=== PATIENT | female | born 1935 | race Hispanic/Latino ===

== ENCOUNTER 2018-06-09 18:59 | Observation (INO) | payer MEDICARE, MEDICAID ==
[2018-06-09 19:29] LABS: #Basophils 0.1 thou/uL (0.0-0.2); #Eosinphils 0.3 thou/uL (0.0-0.7); #Lymphocytes 2.5 thou/uL (1.20-3.40); #Monocytes 0.8 thou/uL (0.11-0.59); #Neutrophils 10.2 thou/uL (1.40-6.50); %Basophils 0.4 % (0.0-1.0); %Eosinophils 2.1 % (0.0-10.0); %Monocytes 5.5 % (0.0-10.0); Mean Corpuscular HGB CONC 33.7 g/dL (32.0-36.0); Mean Corpuscular Hemoglobin 30.1 pg (27.0-31.0); Mean Corpuscular Volume 89.4 fL (78.0-98.0); Mean Platelet Volume 9.6 fL (7.4-10.4); Platelet Count 245 thou/uL (130-400); RBC Distribution Width 12.9 % (11.5-14.5); Red Blood Cell (RBC) Count 3.99 mill/uL (4.20-5.40); White Blood Cell (WBC) Count 13.8 thou/uL (4.8-10.8)
--- NOTE | 2018-06-09 19:39 | RAD ---
FPortable chest: HISTORY: Chest pain COMPARISON: none FINDINGS: Lung martinez are clear. Heart and mediastinum appear unremarkable. Vascularity is normal. Visualized osseous structures unremarkable. IMPRESSION: No acute finding
[2018-06-09 19:50] LABS: ALT (SGPT) 10 U/L (8-55); AST (SGOT) 19 U/L (5-34); Albumin 3.8 g/dL (3.4-4.8); Alkaline Phosphatase 186 U/L (40-150); Anion Gap 14 mmol/L (10-20); BUN (Urea Nitrogen) 37 mg/dL (9.8-20.1); Bilirubin, Total 0.3 mg/dL (0.2-1.2); Calc. Creatinine Clearance 0 mL/min (70-130); Calcium 9.2 mg/dL (7.8-10.44); Carbon Dioxide 24 mmol/L (23-31); Chloride 105 mmol/L (98-107); Estimated GFR-MDRD 36; Globulin 3.6 g/dL (2.4-3.5); Glucose 443 mg/dL (83-110); Lipase 33 U/L (8-78); Magnesium 1.9 mg/dL (1.6-2.6); Potassium 4.3 mmol/L (3.5-5.1); Protein, Total 7.4 g/dL (6.0-8.3); Sodium 139 mmol/L (136-145)
[2018-06-09 20:13] LABS: Bilirubin Negative (Negative); Blood, Urine Trace (Negative); Clarity CLEAR (Clear); Glucose, Urine (Dipstick) >=1000 mg/dL (Negative); Leukocyte Trace (Negative); Nitrite Negative (Negative); Protein, Urine (Dipstick) 100 mg/dL (Neg-Trace); Specific Gravity, Urine 1.016 (1.002-1.036); Urobilinogen 0.2 mg/dL (0.2-1.0); pH, Urine 6.5 (5.0-9.0)
[2018-06-09 20:16] LABS: Bacteria/HPF None Seen HPF (None Seen); Hyaline Casts/LPF 4-6 HYALINE CAST LPF (0-3 Hyaline); Pathc Cast-AUWi Flag 1.63 (0-2.49); Squamous Epithelial 0-3 HPF (0-3)
[2018-06-09] MEDS ORDERED: Aspirin Chewable 81 MG TAB ONE (20:35)
[2018-06-09] MEDS ORDERED: Morphine 4 MG/ML VIAL ONE (20:37)
--- NOTE | 2018-06-09 21:31 | ULT ---
GALLBLADDER ULTRASOUND: 06/09/18 HISTORY: Right upper quadrant pain. Images of the gallbladder reveal numerous echogenic gallstones. Gallbladder wall is mildly thickened and there is mild pericholecystic edema. Negative Sutton's sign is described. The visualized pancreas is unremarkable. Common bile duct within normal range measured at 5 mm. The right kidney is unremarkable. IMPRESSION: Cholelithiasis is noted. Gallbladder wall is mildly thickened with pericholecystic edema noted. POS: DANIEL
[2018-06-09] MEDS ORDERED: Sodium Chloride 0.9% 100 ML ONE (22:04)
[2018-06-09] MEDS ORDERED: Piperacillin/Tazobactam 3.375 GM VIAL ONE (22:04)
[2018-06-09] MEDS ORDERED: Labetalol HCl 100 MG/20 ML VIAL SLOW IVP SCH (22:15)
[2018-06-09 23:03] LABS: Troponin I Less than 0.010 ng/mL (< 0.028)
[2018-06-10] MEDS ORDERED: Ondansetron PF 4 MG/2 ML Vial IVP PRN (00:17)
[2018-06-10] MEDS ORDERED: Ondansetron ODT 4 MG TAB SL PRN (00:17)
[2018-06-10] MEDS ORDERED: Morphine 4 MG/ML VIAL SLOW IVP PRN (00:18)
[2018-06-10] MEDS: Dextrose 5 %-0.45 % NaCl 1,000 ML IV SCH ×2 (00:29→08:32)
[2018-06-10 01:31] VITALS: BMI 25.4
[2018-06-10 01:33] LABS: Troponin I Less than 0.010 ng/mL (< 0.028)
[2018-06-10] MEDS ORDERED: ePHEDrine 50 MG/ML VIAL ONE (09:06)
[2018-06-10] MEDS ORDERED: PROPOFOL 200 MG/20 ML VIAL ONE (09:06)
[2018-06-10] MEDS ORDERED: Rocuronium Bromide 10 MG/ML (10ML VIAL) ONE (09:06)
[2018-06-10] MEDS ORDERED: Glycopyrrolate 0.2 MG/ML 5 ML SYRINGE ONE (09:06)
[2018-06-10] MEDS ORDERED: Lidocaine 1% PF 5 ML VIAL ONE (09:06)
[2018-06-10] MEDS ORDERED: Dextrose 5% in Water 1,000 ML IV PRN (11:28)
[2018-06-10] MEDS ORDERED: Insulin Regular 300 UNITS/3 ML VIAL SC PRN (11:28)
[2018-06-10] MEDS ORDERED: Dextrose 50% Abboject 50 ML SYRINGE SLOW IVP PRN (11:28)
[2018-06-10] MEDS ORDERED: Acetaminophen 1,000 MG in Premix Bag 1 BAG IVPB SCH (12:15)
[2018-06-10] MEDS ORDERED: Scopolamine 1.5 mg/72 hour Patch TD SCH (12:15)
[2018-06-10] MEDS ORDERED: Ketorolac Tromethamine 30 MG/ML VIAL IVP SCH (12:15)
--- NOTE | 2018-06-10 12:25 | HP ---
HISTORY OF PRESENT ILLNESS: Lorelei Fox is an 82-year-old female, presents with right upper quadrant pain and epigastric pain. Ultrasound revealed gallstones in the emergency room. Bile duct caliber is normal. Her liver function tests were normal. BUN 37 and creatinine 1.41. Her liver function tests were normal. The patient is scheduled for laparoscopic video cholecystectomy. Risks of infection, bleeding, visceral and biliary injury were discussed. She consents. ALLERGIES: NONE. SOCIAL HISTORY: Tobacco, none. Alcohol, none. MEDICATIONS: Trazodone at bedtime, tramadol p.r.n. for pain, omeprazole daily, lisinopril/hydrochlorothiazide 10/12.5 daily, insulin, atorvastatin, amlodipine, and alprazolam. PAST SURGICAL HISTORY: Appendectomy, hysterectomy, and . PAST MEDICAL HISTORY: Diabetes mellitus and hypertension. REVIEW OF SYSTEMS: Ten-point noncontributory. PHYSICAL EXAMINATION: VITAL SIGNS: Height 5 feet tall, 130 pounds, 25 BMI. Temperature 98.2, heart rate 72, and blood pressure 155/72. HEAD, EARS, EYES, NOSE AND THROAT: Unremarkable. LUNGS: Clear to auscultation. CARDIAC: Regular rate and rhythm without murmur or gallop. ABDOMEN: Soft. Tenderness in the right upper quadrant with guarding and rebound. Positive Sutton's. EXTREMITIES: Unremarkable. No ankle edema. NEUROLOGIC: Intact. LYMPHATIC: No lymphadenopathy at neck, groins, or axillae. ASSESSMENT/PLAN: 1. Cholecystitis. Recommend laparoscopic video cholecystectomy. Risks and benefits explained, she consents. 2. Hypertension. 3. Insulin-dependent diabetes mellitus. 4. Chronic kidney disease versus acute kidney injury. Continue hydration. Job ID: [id number]
[2018-06-10] MEDS ORDERED: Fentanyl 100 MCG/2 ML VIAL ONE (12:27)
[2018-06-10] MEDS ORDERED: Bupivacaine HCl 0.5%/Epinephrine 1:200,000/PF 30 ml Vial ONE (12:27)
[2018-06-10] MEDS ORDERED: Lisinopril 10 MG TAB PO SCH (12:45)
[2018-06-10] MEDS ORDERED: Levofloxacin 500 mg/D5W 100 ml Premix Bag ONE (12:56)
[2018-06-10] MEDS ORDERED: traMADol HCl 50 MG TAB PO PRN (13:04)
[2018-06-10] MEDS ORDERED: Acetaminophen 500 MG TAB PO PRN (13:04)
[2018-06-10] MEDS ORDERED: Ibuprofen 600 MG TAB PO PRN (13:04)
[2018-06-10] MEDS ORDERED: ALPRAZolam 0.25 MG TAB PO SCH (13:15)
[2018-06-10] MEDS ORDERED: SUGAMMADEX SODIUM 200 MG/2 ML VIAL ONE (14:11)
[2018-06-10] MEDS ORDERED: Labetalol HCl 100 MG/20 ML VIAL ONE (14:26)
[2018-06-10] MEDS ORDERED: Ondansetron PF 4 MG/2 ML Vial SLOW IVP PRN (15:32)
--- NOTE | 2018-06-10 18:23 | OP ---
DATE OF PROCEDURE: 06/10/2018 PREOPERATIVE DIAGNOSES: 1. Acute cholecystitis. 2. Cholelithiasis. POSTOPERATIVE DIAGNOSES: 1. Acute cholecystitis. 2. Cholelithiasis. PROCEDURE PERFORMED: Laparoscopic video cholecystectomy. ANESTHESIA: General, local 0.5% Marcaine with epinephrine, 30 mL total volume used. DESCRIPTION OF PROCEDURE: The patient was taken to the operating room, where under general anesthesia, abdomen was clipped of hair, prepared with ChloraPrep, and draped in routine fashion local anesthetic was infiltrated in the skin and subcutaneous tissue at each port site. Periumbilical incision made. Pneumoperitoneum to 15 mmHg obtained with the Veress needle, replaced with a 5 port. Laparoscope was inserted. Right subxiphoid incision was made and 11 port placed, right subcostal incision was made in the midclavicular entrance line and 5 port was placed. Gallbladder was acutely inflamed, thickened wall. Fundus was grasped at the cephalad. Liver appeared to be normal. Infundibulum was grasped and retracted laterally. The inflammatory process dissected free, identifying cystic artery, double clipping the cystic artery, dividing it, dissecting the cystic duct, dividing it with clip and two endo-loops applied. Gallbladder dissected free from liver bed, obtaining good hemostasis prior to division of the final peritoneal attachments. Gallbladder and contents removed, submitted to Pathology. Good hemostasis ensured with the cautery. Irrigant and pneumoperitoneum evacuated. All instruments were removed. All skin incisions were approximated with interrupted subdermal 4-0 Monocryl and dermal glue applied. Job ID: [id number]
[2018-06-10 18:52] VITALS: BP 160/67; TEMP 97.6
--- NOTE | 2018-06-11 08:14 | DIS ---
DATE OF ADMISSION: 06/09/2018 DATE OF DISCHARGE: 06/10/2018 HISTORY: An 82-year-old female presenting with epigastric right upper quadrant pain, seen in the emergency room, evaluated and liver function tests normal. Ultrasound; gallstones, normal bile duct caliber. Hospitalized overnight, on antibiotics. Taken to the operating room for laparoscopic video cholecystectomy. Discharged home. Postoperatively, tolerating liquids, advancing diet as tolerated to diabetic diet. DISCHARGE MEDICATIONS: Tylenol as needed for pain, Motrin [id number] as needed for pain, Ultram #20 50 mg p.o. q.i.d. p.r.n. pain. The patient to resume her home medications, including trazodone, insulin, atorvastatin, lisinopril, and metformin. Job ID: [id number]
[2018-06-11] MEDS ORDERED: Lisinopril 10 MG TAB PO SCH (09:00)
[2018-06-11] MEDS ORDERED: Lisinopril/Hydrochlorothiazide 10 mg/12.5 mg Tablet PO SCH (09:00)
[2018-06-11] MEDS ORDERED: Amlodipine 10 MG TAB PO SCH (09:00)
== END 2018-06-10 19:00 | disposition home or self-care (01) ==
LOC: ERS 18:59 → SURG A 21:36
PROVIDERS: ADMIT Specialist; ATTEND Specialist
PROC: 0FT44ZZ Resection of Gallbladder, Percutaneous Endoscopic Approach (ICD-10-PCS; principal; 2018-06-10)
DX: K80.12 Calculus of gallbladder with acute and chronic cholecystitis without obstruction (principal); I10 Essential (primary) hypertension; E11.9 Type 2 diabetes mellitus without complications; Z79.4 Long term (current) use of insulin; Z79.899 Other long term (current) drug therapy
CPT/HCPCS: 47562; 71045; 76705; 80053; 82962; 83690; 83735; 84484 ×3; 85025; 85379; 88304; 93005; 96361 ×2; 96365; 96375 ×2; 99285; G0378 ×2; 36415; 36416; 81003; 81015; J0670; J1815; J1885; J1956; J2001; J2270; J2543; J2704; J3010; J3490; J7050

== ENCOUNTER 2018-09-11 23:32 | Inpatient (IN) | payer MEDICARE, MEDICAID ==
--- NOTE | 2018-09-11 23:58 | RAD ---
EXAM: Single view of the chest HISTORY: Chest pain and shortness of breath COMPARISON: 06/09/2018 FINDINGS: Single view of the chest shows a normal sized cardiomediastinal silhouette. There is no lexie dence of consolidation, mass, or pleural effusion. Degenerative changes are seen in the spine. IMPRESSION: No evidence of acute cardiopulmonary disease
[2018-09-12] MEDS ORDERED: Acetaminophen 650 MG Suppository ONE (00:04)
[2018-09-12] MEDS ORDERED: Piperacillin/Tazobactam 4.5 GM VIAL ONE ×2 (00:04→10:51)
[2018-09-12 00:23] LABS: #Lymphocytes 1.1 thou/uL (1.20-3.40); #Monocytes 0.1 thou/uL (0.11-0.59); #Neutrophils 12.2 thou/uL (1.40-6.50); %Basophils 0.2 % (0.0-1.0); %Eosinophils 0.3 % (0.0-10.0); %Lymphocytes 8.4 % (21.0-51.0); %Monocytes 0.7 % (0.0-10.0); %Neutrophils 90.5 % (42.0-75.0); Hemoglobin 11.1 g/dL (12.0-16.0); Mean Corpuscular HGB CONC 32.6 g/dL (32.0-36.0); Mean Corpuscular Hemoglobin 28.5 pg (27.0-31.0); Mean Corpuscular Volume 87.4 fL (78.0-98.0); Mean Platelet Volume 8.3 fL (7.4-10.4); Platelet Count 338 thou/uL (130-400); RBC Distribution Width 12.5 % (11.5-14.5); Red Blood Cell (RBC) Count 3.89 mill/uL (4.20-5.40); White Blood Cell (WBC) Count 13.5 thou/uL (4.8-10.8)
[2018-09-12 00:47] LABS: ALT (SGPT) 8 U/L (8-55); AST (SGOT) 24 U/L (5-34); Albumin 3.4 g/dL (3.4-4.8); Alkaline Phosphatase 181 U/L (40-150); Anion Gap 16 mmol/L (10-20); BUN (Urea Nitrogen) 32 mg/dL (9.8-20.1); Bilirubin, Total 0.7 mg/dL (0.2-1.2); Calc. Creatinine Clearance 0 mL/min (70-130); Calcium 8.8 mg/dL (7.8-10.44); Carbon Dioxide 23 mmol/L (23-31); Chloride 100 mmol/L (98-107); Estimated GFR-MDRD 27; Globulin 4.5 g/dL (2.4-3.5); Glucose 272 mg/dL (83-110); Lipase 19 U/L (8-78); Protein, Total 7.9 g/dL (6.0-8.3); Sodium 135 mmol/L (136-145)
[2018-09-12 03:23] LABS: Bacteria/HPF 3+ HPF (None Seen); Bilirubin Negative (Negative); Blood, Urine 2+ (Negative); Clarity Turbid (Clear); Glucose, Urine (Dipstick) Greater than 1000 mg/dL (Negative); Leukocyte 500 Leu/uL (Negative); Nitrite Negative (Negative); Protein, Urine (Dipstick) 300 mg/dL (Neg-Trace); Urobilinogen Normal mg/dL (Less than 2); WBC/HPF Greater than 50 HPF (0-3)
[2018-09-12 04:16] LABS: Lactic Acid 3.6 mmol/L (0.5-2.2)
[2018-09-12] MEDS ORDERED: Loratadine 10 MG TAB PO PRN (07:57)
[2018-09-12] MEDS ORDERED: HYDROcodone/Acetaminophen 5/325 mg Tablet PO PRN (07:57)
[2018-09-12] MEDS ORDERED: hydrALAZINE 20 MG/ML VIAL SLOW IVP PRN (07:57)
[2018-09-12] MEDS ORDERED: Zolpidem Tartrate 5 MG TAB PO PRN (07:57)
[2018-09-12] MEDS ORDERED: Senokot S 8.6-50 MG TAB PO PRN (07:57)
[2018-09-12] MEDS ORDERED: Ondansetron PF 4 MG/2 ML Vial IVP PRN (07:57)
[2018-09-12] MEDS ORDERED: Artificial Tears 18 DROP/0.9 ML EA EYE PRN (07:57)
[2018-09-12] MEDS ORDERED: Calcium Carbonate 500 MG ChewTAB PO PRN (07:57)
[2018-09-12] MEDS ORDERED: Dextrose 50% Abboject 50 ML SYRINGE SLOW IVP PRN (07:57)
[2018-09-12] MEDS ORDERED: HumaLOG 300 UNITS/3 ML VIAL SC PRN (07:57)
[2018-09-12] MEDS ORDERED: Sodium Chloride 0.65% Nasal 44 ML BOT EA NARE PRN (07:57)
[2018-09-12] MEDS ORDERED: Ondansetron ODT 4 MG TAB PO PRN (07:57)
[2018-09-12] MEDS ORDERED: Dextrose 5% in Water 1,000 ML IV PRN (07:57)
[2018-09-12] MEDS ORDERED: Diabetic Tussin 200 MG/10 ML UDCUP PO PRN (07:57)
[2018-09-12] MEDS ORDERED: Cepastat Lozenges 1 LOZ PO PRN (07:57)
--- NOTE | 2018-09-12 08:11 | CT ---
PRELIMINARY REPORT/[facility]/EMERGENCY AFTER HOURS PROCEDURE: EXAM: CT Abdomen and Pelvis Without Contrast EXAM DATE/TIME: 09/12/2018 12:58 AM CLINICAL HISTORY: 82 years old, female; Abdominal pain; Generalized; Prior surgery; Patient HX: Er7; No previous on pac s; F82 presents to ED C/O chest pain, nausea, vomiting, and fever. 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 PT report s mild abd pain. Surgical history of hysterectomy TECHNIQUE: Imaging protocol: Axial computed tomography images of the abdomen and pelvis without contrast. COMPARISON: No relevant prior studies available. FINDINGS: Liver: Right hepatic lobe cluster of relatively low attenuation focal lesions/multilocular mass measu ring an area about up to 7.5 cm. Few small air pockets within an inferior lesion. Mild perihepatic lo culated fluid in this region containing tiny air pockets as well. Small nodule inferior to the liver (axial image 41). Gallbladder and bile ducts: Prior cholecystectomy. Mildly dilated common bile duct with a focal hyper density/sludge ball in the distal aspect of the CBD. No intrahepatic biliary dilation. Pancreas: Atrophic fatty pancreas. No ductal dilation. Spleen: No acute findings. No splenomegaly. Adrenals: No acute findings. No mass. Kidneys and ureters: No obstructing stone. No hydronephrosis. Stomach and bowel: Colonic wall thickening/colitis. Rectal fecal impaction. No evidence of bowel obst ruction. Diverticulosis. Appendix: No evidence of appendicitis. Intraperitoneal space: See above. Vasculature: Atherosclerotic calcifications. No aortic aneurysm. Lymph nodes: No significant adenopathy. Bladder: No stones. Reproductive: No acute findings. Bones/joints: No acute fracture. Soft tissues: Scattered mild anterior abdominal subcutaneous densities. IMPRESSION: Right hepatic focal lesions/multilocular mass described above could relate to abscess; malignancy/met astatic disease not excluded. Mild perihepatic loculated fluid containing tiny air pockets. Colitis. Other findings above. THIS REPORT CONTAINS FINDINGS THAT MAY BE CRITICAL TO PATIENT CARE. The findings were verbally commun icated via telephone conference with MELIZA CASTILLO at 2:23 AM CDT on 09/12/2018. The findings were a cknowledged and understood. Thank you for allowing us to participate in the care of your patient. Dictated and Authenticated by: Carlos Aguilar MD 09/12/2018 2:42 AM Central Time ([place] & [place]) FINAL REPORT ABDOMEN CT WITHOUT CONTRAST PELVIC CT WITHOUT CONTRAST: HISTORY: Abdominal pain. Nausea. Vomiting. COMPARISON: None. FINDINGS: ABDOMEN CT: Hypoattenuation with small pockets of fluid and air are noted in the right hepatic lobe as well as in the adjacent perihepatic space. Spleen, pancreas, and adrenal glands are grossly unremarkable. Gal lbladder is surgically absent. Bilaterally, no obstructive uropathy. No evidence of bowel obstructi on. Normal-caliber appendix. There is mucosal thickening involving the right hemicolon, sigmoid col on. Fecal impaction in the rectum. CT PELVIS: No acute abnormality. IMPRESSION: 1. Right hepatic lobe mass with air attenuation, worrisome for abscess until proven otherwise. [place] stases/malignancy cannot be excluded. There is a small perihepatic loculated fluid collection with t iny pockets of air also noted. 2. Bowel wall thickening involving the right hemicolon, worrisome for colitis. Additional bowel wal l thickening may involve the sigmoid colon. A small amount of fecal impaction in the rectum. I agree with the preliminary report given by Susana. POS: CLARA
[2018-09-12] MEDS ORDERED: Famotidine 20 MG TAB ONE (08:40)
[2018-09-12] MEDS ORDERED: Enoxaparin Sodium 40 MG/0.4 ML SYRINGE ONE (08:40)
[2018-09-12] MEDS: Sodium Chloride 0.9% 1,000 ML IV SCH ×2 (08:59→17:22)
[2018-09-12] MEDS: Famotidine 20 MG TAB PO SCH (09:00)
[2018-09-12] MEDS ORDERED: Enoxaparin Sodium 40 MG/0.4 ML SYRINGE SC SCH (09:00)
[2018-09-12] MEDS: Saccharomyces boulardii 250 MG CAP PO SCH (09:30)
[2018-09-12 09:57] LABS: Troponin I 0.028 ng/mL (< 0.028)
[2018-09-12] MEDS ORDERED: HumaLOG 300 UNITS/3 ML VIAL ONE (10:44)
[2018-09-12] MEDS: HumaLOG 300 UNITS/3 ML VIAL SC PRN (10:49)
[2018-09-12] MEDS ORDERED: Sodium Chloride 0.9% 100 ML ONE (11:02)
[2018-09-12] MEDS ORDERED: Piperacillin/Tazobactam 4.5 GM in Sodium Chloride 0.9% 100 ML IVPB SCH (12:00)
--- NOTE | 2018-09-12 13:07 | HP ---
PRIMARY CARE PHYSICIAN: Candy Hernandez. REASON FOR ADMISSION: Sepsis, UTI, colitis, liver mass versus abscess. HISTORY OF PRESENT ILLNESS: An 82-year-old female, who was brought to emergency room for chest pain. The patient complained left-sided chest pain which was intermittent without any relation of food, respiration, or activity. She had two episodes of vomiting at home which was containing food particle without any biliary vomiting or blood. She was having nausea and she had very poor appetite for last 2 days. She is not sure about losing weight. She does not have any diarrhea or constipation or abdominal pain. She was having fever with chills at home. She also has increased frequency of urination. She denies any hematuria. She denies any headache, sore throat, cough productive of sputum, upper or lower respiratory symptoms. This patient is a little bit poor historian, but her granddaughter is present who provided some history. Her is also present at bedside. REVIEW OF SYSTEMS: CONSTITUTIONAL: Negative for weight loss or gain, ability to conduct usual activities. SKIN: Negative for rash, itching. EYES: Negative for double vision, pain. ENT/MOUTH: Negative for nose bleeding, neck stiffness, pain, tenderness. CARDIOVASCULAR: Negative for palpitations, dyspnea on exertion, orthopnea. RESPIRATORY: Negative for shortness of breath, wheezing, cough, hemoptysis, fever or night sweats. GASTROINTESTINAL: Negative for poor appetite, abdominal pain, heartburn, nausea, vomiting, constipation, or diarrhea. GENITOURINARY: Negative for urgency, frequency, dysuria, nocturia. MUSCULOSKELETAL: Negative for pain, swelling. NEUROLOGIC/PSYCHIATRIC: Negative for anxiety, depression. ALLERGY/IMMUNOLOGIC: Negative for skin rash, bleeding tendency. Please see my HPI for pertinent positives and negatives. All other review of systems reviewed and negative except as mentioned in HPI. PAST MEDICAL HISTORY: Diabetes type 2, on insulin; hypertension; and dyslipidemia. PAST SURGICAL HISTORY: Hysterectomy. PAST PSYCHIATRIC HISTORY: Reviewed and negative. SOCIAL HISTORY: The patient is , lives at home with family. No history of tobacco, alcohol, or illicit drug abuse. FAMILY HISTORY: No family history of coronary artery disease, stroke, or cancer. ALLERGIES: NO KNOWN DRUG ALLERGIES. CURRENT HOME MEDICATIONS: The patient's family member did not bring any medication in the emergency room, so unable to review at this point and they do not know the name of medication. We will review later when they bring the medication from home. EMERGENCY ROOM COURSE: The patient has received Tylenol and Zosyn. Additional information in the emergency room, the patient had routine blood test, which showed leukocytosis with left shift. She also had lactic acidosis and chronic kidney disease. Her urinalysis was also suggestive of UTI. CT abdomen and pelvis showed right hepatic focal lesion, multilocular mass versus abscess and finding suggestive of colitis. PHYSICAL EXAMINATION: VITAL SIGNS: In the emergency room on admission, temperature maximum 102, pulse 113, respiratory rate 28, blood pressure 123/51. Weight 64 kg. GENERAL: The patient is currently alert, awake, febrile, tachycardic, chronically ill, no obvious acute distress. HEENT: Head; normocephalic, atraumatic. Eyes; pupils round, reactive to light. Extraocular muscle intact. ENT; oropharynx within normal limits. Moist mucous membranes. No oral lesion. No pharyngeal erythema. No exudate. NECK: Supple. No JVD. No thyromegaly. No carotid bruit. No jugular venous distention. LUNGS: Clear to auscultation without any rhonchi or rales. CARDIAC: S1, S2 regular. Tachycardia. No murmur. No gallop. No rub. ABDOMEN: Soft. Bowel sounds present. Nontender. Nondistended. No organomegaly. No mass. I could not elicit any tenderness on deep palpation including right upper quadrant and no peritoneal sign. No suprapubic discomfort. BACK: No CVA tenderness. EXTREMITIES: Upper extremities, passive movement of all joints are normal. Lower extremities, no edema. Good distal pulsation. SKIN: No skin rash. HEMATOLOGIC: No lymphadenopathy. PSYCHIATRIC: Normal affect. SIGNIFICANT LABORATORY DATA: EKG showing sinus tachycardia, incomplete right bundle-branch block pattern, nonspecific ST-T changes. CT abdomen and pelvis showing right hepatic lobe cluster of relatively low attenuation, focal lesion, multilocular mass measuring about 7.5 cm, few small air pocket within the inferior lesion. The patient has previous cholecystectomy which patient did not provide in history. She also has a colonic wall thickening and consistent with colitis and rectal fecal impaction. Chest x-ray based on my review, no acute cardiopulmonary process. CBC; WBC 13.5, hemoglobin 11.1, platelet 338 with left shift. BMP; sodium 135, potassium 4.0, chloride 100, carbon dioxide 23, BUN 33, creatinine 1.82, glucose 272, calcium 8.8, lactic acid 2.3. LFT; AST 24, ALT 8, alkaline phosphatase 181, albumin 3.4, lipase 19. BNP 141. Troponin negative x2. Urinalysis consistent with glucosuria, proteinuria, and bacteriuria. ASSESSMENT AND PLAN: 1. Acute colitis, presumed infectious. This patient has colitis with liver abscess. Anaerobic infection is likely. We will also check stool for common infectious etiology including Clostridium difficile, ova, parasite, and Campylobacter antigen. We will consult [employer] for further assistance with management. The patient is currently kept on Zosyn and Flagyl. We will continue with IV fluid and we will continue with clear liquid diet. She never had colonoscopy in the past, so she may need colonoscopic evaluation to rule out underlying malignancy. 2. Urinary tract infection. The patient kept on Zosyn. We will follow up on urine culture results. This patient does not have any urinary tract infection symptoms, but her urinalysis is consistent with abnormal urinalysis and we will follow up on culture result and treat accordingly. 3. Sepsis. The patient meets sepsis criteria with lactic acidosis, tachycardia, high-grade fever, leukocytosis. Source of infection is colitis as well as urinary tract infection and liver abscess. The patient kept on Zosyn and Flagyl IV fluid and we will follow up on culture result and change antibiotic therapy accordingly. 4. Lactic acidosis due to sepsis. We will repeat lactic acid level tomorrow. 5. Liver abscess/mass. I am suspecting that the patient may have pyogenic liver abscess. At this point, [employer] aircraft was consulted. This patient may need liver lesion aspiration through radiological guidance. We will defer that decision to Gastroenterology at this point. 6. Diabetes type 2. We will continue with insulin as per sliding scale protocol. Diabetic diet will be given. 7. Acute/chronic kidney disease. This patient has creatinine baseline in 1.4 range. We will continue with IV fluid because of sepsis and will repeat BMP tomorrow. 8. Hypertension, but currently low blood pressure and that is why we will hold on antihypertensive medication. 9. Gastroesophageal reflux disease. We will continue with Pepcid 20 mg p.o. daily. 10. Dyslipidemia. We will continue the patient's home statin therapy after verification. 11. Code status. Discussed with the patient and the patient's and the patient wants to be a DNR. 12. Chest pain. The patient does not have any new EKG changes. We will continue with monitoring on telemetry floor and do serial cardiac enzymes and monitor today on telemetry floor. DISPOSITION PLAN: Based on clinical course. Plan of care discussed with the patient and family member. We are expecting the patient's stay in hospital more than 2 midnights. Job ID: [id number]
[2018-09-12 13:16] LABS: Troponin I 0.039 ng/mL (< 0.028)
[2018-09-12] MEDS ORDERED: Acetaminophen 325 MG TAB ONE (14:04)
[2018-09-12 15:12] LABS: Troponin I 0.022 ng/mL (< 0.028)
[2018-09-12 15:19] VITALS: BMI 21.7
[2018-09-12] MEDS: metroNIDAZOLE 500 MG in Premix Bag 1 BAG IVPB SCH ×2 (16:07→21:26)
[2018-09-12] MEDS: Piperacillin/Tazobactam 2.25 GM in Sodium Chloride 0.9% 100 ML IVPB SCH (17:22)
[2018-09-12] MEDS: Acetaminophen 325 MG TAB PO PRN (21:27)
[2018-09-13] MEDS ORDERED: Acetaminophen 650 MG in Premix Bag 1 BAG IVPB SCH (00:15)
[2018-09-13] MEDS: Piperacillin/Tazobactam 2.25 GM in Sodium Chloride 0.9% 100 ML IVPB SCH ×4 (00:34→17:57)
[2018-09-13] MEDS: Sodium Chloride 0.9% 1,000 ML IV SCH ×3 (02:24→17:31)
--- NOTE | 2018-09-13 03:41 | CON ---
DATE OF CONSULTATION: 09/12/2018 REASON FOR CONSULTATION: Abnormal GI imaging, colitis. CONSULTING PROVIDER: Juan Jose Fleming MD HISTORY OF PRESENT ILLNESS: The patient is an 82-year-old female with past medical history of diabetes, hypertension, hyperlipidemia, presenting with complaints of chest pain. She states that she was in her usual state of health until approximately 3 weeks ago when she began to experience increased right-sided chest pain. This chest pain characterizes more of a burning-type sensation that would also extend into the substernal chest region as well. With the onset of this chest pain, it did also have associated nausea and vomiting with nonbloody emesis, having approximately one episode of emesis every 1 to 2 days in addition to subjective fevers and chills, although the patient cannot recall having taken her temperature at home. However, over the last 48 hours prior to admission, she had worsening of her nausea and vomiting as well as her chest pain, which prompted her to seek healthcare assistance in the [place] [facility]. While in the ER, she had a CT scan performed of the abdomen and pelvis, which showed significant abnormalities including colitis of the possible sigmoid and right-sided colon as well as a large multiloculated mass/lesion within the liver concerning for abscess formation versus malignancy. She was subsequently admitted to the hospital for further evaluation. Upon further questioning, the patient has never had a colonoscopy before and also denies a family history of colorectal cancer. She has approximately one semi-solid bowel movement every 1-2 days, but does have to resort to increased straining in order to facilitate passage of the stool in addition to increased abdominal pressure. She states that she has a chronic history of constipation relating to this particular bowel habit/pattern. Otherwise, she denies any hematemesis, melena, hematochezia or diarrhea, although she does endorse again increased fevers and chills while being here in the hospital. REVIEW OF SYSTEMS: A 10-category review of systems was obtained with all responses negative except for the pertinent positives as listed in HPI, albeit there was a little bit of a language barrier, so some questions were unclear. PAST MEDICAL HISTORY: As per HPI. PAST SURGICAL HISTORY: Hysterectomy. FAMILY HISTORY: Denies any GI malignancies. SOCIAL HISTORY: Denies any tobacco, alcohol, or illicit drug use. OUTPATIENT MEDICATIONS: Unknown. ALLERGIES: NO KNOWN DRUG ALLERGIES. PHYSICAL EXAMINATION: VITAL SIGNS: Temperature 103.2, pulse 104, blood pressure 141/65, respiratory rate 20, saturating 93% on room air. GENERAL: The patient was lying in bed, in no acute distress. Alert and oriented x4. HEENT: Normocephalic, atraumatic. No scleral icterus or JVD noted. CARDIOVASCULAR: Tachycardic rate but regular rhythm with no discernible murmurs, gallops, or rubs. RESPIRATORY: Clear to auscultation bilaterally with no discernible wheezes or rales. ABDOMEN: Hypoactive bowel sounds. Soft, nondistended, mild tenderness to palpation in the right upper quadrant, but otherwise normal. EXTREMITIES: No cyanosis, clubbing, or edema. LABORATORY DATA: CBC with a white blood cell count of 13.5, hemoglobin 11.1, hematocrit 34, platelets 338. Chemistry with a sodium of 135, potassium 4.0, chloride 100, CO2 of 23, BUN 32, creatinine 1.82, AST 24, ALT 8, alkaline phosphatase 181, total bilirubin 0.7. IMAGING DATA: CT of the abdomen and pelvis was obtained on September 11, 2018, which showed a right hepatic lobe cluster of relatively low-attenuation focal lesions/multilocular mass measuring up to 7.5 cm. There were few small air pockets within the inferior lesion, as well as mild perihepatic loculated fluid in the region also containing tiny air pockets as well concerning for the presence of abscess formation. They did comment on mild dilation of the common bile duct with focal hyperdensity/sludge ball of the distal aspect of the CBD, although no intrahepatic dilatation was noted. Lastly, there was some colonic wall thickening/colitis noted within the right colon as well as possibly within the sigmoid colon, but no evidence of bowel obstruction. ASSESSMENT AND PLAN: The patient is an 82-year-old female with past medical history of diabetes, hypertension, hyperlipidemia, presenting with abnormal imaging with liver finding concerning for abscess/metastatic disease and colon findings concerning for either inflammation versus malignancy. Abnormal GI imaging. The patient is presenting with a 3-week history of general malaise, nausea, vomiting, fevers and chills in addition to right-sided chest pain that ultimately brought her to seek healthcare assistance at [facility] [place]. On admission, she was noted to have a CT scan which showed multiple pathologic findings including a multiloculated mass within the liver as well as mucosal thickening of the right hemicolon and sigmoid colon, both concerning for inflammation/infectious type process and/or possible malignancy. Given the air levels within the pockets within the liver, multiloculated mass is highly concerning for the presence of abscess formation, although it could be necrotic metastatic disease as well (less likely). Further evaluation of this liver lesion is warranted to include either an MRI and/or IR guided fine-needle aspiration of this fluid further guide therapy and antibiotic administration. She does also have the concurrent thickening of right colon and sigmoid colon, which is concerning for possible infectious process, although the patient is exhibiting constipation coming into the hospital, having approximately one bowel movement every 1 to 2 days requiring increased straining in order to facilitate defecation, making an infectious process less likely. More likely could potentially be stercoral colitis associated with increased constipation and fecal impaction in the past, which then may cause significant inflammation and a point of entry for bacteria to hematogenously spread to the liver, creating multifocal abscess there as well. RECOMMENDATIONS: 1. Would obtain a multiphasic MRI for further evaluation of the liver lesion to rule out possible malignancy that could generate the CT findings given that HCC can produce fever. It cannot be excluded at this time. 2. Agree with placing the patient on broad spectrum antibiotic therapy for covering of a possible liver abscess. 3. Would consult Interventional Radiology for possible fine-needle aspiration of the liver lesion based on the MRI findings. 4. Given the elevated fever and possible liver abscess which could result in sepsis, we will hold off on any endoscopy intervention at this time, but would consider in the near future for further evaluation of possible metastatic process. 5. Would start the patient on MiraLAX 17 g daily to assist with constipation during this admission. With the appearance of a possible liver abscess, this patient's clinical status is tenuous and I would have a low threshold to transfer her to the unit if she is having a worsening clinical status. We will continue to follow. Please call with any questions. Job ID: [id number]
[2018-09-13] MEDS: metroNIDAZOLE 500 MG in Premix Bag 1 BAG IVPB SCH ×3 (06:13→22:03)
[2018-09-13 06:24] LABS: Lactic Acid 1.4 mmol/L (0.5-2.2)
[2018-09-13 06:32] LABS: Band 30 % (5-11); Hemoglobin 9.3 g/dL (12.0-16.0); Lymphocytes 6 % (21-51); MDiff Complete? YES; Mean Corpuscular HGB CONC 32.7 g/dL (32.0-36.0); Mean Corpuscular Hemoglobin 28.9 pg (27.0-31.0); Mean Corpuscular Volume 88.2 fL (78.0-98.0); Mean Platelet Volume 8.7 fL (7.4-10.4); Monocytes 6 % (0-10); Neutrophil 58 % (42-75); Platelet Count 236 thou/uL (130-400); Platelet Morphology Comment Appears Adequate; RBC Distribution Width 12.4 % (11.5-14.5); Red Blood Cell (RBC) Count 3.21 mill/uL (4.20-5.40); White Blood Cell (WBC) Count 19.5 thou/uL (4.8-10.8)
[2018-09-13 06:38] LABS: ALT (SGPT) 15 U/L (8-55); AST (SGOT) 48 U/L (5-34); Albumin 2.3 g/dL (3.4-4.8); Alkaline Phosphatase 125 U/L (40-150); Anion Gap 15 mmol/L (10-20); BUN (Urea Nitrogen) 35 mg/dL (9.8-20.1); Bilirubin, Total 0.7 mg/dL (0.2-1.2); Calc. Creatinine Clearance 16 mL/min (70-130); Carbon Dioxide 18 mmol/L (23-31); Chloride 108 mmol/L (98-107); Estimated GFR-MDRD 19; Globulin 3.5 g/dL (2.4-3.5); Glucose 287 mg/dL (83-110); Potassium 3.7 mmol/L (3.5-5.1); Protein, Total 5.8 g/dL (6.0-8.3); Sodium 137 mmol/L (136-145)
[2018-09-13] MEDS: Famotidine 20 MG TAB PO SCH (09:55)
[2018-09-13] MEDS: Polyethylene Glycol 3350 17 GM Packet PO SCH (09:55)
[2018-09-13] MEDS: Saccharomyces boulardii 250 MG CAP PO SCH (09:55)
[2018-09-13] MEDS: Enoxaparin Sodium 30 MG/0.3 ML SYRINGE SC SCH (09:55)
--- NOTE | 2018-09-13 10:46 | PDOC.PN ---
- Subjective Encounter Start Date: 09/13/18 Encounter Start Time: 07:40 -: old records requested/rev pt had fever last night, she has LLQ mild tenderness, no diarrhoea, - Objective Resuscitation Status - Order Detail: 09/12/18 10:37 Resuscitation Status Routine Resuscitation Status: DNAR: NO Resuscitation Discussed with: discussed with pt and MAR Reviewed: Yes Vital Signs & Weight: Vital Signs (12 hours) Temp Pulse Resp BP Pulse Ox 09/13/18 07:40 97.4 F L 85 18 107/57 L 99 09/13/18 04:00 98.1 F 75 18 103/53 L 96 09/13/18 00:00 103.2 F H 104 H 20 141/65 H 93 L Weight Weight 122 lb 12.8 oz I&O: 09/12/18 09/13/18 09/14/18 06:59 06:59 06:59 Intake Total 2665 Balance 2665 Result Diagrams: 09/13/18 05:54 09/13/18 05:54 Additional Labs: Accuchecks 09/13/18 09/12/18 09/12/18 05:31 20:43 17:00 POC Glucose 300 H 237 H 173 H 09/12/18 10:41 POC Glucose 211 H EKG Reviewed by me: Yes Phys Exam - Physical Examination Constitutional: NAD HEENT: PERRLA, moist MMs, sclera anicteric Neck: no JVD, supple Respiratory: no wheezing, no rales, no rhonchi Cardiovascular: RRR, no significant murmur, no rub Gastrointestinal: soft, no distention, positive bowel sounds LLQ mild discomfort Musculoskeletal: no edema, pulses present Neurological: non-focal, normal sensation, moves all 4 limbs Lymphatic: no nodes Psychiatric: normal affect, A&O x 3 Skin: no rash, normal turgor Dx/Plan (1) Acute colitis Code(s): K52.9 - NONINFECTIVE GASTROENTERITIS AND COLITIS, UNSPECIFIED Status : Acute (2) Acute worsening of stage 3 chronic kidney disease Code(s): N18.3 - CHRONIC KIDNEY DISEASE, STAGE 3 (MODERATE) Status: Acute (3) Lactic acidosis Code(s): E87.2 - ACIDOSIS Status: Acute (4) Liver abscess Code(s): K75.0 - ABSCESS OF LIVER Status: Acute (5) Sepsis with acute organ dysfunction Code(s): A41.9 - SEPSIS, UNSPECIFIED ORGANISM; R65.20 - SEVERE SEPSIS WITHOUT SEPTIC SHOCK Status: Acute (6) UTI (urinary tract infection) Status: Acute (7) Anemia, normocytic normochromic Code(s): D64.9 - ANEMIA, UNSPECIFIED Status: Chronic (8) Diabetes type 2, controlled Code(s): E11.9 - TYPE 2 DIABETES MELLITUS WITHOUT COMPLICATIONS Status: Chronic (9) Dyslipidemia Code(s): E78.5 - HYPERLIPIDEMIA, UNSPECIFIED Status: Chronic (10) GERD (gastroesophageal reflux disease) Code(s): K21.9 - GASTRO-ESOPHAGEAL REFLUX DISEASE WITHOUT ESOPHAGITIS Status: Chronic (11) Hypertension Code(s): I10 - ESSENTIAL (PRIMARY) HYPERTENSION Status: Chronic - Plan cont current plan of care, plan discussed w/ family, continue antibiotics * continue zosyn and flagyl * add vancomycin * follow culture result * GI recommendation noted * continue IVF * medication reviewed as below * symptomatic treatment * discussed with family. * today MRI abdomen and based on that result will decide about aspiration Review of Systems - Review of Systems Constitutional: fever, weakness, malaise. negative: chills, sweats, other ENT: negative: Ear Pain, Ear Discharge, Nose Pain, Nose Discharge, Nose Congestion, Mouth Pain, Mouth Swelling, Throat Pain, Throat Swelling, Other Respiratory: negative: Cough, Dry, Shortness of Breath, Hemoptysis, SOB with Excertion, Pleuritic Pain, Sputum, Wheezing Cardiovascular: negative: chest pain, palpitations, orthopnea, paroxysmal nocturnal dyspnea, edema, light headedness, other Gastrointestinal: Abdominal Pain. negative: Nausea, Vomiting, Diarrhea, Constipation, Melena, Hematochezia, Other Genitourinary: negative: Dysuria, Frequency, Incontinence, Hematuria, Retention , Other Musculoskeletal: negative: Neck Pain, Shoulder Pain, Arm Pain, Back Pain, Hand Pain, Leg Pain, Foot Pain, Other Skin: negative: Rash, Lesions, Deric, Bruising, Other - Medications/Allergies Allergies/Adverse Reactions: Allergies Allergy/AdvReac Type Severity Reaction Status Date / Time No Known Drug Allergies Allergy Verified 09/12/18 15:29 Medications: Current Medications Acetaminophen (Tylenol) 650 mg PO Q4H PRN PRN Reason: Headache/Fever/Mild Pain (1-3) Last Admin: 09/12/18 21:27 Dose: 650 mg Hydrocodone Bitart/Acetaminophen ([place] 5/325) 1 tab PO Q4H PRN PRN Reason: Moderate Pain (4-6) Artificial Tears (Tears Naturale) 2 drop EA EYE PRN PRN PRN Reason: Dry Eyes Calcium Carbonate (Tums) 1,000 mg PO Q4H PRN PRN Reason: Heartburn or Indigestion Dextrose/Water (Dextrose 50%) 25 gm SLOW IVP PRN PRN PRN Reason: Hypoglycemia Enoxaparin Sodium (Lovenox) 30 mg SC 0900 [facility] Last Admin: 09/13/18 09:55 Dose: 30 mg Famotidine (Pepcid) 20 mg PO DAILY [facility] Last Admin: 09/13/18 09:55 Dose: 20 mg Glucagon (Glucagon) 1 mg IM PRN PRN PRN Reason: Hypoglycemia Guaifenesin (Robitussin Sf) 200 mg PO Q4H PRN PRN Reason: Cough Hydralazine HCl (Apresoline) 10 mg SLOW IVP Q4H PRN PRN Reason: SBP > 180 and HR < 70 Sodium Chloride (Normal Saline 0.9%) 1,000 mls @ 125 mls/hr IV .Q8H [facility] Last Admin: 09/13/18 06:14 Dose: 1,000 mls Dextrose/Water (D5w) 1,000 mls @ 0 mls/hr IV .Q0M PRN PRN Reason: Hypoglycemia Metronidazole 500 mg/ Device 100 mls @ 100 mls/hr IVPB Q8HR [facility] Last Admin: 09/13/18 06:13 Dose: 100 mls Piperacillin Sod/Tazobactam (Sod 2.25 gm/ Sodium Chloride) 100 mls @ 200 mls/ hr IVPB Q6HR [facility] Last Admin: 09/13/18 06:14 Dose: 100 mls Insulin Human Lispro (Humalog) 0 units SC .MODERATE SLIDING SC PRN PRN Reason: Moderate Correctional Scale Last Admin: 09/12/18 10:49 Dose: 4 unit Insulin Human Lispro (Humalog) 0 units SC .BEDTIME SLIDING SC PRN PRN Reason: Bedtime Correctional Scale Loratadine (Claritin) 10 mg PO DAILYPRN PRN PRN Reason: Sinus Symptoms Ondansetron HCl (Zofran Odt) 4 mg PO Q6H PRN PRN Reason: Nausea/Vomiting Ondansetron HCl (Zofran) 4 mg IVP Q6H PRN PRN Reason: Nausea/Vomiting Pneumococcal 13-Valent Conj Vacc (Prevnar) 0.5 ml IM .ONCE ONE Stop: 09/13/18 16:01 Polyethylene Glycol (Miralax) 17 gm PO DAILY [facility] Last Admin: 09/13/18 09:55 Dose: Not Given Saccharomyces Boulardii (Florastor) 250 mg PO DAILY [facility] Last Admin: 09/13/18 09:55 Dose: 250 mg Senna/Docusate Sodium (Senokot S) 2 tab PO BID PRN PRN Reason: Constipation Sodium Chloride ([place] Nasal [place] 0.65%) 0 ml EA NARE QIDPRN PRN PRN Reason: Nasal Congestion Throat Lozenges (Cepastat Lozenges) 1 hafsa PO Q2H PRN PRN Reason: Sore Throat Zolpidem Tartrate (Ambien) 5 mg PO HSPRN PRN PRN Reason: Insomnia
[2018-09-13] MEDS: Vancomycin HCl 500 MG in Sodium Chloride 0.9% 100 ML IVPB SCH (12:00)
[2018-09-13] MEDS ORDERED: Prevnar 13-Val Conj/PF 0.5 ML SYRINGE IM ONE (16:00)
--- NOTE | 2018-09-13 22:29 | PRG ---
DATE OF SERVICE: 09/13/2018 SUBJECTIVE: Ms. Moseley is a pleasant 82-year-old female. She is here with her . She states she feels a little bit better today, but she is hungry and thirsty. She is not able to eat, waiting for an MRI. OBJECTIVE: VITAL SIGNS: Temperature is 97.4, T-max was 103 last night at midnight, pulse 106, blood pressure 120/58. GENERAL: She is nonicteric. LUNGS: Clear. HEART: Regular rate and rhythm without clicks or murmurs. ABDOMEN: Soft. I do not palpate an enlarged liver. LYMPH NODES: There is no evidence of inguinal or umbilical nodes. There is no evidence of supraclavicular adenopathy. LABORATORY DATA: White count was 13 yesterday, 19.5 today, hemoglobin is 9.3, she had 30% bands. 32. Sodium 137, potassium 3.7, BUN and creatinine 35 and 2.46, up from 32 and 1.82 yesterday. Sugars 267. Lactic acid 1.4. AST 48, ALT 15. Lipase was 19 on admission. Blood cultures were drawn. Evidently, there is nothing pending in microbiology. Imaging with noncontrast had shown possible mass versus abscess in her liver. ASSESSMENT: 1. Fever to 103 on admission with chills, sick for about 48 to 72 hours before admission, leukocytosis. She had imaging showing possible cancer versus abscess in the liver. MRI is ordered for today, but her creatinine is too high for an MRI. I have reviewed the films with Radiology. We are going to get an ultrasound-guided biopsy versus aspiration tomorrow. 2. She is being treated empirically with antibiotics. Unfortunately, she has had no cultures drawn on admission despite having fever and chills and leukocytosis on presentation, and a diagnosis of sepsis, it may be that the cultures have been ordered and are still pending, we will await. 3. Concerning that her creatinine has gone up, she is receiving IV fluids. She has defervesced. Hopefully we will see some improvement in renal function next day or two. Her antibiotics to be dosed for renal dysfunction. 4. Abnormal liver mass versus infection. We will order CEA and alpha-fetoprotein, liver biopsies/aspirations have been ordered for tomorrow. 5. With regard to infectious disease question, we will defer to Internal Medicine for treatment. If there are no cultures, it is going be difficult to know or treating. Job ID: [id number]
[2018-09-14] MEDS: Sodium Chloride 0.9% 1,000 ML IV SCH ×3 (00:53→21:27)
[2018-09-14] MEDS: Piperacillin/Tazobactam 2.25 GM in Sodium Chloride 0.9% 100 ML IVPB SCH ×5 (00:54→23:41)
[2018-09-14 05:28] LABS: INR-International Normal Ratio 1.4; Prothrombin Time 17.3 SEC (12.0-14.7)
[2018-09-14 05:47] LABS: ALT (SGPT) 15 U/L (8-55); AST (SGOT) 29 U/L (5-34); Albumin 2.4 g/dL (3.4-4.8); Alkaline Phosphatase 114 U/L (40-150); Anion Gap 16 mmol/L (10-20); BUN (Urea Nitrogen) 43 mg/dL (9.8-20.1); Bilirubin, Total 0.4 mg/dL (0.2-1.2); Calc. Creatinine Clearance 15 mL/min (70-130); Calcium 7.5 mg/dL (7.8-10.44); Carbon Dioxide 18 mmol/L (23-31); Chloride 110 mmol/L (98-107); Estimated GFR-MDRD 18; Globulin 3.4 g/dL (2.4-3.5); Glucose 365 mg/dL (83-110); Potassium 4.3 mmol/L (3.5-5.1); Protein, Total 5.8 g/dL (6.0-8.3); Sodium 140 mmol/L (136-145)
[2018-09-14] MEDS: metroNIDAZOLE 500 MG in Premix Bag 1 BAG IVPB SCH ×3 (05:49→21:19)
[2018-09-14 05:59] LABS: Band 22 % (5-11); Hemoglobin 9.4 g/dL (12.0-16.0); Lymphocytes 8 % (21-51); MDiff Complete? YES; Mean Corpuscular HGB CONC 32.4 g/dL (32.0-36.0); Mean Corpuscular Hemoglobin 28.8 pg (27.0-31.0); Mean Corpuscular Volume 88.9 fL (78.0-98.0); Mean Platelet Volume 9.2 fL (7.4-10.4); Monocytes 3 % (0-10); Neutrophil 67 % (42-75); Platelet Count 240 thou/uL (130-400); RBC Distribution Width 12.7 % (11.5-14.5); Red Blood Cell (RBC) Count 3.25 mill/uL (4.20-5.40); White Blood Cell (WBC) Count 20.2 thou/uL (4.8-10.8)
[2018-09-14] MEDS: Insulin Glargine 20 UNITS in Pre-Filled Syringe 1 EACH SC SCH ×2 (08:15→21:34)
[2018-09-14] MEDS: Famotidine 20 MG TAB PO SCH (08:16)
[2018-09-14] MEDS: Saccharomyces boulardii 250 MG CAP PO SCH (08:16)
[2018-09-14] MEDS: Polyethylene Glycol 3350 17 GM Packet PO SCH (08:16)
[2018-09-14] MEDS: HumaLOG 300 UNITS/3 ML VIAL SC PRN ×3 (08:17→17:58)
[2018-09-14] MEDS ORDERED: Non-Formulary Item 1 EACH (Insulin Detemir [Levemir Flextouch] 20 UNITS) SQ SCH (09:00)
[2018-09-14] MEDS ORDERED: ATORVASTATIN CALCIUM PO SCH (09:00)
[2018-09-14] MEDS ORDERED: Sodium Bicarbonate 2.5 MEQ/5 ML VIAL ONE (09:46)
[2018-09-14] MEDS ORDERED: Fentanyl 100 MCG/2 ML VIAL ONE (09:46)
[2018-09-14] MEDS ORDERED: Lidocaine 1% PF 5 ML VIAL ONE (09:46)
[2018-09-14] MEDS ORDERED: Midazolam HCl 2 mg/2 ml Vial ONE (09:46)
[2018-09-14] MEDS: Pharmacy to Dose 1 EACH VANCOMYCIN IVPB SCH (11:07)
--- NOTE | 2018-09-14 11:12 | PQF ---
RHIANNA MALLOY SALIM NOORJIBHAI MD [id number] [facility]297 [id number] CLINICAL DOCUMENTATION IMPROVEMENT CLARIFICATION FORM: ICD-10 Updated PLEASE DO AN ADDENDUM TO THE PROGRESS NOTE WITH ANY DOCUMENTATION UPDATES OR ADDITIONS AND CARRY THROUGH TO DC SUMMARY. THANK YOU. DATE: 09/14 ATTN: DR. IRENE NAVARRO Please exercise your independent, professional judgment in responding to the clarification form. Clinical indicators are provided on the bottom of this form for your review. Please check appropriate box(s): [ ] Acute Renal Failure (ARF) / Acute Kidney Injury (HILDA) [ ] Acute Tubular Necrosis (ATN) [ x ] Acute on Chronic Renal Failure w/CKD Stage 3 [ ] CKD Stage 3 without ARF/HILDA [ ] Other diagnosis [ ] Unable to determine In addition, please specify: Present on Admission (POA): [ x ] Yes [ ] No [ ] Unable to determine National Kidney Foundation Guidelines for CKD Staging Stage I Kidney damage with normal or increased GFR GFR > 90 Stage II Kidney damage with mildly decreased GFR GFR 60-89 Stage III Kidney damage with moderately decreased GFR GFR 30-59 Stage IV Kidney damage with severely decreased GFR GFR 16-29 Stage V Kidney failure GFR<15 ESRD End Stage Renal Disease On dialysis Acute Renal Failure/Acute Kidney Failure defined as: Increases in SCr by (>) 0.3 mg/dl within 48 hours OR- Increases in SCr by (>) 1.5 times baseline, known or presumed to have occurred within the prior 7 days OR- Urine volume < 0.5 ml/kg/hour for 6 hours (KDIGO supplement 2012 for RIFLE/PEG criteria) For continuity of documentation, please document condition throughout progress notes and discharge summary. Thank You. CLINICAL INDICATORS - SIGNS / SYMPTOMS / LABS BUN: 32 - 43 CR: 1.82 - 2.59 GFR: 27-18 (/, 4, 5) H&P: ASSESSMENT: 7) ACUTE / CHRONIC KIDNEY DISEASE. THIS PT HAS CREATININE BASELINE IN 1.4 RANGE. WE WILL CONTINUE W/ IVF BECAUSE OF SEPSIS PN 7/ (RAMON): DX/PLAN: 2) ACUTE WORSENING OF STAGE 3 CKD RISKS: SEPSIS (H&P) ACUTE COLITIS (H&P) UTI (H&P) TREATMENT: IV ANTIBIOTICS (ZOSYN, VANCOMYCIN & FLAGYL 09/12-PRESENT) IVF (NS 09/12-PRESENT) THANK YOU! Natty (This form is maintained as a part of the permanent medical record) 2014 [employer], [employer]. All Rights Reserved Natty Mackey RN, BSN [email or web address] Office: [phone] [facility]
--- NOTE | 2018-09-14 11:23 | PDOC.PN ---
- Subjective Encounter Start Date: 09/14/18 Encounter Start Time: 08:00 Patient seen and examined.. No overnight events pt has generalised body pain, no fever, has diarrhoea - Objective Resuscitation Status - Order Detail: 09/12/18 10:37 Resuscitation Status Routine Resuscitation Status: DNAR: NO Resuscitation Discussed with: discussed with pt and MAR Reviewed: Yes Vital Signs & Weight: Vital Signs (12 hours) Temp Pulse Pulse Pulse Resp BP BP 09/14/18 08:57 53 L 115 H 128/63 122/87 09/14/18 08:14 99.6 F 93 19 09/14/18 04:00 98.3 F 94 20 BP Pulse Ox 09/14/18 08:57 09/14/18 08:14 126/60 98 09/14/18 04:00 125/59 L 95 Weight Weight 122 lb 12.8 oz I&O: 09/13/18 09/14/18 09/15/18 06:59 06:59 06:59 Intake Total 2665 1650 Output Total 400 Balance 2665 1250 Result Diagrams: 09/14/18 05:11 09/14/18 05:11 Additional Labs: Accuchecks 09/14/18 09/13/18 09/13/18 05:34 20:45 17:06 POC Glucose 332 H 312 H 318 H EKG Reviewed by me: Yes Phys Exam - Physical Examination Constitutional: NAD HEENT: PERRLA, moist MMs, sclera anicteric Neck: no JVD, supple Respiratory: no wheezing, no rales, no rhonchi Cardiovascular: RRR, no significant murmur, no rub Gastrointestinal: soft, no distention, positive bowel sounds Musculoskeletal: no edema, pulses present Neurological: non-focal, normal sensation Psychiatric: normal affect, A&O x 3 Skin: no rash, normal turgor Dx/Plan (1) Acute colitis Code(s): K52.9 - NONINFECTIVE GASTROENTERITIS AND COLITIS, UNSPECIFIED Status : Acute (2) Acute worsening of stage 3 chronic kidney disease Code(s): N18.3 - CHRONIC KIDNEY DISEASE, STAGE 3 (MODERATE) Status: Acute (3) Lactic acidosis Code(s): E87.2 - ACIDOSIS Status: Acute (4) Liver abscess Code(s): K75.0 - ABSCESS OF LIVER Status: Acute (5) Sepsis with acute organ dysfunction Code(s): A41.9 - SEPSIS, UNSPECIFIED ORGANISM; R65.20 - SEVERE SEPSIS WITHOUT SEPTIC SHOCK Status: Acute (6) UTI (urinary tract infection) Status: Acute (7) Anemia, normocytic normochromic Code(s): D64.9 - ANEMIA, UNSPECIFIED Status: Chronic (8) Diabetes type 2, controlled Code(s): E11.9 - TYPE 2 DIABETES MELLITUS WITHOUT COMPLICATIONS Status: Chronic (9) Dyslipidemia Code(s): E78.5 - HYPERLIPIDEMIA, UNSPECIFIED Status: Chronic (10) GERD (gastroesophageal reflux disease) Code(s): K21.9 - GASTRO-ESOPHAGEAL REFLUX DISEASE WITHOUT ESOPHAGITIS Status: Chronic (11) Hypertension Code(s): I10 - ESSENTIAL (PRIMARY) HYPERTENSION Status: Chronic - Plan cont current plan of care, plan discussed w/ family, continue antibiotics * MRI was not possible due to renal failure * today US guidance aspiration * send blood and urine culture, not sent from ER * medication reviewed as below * symptomatic treatment * discussed with family * transfer to medical. * reduce IVF * start her home insulin Review of Systems - Review of Systems ENT: negative: Ear Pain, Ear Discharge, Nose Pain, Nose Discharge, Nose Congestion, Mouth Pain, Mouth Swelling, Throat Pain, Throat Swelling, Other Respiratory: negative: Cough, Dry, Shortness of Breath, Hemoptysis, SOB with Excertion, Pleuritic Pain, Sputum, Wheezing Cardiovascular: negative: chest pain, palpitations, orthopnea, paroxysmal nocturnal dyspnea, edema, light headedness, other Gastrointestinal: Diarrhea. negative: Nausea, Vomiting, Abdominal Pain, Constipation, Melena, Hematochezia, Other Genitourinary: negative: Dysuria, Frequency, Incontinence, Hematuria, Retention , Other Skin: negative: Rash, Lesions, Deric, Bruising, Other - Medications/Allergies Allergies/Adverse Reactions: Allergies Allergy/AdvReac Type Severity Reaction Status Date / Time No Known Drug Allergies Allergy Verified 09/12/18 15:29 Medications: Current Medications Acetaminophen (Tylenol) 650 mg PO Q4H PRN PRN Reason: Headache/Fever/Mild Pain (1-3) Last Admin: 09/12/18 21:27 Dose: 650 mg Hydrocodone Bitart/Acetaminophen ([place] 5/325) 1 tab PO Q4H PRN PRN Reason: Moderate Pain (4-6) Artificial Tears (Tears Naturale) 2 drop EA EYE PRN PRN PRN Reason: Dry Eyes Atorvastatin Calcium (Lipitor) 20 mg PO HS [facility] Calcium Carbonate (Tums) 1,000 mg PO Q4H PRN PRN Reason: Heartburn or Indigestion Dextrose/Water (Dextrose 50%) 25 gm SLOW IVP PRN PRN PRN Reason: Hypoglycemia Enoxaparin Sodium (Lovenox) 30 mg SC 0900 [facility] Last Admin: 09/13/18 09:55 Dose: 30 mg Famotidine (Pepcid) 20 mg PO DAILY [facility] Last Admin: 09/14/18 08:16 Dose: 20 mg Glucagon (Glucagon) 1 mg IM PRN PRN PRN Reason: Hypoglycemia Guaifenesin (Robitussin Sf) 200 mg PO Q4H PRN PRN Reason: Cough Hydralazine HCl (Apresoline) 10 mg SLOW IVP Q4H PRN PRN Reason: SBP > 180 and HR < 70 Dextrose/Water (D5w) 1,000 mls @ 0 mls/hr IV .Q0M PRN PRN Reason: Hypoglycemia Metronidazole 500 mg/ Device 100 mls @ 100 mls/hr IVPB Q8HR [facility] Last Admin: 09/14/18 05:49 Dose: 100 mls Piperacillin Sod/Tazobactam (Sod 2.25 gm/ Sodium Chloride) 100 mls @ 200 mls/ hr IVPB Q6HR [facility] Last Admin: 09/14/18 05:49 Dose: 100 mls Vancomycin HCl 500 mg/ Sodium (Chloride) 100 mls @ 100 mls/hr IVPB 1200 [facility] Last Admin: 09/13/18 12:00 Dose: 100 mls Sodium Chloride (Normal Saline 0.9%) 1,000 mls @ 75 mls/hr IV .[id number] [facility] Last Admin: 09/14/18 08:17 Dose: 1,000 mls Insulin Glargine 20 units/ (Miscellaneous Medication) 0.2 mls @ 0 mls/hr SC BID [facility] Last Admin: 09/14/18 08:15 Dose: 0.2 mls Insulin Human Lispro (Humalog) 0 units SC .MODERATE SLIDING SC PRN PRN Reason: Moderate Correctional Scale Last Admin: 09/14/18 08:17 Dose: 8 unit Insulin Human Lispro (Humalog) 0 units SC .BEDTIME SLIDING SC PRN PRN Reason: Bedtime Correctional Scale Last Admin: 09/13/18 22:14 Dose: 4 unit Loratadine (Claritin) 10 mg PO DAILYPRN PRN PRN Reason: Sinus Symptoms Miscellaneous Medication (Pharmacy To Dose) 1 each IVPB DAILY [facility] Last Admin: 09/14/18 11:07 Dose: Not Given Ondansetron HCl (Zofran Odt) 4 mg PO Q6H PRN PRN Reason: Nausea/Vomiting Ondansetron HCl (Zofran) 4 mg IVP Q6H PRN PRN Reason: Nausea/Vomiting Polyethylene Glycol (Miralax) 17 gm PO DAILY [facility] Last Admin: 09/14/18 08:16 Dose: 17 gm Saccharomyces Boulardii (Florastor) 250 mg PO DAILY [facility] Last Admin: 09/14/18 08:16 Dose: 250 mg Senna/Docusate Sodium (Senokot S) 2 tab PO BID PRN PRN Reason: Constipation Sodium Chloride ([place] Nasal [place] 0.65%) 0 ml EA NARE QIDPRN PRN PRN Reason: Nasal Congestion Throat Lozenges (Cepastat Lozenges) 1 hafsa PO Q2H PRN PRN Reason: Sore Throat Trazodone HCl (Desyrel) 50 mg PO [facility] Zolpidem Tartrate (Ambien) 5 mg PO HSPRN PRN PRN Reason: Insomnia
[2018-09-14] MEDS: Vancomycin HCl 500 MG in Sodium Chloride 0.9% 100 ML IVPB SCH (11:47)
--- NOTE | 2018-09-14 11:57 | ULT ---
EXAM: US Cyst Aspiration PROVIDED CLINICAL HISTORY: Area of diminished attenuation and gas within the right hepatic lobe similar finding just inferior to the right hepatic lobe. Right hepatic lobe biopsy/aspiration was requested. COMPARISON: CT abdomen on 09/12/2018 TECHNIQUE: The procedure including the risks and complications were explained to the patient, and informed conse nt was obtained. Patient was placed on the sonography table in the supine position. The abnormality seen in the right hepatic lobe was localized with ultrasound guidance which demonstrated multiple ech ogenic foci with shadowing suggestive of gas densities with small hypoechoic area in this region as well. Similar finding was seen just inferior to the right hepatic lobe. An area was marked and then meticulously prepped and draped in usual sterile fashion. The skin and medraon bcutaneous tissues were infiltrated with buffered 1% lidocaine for local anesthesia. A small skin incision was made. A 17-gauge needle was advanced into the collection in the right hepatic lobe utili zing concurrent real time ultrasound guidance. A total of 5 mL of purulent fluid was aspirated. The needle was removed, and hemostasis was achieved with direct pressure for approximately 10 minutes. Postaspiration ultrasound images demonstrate a decrease in the echogenic foci in the right hepatic lo be with an area of ill-defined heterogeneity persisting. No new perihepatic fluid or findings to suggest perihepatic hematoma are visualized. The patient's bilateral signs remained stable during the procedure as well as postprocedure. Patient was placed in right lateral decubitus position and transported to her hospital room in stable condition. IMPRESSION: 1. Ill-defined heterogeneous and primarily hypoechoic area with multiple echogenic foci seen within t he posterior segment right hepatic lobe with shadowing from the areas of increased echogenicity suggesting gas which was also seen on the recent CT scan exam. Similar finding is seen just inferior to the right hepatic lobe. 2. Technically successful ultrasound-guided aspiration of the collection in the right hepatic lobe. A pproximately 5 mL of purulent fluid was collected. Specimen was sent for labs.
--- NOTE | 2018-09-14 17:18 | PRG ---
DATE OF SERVICE: 09/14/2018 REASON FOR CONSULTATION: Abnormal GI imaging, colitis. SUBJECTIVE: The patient states that she is doing better today with less fever and less abdominal pain, although she did undergo ultrasound-guided biopsy/FNA of the multiloculated mass within the liver and is having some pain associated with the needle puncture site. Otherwise, she states that she is doing well with no nausea, vomiting, fevers, chills, hematemesis, melena, or hematochezia. She also states that since initiation of MiraLAX therapy, she has been having approximately 1 to 2 semi-solid bowel movements per day with no difficulty with defecation or blood with defecation. OBJECTIVE: VITAL SIGNS: Temperature 98.9, pulse 107, blood pressure 115/71, respiratory rate 18, saturating 97% on room air. GENERAL: The patient is lying in bed, in no acute distress. Alert and oriented x4. CARDIOVASCULAR: Tachycardic rate, but regular rhythm. RESPIRATORY: Clear to auscultation bilaterally. ABDOMEN: Normoactive bowel sounds. Soft and nondistended. Mild tenderness to palpation in the right upper quadrant centered around the puncture site. EXTREMITIES: No cyanosis, clubbing, or edema. LABORATORY DATA: CBC with a white blood cell count of 20.2, hemoglobin 9.4, hematocrit 28.9, platelets 240. Chemistry with a sodium of 140, potassium 4.3, chloride 110, CO2 of 18, BUN 43, creatinine 2.59, glucose 365, AST 29, ALT 15, alkaline phosphatase 114, total bilirubin 0.4. INR 1.4. CEA 11.4. IMAGING DATA: No current GI imaging is available for review. ASSESSMENT AND PLAN: The patient is an 82-year-old female with past medical history of diabetes, hypertension, and hyperlipidemia, presenting with multiloculated collection within the liver with air concerning for abscess formation versus metastatic disease along with inflammation of the colon concerning for colitis. Abnormal gastrointestinal imaging: The patient has initially presented with nausea, vomiting, fevers, chills, and atypical right-sided chest pain, where on admission, she had a CT scan which showed multiple findings including a multiloculated mass within the liver as well as mucosal thickening of the right hemicolon and sigmoid colon, both concerning for an inflammatory versus infectious-type process. With the significant fevers documented during this admission, an infectious etiology has been deemed more likely, and she ultimately underwent fine-needle aspiration of the multiloculated collection within the liver today with 5 mL of purulent fluid retrieved and sent for analysis. Otherwise, she has been responding well to broad-spectrum antibiotic therapy. In addition, she has been placed on MiraLAX as part of her bowel regimen and has been having approximately 1 to 2 semi-solid bowel movements per day since being placed on it with no evidence of hematochezia. At this time, she is presenting with what appears to be an abscess formation within the hepatic system, but it is unclear as whether or not this is a de judy etiology or this is a spread hematologically from someplace other in the body including the colon itself. Malignancy has not been necessarily ruled out at this time, albeit it is less likely. A multiphasic exam was considered on this patient, but could not be performed due to her worsening renal function, that might further characterize the lesions in her liver as malignant versus infectious. RECOMMENDATIONS: 1. We would follow up on the fluid obtained during FNA today for better diagnosis and to help further guide antibiotic therapy. 2. We would continue with broad-spectrum antibiotic therapy given the high possibility of liver abscess. 3. We would hold on any endoscopic intervention at this time given the higher likelihood of an infectious etiology with possible sepsis/bacteremia contributing. 4. We would continue MiraLAX as part of her bowel regimen to assist with probable stercoral colitis. We will continue to follow. Please call with any questions. Job ID: [id number]
[2018-09-14] MEDS ORDERED: traZODone HCl 50 MG TAB PO SCH (21:00)
[2018-09-14] MEDS: Atorvastatin Calcium 20 MG TAB PO SCH (21:19)
[2018-09-14] MEDS: traZODone HCl 50 MG TAB PO SCH (21:19)
[2018-09-14] MEDS: Acetaminophen 325 MG TAB PO PRN (21:19)
[2018-09-15] MEDS: metroNIDAZOLE 500 MG in Premix Bag 1 BAG IVPB SCH ×3 (05:04→21:37)
[2018-09-15] MEDS: Piperacillin/Tazobactam 2.25 GM in Sodium Chloride 0.9% 100 ML IVPB SCH ×4 (05:06→23:22)
[2018-09-15] MEDS: Saccharomyces boulardii 250 MG CAP PO SCH (09:08)
[2018-09-15] MEDS: Polyethylene Glycol 3350 17 GM Packet PO SCH (09:09)
[2018-09-15] MEDS: Famotidine 20 MG TAB PO SCH (09:09)
[2018-09-15] MEDS: Insulin Glargine 20 UNITS in Pre-Filled Syringe 1 EACH SC SCH ×2 (09:19→20:09)
[2018-09-15] MEDS: Pharmacy to Dose 1 EACH VANCOMYCIN IVPB SCH (09:25)
[2018-09-15] MEDS: Sodium Chloride 0.9% 1,000 ML IV SCH ×2 (09:27→20:09)
--- NOTE | 2018-09-15 10:38 | PDOC.PN ---
- Subjective Encounter Start Date: 09/15/18 Encounter Start Time: 09:20 Patient seen and examined. No new complaints. No overnight events - Objective Resuscitation Status - Order Detail: 09/12/18 10:37 Resuscitation Status Routine Resuscitation Status: DNAR: NO Resuscitation Discussed with: discussed with pt and DENAE Reviewed: Yes Vital Signs & Weight: Vital Signs (12 hours) Temp Pulse Resp BP Pulse Ox 09/15/18 06:59 97.5 F L 84 16 111/60 96 09/15/18 04:40 103/61 09/15/18 00:00 97.9 F 92 18 94/52 L 93 L Weight Admit Weight 122 lb 12.8 oz Weight 122 lb 12.8 oz I&O: 09/14/18 09/15/18 09/16/18 06:59 06:59 06:59 Intake Total 1650 1500 Output Total 400 Balance 1250 1500 Result Diagrams: 09/14/18 05:11 09/14/18 05:11 Additional Labs: Accuchecks 09/15/18 09/14/18 09/14/18 03:59 21:19 16:34 POC Glucose 103 126 H 271 H 09/14/18 11:44 POC Glucose 239 H Phys Exam - Physical Examination Constitutional: NAD HEENT: PERRLA, moist MMs, sclera anicteric Neck: no JVD, supple Respiratory: no wheezing, no rales, no rhonchi Cardiovascular: RRR, no significant murmur, no rub Gastrointestinal: soft, non-tender, no distention, positive bowel sounds Musculoskeletal: no edema, pulses present Neurological: non-focal, normal sensation, moves all 4 limbs Lymphatic: no nodes Psychiatric: normal affect, A&O x 3 Skin: no rash, normal turgor Dx/Plan (1) Acute colitis Code(s): K52.9 - NONINFECTIVE GASTROENTERITIS AND COLITIS, UNSPECIFIED Status : Acute (2) Acute worsening of stage 3 chronic kidney disease Code(s): N18.3 - CHRONIC KIDNEY DISEASE, STAGE 3 (MODERATE) Status: Acute (3) Lactic acidosis Code(s): E87.2 - ACIDOSIS Status: Acute (4) Liver abscess Code(s): K75.0 - ABSCESS OF LIVER Status: Acute (5) Sepsis with acute organ dysfunction Code(s): A41.9 - SEPSIS, UNSPECIFIED ORGANISM; R65.20 - SEVERE SEPSIS WITHOUT SEPTIC SHOCK Status: Acute (6) UTI (urinary tract infection) Status: Acute (7) Anemia, normocytic normochromic Code(s): D64.9 - ANEMIA, UNSPECIFIED Status: Chronic (8) Diabetes type 2, controlled Code(s): E11.9 - TYPE 2 DIABETES MELLITUS WITHOUT COMPLICATIONS Status: Chronic (9) Dyslipidemia Code(s): E78.5 - HYPERLIPIDEMIA, UNSPECIFIED Status: Chronic (10) GERD (gastroesophageal reflux disease) Code(s): K21.9 - GASTRO-ESOPHAGEAL REFLUX DISEASE WITHOUT ESOPHAGITIS Status: Chronic (11) Hypertension Code(s): I10 - ESSENTIAL (PRIMARY) HYPERTENSION Status: Chronic - Plan cont current plan of care, plan discussed w/ family, continue antibiotics * follow on culture result * continue current treatment plan * continue empiric antibiotics * discussed with daughter * consult ID * medication reviewed as below * symptomatic treatment. * repeat labs tomorrow Review of Systems - Review of Systems ENT: negative: Ear Pain, Ear Discharge, Nose Pain, Nose Discharge, Nose Congestion, Mouth Pain, Mouth Swelling, Throat Pain, Throat Swelling, Other Respiratory: negative: Cough, Dry, Shortness of Breath, Hemoptysis, SOB with Excertion, Pleuritic Pain, Sputum, Wheezing Cardiovascular: negative: chest pain, palpitations, orthopnea, paroxysmal nocturnal dyspnea, edema, light headedness, other Gastrointestinal: negative: Nausea, Vomiting, Abdominal Pain, Diarrhea, Constipation, Melena, Hematochezia, Other Genitourinary: negative: Dysuria, Frequency, Incontinence, Hematuria, Retention , Other Musculoskeletal: negative: Neck Pain, Shoulder Pain, Arm Pain, Back Pain, Hand Pain, Leg Pain, Foot Pain, Other - Medications/Allergies Allergies/Adverse Reactions: Allergies Allergy/AdvReac Type Severity Reaction Status Date / Time No Known Drug Allergies Allergy Verified 09/12/18 15:29 Medications: Current Medications Acetaminophen (Tylenol) 650 mg PO Q4H PRN PRN Reason: Headache/Fever/Mild Pain (1-3) Last Admin: 09/14/18 21:19 Dose: 650 mg Hydrocodone Bitart/Acetaminophen (Rebecca 5/325) 1 tab PO Q4H PRN PRN Reason: Moderate Pain (4-6) Artificial Tears (Tears Naturale) 2 drop EA EYE PRN PRN PRN Reason: Dry Eyes Atorvastatin Calcium (Lipitor) 20 mg PO HS [facility] [place] Last Admin: 09/14/18 21:19 Dose: 20 mg Calcium Carbonate (Tums) 1,000 mg PO Q4H PRN PRN Reason: Heartburn or Indigestion Dextrose/Water (Dextrose 50%) 25 gm SLOW IVP PRN PRN PRN Reason: Hypoglycemia Enoxaparin Sodium (Lovenox) 30 mg SC 0900 [facility] [place] Last Admin: 09/13/18 09:55 Dose: 30 mg Famotidine (Pepcid) 20 mg PO DAILY [facility] Last Admin: 09/15/18 09:09 Dose: 20 mg Glucagon (Glucagon) 1 mg IM PRN PRN PRN Reason: Hypoglycemia Guaifenesin (Robitussin Sf) 200 mg PO Q4H PRN PRN Reason: Cough Hydralazine HCl (Apresoline) 10 mg SLOW IVP Q4H PRN PRN Reason: SBP > 180 and HR < 70 Dextrose/Water (D5w) 1,000 mls @ 0 mls/hr IV .Q0M PRN PRN Reason: Hypoglycemia Metronidazole 500 mg/ Device 100 mls @ 100 mls/hr IVPB Q8HR [facility] Last Admin: 09/15/18 05:04 Dose: 100 mls Piperacillin Sod/Tazobactam (Sod 2.25 gm/ Sodium Chloride) 100 mls @ 200 mls/ hr IVPB Q6HR [facility] [place] Last Admin: 09/15/18 05:06 Dose: 100 mls Vancomycin HCl 500 mg/ Sodium (Chloride) 100 mls @ 100 mls/hr IVPB 1200 [facility] Last Admin: 09/14/18 11:47 Dose: 100 mls Sodium Chloride (Normal Saline 0.9%) 1,000 mls @ 75 mls/hr IV .[id number] [facility] Last Admin: 09/15/18 09:27 Dose: 1,000 mls Insulin Glargine 20 units/ (Miscellaneous Medication) 0.2 mls @ 0 mls/hr SC BID [facility] [place] Last Admin: 09/15/18 09:19 Dose: 0.2 mls Insulin Human Lispro (Humalog) 0 units SC .MODERATE SLIDING SC PRN PRN Reason: Moderate Correctional Scale Last Admin: 09/14/18 17:58 Dose: 6 unit Insulin Human Lispro (Humalog) 0 units SC .BEDTIME SLIDING SC PRN PRN Reason: Bedtime Correctional Scale Last Admin: 09/13/18 22:14 Dose: 4 unit Loratadine (Claritin) 10 mg PO DAILYPRN PRN PRN Reason: Sinus Symptoms Miscellaneous Medication (Pharmacy To Dose) 1 each IVPB DAILY [facility] [place] Last Admin: 09/15/18 09:25 Dose: Not Given Ondansetron HCl (Zofran Odt) 4 mg PO Q6H PRN PRN Reason: Nausea/Vomiting Ondansetron HCl (Zofran) 4 mg IVP Q6H PRN PRN Reason: Nausea/Vomiting Polyethylene Glycol (Miralax) 17 gm PO DAILY [facility] [place] Last Admin: 09/15/18 09:09 Dose: 17 gm Saccharomyces Boulardii (Florastor) 250 mg PO DAILY [facility] [place] Last Admin: 09/15/18 09:08 Dose: 250 mg Senna/Docusate Sodium (Senokot S) 2 tab PO BID PRN PRN Reason: Constipation Sodium Chloride ([place]ryan Nasal [place] 0.65%) 0 ml EA NARE QIDPRN PRN PRN Reason: Nasal Congestion Throat Lozenges (Cepastat Lozenges) 1 hafsa PO Q2H PRN PRN Reason: Sore Throat Trazodone HCl (Desyrel) 50 mg PO [facility] Last Admin: 09/14/18 21:19 Dose: 50 mg Zolpidem Tartrate (Ambien) 5 mg PO HSPRN PRN PRN Reason: Insomnia
[2018-09-15 11:32] LABS: Vancomycin, Trough 8.2 ug/mL
[2018-09-15] MEDS ORDERED: Vancomycin HCl 750 MG in Sodium Chloride 0.9% 250 ML 250 ML IVPB SCH (12:00)
[2018-09-15] MEDS: traZODone HCl 50 MG TAB PO SCH (20:08)
[2018-09-15] MEDS: Atorvastatin Calcium 20 MG TAB PO SCH (20:08)
--- NOTE | 2018-09-15 20:23 | PRG ---
DATE OF SERVICE: 09/15/2018 This is a cross coverage for Dr. Rajendra Brown. SUBJECTIVE: This is an 82-year-old female hospitalized with fever, chills, and abdominal pain. She was found to have evidence of liver abscess and she had ultrasound-guided drainage of these abscess cavities is draining 5 mL of pus. She had IV antibiotics. She is actually doing much better. She has good appetite. No nausea or vomiting. No abdominal pain. She remains afebrile. She offers no complaints. PHYSICAL EXAMINATION: GENERAL: Appears very comfortable, in no acute distress, afebrile. VITAL SIGNS: Temperature 97.8 degrees Fahrenheit, pulse is 93, blood pressure 116/64. CARDIOVASCULAR: First and second heart sounds heard. LUNGS: Clear to auscultation. ABDOMEN: Soft to palpate. Abdomen is nontender. No organomegaly or masses. The liver aspirate shows gram-negative elisha. No final report available. LABORATORY DATA: total white cell count 20,200, hemoglobin 9.4, hematocrit 28.9. She has 22% bandemia. Blood sugar is 135 today. RECOMMENDATIONS: 1. Continue antibiotics. 2. Symptomatic treatment. Job ID: [id number]
[2018-09-16 04:50] LABS: #Eosinphils 0.6 thou/uL (0.0-0.7); #Lymphocytes 1.9 thou/uL (1.20-3.40); #Monocytes 1.3 thou/uL (0.11-0.59); #Neutrophils 9.3 thou/uL (1.40-6.50); %Basophils 0.1 % (0.0-1.0); %Eosinophils 4.7 % (0.0-10.0); %Lymphocytes 14.1 % (21.0-51.0); %Monocytes 10.2 % (0.0-10.0); %Neutrophils 70.9 % (42.0-75.0); Mean Corpuscular HGB CONC 32.8 g/dL (32.0-36.0); Mean Corpuscular Volume 88.6 fL (78.0-98.0); Mean Platelet Volume 9.1 fL (7.4-10.4); Platelet Count 204 thou/uL (130-400); RBC Distribution Width 12.8 % (11.5-14.5); White Blood Cell (WBC) Count 13.1 thou/uL (4.8-10.8)
[2018-09-16 05:00] LABS: ALT (SGPT) 10 U/L (8-55); AST (SGOT) 20 U/L (5-34); Alkaline Phosphatase 110 U/L (40-150); Anion Gap 10 mmol/L (10-20); BUN (Urea Nitrogen) 26 mg/dL (9.8-20.1); Bilirubin, Total 0.3 mg/dL (0.2-1.2); Calc. Creatinine Clearance 24 mL/min (70-130); Calcium 7.5 mg/dL (7.8-10.44); Carbon Dioxide 18 mmol/L (23-31); Chloride 117 mmol/L (98-107); Estimated GFR-MDRD 30; Sodium 143 mmol/L (136-145)
[2018-09-16 05:09] LABS: Glucose 51 mg/dL (83-110); Potassium 2.4 mmol/L (3.5-5.1)
[2018-09-16] MEDS: metroNIDAZOLE 500 MG in Premix Bag 1 BAG IVPB SCH (05:30)
[2018-09-16] MEDS: Piperacillin/Tazobactam 2.25 GM in Sodium Chloride 0.9% 100 ML IVPB SCH ×3 (05:32→17:23)
[2018-09-16] MEDS ORDERED: Potassium Chloride 40 MEQ in Sodium Chloride 0.9% 250 ML 250 ML IVPB SCH (06:15)
[2018-09-16] MEDS ORDERED: Clopidogrel Bisulfate 75 MG TAB ONE (07:17)
--- NOTE | 2018-09-16 09:20 | PDOC.PN ---
- Subjective Encounter Start Date: 09/16/18 Encounter Start Time: 07:50 Patient seen and examined. No new complaints. No overnight events last night her blood sugar was low, no fever, doing well, she did not eat well as she did not like hospital food - Objective Resuscitation Status - Order Detail: 09/12/18 10:37 Resuscitation Status Routine Resuscitation Status: DNAR: NO Resuscitation Discussed with: discussed with pt and MAR Reviewed: Yes Vital Signs & Weight: Vital Signs (12 hours) Temp Pulse Resp BP Pulse Ox 09/16/18 07:27 97.6 F 96 18 109/64 98 Weight Admit Weight 122 lb 12.8 oz Weight 122 lb 12.8 oz I&O: 09/15/18 09/16/18 09/17/18 06:59 06:59 06:59 Intake Total 1500 Balance 1500 Result Diagrams: 09/16/18 04:35 09/16/18 04:35 Additional Labs: Accuchecks 09/16/18 09/16/18 09/15/18 05:38 04:26 20:09 POC Glucose 93 51 L* 205 H 09/15/18 09/15/18 09/15/18 19:17 15:55 12:27 POC Glucose 69 L 135 H 104 Phys Exam - Physical Examination Constitutional: NAD HEENT: PERRLA, moist MMs, sclera anicteric Neck: no JVD, supple Respiratory: no wheezing, no rales, no rhonchi Cardiovascular: RRR, no significant murmur, no rub Gastrointestinal: soft, non-tender, no distention, positive bowel sounds Musculoskeletal: no edema, pulses present Neurological: non-focal, normal sensation, moves all 4 limbs Lymphatic: no nodes Psychiatric: normal affect, A&O x 3 Skin: no rash, normal turgor Dx/Plan (1) Acute colitis Code(s): K52.9 - NONINFECTIVE GASTROENTERITIS AND COLITIS, UNSPECIFIED Status : Acute (2) Acute worsening of stage 3 chronic kidney disease Code(s): N18.3 - CHRONIC KIDNEY DISEASE, STAGE 3 (MODERATE) Status: Acute (3) Lactic acidosis Code(s): E87.2 - ACIDOSIS Status: Acute (4) Liver abscess Code(s): K75.0 - ABSCESS OF LIVER Status: Acute (5) Sepsis with acute organ dysfunction Code(s): A41.9 - SEPSIS, UNSPECIFIED ORGANISM; R65.20 - SEVERE SEPSIS WITHOUT SEPTIC SHOCK Status: Acute (6) UTI (urinary tract infection) Status: Acute (7) Anemia, normocytic normochromic Code(s): D64.9 - ANEMIA, UNSPECIFIED Status: Chronic (8) Diabetes type 2, controlled Code(s): E11.9 - TYPE 2 DIABETES MELLITUS WITHOUT COMPLICATIONS Status: Chronic (9) Dyslipidemia Code(s): E78.5 - HYPERLIPIDEMIA, UNSPECIFIED Status: Chronic (10) GERD (gastroesophageal reflux disease) Code(s): K21.9 - GASTRO-ESOPHAGEAL REFLUX DISEASE WITHOUT ESOPHAGITIS Status: Chronic (11) Hypertension Code(s): I10 - ESSENTIAL (PRIMARY) HYPERTENSION Status: Chronic - Plan cont current plan of care, plan discussed w/ family, continue antibiotics * DC vancomycin and flagyl * continue zosyn * ID to decide duration, IV/oral, selection of antibiotics on discharge * medication reviewed as below * symptomatic treatment. * hold insulin today * change IV 1/2 NS with KCL at 75 ml per hour Review of Systems - Review of Systems ENT: negative: Ear Pain, Ear Discharge, Nose Pain, Nose Discharge, Nose Congestion, Mouth Pain, Mouth Swelling, Throat Pain, Throat Swelling, Other Respiratory: negative: Cough, Dry, Shortness of Breath, Hemoptysis, SOB with Excertion, Pleuritic Pain, Sputum, Wheezing Cardiovascular: negative: chest pain, palpitations, orthopnea, paroxysmal nocturnal dyspnea, edema, light headedness, other Gastrointestinal: negative: Nausea, Vomiting, Abdominal Pain, Diarrhea, Constipation, Melena, Hematochezia, Other Genitourinary: negative: Dysuria, Frequency, Incontinence, Hematuria, Retention , Other Musculoskeletal: negative: Neck Pain, Shoulder Pain, Arm Pain, Back Pain, Hand Pain, Leg Pain, Foot Pain, Other Skin: negative: Rash, Lesions, Deric, Bruising, Other - Medications/Allergies Allergies/Adverse Reactions: Allergies Allergy/AdvReac Type Severity Reaction Status Date / Time No Known Drug Allergies Allergy Verified 09/12/18 15:29 Medications: Current Medications Acetaminophen (Tylenol) 650 mg PO Q4H PRN PRN Reason: Headache/Fever/Mild Pain (1-3) Last Admin: 09/14/18 21:19 Dose: 650 mg Hydrocodone Bitart/Acetaminophen (Stuart 5/325) 1 tab PO Q4H PRN PRN Reason: Moderate Pain (4-6) Artificial Tears (Tears Naturale) 2 drop EA EYE PRN PRN PRN Reason: Dry Eyes Atorvastatin Calcium (Lipitor) 20 mg PO HS [facility] Last Admin: 09/15/18 20:08 Dose: 20 mg Calcium Carbonate (Tums) 1,000 mg PO Q4H PRN PRN Reason: Heartburn or Indigestion Dextrose/Water (Dextrose 50%) 25 gm SLOW IVP PRN PRN PRN Reason: Hypoglycemia Enoxaparin Sodium (Lovenox) 30 mg SC 0900 [facility] Last Admin: 09/13/18 09:55 Dose: 30 mg Famotidine (Pepcid) 20 mg PO DAILY [facility] Last Admin: 09/15/18 09:09 Dose: 20 mg Glucagon (Glucagon) 1 mg IM PRN PRN PRN Reason: Hypoglycemia Guaifenesin (Robitussin Sf) 200 mg PO Q4H PRN PRN Reason: Cough Hydralazine HCl (Apresoline) 10 mg SLOW IVP Q4H PRN PRN Reason: SBP > 180 and HR < 70 Dextrose/Water (D5w) 1,000 mls @ 0 mls/hr IV .Q0M PRN PRN Reason: Hypoglycemia Piperacillin Sod/Tazobactam (Sod 2.25 gm/ Sodium Chloride) 100 mls @ 200 mls/ hr IVPB Q6HR [facility] Last Admin: 09/16/18 05:32 Dose: 100 mls Insulin Glargine 20 units/ (Miscellaneous Medication) 0.2 mls @ 0 mls/hr SC BID [facility] Last Admin: 09/15/18 20:09 Dose: 0.2 mls Potassium Chloride/Sodium Chloride (1/2 Ns W/Kcl 20 Meq) 1,000 mls @ 75 mls/hr IV .[id number] [facility] Insulin Human Lispro (Humalog) 0 units SC .MODERATE SLIDING SC PRN PRN Reason: Moderate Correctional Scale Last Admin: 09/14/18 17:58 Dose: 6 unit Insulin Human Lispro (Humalog) 0 units SC .BEDTIME SLIDING SC PRN PRN Reason: Bedtime Correctional Scale Last Admin: 09/13/18 22:14 Dose: 4 unit Loratadine (Claritin) 10 mg PO DAILYPRN PRN PRN Reason: Sinus Symptoms Ondansetron HCl (Zofran Odt) 4 mg PO Q6H PRN PRN Reason: Nausea/Vomiting Ondansetron HCl (Zofran) 4 mg IVP Q6H PRN PRN Reason: Nausea/Vomiting Polyethylene Glycol (Miralax) 17 gm PO DAILY [facility] Last Admin: 09/15/18 09:09 Dose: 17 gm Saccharomyces Boulardii (Florastor) 250 mg PO DAILY [facility] Last Admin: 09/15/18 09:08 Dose: 250 mg Senna/Docusate Sodium (Senokot S) 2 tab PO BID PRN PRN Reason: Constipation Sodium Chloride (Gillespie Nasal [place] 0.65%) 0 ml EA NARE QIDPRN PRN PRN Reason: Nasal Congestion Throat Lozenges (Cepastat Lozenges) 1 hafsa PO Q2H PRN PRN Reason: Sore Throat Trazodone HCl (Desyrel) 50 mg PO [facility] Last Admin: 09/15/18 20:08 Dose: 50 mg Zolpidem Tartrate (Ambien) 5 mg PO HSPRN PRN PRN Reason: Insomnia
[2018-09-16 09:37] LABS: Magnesium 1.1 mg/dL (1.6-2.6); Phosphorus 2.2 mg/dL (2.3-4.7)
[2018-09-16] MEDS ORDERED: Magnesium Sulfate 4 GM in Sodium Chloride 0.9% 250 ML 250 ML IVPB SCH (10:00)
[2018-09-16] MEDS ORDERED: Potassium Phosphate 30 MMOL in Sodium Chloride 0.9% 500 ML IVPB SCH (10:00)
[2018-09-16] MEDS: Polyethylene Glycol 3350 17 GM Packet PO SCH (11:41)
[2018-09-16] MEDS: Famotidine 20 MG TAB PO SCH (11:41)
[2018-09-16] MEDS: Saccharomyces boulardii 250 MG CAP PO SCH (11:41)
[2018-09-16] MEDS: Enoxaparin Sodium 30 MG/0.3 ML SYRINGE SC SCH (11:41)
[2018-09-16 14:53] LABS: Potassium 3.7 mmol/L (3.5-5.1)
[2018-09-16] MEDS: HumaLOG 300 UNITS/3 ML VIAL SC PRN (17:35)
[2018-09-16] MEDS: 1/2 NS w/KCL 20 mEq 1,000 ML IV SCH ×3 (17:47→21:15)
[2018-09-16] MEDS: Atorvastatin Calcium 20 MG TAB PO SCH (21:16)
[2018-09-16] MEDS: traZODone HCl 50 MG TAB PO SCH (21:16)
--- NOTE | 2018-09-17 00:06 | CON ---
DATE OF CONSULTATION: REASON FOR CONSULTATION: Liver abscess. HISTORY OF PRESENT ILLNESS: An 82-year-old patient, who was admitted on September 12 after having had a cholecystectomy in June of this year when she presented with abdominal pain. At that time, she had a gallbladder ultrasound, but did not have a full hepatic ultrasound. The gallbladder pathology showed only chronic cholecystitis, but not acute cholecystitis. She persisted with the same type of pain intermittently and was eventually admitted. She had some episodes of vomiting and had some fever as well consistently. No respiratory symptoms. No diarrhea. No genitourinary symptoms. No change in her chronic joint symptoms. No neurological symptoms. PAST MEDICAL HISTORY: Type 2 diabetes, hypertension, dyslipidemia, previous hysterectomy and recent cholecystectomy when she presented with the same type of pain that led to her admission now. SOCIAL HISTORY: , lives in the area with . Never smoker. No alcoholic beverage use. FAMILY HISTORY: Noncontributory. ALLERGIES: NONE. CURRENT MEDICATIONS: 1. Lamoni. 2. Lipitor. 3. Tums. 4. Lovenox. 5. Robitussin. 6. Zosyn. PHYSICAL EXAMINATION: VITAL SIGNS: T-max 103 on arrival, she has defervesced since other vital signs normal except for slight tachycardia. SKIN: Shows normal findings. She has a peripheral IV access and is voiding in the toilet. No lymphadenopathy. HEENT: Ocular movement is conjugate. Sclerae white. Pupils are equal. Nasal passages patent. Oral cavity normal. Still quite a few teeth in place with gum disease, periodontitis. NECK: Supple, no jugular vein distention or carotid bruits. LUNGS: Clear to auscultation and percussion. S1, S2 regular rate. ABDOMEN: Soft with [id number] tenderness right upper quadrant. No bladder distention. No ascites. 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 Pulses 1+ in dorsalis pedis. NEUROLOGIC: Examination nonfocal including cognitive function. LABORATORY DATA: White cell count was 13.5, went up to 20, now is 13, hemoglobin 9, platelets 204, neutrophil percentage 90, now 70 and INR 1.4. Sodium 143, creatinine 1.63, which is fairly stable from previous. Liver profile showed normal bilirubin, transaminase was 48 on arrival. The alkaline phosphatase was 181 and has normalized. Albumin was 2.0. Urinalysis with greater than 50 wbc's. Blood cultures no growth. C diff negative, liver aspirate with Klebsiella pneumoniae and gram-negative elisha. The Klebsiella is lim susceptible to all different agents. IMAGING STUDIES: Include abdomen and pelvis CT, which demonstrated a right hepatic multilocular mass. This was aspirated and this was done under ultrasound guidance. A 5 mL of purulent fluid was aspirated. Needle was removed. ASSESSMENT: 1. Type 2 diabetes. 2. Recent cholecystectomy following development of pain, which was similar in characteristics as the one which led to her current admission. 3. Right hepatic lobe loculated mass, which appears to be an abscess caused by Klebsiella species. There is a second gram-negative elisha yet to be fully identified, susceptibility tested. DISCUSSION: It is likely that in June, patient already had this lesion, it was just not identified then. The origin of this process is more likely to be from the area of colonic thickening, which represents colitis as noted by the CT scan of the abdomen. This could be either ischemic colitis or other form of inflammatory bowel disease. Eventually, she will probably need a colonoscopy for diagnosis. The area of the lesion is multiloculated and the drainage has been incomplete, so I would recommend protracted antimicrobial therapy with oral quinolone, probably ciprofloxacin which is more affordable and I would treat for protracted period of time. [place] duration of therapy has been recommended in situations where source control is optimal, which is not the case here. She might have a mucoid type of Klebsiella, which is inclined to cause liver and other organs abscesses. The 2nd gram-negative elisha needs to be identified still before we make a final recommendation as to the regimen to be administered in the outpatient setting. Followup imaging studies will be needed to gauge the end point of treatment. Other sites of involvement other than the colon are not apparent at this time. Job ID: [id number] [facility]
[2018-09-17] MEDS: Piperacillin/Tazobactam 2.25 GM in Sodium Chloride 0.9% 100 ML IVPB SCH ×5 (05:25→23:52)
[2018-09-17] MEDS: 1/2 NS w/KCL 20 mEq 1,000 ML IV SCH ×2 (05:26→23:53)
[2018-09-17 06:47] LABS: #Eosinphils 0.8 thou/uL (0.0-0.7); #Lymphocytes 2.2 thou/uL (1.20-3.40); #Monocytes 1.3 thou/uL (0.11-0.59); #Neutrophils 9.9 thou/uL (1.40-6.50); %Eosinophils 5.4 % (0.0-10.0); %Lymphocytes 15.3 % (21.0-51.0); %Neutrophils 70.3 % (42.0-75.0); Hemoglobin 8.2 g/dL (12.0-16.0); Mean Corpuscular HGB CONC 32.6 g/dL (32.0-36.0); Mean Corpuscular Hemoglobin 28.6 pg (27.0-31.0); Mean Corpuscular Volume 87.9 fL (78.0-98.0); Mean Platelet Volume 9.2 fL (7.4-10.4); Platelet Count 220 thou/uL (130-400); RBC Distribution Width 13.1 % (11.5-14.5); Red Blood Cell (RBC) Count 2.85 mill/uL (4.20-5.40); White Blood Cell (WBC) Count 14.1 thou/uL (4.8-10.8)
[2018-09-17 07:18] LABS: Anion Gap 10 mmol/L (10-20); BUN (Urea Nitrogen) 21 mg/dL (9.8-20.1); Calc. Creatinine Clearance 26 mL/min (70-130); Calcium 7.2 mg/dL (7.8-10.44); Carbon Dioxide 18 mmol/L (23-31); Chloride 118 mmol/L (98-107); Estimated GFR-MDRD 33; Glucose 64 mg/dL (83-110); Potassium 3.8 mmol/L (3.5-5.1); Sodium 142 mmol/L (136-145)
[2018-09-17] MEDS: Saccharomyces boulardii 250 MG CAP PO SCH (08:43)
[2018-09-17] MEDS: Enoxaparin Sodium 30 MG/0.3 ML SYRINGE SC SCH (08:44)
[2018-09-17] MEDS: Famotidine 20 MG TAB PO SCH (08:44)
[2018-09-17] MEDS: Polyethylene Glycol 3350 17 GM Packet PO SCH (08:46)
--- NOTE | 2018-09-17 11:28 | PDOC.PN ---
- Subjective Encounter Start Date: 09/17/18 Encounter Start Time: 09:20 Patient seen and examined. No new complaints. No overnight events - Objective Resuscitation Status - Order Detail: 09/12/18 10:37 Resuscitation Status Routine Resuscitation Status: DNAR: NO Resuscitation Discussed with: discussed with pt and DENAE Reviewed: Yes Vital Signs & Weight: Vital Signs (12 hours) Temp Pulse Resp BP Pulse Ox 09/17/18 08:00 97.5 F L 106 H 16 122/68 96 Weight Admit Weight 122 lb 12.8 oz Weight 122 lb 12.8 oz I&O: 09/16/18 09/17/18 09/18/18 06:59 06:59 06:59 Intake Total 875 Balance 875 Result Diagrams: 09/17/18 06:13 09/17/18 06:13 Additional Labs: Accuchecks 09/17/18 09/16/18 09/16/18 04:29 19:23 16:56 POC Glucose 78 174 H 256 H 09/16/18 11:16 POC Glucose 175 H Phys Exam - Physical Examination Constitutional: NAD HEENT: PERRLA, moist MMs, sclera anicteric Neck: no JVD, supple Respiratory: no wheezing, no rales, no rhonchi Cardiovascular: RRR, no significant murmur, no rub Gastrointestinal: soft, non-tender, no distention, positive bowel sounds Musculoskeletal: no edema, pulses present Neurological: non-focal, normal sensation Lymphatic: no nodes Psychiatric: normal affect Skin: no rash, normal turgor Dx/Plan (1) Acute colitis Code(s): K52.9 - NONINFECTIVE GASTROENTERITIS AND COLITIS, UNSPECIFIED Status : Acute (2) Acute worsening of stage 3 chronic kidney disease Code(s): N18.3 - CHRONIC KIDNEY DISEASE, STAGE 3 (MODERATE) Status: Acute (3) Lactic acidosis Code(s): E87.2 - ACIDOSIS Status: Acute (4) Liver abscess Code(s): K75.0 - ABSCESS OF LIVER Status: Acute (5) Sepsis with acute organ dysfunction Code(s): A41.9 - SEPSIS, UNSPECIFIED ORGANISM; R65.20 - SEVERE SEPSIS WITHOUT SEPTIC SHOCK Status: Acute (6) UTI (urinary tract infection) Status: Acute (7) Anemia, normocytic normochromic Code(s): D64.9 - ANEMIA, UNSPECIFIED Status: Chronic (8) Diabetes type 2, controlled Code(s): E11.9 - TYPE 2 DIABETES MELLITUS WITHOUT COMPLICATIONS Status: Chronic (9) Dyslipidemia Code(s): E78.5 - HYPERLIPIDEMIA, UNSPECIFIED Status: Chronic (10) GERD (gastroesophageal reflux disease) Code(s): K21.9 - GASTRO-ESOPHAGEAL REFLUX DISEASE WITHOUT ESOPHAGITIS Status: Chronic (11) Hypertension Code(s): I10 - ESSENTIAL (PRIMARY) HYPERTENSION Status: Chronic - Plan cont current plan of care, continue antibiotics * ID recommendation noted * medication reviewed as below * symptomatic treatment. Review of Systems - Review of Systems ENT: negative: Ear Pain, Ear Discharge, Nose Pain, Nose Discharge, Nose Congestion, Mouth Pain, Mouth Swelling, Throat Pain, Throat Swelling, Other Respiratory: negative: Cough, Dry, Shortness of Breath, Hemoptysis, SOB with Excertion, Pleuritic Pain, Sputum, Wheezing Cardiovascular: negative: chest pain, palpitations, orthopnea, paroxysmal nocturnal dyspnea, edema, light headedness, other Gastrointestinal: negative: Nausea, Vomiting, Abdominal Pain, Diarrhea, Constipation, Melena, Hematochezia, Other Genitourinary: negative: Dysuria, Frequency, Incontinence, Hematuria, Retention , Other Musculoskeletal: negative: Neck Pain, Shoulder Pain, Arm Pain, Back Pain, Hand Pain, Leg Pain, Foot Pain, Other - Medications/Allergies Allergies/Adverse Reactions: Allergies Allergy/AdvReac Type Severity Reaction Status Date / Time No Known Drug Allergies Allergy Verified 09/12/18 15:29 Medications: Current Medications Acetaminophen (Tylenol) 650 mg PO Q4H PRN PRN Reason: Headache/Fever/Mild Pain (1-3) Last Admin: 09/14/18 21:19 Dose: 650 mg Hydrocodone Bitart/Acetaminophen ([place] 5/325) 1 tab PO Q4H PRN PRN Reason: Moderate Pain (4-6) Artificial Tears (Tears Naturale) 2 drop EA EYE PRN PRN PRN Reason: Dry Eyes Atorvastatin Calcium (Lipitor) 20 mg PO HS DEMARCUS Last Admin: 09/16/18 21:16 Dose: 20 mg Calcium Carbonate (Tums) 1,000 mg PO Q4H PRN PRN Reason: Heartburn or Indigestion Dextrose/Water (Dextrose 50%) 25 gm SLOW IVP PRN PRN PRN Reason: Hypoglycemia Enoxaparin Sodium (Lovenox) 30 mg SC 0900 [facility] Last Admin: 09/17/18 08:44 Dose: 30 mg Famotidine (Pepcid) 20 mg PO DAILY [facility] Last Admin: 09/17/18 08:44 Dose: 20 mg Glucagon (Glucagon) 1 mg IM PRN PRN PRN Reason: Hypoglycemia Guaifenesin (Robitussin Sf) 200 mg PO Q4H PRN PRN Reason: Cough Hydralazine HCl (Apresoline) 10 mg SLOW IVP Q4H PRN PRN Reason: SBP > 180 and HR < 70 Dextrose/Water (D5w) 1,000 mls @ 0 mls/hr IV .Q0M PRN PRN Reason: Hypoglycemia Piperacillin Sod/Tazobactam (Sod 2.25 gm/ Sodium Chloride) 100 mls @ 200 mls/ hr IVPB Q6HR [facility] Last Admin: 09/17/18 05:25 Dose: 100 mls Insulin Glargine 20 units/ (Miscellaneous Medication) 0.2 mls @ 0 mls/hr SC BID [facility] Last Admin: 09/15/18 20:09 Dose: 0.2 mls Potassium Chloride/Sodium Chloride (1/2 Ns W/Kcl 20 Meq) 1,000 mls @ 75 mls/hr IV .[id number] [facility] Last Admin: 09/17/18 05:26 Dose: 1,000 mls Insulin Human Lispro (Humalog) 0 units SC .MODERATE SLIDING SC PRN PRN Reason: Moderate Correctional Scale Last Admin: 09/16/18 17:35 Dose: 6 unit Insulin Human Lispro (Humalog) 0 units SC .BEDTIME SLIDING SC PRN PRN Reason: Bedtime Correctional Scale Last Admin: 09/13/18 22:14 Dose: 4 unit Loratadine (Claritin) 10 mg PO DAILYPRN PRN PRN Reason: Sinus Symptoms Ondansetron HCl (Zofran Odt) 4 mg PO Q6H PRN PRN Reason: Nausea/Vomiting Ondansetron HCl (Zofran) 4 mg IVP Q6H PRN PRN Reason: Nausea/Vomiting Polyethylene Glycol (Miralax) 17 gm PO DAILY [facility] Last Admin: 09/17/18 08:46 Dose: Not Given Saccharomyces Boulardii (Florastor) 250 mg PO DAILY [facility] Last Admin: 09/17/18 08:43 Dose: 250 mg Senna/Docusate Sodium (Senokot S) 2 tab PO BID PRN PRN Reason: Constipation Sodium Chloride ([place] Nasal [place] 0.65%) 0 ml EA NARE QIDPRN PRN PRN Reason: Nasal Congestion Throat Lozenges (Cepastat Lozenges) 1 hafsa PO Q2H PRN PRN Reason: Sore Throat Trazodone HCl (Desyrel) 50 mg PO [facility] Last Admin: 09/16/18 21:16 Dose: 50 mg Zolpidem Tartrate (Ambien) 5 mg PO HSPRN PRN PRN Reason: Insomnia
--- NOTE | 2018-09-17 11:30 | PRG ---
DATE OF SERVICE: 09/16/2018 This is a cross coverage for Dr. Rajendra Brown. SUBJECTIVE: Ms. Lorelei Fox is a very pleasant 82-year-old female admitted with fever, chills, sepsis, and CAT scan showing a liver lesion with air-fluid level. She underwent cavity and drained some pus. She is on broad-spectrum antibiotic therapy. She is doing actually better. She has no abdominal pain. She has no nausea, vomiting. She is eating better. She offers no complaints. OBJECTIVE: GENERAL: Appears comfortable. VITAL SIGNS: Afebrile, pulse is 90, blood pressure 164/96. HEENT: Conjunctivae clear. CARDIOVASCULAR: First and second heart sounds heard. LUNGS: Clear to auscultation. ABDOMEN: Soft and nontender. Abdomen exam was really benign. LABORATORY DATA: Blood culture is growing coagulase-negative no growth. Liver abscess drainage showing Klebsiella pneumoniae. Hemoglobin 9, hematocrit 27.4, WBC coming down 13,100. Chem-7: potassium is low at 2.4, sodium 143, chloride is 117, BUN is 26, creatinine is 1.63, and albumin 2. IMPRESSION: 1. Liver abscess, status post drainage, on broad-spectrum antibiotics. The cultures grew Klebsiella. She is on broad-spectrum antibiotic therapy. 2. Hypokalemia, needs replacement. 3. Chronic kidney disease. Job ID: [id number]
[2018-09-17] MEDS: HumaLOG 300 UNITS/3 ML VIAL SC PRN ×2 (12:34→17:58)
--- NOTE | 2018-09-17 17:43 | PRG ---
DATE OF SERVICE: SUBJECTIVE: Ms. Fox is feeling better with no pain, no respiratory symptoms , no diarrhea. OBJECTIVE: VITAL SIGNS: Vital signs are normal. Slight tachycardia. GENERAL: Awake, alert, oriented. LUNGS: Clear. HEART: S1 and S2, regular rate. ABDOMEN: Soft, not distended or tender. Hepatomegaly noted on the physical exam. LABORATORY DATA: White cell count 14,000, hemoglobin 8.2, platelets 220. Creatinine 1.52. Microbiology with Citrobacter and Klebsiella, both are susceptible to quinolones. ASSESSMENT AND DISCUSSION: Type 2 diabetes, cholecystectomy, and right hepatic lobe abscess secondary to Citrobacter and Klebsiella, probably originated from the colitis through the portal vein. The patient to continue on Cipro for a protracted period of time, it is a multiloculated area and I do not think it would be amenable to percutaneous drainage, although she will need follow up imaging studies as one of the endpoints for the antimicrobial therapy duration. She will eventually need an endoscopy to evaluate the area of colitis. Job ID: [id number] MTDD
--- NOTE | 2018-09-17 19:31 | PRG ---
DATE OF SERVICE: 09/17/2018 REASON FOR CONSULTATION: Liver abscess, colitis. SUBJECTIVE: Today, the patient states that she is doing very well with no acute events or problems overnight. Currently, she denies any nausea, vomiting, fevers, chills, abdominal pain, dysphagia, odynophagia, melena, hematochezia, or hematemesis. She has been having approximately 1 to 2 semi-solid bowel movements per day with no difficulty with defecation. OBJECTIVE: VITAL SIGNS: Temperature 97.5, pulse 106, blood pressure 122/68, respiratory rate 16, and saturating 96% on room air. GENERAL: The patient is lying in bed, in no acute distress, alert and oriented x4. CARDIOVASCULAR: Regular rate and rhythm. RESPIRATORY: Clear to auscultation bilaterally. ABDOMEN: Normoactive bowel sounds. Soft, nondistended. Mild tenderness to palpation in the right upper quadrant. EXTREMITIES: No cyanosis, clubbing, or edema. LABORATORY DATA: CBC with a white blood cell count of 14.1, hemoglobin 8.2, hematocrit 25, platelets 220. Chemistry with a sodium of 142, potassium 3.8, chloride 118, CO2 of 18, BUN 21, creatinine 1.52, glucose 64. IMAGING DATA: No current GI imaging is available for review. ASSESSMENT AND PLAN: The patient is an 82-year-old female with past medical history of diabetes, hypertension, hyperlipidemia, presenting with multiloculated fluid collection within the liver consistent with abscess formation and abnormal GI imaging concerning for colitis. Abnormal GI imaging. 1. The patient is presenting with a CT scan on admission showing a multiloculated mass within the liver as well as mucosal thickening of the right hemicolon and sigmoid colon concerning for inflammatory versus infectious type process. She ultimately underwent a fine-needle aspiration of the multiloculated fluid collection on September 14, 2018, with 5 mL of purulent fluid retrieved with microbiology showing the presence of Klebsiella and Citrobacter both susceptible to ciprofloxacin. Since being placed on broad-spectrum antibiotic therapy, she has had a significant improvement in her clinical status, and at the current point in time, is relatively asymptomatic. At this time with the abscess formation within the hepatic system and with conferring with infectious disease specialist, this seems to have been present prior to a cholecystectomy in June 2018 and may very well be indicative of hematogenous spread from the colonic origin. Given the higher likelihood of colonic spread, she will ultimately need a colonoscopy here in the near future, but I would like for her to be on antibiotic therapy and stabilization of the findings in her liver prior to initiating colonoscopy due to increased risk of complication. I discussed this with the patient, and at this time, she is amenable to holding off on colonoscopy as well. RECOMMENDATIONS: 1. Would tailor antibiotic therapy, now the susceptibilities are known from a polymicrobial infection with Infectious Disease Service recommendations for ciprofloxacin. 2. Would continue to hold on endoscopic intervention at this time given the higher likelihood of complications associated with sedation for this procedure. 3. We will consider continuation of MiraLAX as part of her bowel regimen to assist with probable stercoral colitis on admission. 4. We will follow her peripherally for now. Please call with any questions. Job ID: [id number]
[2018-09-17] MEDS: traZODone HCl 50 MG TAB PO SCH (20:31)
[2018-09-17] MEDS: Atorvastatin Calcium 20 MG TAB PO SCH (20:32)
[2018-09-18] MEDS: Piperacillin/Tazobactam 2.25 GM in Sodium Chloride 0.9% 100 ML IVPB SCH (06:03)
[2018-09-18] MEDS: Enoxaparin Sodium 30 MG/0.3 ML SYRINGE SC SCH (08:51)
[2018-09-18] MEDS: Saccharomyces boulardii 250 MG CAP PO SCH (08:51)
[2018-09-18] MEDS: Famotidine 20 MG TAB PO SCH (08:51)
[2018-09-18] MEDS: Polyethylene Glycol 3350 17 GM Packet PO SCH (08:52)
[2018-09-18 08:54] LABS: Mean Corpuscular HGB CONC 31.8 g/dL (32.0-36.0); Mean Corpuscular Hemoglobin 27.9 pg (27.0-31.0); Mean Corpuscular Volume 87.7 fL (78.0-98.0); Platelet Count 284 thou/uL (130-400); RBC Distribution Width 13.3 % (11.5-14.5); White Blood Cell (WBC) Count 14.6 thou/uL (4.8-10.8)
[2018-09-18 08:57] LABS: Anion Gap 12 mmol/L (10-20); BUN (Urea Nitrogen) 15 mg/dL (9.8-20.1); Calc. Creatinine Clearance 27 mL/min (70-130); Calcium 7.2 mg/dL (7.8-10.44); Carbon Dioxide 17 mmol/L (23-31); Chloride 115 mmol/L (98-107); Estimated GFR-MDRD 34; Glucose 114 mg/dL (83-110); Potassium 4.1 mmol/L (3.5-5.1); Sodium 140 mmol/L (136-145)
[2018-09-18 09:31] LABS: Band 6 % (5-11); Eosinophils 7 % (0-10); Hypochromia SLIGHT = 6-15 cells (100X) (0-5/hpf); Lymphocytes 11 % (21-51); MDiff Complete? YES; Metamyelocyte 2 % (0-0); Monocytes 4 % (0-10); Neutrophil 68 % (42-75); Platelet Morphology Comment Appears Adequate; Polychromasia SLIGHT = 2-3 cells (100X) (0-2/hpf); Reactive Lymphocytes 1 % (0-10)
--- NOTE | 2018-09-18 10:56 | DIS ---
DATE OF ADMISSION: 09/12/2018 DATE OF DISCHARGE: 09/18/2018 PRIMARY CARE PHYSICIAN: Candy Hernandez. DISCHARGE DISPOSITION: Home. PRIMARY DISCHARGE DIAGNOSES: Acute on chronic kidney failure, baseline chronic kidney disease stage 3, acute colitis, hypomagnesemia, hypophosphatemia, lactic acidosis, liver abscess, sepsis with acute organ dysfunction, urinary tract infection. SECONDARY DISCHARGE DIAGNOSES: Hypertension, gastroesophageal reflux disease, dyslipidemia, diabetes type 2, normocytic normochromic anemia, chronic kidney disease stage 3. PRIMARY PROCEDURE/OPERATION: Cyst aspiration for ultrasound. RADIOLOGIST INVESTIGATION: Abdomen and pelvis CT scan, chest x-ray. SIGNIFICANT LABORATORY DATA: Hemoglobin 9.0. INR 1.4. Creatinine 1.46. Urinalysis suggestive of UTI. Blood culture negative. Stool for infection workup negative. Urine culture negative. Liver aspiration positive for Klebsiella, Citrobacter. DISCHARGE MEDICATIONS: 1. Amlodipine 5 mg p.o. daily. 2. Lipitor 20 mg p.o. daily. 3. Levemir insulin 20 units subcu b.i.d. 4. Prinzide 12/22.5 one tablet p.o. daily. 5. Metformin 1000 mg b.i.d. 6. Omeprazole 20 mg daily. 7. Trazodone 50 mg p.o. at bedtime. 8. Ciprofloxacin 500 mg p.o. b.i.d. 9. Florastor 250 mg p.o. daily. CONTRAINDICATION: None. CODE STATUS: DNR. INPATIENT MACHINE CLOTHING REPLACER: Dr. Langley, Dr. Brown, Dr. Kaye, Dr. Kat. TEST RESULTS PENDING ON DISCHARGE: None. ALLERGIES: NO KNOWN DRUG ALLERGIES. DISCHARGE PLAN: Post hospital, the patient will follow up with primary care physician, Dr. Kaye and Dr. Brown. HOSPITAL COURSE: An 82-year-old female who was admitted by me. Please see my HPI for further details. The patient was admitted with sepsis with acute organ dysfunction. She was having acute colitis. She also had some abnormality on CT abdomen and pelvis that was suspected for liver abscess. We did liver aspiration and we found that the patient has Klebsiella and Citrobacter in liver. This patient has underlying colitis and she will need outpatient colonoscopy. She will need prolonged oral ciprofloxacin based on culture and sensitivity result. While in hospital, we gave her vancomycin and Zosyn and then we changed to only Zosyn while in the hospital and subsequently we changed to p.o. Cipro. I have seen and examined the patient bedside today. She is completely stable for discharge. Her vitals are stable. Her examination is normal. She is tolerating p.o. well, ambulatory and afebrile and hemodynamically stable. Plan of care discussed with the family member as well. Job ID: [id number]
[2018-09-18 11:32] VITALS: BP 133/68; TEMP 97.8
[2018-09-18] MEDS: HumaLOG 300 UNITS/3 ML VIAL SC PRN (11:43)
[2018-09-18] MEDS ORDERED: Cipro 250 MG TAB PO SCH (20:00)
[2018-09-18] MEDS ORDERED: Ciprofloxacin 500 MG TAB PO SCH (20:00)
== END 2018-09-18 11:56 | disposition home or self-care (01) | DRG 871 ==
LOC: ERS 23:32 → ERHOLD 09-12 04:06 → 2NO 09-12 15:17 → T4-B 09-14 20:52
PROVIDERS: ADMIT Internal Medicine; ATTEND Internal Medicine
PROC: 0F913ZZ Drainage of Right Lobe Liver, Percutaneous Approach (ICD-10-PCS; principal; 2018-09-14)
DX: A41.9 Sepsis, unspecified organism (principal); K75.0 Abscess of liver; A09 Infectious gastroenteritis and colitis, unspecified; N39.0 Urinary tract infection, site not specified; E87.2 Acidosis; N17.9 Acute kidney failure, unspecified; Z66 Do not resuscitate; E11.9 Type 2 diabetes mellitus without complications; E78.5 Hyperlipidemia, unspecified; K59.00 Constipation, unspecified; K21.9 Gastro-esophageal reflux disease without esophagitis; N18.3 Chronic kidney disease, stage 3 (moderate); I12.9 Hypertensive chronic kidney disease with stage 1 through stage 4 chronic kidney disease, or unspecified chronic kidney disease; R65.20 Severe sepsis without septic shock; E83.42 Hypomagnesemia; E83.39 Other disorders of phosphorus metabolism; B96.1 Klebsiella pneumoniae [K. pneumoniae] as the cause of diseases classified elsewhere; B96.89 Other specified bacterial agents as the cause of diseases classified elsewhere; D63.1 Anemia in chronic kidney disease; Z79.4 Long term (current) use of insulin; Z90.710 Acquired absence of both cervix and uterus
CPT/HCPCS: 36415; 36416; 51701; 71045; 74176; 76942; 80048; 80053; 80202; 81003; 81015; 82105; 82378; 83605; 83690; 83735; 83880; 84100; 84484; 85025; 85610; 87040; 87045; 87046; 87070; 87077; 87081; 87186; 87205; 87324; 87449; 87899; 93005; 96365; A4353; J0131; J1650; J1815; J2001; J2250; J2543; J3010; J3370; J3475; J3480; J3490; J7050

== ENCOUNTER 2018-09-20 16:52 | Inpatient (IN) | payer MEDICARE, MEDICAID ==
[2018-09-20 17:40] LABS: #Eosinphils 0.6 thou/uL (0.0-0.7); #Lymphocytes 2.2 thou/uL (1.20-3.40); #Neutrophils 9.8 thou/uL (1.40-6.50); %Eosinophils 4.3 % (0.0-10.0); %Lymphocytes 16.3 % (21.0-51.0); %Monocytes 7.6 % (0.0-10.0); %Neutrophils 71.8 % (42.0-75.0); Hemoglobin 8.9 g/dL (12.0-16.0); Mean Corpuscular HGB CONC 31.6 g/dL (32.0-36.0); Mean Corpuscular Hemoglobin 27.8 pg (27.0-31.0); Mean Corpuscular Volume 88.1 fL (78.0-98.0); Platelet Count 430 thou/uL (130-400); RBC Distribution Width 13.9 % (11.5-14.5); White Blood Cell (WBC) Count 13.7 thou/uL (4.8-10.8)
[2018-09-20 18:00] LABS: ALT (SGPT) 7 U/L (8-55); AST (SGOT) 17 U/L (5-34); Albumin 2.6 g/dL (3.4-4.8); Alkaline Phosphatase 139 U/L (40-150); Anion Gap 11 mmol/L (10-20); BUN (Urea Nitrogen) 11 mg/dL (9.8-20.1); Bilirubin, Total 0.3 mg/dL (0.2-1.2); Calc. Creatinine Clearance 0 mL/min (70-130); Calcium 8.1 mg/dL (7.8-10.44); Carbon Dioxide 19 mmol/L (23-31); Chloride 113 mmol/L (98-107); Estimated GFR-MDRD 38; Globulin 3.7 g/dL (2.4-3.5); Glucose 81 mg/dL (83-110); Potassium 3.4 mmol/L (3.5-5.1); Protein, Total 6.3 g/dL (6.0-8.3); Sodium 140 mmol/L (136-145)
--- NOTE | 2018-09-20 21:13 | RAD ---
PORTABLE CHEST ONE VIEW: 09/20/18 at 8:31 p.m. HISTORY: Bilateral lower extremity swelling. FINDINGS/IMPRESSION: Comparison made with exam of 09/11/18. The heart size is borderline. There is small bilateral pleural effusions. The aorta is tortuous. No l obar consolidation or pneumothoraces are seen. There is mild prominence in the pulmonary vascularity. POS: [facility]
[2018-09-20] MEDS ORDERED: Potassium Chloride 20 MEQ TAB ONE (21:15)
[2018-09-20] MEDS ORDERED: Furosemide 40 MG/4 ML VIAL ONE (21:15)
[2018-09-20 22:13] LABS: Troponin I Less than 0.010 ng/mL (< 0.028)
[2018-09-20] MEDS ORDERED: Enoxaparin Sodium 60 MG/0.6 ML SYRINGE ONE (22:20)
[2018-09-20 22:43] LABS: INR-International Normal Ratio 1.1; Prothrombin Time 14.6 SEC (12.0-14.7)
[2018-09-21 00:58] LABS: Troponin I 0.024 ng/mL (< 0.028)
[2018-09-21] MEDS ORDERED: Acetaminophen 325 MG TAB PO PRN (01:42)
[2018-09-21] MEDS ORDERED: traMADol HCl 50 MG TAB PO PRN (01:55)
[2018-09-21] MEDS ORDERED: Dextrose 50% Abboject 50 ML SYRINGE SLOW IVP PRN (01:56)
[2018-09-21] MEDS ORDERED: Dextrose 5% in Water 1,000 ML IV PRN (01:56)
[2018-09-21] MEDS ORDERED: Enoxaparin Sodium 40 MG/0.4 ML SYRINGE SC SCH (02:00)
[2018-09-21] MEDS ORDERED: traMADol HCl 50 MG TAB ONE (03:26)
[2018-09-21 03:38] LABS: #Eosinphils 0.4 thou/uL (0.0-0.7); #Lymphocytes 2.3 thou/uL (1.20-3.40); #Monocytes 0.8 thou/uL (0.11-0.59); #Neutrophils 9.8 thou/uL (1.40-6.50); %Basophils 0.2 % (0.0-1.0); %Eosinophils 2.7 % (0.0-10.0); %Lymphocytes 17.3 % (21.0-51.0); %Monocytes 6.3 % (0.0-10.0); %Neutrophils 73.6 % (42.0-75.0); Hemoglobin 8.3 g/dL (12.0-16.0); Mean Corpuscular HGB CONC 31.2 g/dL (32.0-36.0); Mean Corpuscular Hemoglobin 27.9 pg (27.0-31.0); Mean Corpuscular Volume 89.3 fL (78.0-98.0); Mean Platelet Volume 7.8 fL (7.4-10.4); Platelet Count 404 thou/uL (130-400); RBC Distribution Width 14.2 % (11.5-14.5); Red Blood Cell (RBC) Count 2.97 mill/uL (4.20-5.40); White Blood Cell (WBC) Count 13.4 thou/uL (4.8-10.8)
[2018-09-21 04:00] LABS: ALT (SGPT) Less than 7 U/L (8-55); AST (SGOT) 18 U/L (5-34); Albumin 2.3 g/dL (3.4-4.8); Alkaline Phosphatase 115 U/L (40-150); Anion Gap 12 mmol/L (10-20); BUN (Urea Nitrogen) 10 mg/dL (9.8-20.1); Bilirubin, Total 0.3 mg/dL (0.2-1.2); Calc. Creatinine Clearance 0 mL/min (70-130); Calcium 7.7 mg/dL (7.8-10.44); Carbon Dioxide 19 mmol/L (23-31); Chloride 115 mmol/L (98-107); Estimated GFR-MDRD 39; Potassium 4.1 mmol/L (3.5-5.1); Protein, Total 5.3 g/dL (6.0-8.3); Sodium 142 mmol/L (136-145)
[2018-09-21 04:02] LABS: Glucose 47 mg/dL (83-110)
[2018-09-21 04:04] LABS: Troponin I Less than 0.010 ng/mL (< 0.028)
[2018-09-21] MEDS ORDERED: Furosemide 40 MG/4 ML VIAL ONE (05:38)
[2018-09-21] MEDS: Furosemide 40 MG/4 ML VIAL SLOW IVP SCH ×2 (05:58→14:47)
[2018-09-21 06:50] VITALS: BMI 24.7
[2018-09-21] MEDS ORDERED: Prevnar 13-Val Conj/PF 0.5 ML SYRINGE IM ONE ×2 (08:00→09:00)
[2018-09-21] MEDS ORDERED: metFORMIN 500 MG TAB PO SCH (08:00)
[2018-09-21 08:53] LABS: Magnesium 1.2 mg/dL (1.6-2.6); Phosphorus 3.2 mg/dL (2.3-4.7)
[2018-09-21] MEDS ORDERED: Enoxaparin Sodium 60 MG/0.6 ML SYRINGE SC SCH (09:00)
[2018-09-21] MEDS ORDERED: Magnesium Sulfate 4 GM in Sodium Chloride 0.9% 250 ML 250 ML IVPB SCH (09:15)
[2018-09-21] MEDS: Metoprolol Tartrate 25 MG TAB PO SCH ×2 (09:29→20:48)
[2018-09-21] MEDS: Lisinopril 10 MG TAB PO SCH (09:29)
[2018-09-21] MEDS: HumaLOG 300 UNITS/3 ML VIAL SC PRN (17:42)
[2018-09-22 06:03] LABS: #Eosinphils 0.4 thou/uL (0.0-0.7); #Lymphocytes 2.2 thou/uL (1.20-3.40); #Monocytes 0.9 thou/uL (0.11-0.59); %Basophils 0.1 % (0.0-1.0); %Eosinophils 3.8 % (0.0-10.0); %Lymphocytes 19.2 % (21.0-51.0); %Neutrophils 68.9 % (42.0-75.0); Hemoglobin 8.1 g/dL (12.0-16.0); Mean Corpuscular HGB CONC 32.1 g/dL (32.0-36.0); Mean Corpuscular Hemoglobin 28.4 pg (27.0-31.0); Mean Corpuscular Volume 88.6 fL (78.0-98.0); Mean Platelet Volume 7.7 fL (7.4-10.4); Platelet Count 438 thou/uL (130-400); RBC Distribution Width 14.4 % (11.5-14.5); Red Blood Cell (RBC) Count 2.87 mill/uL (4.20-5.40); White Blood Cell (WBC) Count 11.6 thou/uL (4.8-10.8)
[2018-09-22] MEDS: Furosemide 40 MG/4 ML VIAL SLOW IVP SCH (06:08)
[2018-09-22] MEDS: HumaLOG 300 UNITS/3 ML VIAL SC PRN ×3 (06:09→18:17)
[2018-09-22 06:28] LABS: Albumin 2.3 g/dL (3.4-4.8); Anion Gap 11 mmol/L (10-20); BUN (Urea Nitrogen) 13 mg/dL (9.8-20.1); BUN/Creatinine Ratio 9.63; Calc. Creatinine Clearance 31 mL/min (70-130); Carbon Dioxide 24 mmol/L (23-31); Chloride 109 mmol/L (98-107); Estimated GFR-MDRD 38; Glucose 193 mg/dL (83-110); Magnesium 1.8 mg/dL (1.6-2.6); Phosphorus 3.5 mg/dL (2.3-4.7); Potassium 4.1 mmol/L (3.5-5.1); Sodium 140 mmol/L (136-145)
[2018-09-22] MEDS ORDERED: Enoxaparin Sodium 60 MG/0.6 ML SYRINGE SC SCH (09:00)
[2018-09-22] MEDS: Lisinopril 10 MG TAB PO SCH (10:06)
[2018-09-22] MEDS: Saccharomyces boulardii 250 MG CAP PO SCH (10:07)
[2018-09-22] MEDS: Metoprolol Tartrate 25 MG TAB PO SCH ×2 (10:07→21:17)
--- NOTE | 2018-09-22 11:16 | PDOC.PN ---
- Subjective Encounter Start Date: 09/22/18 (f/u volume overload) Encounter Start Time: 11:14 Subjective: Pt without complaints today, notes that the leg swelling -: has improved. Denies any n/v - Objective Resuscitation Status - Order Detail: 09/21/18 01:42 Resuscitation Status Routine Resuscitation Status: FULL: Full Resuscitation Vital Signs & Weight: Vital Signs (12 hours) Temp Pulse Resp BP BP Pulse Ox 09/22/18 10:06 121/71 09/22/18 07:32 97.8 F 87 16 121/71 98 09/22/18 04:07 98.1 F 87 15 141/79 H 97 09/21/18 23:38 98.4 F 75 16 141/60 H 96 Weight Weight 130 lb 3.2 oz I&O: 09/21/18 09/22/18 09/23/18 06:59 06:59 06:59 Intake Total 1100 Output Total 1700 Balance -600 Result Diagrams: 09/22/18 05:46 09/22/18 05:46 Additional Labs: Accuchecks 09/22/18 09/21/18 09/21/18 06:06 20:57 16:40 POC Glucose 182 H 192 H 172 H EKG Reviewed by me: Yes (tele - sinus 70's) Phys Exam - Physical Examination Constitutional: NAD Respiratory: no wheezing, no rales, no rhonchi, clear to auscultation bilateral Cardiovascular: no significant murmur, irregular Gastrointestinal: soft, non-tender, no distention, positive bowel sounds 1+ pitting edema bilateral Neurological: non-focal, moves all 4 limbs Psychiatric: normal affect Skin: no rash Dx/Plan (1) Heart failure Code(s): I50.9 - HEART FAILURE, UNSPECIFIED Status: Acute Qualifiers: Heart failure type: systolic Heart failure chronicity: acute Qualified Code(s): I50.21 - Acute systolic (congestive) heart failure (2) Anemia Code(s): D64.9 - ANEMIA, UNSPECIFIED Status: Acute Qualifiers: Anemia type: unspecified type Qualified Code(s): D64.9 - Anemia, unspecified (3) CKD (chronic kidney disease) stage 3, GFR 30-59 ml/min Code(s): N18.3 - CHRONIC KIDNEY DISEASE, STAGE 3 (MODERATE) Status: Chronic (4) Diabetes mellitus Code(s): E11.9 - TYPE 2 DIABETES MELLITUS WITHOUT COMPLICATIONS Status: Chronic Qualifiers: Diabetes mellitus type: type 2 Diabetes mellitus senior living insulin use: with terminal press operator use Diabetes mellitus complication status: with kidney complications Diabetes mellitus complication detail: with chronic kidney disease Chronic kidney disease stage: stage 3 (moderate) Qualified Code(s): E11.22 - Type 2 diabetes mellitus with diabetic chronic kidney disease; N18.3 - Chronic kidney disease, stage 3 (moderate); Z79.4 - termite control service representative (current) use of insulin (5) Prolonged QT interval Code(s): R94.31 - ABNORMAL ELECTROCARDIOGRAM [ECG] [EKG] Status: Acute (6) Atrial fibrillation Code(s): I48.91 - UNSPECIFIED ATRIAL FIBRILLATION Status: Acute (7) Acute colitis Code(s): K52.9 - NONINFECTIVE GASTROENTERITIS AND COLITIS, UNSPECIFIED Status : Acute (8) Liver abscess Code(s): K75.0 - ABSCESS OF LIVER Status: Acute (9) Dyslipidemia Code(s): E78.5 - HYPERLIPIDEMIA, UNSPECIFIED Status: Chronic (10) GERD (gastroesophageal reflux disease) Code(s): K21.9 - GASTRO-ESOPHAGEAL REFLUX DISEASE WITHOUT ESOPHAGITIS Status: Chronic Qualifiers: Esophagitis presence: esophagitis presence not specified Qualified Code(s) : K21.9 - Gastro-esophageal reflux disease without esophagitis (11) Hypertension Code(s): I10 - ESSENTIAL (PRIMARY) HYPERTENSION Status: Chronic Qualifiers: Hypertension type: essential hypertension Qualified Code(s): I10 - Essential (primary) hypertension - Plan * heart failure vs volume overload * await echo * consult Cardiology * change to PO furosemide * continue beta-hi, [place]-I and statin * a fib - rate controlled * hold lovenox for now due to worsening anemia * worsening anemia - * fecal occult * gi eval * vitamin/iron studies and type and screen * Colitis with recent discharge and liver abscess - has not been on abx here and has a prolonged QT interval * re-consult ID * start Rocephin * was d/c on cipro - avoid due to prolonged qt interval * DM - uncontrolled - add 20 units long-acting insulin tonight (on 20 units BID at home- and reassess in AM) Pt to be on a clear liquid diet in AM. * pt/ot consult * change to inpatient status. * * dvt prophy - ambulatory and scd's * gi prophy - on ppi at home continue discussed plan through hospital interpretor system pt at high risk in current condition - not safe for discharge to home and more thorough evaluation and treatment needed here for signficant medical conditions
[2018-09-22] MEDS: cefTRIAXone\\ROCEPHIN 2 GM in Sodium Chloride 0.9% 100 ML IVPB SCH (12:40)
[2018-09-22 13:33] LABS: Iron 32 ug/dL (50-170); Iron Binding Capacity, Total 160 mcg/dL (265-497)
[2018-09-22 14:14] LABS: Folate (Folic Acid) 9.8 ng/mL (7.0-31.4)
[2018-09-22] MEDS ORDERED: Heparin 1,000 UNITS/ML VIAL ONE (15:00)
--- NOTE | 2018-09-22 16:13 | CON ---
DATE OF CONSULTATION: 09/22/2018 REASON FOR CONSULTATION: Lower extremity edema and cardiomyopathy. PRIMARY SPARE PARTS CLERK: None. HISTORY OF PRESENT ILLNESS: Ms. Fox is a very pleasant 82-year-old [place]er-speaking only woman. She recently was seen and evaluated in the hospital for liver abscess. This was confirmed on biopsy. She was placed on antibiotic therapy. She recently presented to the emergency room with lower extremity edema. The ER note states she had chest pain. After multiple questioning with the patient and , she denies chest pain, pressure, or shortness of breath. Her main concern on returning to the emergency room was lower extremity edema. She has no previous history of cardiomyopathy. She has no previous history of CAD or previous NV. PAST MEDICAL HISTORY: 1. Liver abscess, on antibiotic therapy. 2. Diabetes mellitus. 3. Hypertension. 4. Hyperlipidemia. 5. Hysterectomy. FAMILY HISTORY: Negative. ALLERGIES: NONE. SOCIAL HISTORY: No current tobacco or alcohol use. Her is present during the interview. HOME MEDICATIONS: 1. Metformin. 2. Florastor. 3. Omeprazole. 4. Lisinopril/hydrochlorothiazide. 5. Insulin. 6. Cipro. 7. Atorvastatin. 8. Amlodipine. REVIEW OF SYSTEMS: A 10-point review of systems is reviewed as above, otherwise negative. PHYSICAL EXAMINATION: VITAL SIGNS: Blood pressure 124/58, pulse 80, temperature 97.9. GENERAL: Patient is a pleasant female, who is in no acute distress. The patient appears their stated age. NEUROLOGIC: The patient is alert and oriented x3 with no focal neurologic deficits. HEENT: Sclerae without icterus. Mouth has moist mucous membranes with normal pallor. NECK: No JVD. Carotid upstroke brisk. No bruits bilaterally. LUNGS: Clear to auscultation with unlabored respirations. BACK: No scoliosis or kyphosis. CARDIAC: Regular rate and rhythm with normal S1 and S2. No S3 or S4 noted. No significant rubs, murmurs, thrills, or gallops noted throughout the precordium. PMI is not displaced. There is no parasternal heave. ABDOMEN: Soft, nontender, nondistended. No peritoneal signs present. No hepatosplenomegaly. No abnormal striae. EXTREMITIES: 1+ pitting edema. SKIN: No gross abnormalities. PERTINENT LABORATORY DATA: Hemoglobin 8.1. Creatinine 1.35. Albumin 2.3. Echo Doppler shows LVEF 40% to 45%, although very difficult study. Inferior wall appears hypokinetic. IMPRESSION: 1. Cardiomyopathy of unknown etiology. 2. Lower extremity edema. 3. Recent liver abscess. 4. Anemia. 5. Malnutrition. RECOMMENDATIONS: At this point, I would recommend aggressive medical therapy. I dis not feel comfortable proceeding with a coronary angiography, given her creatinine and anemia. I would also not feel comfortable proceeding with a noninvasive stress study due to her anemia. I would continue with Lasix therapy as prescribed. Her symptoms have significantly improved. We will continue with antibiotic therapy as prescribed. We will continue Lopressor. Avoid JENNIFER inhibitor therapy and ARB due to chronic kidney disease. Job ID: [id number]
--- NOTE | 2018-09-22 16:56 | EKG ---
Test Reason : Blood Pressure : / mmHG Vent. Rate : 101 BPM Atrial Rate : 107 BPM P-R Int : 000 ms QRS Dur : 128 ms QT Int : 396 ms P-R-T Axes : 000 -13 012 degrees QTc Int : 513 ms Atrial fibrillation with rapid ventricular response Right bundle branch block Abnormal ECG Confirmed by SELENA HUMPHREYS DO ([id number]), communications editor TANNER BETANCOURT ([id number]) on 09/22/2018 4:56:18 PM Referred By: Confirmed By:SELENA HUMPHREYS DO
[2018-09-22] MEDS ORDERED: Clopidogrel Bisulfate 75 MG TAB ONE (18:20)
[2018-09-22] MEDS ORDERED: Insulin Glargine 20 UNITS in Pre-Filled Syringe 1 EACH SC SCH (21:00)
--- NOTE | 2018-09-22 23:45 | CON ---
DATE OF CONSULTATION: 09/22/2018 REASON FOR CONSULTATION: CHF and previous liver abscess with QT prolongation. HISTORY OF PRESENT ILLNESS: Ms. Fox is known to us from recent admission just a few days ago when she presented with a history of cholecystectomy earlier this year when she presented with abdominal pain, but I believe that she had a liver abscess that was not identified. Eventually, she was readmitted this time. Imaging study showed a multiloculated liver abscess, right lobe not amenable to percutaneous drainage. She had a diagnostic aspirate and 2 different gram-negative rods identified with fairly broad susceptibility profile. It was decided to give her quinolone, but now she presents with bilateral lower extremity swelling, dyspnea associated with pain in the legs. No fever chills. The abdominal pain that she had experienced and chest pain has resolved. No headaches. Moderate dyspnea. No back pain, no genitourinary symptoms. No joint symptoms. PAST MEDICAL HISTORY: Type 2 diabetes, hypertension, dyslipidemia, hysterectomy , cholecystectomy, liver abscess due gram-negative rods. SOCIAL HISTORY: . Lives in [place]. Never smoker. No alcoholic beverage use. FAMILY HISTORY: Noncontributory. ALLERGIES: NONE. CURRENT MEDICATIONS: Include: 1. Ceftriaxone p.r.n. medication. 2. Glucagon. 3. Insulin. 4. Zestril. 5. Florastor. 6. Metoprolol. 7. Ultram. PHYSICAL EXAMINATION: VITAL SIGNS: Temperature has been normal. Other vital signs BP 140/64, pulse 80, respirations 18. No distress, pleasant. NECK: No lymphadenopathy. Neck is supple. HEENT: Ocular movements conjugate. Oral cavity with numerous missing teeth. LUNGS: Symmetric, clear breath sounds. CARDIAC: S1-S2, regular rate. ABDOMEN: Soft, not distended. EXTREMITIES: The patient has a peripheral IV access. The edema in lower extremities has decreased quite a bit. The previously noted tenderness in the right upper quadrant has not diminished or disappeared. Pulses 1+ in dorsalis pedis. NEUROLOGIC: Nonfocal. LABORATORY DATA: White cell count was 13.7, down to 11.6, hemoglobin 8.1, platelets 438. INR 1.1, creatinine 1.35, which is improved from the previous visit and the AST of 17, ALT 7, alkaline phosphatase 139. Microbiology with negative C difficile toxin test. IMAGING: The patient had an echocardiogram with EF of 45%, diastolic dysfunction and moderate mitral regurg, mild tricuspid regurg. Chest x-ray on admission with borderline heart size. Bilateral small pleural effusions. No infiltrates. cardiomyopathy ASSESSMENT: 1. Type 2 diabetes. 2. Right hepatic lobe abscess due to Citrobacter and Klebsiella. 3. QT prolongation. 4. The patient will be continued on Rocephin for the duration of therapy probably around 6 weeks. 5. PICC line placement just to avoid the complications associated with QT prolongation, which can be exacerbated by quinolones. 6. 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 Job ID: [id number] MTDD
--- NOTE | 2018-09-22 23:53 | CON ---
DATE OF CONSULTATION: 09/22/2018 REQUESTING PHYSICIAN: Dr. Eva Gordillo. REASON FOR CONSULTATION: Colitis and anemia. HISTORY OF PRESENT ILLNESS: Lorelei Fox is an 82-year-old woman, recently readmitted to the hospital. She was here from 09/11/2018 to 09/18/2018, after having presented with some shortness of breath and fever. She was found on CT imaging to have a 7.5 cm liver abscess. She underwent aspiration of this lesion on 09/14/2018 and the culture came back growing Citrobacter and Klebsiella. Other CT finding at that time demonstrated thickening of the right colon and sigmoid. This is despite really no chronic gastrointestinal symptoms, a bit of a tendency toward constipation, but well controlled on MiraLAX. She was seen by my GI colleague, Dr. Brown on that admission. She was also seen by Infectious Disease. Dr. Kaye had recommended a protracted course of ciprofloxacin. Colonoscopy was also recommended as an eventual measure, and the plan was to do this on an outpatient basis following further resolution of the infectious process. The patient was discharged on ciprofloxacin on 09/18/2018. The patient was re-admitted to the hospital the other day with new onset bilateral lower extremity edema. She says this is all completely new following hospital discharge. She was started on Lasix and Rocephin on readmission. She has been seen by Dr. Montano of Cardiology and had an echocardiogram. Ejection fraction is 40% to 45%, and there is some akinesis of the inferior wall. Dr. Montano has recommended medical therapy and no catheterization or stress testing for now, given her anemia. Her hemoglobin was basically in the 9.0 to 9.5 range during her recent admission. Today, it is 8.1. There has been no evidence of any overt bleeding. Iron studies are mixed, more consistent with chronic disease, and B12 and folic acid are normal. The patient has never had a prior colonoscopy. There is no family history of colon cancer. She is not really having any abdominal pain or significant diarrhea. REVIEW OF SYSTEMS: Full review of systems including constitutional, head, eyes, ears, nose, throat, GI, , cardiovascular, respiratory, musculoskeletal, and neurologic systems is negative except as noted in the HPI. PAST MEDICAL HISTORY: Hypertension; hyperlipidemia; diabetes, type 2; hysterectomy; cholecystectomy; and right hepatic lobe abscess with Klebsiella and Citrobacter, diagnosed on aspiration on 09/14/2018. ALLERGIES: TRAZODONE. OUTPATIENT MEDICATIONS: 1. Ciprofloxacin. 2. Metformin. 3. Florastor. 4. Omeprazole. 5. Lisinopril/hydrochlorothiazide. 6. Insulin. 7. Atorvastatin. 8. Amlodipine. FAMILY HISTORY: Negative for colon cancer. SOCIAL HISTORY: No smoking, alcohol, or drug use. PHYSICAL EXAMINATION: VITAL SIGNS: Temperature 98.0, pulse 80, blood pressure 141/64, and 95% oxygen saturation on room air. GENERAL: An 82-year-old woman, sitting up in bed comfortably, in no distress. SKIN: No jaundice and no rashes were palpable. EYES: No scleral icterus. Extraocular movements are intact. ENT: Mucous membranes moist. No oral lesions. LYMPH: No submandibular or supraclavicular lymphadenopathy. THYROID: Nontender to palpation. HEART: Regular rate and rhythm. LUNGS: Clear to auscultation bilaterally. ABDOMEN: Bowel sounds present. Soft, nontender to palpation throughout. EXTREMITIES: Trace bilateral pretibial edema. The patient says this is markedly improved even since readmission yesterday. MENTAL: The patient is alert and oriented. She is able to converse with me in Latvian. NEURO: Cranial nerves 2 through 12 intact bilaterally. No focal deficits. LABORATORY STUDIES: WBC is elevated to 11.6, hemoglobin 8.1, MCV 88, and platelets 438. Ferritin 191, TIBC 160, iron 32, overall iron studies are mixed. Vitamin B12 is 661, folic acid 9.8. INR 1.1. Sodium 140, potassium 4.1, BUN 13, creatinine 1.35, and glucose 351. Labs from yesterday showed normal LFTs with total bilirubin 0.3, alkaline phosphatase 115, AST 18, ALT less than 7, and albumin 2.3. BNP was 1159. Troponin negative. IMAGING STUDIES: 09/20/2018, chest x-ray showed borderline cardiomegaly. 09/22/2018, echocardiogram showed ejection fraction of 40% to 45% and akinetic inferior wall. 09/11/2018, CT of the abdomen and pelvis is detailed in the HPI. ASSESSMENT AND PLAN: 1. Colitis, based on CT findings from 09/11/2018. 2. Liver abscess, with cultures growing out Citrobacter and Klebsiella, currently on plan for protracted outpatient therapy with oral ciprofloxacin. The impression is that the liver abscess was probably hematogenous spread from the portal vein due to a gastroenteric process. Given the findings of thickening in the colon on her initial CT scan, colitis is leading the differential as to an entry point for the bacteria. Notably, the patient really does not have much in the way of colitic symptoms. I agree that colonoscopy is certainly warranted for further investigation. I think it would be reasonable to perform colonoscopy this admission once cardiac status is optimized. 3. Anemia, normocytic. This is somewhat chronic, though hemoglobin declined to 8.1 over the past few days. Note that, iron studies are mixed, and B12 and folic acid are normal. There has been no overt bleeding. Colonoscopy is certainly otherwise warranted, and we will plan for this later this admission. 4. Cardiomyopathy, unknown etiology. The patient has ejection fraction of 40% to 45% and akinesis of the inferior wall. I spoke with Dr. Montano, who saw the patient earlier today. For now, he is recommending medical optimization with diuretics. The patient may be optimized for further investigations including colonoscopy as early as Monday. I will have the patient on a clear liquid diet tomorrow, in anticipation of probable bowel preparation tomorrow evening and colonoscopy the following day (Monday). I discussed this in detail with the patient and her , who desired to proceed. I understand Infectious Disease has also been reconsulted. Thank you for the consultation. Please call anytime with questions or concerns. Job ID: [id number]
[2018-09-23 06:39] LABS: #Eosinphils 0.5 thou/uL (0.0-0.7); #Lymphocytes 2.4 thou/uL (1.20-3.40); #Monocytes 0.8 thou/uL (0.11-0.59); #Neutrophils 7.4 thou/uL (1.40-6.50); %Basophils 0.3 % (0.0-1.0); %Eosinophils 4.5 % (0.0-10.0); %Lymphocytes 21.6 % (21.0-51.0); %Monocytes 7.2 % (0.0-10.0); %Neutrophils 66.5 % (42.0-75.0); Hemoglobin 8.6 g/dL (12.0-16.0); Mean Corpuscular HGB CONC 31.7 g/dL (32.0-36.0); Mean Corpuscular Hemoglobin 28.3 pg (27.0-31.0); Mean Corpuscular Volume 89.5 fL (78.0-98.0); Mean Platelet Volume 7.8 fL (7.4-10.4); Platelet Count 434 thou/uL (130-400); RBC Distribution Width 14.6 % (11.5-14.5); Red Blood Cell (RBC) Count 3.03 mill/uL (4.20-5.40); White Blood Cell (WBC) Count 11.2 thou/uL (4.8-10.8)
[2018-09-23 07:03] LABS: Anion Gap 13 mmol/L (10-20); BUN (Urea Nitrogen) 13 mg/dL (9.8-20.1); Calc. Creatinine Clearance 33 mL/min (70-130); Calcium 7.8 mg/dL (7.8-10.44); Carbon Dioxide 24 mmol/L (23-31); Chloride 108 mmol/L (98-107); Estimated GFR-MDRD 40; Glucose 80 mg/dL (83-110); Potassium 3.6 mmol/L (3.5-5.1); Sodium 141 mmol/L (136-145)
[2018-09-23] MEDS: Atorvastatin Calcium 20 MG TAB PO SCH ×2 (07:28→20:37)
[2018-09-23] MEDS: Lisinopril 10 MG TAB PO SCH (08:28)
[2018-09-23] MEDS: Furosemide 40 MG TAB PO SCH (08:28)
[2018-09-23] MEDS: Metoprolol Tartrate 25 MG TAB PO SCH ×2 (08:28→20:37)
[2018-09-23] MEDS: Saccharomyces boulardii 250 MG CAP PO SCH (08:28)
[2018-09-23] MEDS ORDERED: GoLYTELY 4,000 ml Bottle PO SCH (10:00)
--- NOTE | 2018-09-23 10:09 | PDOC.PN ---
- Subjective Encounter Start Date: 09/23/18 (f/u heart failure) Encounter Start Time: 10:04 Subjective: Pt denies any pain or problems today. Reports her legs are improved. -: denies any n/v/cp/sob - Objective Resuscitation Status - Order Detail: 09/21/18 01:42 Resuscitation Status Routine Resuscitation Status: FULL: Full Resuscitation Vital Signs & Weight: Vital Signs (12 hours) Temp Pulse Resp BP BP Pulse Ox 09/23/18 08:28 121/71 09/23/18 07:35 98 F 83 20 137/62 94 L 09/23/18 04:00 98.1 F 88 20 136/60 93 L 09/23/18 00:00 98.4 F 79 18 140/63 97 Weight Weight 132 lb 12.8 oz I&O: 09/22/18 09/23/18 09/24/18 06:59 06:59 06:59 Intake Total 1100 540 Output Total 1700 800 Balance -600 -260 Result Diagrams: 09/23/18 06:18 09/23/18 06:18 Additional Labs: Accuchecks 09/23/18 09/22/18 09/22/18 05:38 20:37 16:56 POC Glucose 90 255 H 323 H 09/22/18 11:46 POC Glucose 351 H EKG Reviewed by me: Yes (tele - sinus 80's and parox a fib) Phys Exam - Physical Examination Constitutional: NAD Respiratory: no wheezing, no rales, no rhonchi, clear to auscultation bilateral Cardiovascular: RRR, no significant murmur Gastrointestinal: soft, non-tender, positive bowel sounds Musculoskeletal: no edema, pulses present Neurological: non-focal Psychiatric: A&O x 3 Dx/Plan (1) Heart failure Code(s): I50.9 - HEART FAILURE, UNSPECIFIED Status: Acute Qualifiers: Heart failure type: systolic Heart failure chronicity: acute Qualified Code(s): I50.21 - Acute systolic (congestive) heart failure (2) Anemia Code(s): D64.9 - ANEMIA, UNSPECIFIED Status: Acute Qualifiers: Anemia type: unspecified type Qualified Code(s): D64.9 - Anemia, unspecified (3) CKD (chronic kidney disease) stage 3, GFR 30-59 ml/min Code(s): N18.3 - CHRONIC KIDNEY DISEASE, STAGE 3 (MODERATE) Status: Chronic (4) Diabetes mellitus Code(s): E11.9 - TYPE 2 DIABETES MELLITUS WITHOUT COMPLICATIONS Status: Chronic Qualifiers: Diabetes mellitus type: type 2 Diabetes mellitus senior living insulin use: with senior living use Diabetes mellitus complication status: with kidney complications Diabetes mellitus complication detail: with chronic kidney disease Chronic kidney disease stage: stage 3 (moderate) Qualified Code(s): E11.22 - Type 2 diabetes mellitus with diabetic chronic kidney disease; N18.3 - Chronic kidney disease, stage 3 (moderate); Z79.4 - MCC (current) use of insulin (5) Prolonged QT interval Code(s): R94.31 - ABNORMAL ELECTROCARDIOGRAM [ECG] [EKG] Status: Acute (6) Atrial fibrillation Code(s): I48.91 - UNSPECIFIED ATRIAL FIBRILLATION Status: Acute (7) Acute colitis Code(s): K52.9 - NONINFECTIVE GASTROENTERITIS AND COLITIS, UNSPECIFIED Status : Acute (8) Liver abscess Code(s): K75.0 - ABSCESS OF LIVER Status: Acute (9) Dyslipidemia Code(s): E78.5 - HYPERLIPIDEMIA, UNSPECIFIED Status: Chronic (10) GERD (gastroesophageal reflux disease) Code(s): K21.9 - GASTRO-ESOPHAGEAL REFLUX DISEASE WITHOUT ESOPHAGITIS Status: Chronic Qualifiers: Esophagitis presence: esophagitis presence not specified Qualified Code(s) : K21.9 - Gastro-esophageal reflux disease without esophagitis (11) Hypertension Code(s): I10 - ESSENTIAL (PRIMARY) HYPERTENSION Status: Chronic Qualifiers: Hypertension type: essential hypertension Qualified Code(s): I10 - Essential (primary) hypertension - Plan * * heart failure with reduced EF by echo (40-45%) * appreciate Cardiology consult * continue beta-hi, b[place]-I and statin, continue oral furosemide dose * a fib - rate controlled * hold lovenox for anemia * renal function stable * anemia - stable, but worse since admission * gi eval - with plan for colonoscopy and egd tomorrow * Colitis with recent discharge and liver abscess - plan for 6 weeks of Rocephin - appreciate ID consult * will need PICC line and abx arranged prior to discharge * DM - uncontrolled yesterday with long-acting insulin started last night - on clear liquid diet now. Will d/c long acting tonight in prep for colonoscopy tomorrow and add back as diet is resumed. * pt/ot consult * * dvt prophy - ambulatory and scd's * gi prophy - on ppi at home continue discussed complicated overall health and the individual plan for each health issue through hospital interpretor system pt at high risk in current condition - not safe for discharge to home and more thorough evaluation and treatment needed here for significant medical conditions.
--- NOTE | 2018-09-23 10:21 | PRG ---
DATE OF SERVICE: 09/23/2018 SUBJECTIVE: Ms. Fox is feeling okay. No abdominal pain. No diarrhea or blood in the stool. Dr. Kaye evaluated her and the antibiotic plan is now going to be IV Rocephin for about 8 weeks, as she did have some QT prolongation, so quinolone therapy needs to be changed. No chest pain or shortness of breath. No fevers. OBJECTIVE: VITAL SIGNS: Temperature 98.0, pulse 83, blood pressure 121/71, and 94% oxygen saturation on room air. GENERAL: No acute distress. HEART: Regular rate and rhythm. LUNGS: Clear to auscultation bilaterally. ABDOMEN: Soft and nontender to palpation. EXTREMITIES: No peripheral edema. LABORATORY STUDIES: WBC 11.2; hemoglobin 8.6, which is stable; platelets 434. INR 1.1. Sodium 141, potassium 3.6, BUN 13, and creatinine 1.29. ASSESSMENT/PLAN: 1. Colitis, based on CT findings from 09/11/2018 showing possible thickening in the right colon and in the sigmoid colon. 2. Liver abscess, with cultures growing out Citrobacter and Klebsiella, with 6 weeks IV Rocephin planned. 3. Anemia, normocytic, stable. 4. Cardiomyopathy, unknown etiology. We will proceed with the plan for colonoscopy tomorrow. Will perform EGD as well, given the anemia. We will administer bowel preparation this evening. I discussed this in detail with the patient and she desires to proceed. Purposes to investigate CT finding showing possible colitis from a couple of weeks ago, particularly as this may have been a source for her liver abscess. Job ID: [id number] MTDD
[2018-09-23] MEDS: cefTRIAXone\\ROCEPHIN 2 GM in Sodium Chloride 0.9% 100 ML IVPB SCH (11:02)
--- NOTE | 2018-09-23 14:22 | PDOC.CTH ---
Cardiology Progress Note - Subjective No new complaints. Patient denies CP, SOB. Converted to NSR in last 24 hours. Frequent PACs. - Objective Vital Signs Temp Pulse Pulse Pulse Resp BP BP 09/23/18 12:00 98.2 F 85 18 09/23/18 11:12 92 99 128/64 09/23/18 08:28 121/71 09/23/18 07:35 98 F 83 20 09/23/18 04:00 98.1 F 88 20 BP BP Pulse Ox Pulse Ox Pulse Ox 09/23/18 12:00 153/72 H 94 L 09/23/18 11:12 134/62 95 96 09/23/18 08:28 09/23/18 07:35 137/62 94 L 09/23/18 04:00 136/60 93 L Weight 132 lb 12.8 oz 09/22/18 09/23/18 09/24/18 06:59 06:59 06:59 Intake Total 1100 540 Output Total 1700 800 Balance -600 -260 - Physical Examination General/Neuro: alert & oriented x3 Neck: no JVD present Lungs: CTA Heart: RRR Abdomen: NT/ND - Telemetry Telemetry Rhythm: SR with PACs - Labs Result Diagrams: 09/23/18 06:18 09/23/18 06:18 Troponin/CKMB Troponin I Less than 0.010 ng/mL (< 0.028) 09/21/18 03:25 - Assessment/Plan 1. Acute on chronic systolic CHF (EF 45%) 2. Anemia 4. Colitis and recent liver abscess on antibiotics Stable. Continue bblockers, statin, lisinopril. No ASA with anemia. Note, initial EKG on admission read AF. I don't see any discernable AF on tele. She has frequent ectopic PACs. Will continue to monitor for arrhythmias.
[2018-09-24 05:42] LABS: Anion Gap 14 mmol/L (10-20); BUN (Urea Nitrogen) 10 mg/dL (9.8-20.1); Calc. Creatinine Clearance 33 mL/min (70-130); Carbon Dioxide 26 mmol/L (23-31); Chloride 107 mmol/L (98-107); Estimated GFR-MDRD 42; Glucose 124 mg/dL (83-110); Potassium 3.5 mmol/L (3.5-5.1); Sodium 143 mmol/L (136-145)
[2018-09-24 05:44] LABS: #Basophils 0.1 thou/uL (0.0-0.2); #Eosinphils 0.4 thou/uL (0.0-0.7); #Lymphocytes 2.1 thou/uL (1.20-3.40); #Monocytes 0.9 thou/uL (0.11-0.59); #Neutrophils 6.1 thou/uL (1.40-6.50); %Basophils 0.6 % (0.0-1.0); %Eosinophils 3.7 % (0.0-10.0); %Lymphocytes 22.1 % (21.0-51.0); %Monocytes 9.5 % (0.0-10.0); %Neutrophils 64.2 % (42.0-75.0); Hemoglobin 8.6 g/dL (12.0-16.0); Mean Corpuscular HGB CONC 32.2 g/dL (32.0-36.0); Mean Corpuscular Hemoglobin 28.9 pg (27.0-31.0); Mean Platelet Volume 7.7 fL (7.4-10.4); Platelet Count 369 thou/uL (130-400); RBC Distribution Width 14.7 % (11.5-14.5); Red Blood Cell (RBC) Count 2.98 mill/uL (4.20-5.40); White Blood Cell (WBC) Count 9.4 thou/uL (4.8-10.8)
[2018-09-24] MEDS: Metoprolol Tartrate 25 MG TAB PO SCH ×2 (06:27→21:01)
[2018-09-24] MEDS ORDERED: Ondansetron HCl/PF 4 MG/2 ML Vial IVP PRN (08:37)
--- NOTE | 2018-09-24 11:24 | OP ---
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 PROCEDURES PERFORMED: 1. Esophagogastroduodenoscopy, diagnostic. 2. Colonoscopy, diagnostic. INDICATIONS: 1. Recent abnormal CT scan, suggesting colitis in the right colon and sigmoid colon, possible source for recent liver abscess. 2. Chronic anemia. MEDICATIONS: See Anesthesia record. FINDINGS: After discussion of the risks, benefits, and alternatives of the procedure, informed consent was obtained and witnessed. Pre-endoscopic cardiopulmonary examination was satisfactory. Time-out was performed before sedation was achieved. Sedation was achieved with Anesthesia assistance in the endoscopy unit. A Pentax adult upper endoscope was placed into the oropharynx and passed through the cricopharyngeus under direct visualization. The esophageal mucosa appeared normal throughout. There was no evidence of any esophageal varices. The GE junction was at 35 cm from the incisors. The endoscope was advanced into the stomach. Forward and retroflexed views of the entire gastric mucosa were obtained. The gastric mucosa appeared normal throughout. There was no evidence of any erosions or ulcerations. In the proximal gastric body at 40 cm from the incisors, there was a 3 to 4 cm submucosal prominence. The overlying mucosa was completely normal. This area may represent a submucosal mass or possibly an isolated gastric varix. I did not attempt to take any biopsies of the area. There was no evidence of any bleeding from this area. The endoscope was passed through the pylorus and into the first and second portions of the duodenum, which appeared unremarkable. The upper endoscope was completely withdrawn and the patient was repositioned. Digital rectal exam was performed, which was unremarkable. A Pentax adult colonoscope was inserted into the anus and passed forward to the cecum in the usual fashion. The cecal base was identified by the appendiceal orifice as well as the ileocecal valve. The terminal ileum was intubated and the ileal mucosa appeared normal. The colonoscope was then slowly withdrawn in a gradual and circumferential manner with careful examination of the entire colonic mucosa. The quality of the prep was good. The colonic mucosa appeared normal throughout. There was no evidence of any erosions or ulcerations or friability. No polyps or mass lesions were visualized. Retroflexion in the rectum was normal. No findings to correspond to the CT findings from 09/11/2018. The colonoscope was completely withdrawn and the patient allowed to recover. The patient tolerated the procedure well. There were no immediate postprocedure complications. IMPRESSION: 1. A 3 to 4 mm submucosal prominence in the proximal gastric body, possibly representing submucosal mass versus isolated gastric varix. 2. Otherwise normal esophagogastroduodenoscopy. 3. Normal colonoscopy to the terminal ileum. RECOMMENDATIONS: 1. Advance diet. 2. Follow up in the GI outpatient clinic with Dr. Brown. He may consider referral for endoscopic ultrasound as an outpatient, for further evaluation of this submucosal prominence in the proximal gastric body. GI will sign off. Please call back if needed. Job ID: [id number]
--- NOTE | 2018-09-24 11:54 | SPC ---
Sonographic guided left upper extremity PICC placement HISTORY: Liver abscess. FINDINGS: After explaining the procedure and answering all questions, the left upper extremity was pr epped and draped in usual sterile fashion. Sterile technique, buffered local anesthesia, sonographic guidance, and a 22-gauge needle were used to carefully access the left brachial vein. Sta ndard technique was used to place the tip of a 5 Maori single lumen PICC so that the tip lies at the level of the superior vena cava. The catheter was flushed and secured externally. Patient tolerat ed the procedure well and was returned in unchanged condition. Fluoroscopy time 1.9 minutes. Impression: Left upper extremity PICC is ready for use.
[2018-09-24] MEDS: Saccharomyces boulardii 250 MG CAP PO SCH (11:59)
[2018-09-24] MEDS: Furosemide 40 MG TAB PO SCH (11:59)
[2018-09-24] MEDS: Lisinopril 10 MG TAB PO SCH (12:00)
[2018-09-24] MEDS: cefTRIAXone\\ROCEPHIN 2 GM in Sodium Chloride 0.9% 100 ML IVPB SCH (12:05)
[2018-09-24] MEDS ORDERED: PROPOFOL 200 MG/20 ML VIAL ONE (16:18)
[2018-09-24] MEDS: HumaLOG 300 UNITS/3 ML VIAL SC PRN (17:27)
--- NOTE | 2018-09-24 17:27 | PDOC.PN ---
- Subjective Encounter Start Date: 09/24/18 (f/u anemia) Encounter Start Time: 17:22 Subjective: Pt without complaints, denies any n/v/abd pain/cp/sob - Objective Resuscitation Status - Order Detail: 09/21/18 01:42 Resuscitation Status Routine Resuscitation Status: FULL: Full Resuscitation Vital Signs & Weight: Vital Signs (12 hours) Temp Pulse Resp BP BP Pulse Ox 09/24/18 12:01 97.6 F 77 16 177/70 H 95 09/24/18 12:00 177/70 H 09/24/18 09:13 95 Weight Weight 125 lb 3.561 oz I&O: 09/23/18 09/24/18 09/25/18 06:59 06:59 06:59 Intake Total 540 1500 Output Total 800 100 Balance -260 1400 Result Diagrams: 09/24/18 04:44 09/24/18 04:44 Additional Labs: Accuchecks 09/24/18 09/23/18 05:21 19:56 POC Glucose 132 H 253 H EKG Reviewed by me: Yes (sinus 50-60's with pac's) Phys Exam - Physical Examination Constitutional: NAD Respiratory: no wheezing, no rales, no rhonchi, clear to auscultation bilateral Cardiovascular: RRR, no significant murmur Gastrointestinal: soft, non-tender, no distention, positive bowel sounds Musculoskeletal: no edema, pulses present Neurological: non-focal, moves all 4 limbs Psychiatric: normal affect Skin: no rash Dx/Plan (1) Heart failure Code(s): I50.9 - HEART FAILURE, UNSPECIFIED Status: Acute Qualifiers: Heart failure type: systolic Heart failure chronicity: acute Qualified Code(s): I50.21 - Acute systolic (congestive) heart failure (2) Anemia Code(s): D64.9 - ANEMIA, UNSPECIFIED Status: Acute Qualifiers: Anemia type: unspecified type Qualified Code(s): D64.9 - Anemia, unspecified (3) CKD (chronic kidney disease) stage 3, GFR 30-59 ml/min Code(s): N18.3 - CHRONIC KIDNEY DISEASE, STAGE 3 (MODERATE) Status: Chronic (4) Diabetes mellitus Code(s): E11.9 - TYPE 2 DIABETES MELLITUS WITHOUT COMPLICATIONS Status: Chronic Qualifiers: Diabetes mellitus type: type 2 Diabetes mellitus medical terminologist insulin use: with penitentiary use Diabetes mellitus complication status: with kidney complications Diabetes mellitus complication detail: with chronic kidney disease Chronic kidney disease stage: stage 3 (moderate) Qualified Code(s): E11.22 - Type 2 diabetes mellitus with diabetic chronic kidney disease; N18.3 - Chronic kidney disease, stage 3 (moderate); Z79.4 - retirement (current) use of insulin (5) Prolonged QT interval Code(s): R94.31 - ABNORMAL ELECTROCARDIOGRAM [ECG] [EKG] Status: Acute (6) Atrial fibrillation Code(s): I48.91 - UNSPECIFIED ATRIAL FIBRILLATION Status: Acute (7) Acute colitis Code(s): K52.9 - NONINFECTIVE GASTROENTERITIS AND COLITIS, UNSPECIFIED Status : Acute (8) Liver abscess Code(s): K75.0 - ABSCESS OF LIVER Status: Acute (9) Dyslipidemia Code(s): E78.5 - HYPERLIPIDEMIA, UNSPECIFIED Status: Chronic (10) GERD (gastroesophageal reflux disease) Code(s): K21.9 - GASTRO-ESOPHAGEAL REFLUX DISEASE WITHOUT ESOPHAGITIS Status: Chronic Qualifiers: Esophagitis presence: esophagitis presence not specified Qualified Code(s) : K21.9 - Gastro-esophageal reflux disease without esophagitis (11) Hypertension Code(s): I10 - ESSENTIAL (PRIMARY) HYPERTENSION Status: Chronic Qualifiers: Hypertension type: essential hypertension Qualified Code(s): I10 - Essential (primary) hypertension - Plan * heart failure with reduced EF by echo (40-45%) * appreciate Cardiology consult * continue beta-hi, boston-I and statin, continue oral furosemide dose * a fib - on admission - await further recommendations on anticoagulation from Cardiology * renal function stable - tolerating above interventions * anemia - stable with negative endoscopy today - GI signed off * Colitis with recent discharge and liver abscess - plan for 6 weeks of Rocephin - appreciate ID consult * PICC line placed today, needs plan for IV Rocephin * DM - good control - hold on initiation of long-acting insulin for now * pt/ot consult * * dvt prophy - ambulatory and scd's * gi prophy - on ppi at home continue discussed complicated overall health and the individual plan for each health issue through hospital interpretor system with patient/
--- NOTE | 2018-09-24 17:42 | PRG ---
DATE OF SERVICE: 09/24/2018 SUBJECTIVE: Ms. Fox is feeling well. Actually, she is feeling better. No more diarrhea. No vomiting. No respiratory symptoms. OBJECTIVE: VITAL SIGNS: T-max is 99, BP 170/70, pulse 77, respirations 16, and O2 saturation 95. GENERAL: She is awake, alert, oriented, in no distress. LUNGS: Clear. HEART: S1 and S2, regular rate. ABDOMEN: Soft, not distended or tender. LABORATORY DATA: White cell count down to 9.4, hemoglobin 8.6, and platelets 369, which has improved. Creatinine 1.23. C difficile was negative. ASSESSMENT AND DISCUSSION: Type 2 diabetes, right hepatic lobe abscess due to Citrobacter and Klebsiella, QT prolongation. The patient to continue on Rocephin now. The end date of therapy will be on November 01. After that, transition to Augmentin to continue for few more weeks. Follow up imaging studies as an endpoint. Job ID: [id number]
[2018-09-24] MEDS: Atorvastatin Calcium 20 MG TAB PO SCH (21:01)
[2018-09-25 05:57] LABS: Anion Gap 10 mmol/L (10-20); BUN (Urea Nitrogen) 12 mg/dL (9.8-20.1); Calc. Creatinine Clearance 28 mL/min (70-130); Calcium 7.8 mg/dL (7.8-10.44); Carbon Dioxide 29 mmol/L (23-31); Chloride 107 mmol/L (98-107); Estimated GFR-MDRD 35; Glucose 208 mg/dL (83-110); Potassium 3.7 mmol/L (3.5-5.1); Sodium 142 mmol/L (136-145)
[2018-09-25] MEDS: Saccharomyces boulardii 250 MG CAP PO SCH (08:55)
[2018-09-25] MEDS: Lisinopril 10 MG TAB PO SCH (08:55)
[2018-09-25] MEDS: Furosemide 40 MG TAB PO SCH (08:55)
[2018-09-25] MEDS: Metoprolol Tartrate 25 MG TAB PO SCH (08:56)
[2018-09-25] MEDS: cefTRIAXone\\ROCEPHIN 2 GM in Sodium Chloride 0.9% 100 ML IVPB SCH (12:19)
[2018-09-25] MEDS: HumaLOG 300 UNITS/3 ML VIAL SC PRN ×2 (12:25→17:39)
--- NOTE | 2018-09-25 13:03 | PDOC.PN ---
- Subjective Encounter Start Date: 09/25/18 (f/u anemia) Encounter Start Time: 13:01 Subjective: Pt without complaints, denies any cp/sob/n/v/abd pain or swelling Mrs. Fox is a patient initially admitted for lower extremity swelling and concern of heart failure after a recent admission for colitis and liver abscesses. During this hospitalization, the following has been addressed: 1. Acute heart failure with reduced ejection - eval by Cardiology and on a beta -hi, boston-i, diuretic initially IV and changed to oral. 2. CKD 3 - renal function has been stable 3. Prolonged QT interval which changed the plan for antibiotics from her last hospitalization. The cipro has been d/c, she was re-evaluated by ID and Rocephin started with plan for 6 weeks of IV antibiotics. The patient has a PICC line and is awaiting arrangement of antibiotics and home health for discharge. 4. Atrial fibrillation at admission. She has been in sinus rhythm - in discussion with Dr Montano, he will arrange an outpatient monitor to determine any further needs such as anti-coagulation, hold on full anti- coagulation for now. Can start low dose aspirin. 5. Anemia - mixed iron studies and normal b12/folate. The patient had an egd - notable for possible submucosal mass that needs follow up in the outpatient setting, and a normal colonoscopy. - Objective Resuscitation Status - Order Detail: 09/21/18 01:42 Resuscitation Status Routine Resuscitation Status: FULL: Full Resuscitation Vital Signs & Weight: Vital Signs (12 hours) Temp Pulse Resp BP BP BP Pulse Ox 09/25/18 08:55 177/70 H 09/25/18 07:49 98.3 F 86 18 144/65 H 94 L 09/25/18 04:00 99.3 F 78 16 136/62 95 Weight Weight 123 lb 12.8 oz I&O: 09/24/18 09/25/18 09/26/18 06:59 06:59 06:59 Intake Total 1500 375 Output Total 100 Balance 1400 375 Result Diagrams: 09/24/18 04:44 09/25/18 04:59 Additional Labs: Accuchecks 09/25/18 09/25/18 09/24/18 10:42 05:43 20:41 POC Glucose 368 H 204 H 298 H 09/24/18 17:12 POC Glucose 366 H EKG Reviewed by me: Yes (sinus 70-80's) Phys Exam - Physical Examination Constitutional: NAD Respiratory: no wheezing, no rales, no rhonchi, clear to auscultation bilateral Cardiovascular: RRR, no significant murmur Gastrointestinal: soft, non-tender, no distention, positive bowel sounds Musculoskeletal: no edema Neurological: non-focal, moves all 4 limbs Psychiatric: normal affect, A&O x 3 Skin: no rash Dx/Plan (1) Heart failure Code(s): I50.9 - HEART FAILURE, UNSPECIFIED Status: Resolved Qualifiers: Heart failure type: combined systolic and diastolic Heart failure chronicity: acute Qualified Code(s): I50.41 - Acute combined systolic ( congestive) and diastolic (congestive) heart failure (2) Anemia Code(s): D64.9 - ANEMIA, UNSPECIFIED Status: Acute Qualifiers: Anemia type: unspecified type Qualified Code(s): D64.9 - Anemia, unspecified (3) CKD (chronic kidney disease) stage 3, GFR 30-59 ml/min Code(s): N18.3 - CHRONIC KIDNEY DISEASE, STAGE 3 (MODERATE) Status: Chronic (4) Diabetes mellitus Code(s): E11.9 - TYPE 2 DIABETES MELLITUS WITHOUT COMPLICATIONS Status: Chronic Qualifiers: Diabetes mellitus type: type 2 Diabetes mellitus longterm insulin use: with intermediate designer use Diabetes mellitus complication status: with kidney complications Diabetes mellitus complication detail: with chronic kidney disease Chronic kidney disease stage: stage 3 (moderate) Qualified Code(s): E11.22 - Type 2 diabetes mellitus with diabetic chronic kidney disease; N18.3 - Chronic kidney disease, stage 3 (moderate); Z79.4 - intermediate (current) use of insulin (5) Prolonged QT interval Code(s): R94.31 - ABNORMAL ELECTROCARDIOGRAM [ECG] [EKG] Status: Acute (6) Atrial fibrillation Code(s): I48.91 - UNSPECIFIED ATRIAL FIBRILLATION Status: Acute (7) Acute colitis Code(s): K52.9 - NONINFECTIVE GASTROENTERITIS AND COLITIS, UNSPECIFIED Status : Acute (8) Liver abscess Code(s): K75.0 - ABSCESS OF LIVER Status: Acute (9) Dyslipidemia Code(s): E78.5 - HYPERLIPIDEMIA, UNSPECIFIED Status: Chronic (10) GERD (gastroesophageal reflux disease) Code(s): K21.9 - GASTRO-ESOPHAGEAL REFLUX DISEASE WITHOUT ESOPHAGITIS Status: Chronic Qualifiers: Esophagitis presence: esophagitis presence not specified Qualified Code(s) : K21.9 - Gastro-esophageal reflux disease without esophagitis (11) Hypertension Code(s): I10 - ESSENTIAL (PRIMARY) HYPERTENSION Status: Chronic Qualifiers: Hypertension type: essential hypertension Qualified Code(s): I10 - Essential (primary) hypertension - Plan * * heart failure with reduced EF by echo (40-45%) * appreciate Cardiology consult * continue beta-ih, boston-I and statin, continue oral furosemide dose * pt appears adequately diuresed - will decrease to 20 mg lasix daily * start low dose aspirin. * Dr Montano will arrange for an outpatient monitor to assess for atrial fibrillation which was present on admission in conjunction with heart failure. Hold on full anticoagulation at this time. * renal function stable - tolerating above interventions * anemia - stable with negative endoscopy - GI signed off * Colitis with recent discharge and liver abscess - plan for 6 weeks of Rocephin - appreciate ID consult * PICC line placed today, Rocephin IV x 6 weeks with end date in Dr. Kaye note * * DM - continue current insulin * pt/ot consult * * dvt prophy - ambulatory and scd's * gi prophy - on ppi at home continue discussed complicated overall health and the individual plan for each health issue through hospital interpretor system with patient/. anticipate d/c to home arrangement of IV rocephin at home.
--- NOTE | 2018-09-25 19:46 | PRG ---
DATE OF SERVICE: SUBJECTIVE: Ms. Fox is doing well. She is euvolemic. No current complaints. OBJECTIVE: VITAL SIGNS: Blood pressure 119/57, pulse 82, temperature 97.8. LUNGS: Clear to auscultation. HEART: Regular rate and rhythm. ABDOMEN: Soft, nontender, nondistended. EXTREMITIES: No edema. PERTINENT LABORATORY DATA: Hemoglobin 8.6. Creatinine 1.74 with a GFR of 35. IMPRESSION: 1. New onset congestive heart failure with LVEF of 40% to 45%. 2. Paroxysmal atrial fibrillation. 3. Liver abscess. RECOMMENDATIONS: From a heart failure standpoint, Ms. Fox appears to be on appropriate medical therapy. She is currently on atorvastatin in addition to Lasix, lisinopril, and metoprolol. May benefit further from Coreg versus Lopressor. We will switch metoprolol to Coreg 6.25 b.i.d. Creatinine has been stable despite a decrease in GFR. We will continue to monitor closely as an outpatient. She did have an episode of paroxysmal atrial fibrillation upon admission. She has been in sinus rhythm. It is certainly difficult to proceed with anticoagulation therapy given one episode. She does have anemia in addition to renal insufficiency. I would therefore recommend a 3-week event recorder as an outpatient to assess for any further dysrhythmias. Given the above, may also consider an implantable loop recorder. Job ID: [id number]
[2018-09-25] MEDS: Atorvastatin Calcium 20 MG TAB PO SCH (20:43)
[2018-09-26 05:15] LABS: #Basophils 0.1 thou/uL (0.0-0.2); #Eosinphils 0.3 thou/uL (0.0-0.7); #Lymphocytes 2.4 thou/uL (1.20-3.40); #Monocytes 0.8 thou/uL (0.11-0.59); #Neutrophils 5.8 thou/uL (1.40-6.50); %Basophils 0.6 % (0.0-1.0); %Eosinophils 3.1 % (0.0-10.0); %Lymphocytes 25.8 % (21.0-51.0); %Monocytes 8.6 % (0.0-10.0); %Neutrophils 61.9 % (42.0-75.0); Hemoglobin 8.4 g/dL (12.0-16.0); Mean Corpuscular Volume 90.3 fL (78.0-98.0); Mean Platelet Volume 7.5 fL (7.4-10.4); Platelet Count 346 thou/uL (130-400); RBC Distribution Width 14.5 % (11.5-14.5); Red Blood Cell (RBC) Count 3.01 mill/uL (4.20-5.40); White Blood Cell (WBC) Count 9.4 thou/uL (4.8-10.8)
[2018-09-26 05:21] LABS: Anion Gap 12 mmol/L (10-20); BUN (Urea Nitrogen) 12 mg/dL (9.8-20.1); Calc. Creatinine Clearance 27 mL/min (70-130); Carbon Dioxide 29 mmol/L (23-31); Chloride 105 mmol/L (98-107); Estimated GFR-MDRD 35; Glucose 130 mg/dL (83-110); Potassium 3.5 mmol/L (3.5-5.1); Sodium 142 mmol/L (136-145)
[2018-09-26] MEDS ORDERED: Furosemide 20 MG TAB PO SCH (07:30)
[2018-09-26] MEDS ORDERED: Carvedilol 6.25 MG TAB PO SCH (08:00)
[2018-09-26] MEDS ORDERED: Aspirin 81 mg Enteric Coated Tablet PO SCH (09:00)
[2018-09-26] MEDS: Saccharomyces boulardii 250 MG CAP PO SCH (09:20)
[2018-09-26] MEDS: Lisinopril 10 MG TAB PO SCH (09:21)
[2018-09-26] MEDS: cefTRIAXone\\ROCEPHIN 2 GM in Sodium Chloride 0.9% 100 ML IVPB SCH (11:50)
[2018-09-26 11:57] VITALS: BP 109/56; TEMP 97.7
--- NOTE | 2018-09-26 14:49 | DIS ---
DATE OF ADMISSION: 09/22/2018 DATE OF DISCHARGE: 09/26/2018 DISCHARGE DISPOSITION: Home. FOLLOWUP: 1. Follow up with primary care physician, Candy Hernandez in 1 week. 2. Follow up with Dr. Montano on October, at 2:00 p.m. 3. [facility] has been arranged. [facility] will be managing the home antibiotics. 4. Basic metabolic profile after 1 week is recommended. 5. Primary care physician, advised to arrange and follow. DISCHARGE MEDICATIONS: 1. Ceftriaxone [address] Kaye. 2. Carvedilol 6.25 mg b.i.d. 3. Lasix 20 mg daily. 4. Lisinopril 10 mg daily. 5. Florastor 250 mg daily. 6. Aspirin 81 mg daily. 7. Omeprazole 20 mg daily. 8. Metformin 1000 mg b.i.d. 9. Levemir 20 units b.i.d. 10. Lipitor 20 mg daily. INPATIENT [employer] SUPPORT PLANNER: 1. Infectious Disease, Dr. Kaye. 2. Cardiology, Dr. Montano. BRIEF HOSPITAL COURSE: The patient is an 82-year-old female, who was discharged from this facility last week with a diagnosis of liver abscess, on oral ciprofloxacin. She presented to the emergency room four days ago with bilateral leg swelling. EKG showed atrial fibrillation with rapid ventricular response. She was monitored on telemetry unit. The patient was seen by multiple consultants including Cardiology, Gastroenterology, as well as Infectious Disease. An EGD and colonoscopy were performed. EGD showed a 3 to 4 mm submucosal prominence in the proximal gastric body. Colonoscopy was normal. She was advised to follow up with [facility] as outpatient. The patient was evaluated by Cardiology for lower extremity edema and cardiomyopathy. An echocardiogram was done that showed ejection fraction of 40% to 45% with diastolic dysfunction, mild to moderate tricuspid regurgitation, and moderate mitral regurgitation. She showed good improvement with diuretics. Her weight on admission was 135 pounds and at discharge is 122 pounds. Please note, the patient was found to have prolonged QT interval. For this reason, ciprofloxacin has been changed to IV ceftriaxone. A PICC line has been placed. The patient will follow up with Infectious Disease as outpatient. FINAL DIAGNOSES: 1. Aycmk-ey-eiznamz systolic/diastolic heart failure exacerbation. Ejection fraction 40% to 45%. 2. New onset atrial fibrillation with rapid ventricular response. The patient does not need anticoagulation per Cardiology. 3. Hypertension. 4. Hyperlipidemia. 5. Diabetes mellitus type 2. 6. Recent diagnosis of liver abscess. Cultures growing Citrobacter and Klebsiella. The patient will complete IV ceftriaxone for six weeks per Infectious Disease. 7. Chronic anemia. 8. Chronic kidney disease stage 3. 9. Hypomagnesemia. Magnesium was 1.2, replaced. 10. Moderate protein-calorie malnutrition. 11. Hypokalemia, replaced. 12. Hypoglycemia, resolved. 13. Prolonged QT interval. For this reason, ciprofloxacin was changed to ceftriaxone. 14. Gastroesophageal reflux disease. PLAN: Plan was discussed with the patient in detail. She stated understanding. Total time coordinating the discharge of this patient was 36 minutes. Job ID: [id number]
== END 2018-09-26 14:38 | disposition home health service (06) | DRG 291 ==
LOC: ERS 16:52 → ERHOLD 21:56 → 2SW 09-21 06:31 → OBSVTOIN 09-22 11:16 → 2NO 09-22 13:08
PROVIDERS: ADMIT Internal Medicine; ATTEND Internal Medicine
PROC: 02HV33Z Insertion of Infusion Device into Superior Vena Cava, Percutaneous Approach (ICD-10-PCS; principal; 2018-09-24)
PROC: B548ZZA Ultrasonography of Superior Vena Cava, Guidance (ICD-10-PCS; 2018-09-24)
PROC: 0DJ08ZZ Inspection of Upper Intestinal Tract, Via Natural or Artificial Opening Endoscopic (ICD-10-PCS; 2018-09-24)
PROC: 0DJD8ZZ Inspection of Lower Intestinal Tract, Via Natural or Artificial Opening Endoscopic (ICD-10-PCS; 2018-09-24)
DX: I13.0 Hypertensive heart and chronic kidney disease with heart failure and stage 1 through stage 4 chronic kidney disease, or unspecified chronic kidney disease (principal); I50.43 Acute on chronic combined systolic (congestive) and diastolic (congestive) heart failure; K75.0 Abscess of liver; E44.0 Moderate protein-calorie malnutrition; N18.3 Chronic kidney disease, stage 3 (moderate); D63.1 Anemia in chronic kidney disease; E11.22 Type 2 diabetes mellitus with diabetic chronic kidney disease; I45.81 Long QT syndrome; K52.9 Noninfective gastroenteritis and colitis, unspecified; E78.5 Hyperlipidemia, unspecified; K21.9 Gastro-esophageal reflux disease without esophagitis; B96.1 Klebsiella pneumoniae [K. pneumoniae] as the cause of diseases classified elsewhere; I25.5 Ischemic cardiomyopathy; E83.42 Hypomagnesemia; E11.649 Type 2 diabetes mellitus with hypoglycemia without coma; I48.0 Paroxysmal atrial fibrillation; Z79.4 Long term (current) use of insulin; Z90.710 Acquired absence of both cervix and uterus; Z79.899 Other long term (current) drug therapy; Z68.22 Body mass index [BMI] 22.0-22.9, adult; Z90.49 Acquired absence of other specified parts of digestive tract
CPT/HCPCS: 36415; 36416; 36569; 71045; 80048; 80053; 80069; 82607; 82728; 82746; 83540; 83550; 83735; 83880; 84100; 84484; 85025; 85610; 85730; 86850; 86900; 86901; 87324; 87449; 90471; 90670; 93005; 93306; 93798; 96372; 96374; C1751; G0009; J0696; J1644; J1650; J1815; J1940; J2704; J3475; J3490; J7050

== ENCOUNTER 2018-12-11 07:45 | Inpatient (IN) | payer MEDICARE, MEDICAID ==
[2018-12-11 08:02] LABS: #Basophils 0.1 thou/uL (0.0-0.2); #Eosinphils 0.3 thou/uL (0.0-0.7); #Lymphocytes 2.4 thou/uL (1.20-3.40); #Monocytes 0.8 thou/uL (0.11-0.59); #Neutrophils 7.5 thou/uL (1.40-6.50); %Basophils 0.6 % (0.0-1.0); %Eosinophils 2.8 % (0.0-10.0); %Lymphocytes 21.8 % (21.0-51.0); %Monocytes 7.1 % (0.0-10.0); %Neutrophils 67.7 % (42.0-75.0); Hemoglobin 11.1 g/dL (12.0-16.0); Mean Corpuscular Hemoglobin 29.6 pg (27.0-31.0); Mean Corpuscular Volume 87.1 fL (78.0-98.0); Mean Platelet Volume 8.6 fL (7.4-10.4); Platelet Count 306 thou/uL (130-400); RBC Distribution Width 13.6 % (11.5-14.5); Red Blood Cell (RBC) Count 3.76 mill/uL (4.20-5.40)
[2018-12-11 08:23] LABS: ALT (SGPT) 10 U/L (8-55); AST (SGOT) 24 U/L (5-34); Albumin 3.3 g/dL (3.4-4.8); Alkaline Phosphatase 189 U/L (40-110); Anion Gap 14 mmol/L (10-20); BUN (Urea Nitrogen) 25 mg/dL (9.8-20.1); Bilirubin, Total 0.3 mg/dL (0.2-1.2); Calc. Creatinine Clearance 0 mL/min (70-130); Carbon Dioxide 18 mmol/L (23-31); Chloride 108 mmol/L (98-107); Estimated GFR-MDRD 38; Glucose 191 mg/dL (83-110); Potassium 4.1 mmol/L (3.5-5.1); Protein, Total 7.3 g/dL (6.0-8.3); Sodium 136 mmol/L (136-145)
--- NOTE | 2018-12-11 08:26 | CT ---
CT OF THE BRAIN WITHOUT CONTRAST: Date: 12/11/18 COMPARISON: None. HISTORY: Fall with headache. TECHNIQUE: Multiple contiguous axial images were obtained in a CT of the brain without contrast. FINDINGS: There are calcifications in the basal ganglia. No large confluent infarction is seen. There is no lexie dence of hydrocephalus, intracranial hemorrhage, or extra-axial fluid collection. There is soft tissue swelling in the right frontal scalp. The underlying calvarium is unremarkable. T he paranasal sinuses and mastoid air cells are well aerated. IMPRESSION: No evidence of acute intracranial abnormality. POS: CET
--- NOTE | 2018-12-11 09:12 | CT ---
CT facial bones: Multiple axial tones obtained through facial bones without contrast. Multiplanar reconstruction. INDICATIONS:Syncope with fall and injury to face COMPARISON:None FINDINGS: Nasal bone fractures identified. There is overlying soft tissue swelling. Flattening the nasal ridge and slight comminution of the right nasal bones noted. Septal deviation to the left without definite septal fracture. Orbits appear intact. zygoma appear intact. Paranasal sinuses are well aerated. Maxilla appears intact. Mandible appears intact. Small scalp hematoma over the right frontal bone. IMPRESSION: 1. Nasal bone fractures and overlying soft tissue swelling 2. Small scalp hematoma over the right frontal bone
[2018-12-11 10:27] LABS: Bacteria/HPF None Seen HPF (None Seen); Bilirubin Negative (Negative); Blood, Urine Negative (Negative); Clarity Clear (Clear); Glucose, Urine (Dipstick) 150 mg/dL (Negative); Leukocyte Negative Leu/uL (Negative); Nitrite Negative (Negative); Protein, Urine (Dipstick) 100 mg/dL (Neg-Trace); RBC/HPF 0-3 HPF (0-3); Squamous Epithelial 0-3 HPF (0-3); Urobilinogen Normal mg/dL (Less than 2); WBC/HPF 0-3 HPF (0-3)
[2018-12-11 11:23] LABS: Troponin I Less than 0.010 ng/mL (< 0.028)
[2018-12-11] MEDS ORDERED: Ondansetron PF 4 MG/2 ML Vial IVP PRN (14:13)
[2018-12-11] MEDS ORDERED: Ondansetron ODT 4 MG TAB SL PRN (14:13)
[2018-12-11] MEDS ORDERED: Acetaminophen 325 MG TAB PO PRN (14:13)
[2018-12-11 14:28] VITALS: BMI 23.1
[2018-12-11 15:05] LABS: Troponin I 0.016 ng/mL (< 0.028)
[2018-12-11] MEDS ORDERED: HumaLOG 300 UNITS/3 ML VIAL SC PRN (16:24)
[2018-12-11] MEDS ORDERED: Dextrose 50% Abboject 50 ML SYRINGE SLOW IVP PRN (16:24)
[2018-12-11] MEDS ORDERED: Dextrose 5% in Water 1,000 ML IV PRN (16:24)
--- NOTE | 2018-12-11 16:58 | ULT ---
EXAM: Carotid Doppler PROVIDED CLINICAL HISTORY: Syncope COMPARISON: None FINDINGS: Grayscale and color Doppler sonography with spectral analysis was performed of the extracranial carot id system bilaterally. Atherosclerotic plaque is seen involving both proximal internal carotid arteries, right greater than left. There is elevation of peak systolic velocity within the right mid and distal internal carotid artery to 157 cm/s with a corresponding ICA to CCA ratio of 2.3. No evidence for a hemodynamically significant stenosis involving the left internal carotid artery. Anteg rade flow is seen in the vertebral arteries. A complex 3.1 cm right thyroid lobe nodule is noted. IMPRESSION: 1. 50-69% stenosis involving the right internal carotid artery. 2. Right thyroid lobe nodule for which dedicated thyroid sonography is recommended.
--- NOTE | 2018-12-11 17:25 | MRI ---
MRI BRAIN NONCONTRAST: DATE: 12/11/2018 HISTORY: 83-year-old female status post syncope resulting in fall. FINDINGS: Many of the images are degraded by patient motion. There is no obstructive hydrocephalus. There is no midline shift or any other evidence of mass effect. There is no extra-axial fluid collection. There are mild chronic ischemic white matter changes due to microvascular atherosclerosis. There is o therwise no major intra-axial signal abnormality, recent hemorrhage, or restricted diffusion. IMPRESSION: 1) mild chronic ischemic white matter changes. 2) otherwise negative
[2018-12-11] MEDS: HumaLOG 300 UNITS/3 ML VIAL SC PRN (18:04)
[2018-12-11] MEDS: Carvedilol 6.25 MG TAB PO SCH (18:04)
[2018-12-11] MEDS: Sodium Chloride 0.9% 1,000 ML IV SCH (18:04)
[2018-12-11] MEDS: Famotidine 20 MG TAB PO SCH (20:42)
[2018-12-11] MEDS: Insulin Glargine 20 UNITS in Pre-Filled Syringe 1 EACH SC SCH (20:42)
[2018-12-11] MEDS ORDERED: Non-Formulary Item 1 EACH (Insulin Detemir [Levemir Flextouch] 20 UNITS) SQ SCH (21:00)
--- NOTE | 2018-12-12 00:29 | HP ---
PRIMARY CARE PHYSICIAN: Dr. Candy Hernandez. CHIEF COMPLAINT: Syncope. HISTORY OF PRESENT ILLNESS: Ms. Fox is an 83-year-old female with past medical history of hypertension, hyperlipidemia, and diabetes mellitus type 2, who had presented to the ED earlier today after she experienced syncope and fall at home earlier this morning. She states in the last week, she has fallen about 5 times due to this. She states that when she stands up from a chair, she had started to feel dizzy and the next thing, she knew she was waking up on the floor. She states that as she fell earlier today, she had hit her face on the floor and had sustained a scalp hematoma along with blunt trauma to her nose. During her workup in the ED, her CT of brain was found to be normal. However, CT of her facial bone did show nasal bone fractures and overlying soft tissue swelling with small scalp hematoma over the right frontal bone. Her serial troponins were found to be negative x3 and her urine was found to be unremarkable. She had denied any fever, chills, any headache, blurred vision, any chest pain, palpitation, shortness of breath, abdominal pain, nausea, or vomiting. Her orthostatic vital signs were found to be positive and she had denied any history of cardiac issues or stroke. REVIEW OF SYSTEMS: All other systems reviewed and found to be negative unless mentioned in HPI. PAST MEDICAL HISTORY: Hypertension, hyperlipidemia, and diabetes mellitus type 2. PAST SURGICAL HISTORY: Hysterectomy and cholecystectomy. PAST PSYCHIATRIC HISTORY: None. SOCIAL HISTORY: The patient lives at home with her family. She had denied any alcohol, tobacco, or illicit drug use. KNOWN ALLERGIES: Trazodone. CURRENT HOME MEDICATIONS: 1. Metformin 1000 mg p.o. b.i.d. 2. Omeprazole 20 mg oral daily. 3. Amlodipine 5 mg oral daily. 4. Aspirin 81 mg daily. 5. Atorvastatin 20 mg oral daily. 6. Carvedilol 6.25 mg oral b.i.d. 7. Furosemide 20 mg oral daily. 8. Hydrochlorothiazide 12.5 mg oral daily. 9. Levemir 20 units subcu b.i.d. 10. Lisinopril 10 mg oral daily. 11. Florastor 250 mg p.o. daily. PHYSICAL EXAMINATION: VITAL SIGNS: BP 150/84, pulse 86, respirations 19, temperature 97.9, and O2 saturations 99% on room air. GENERAL: The patient is awake, alert, and oriented x3. She is currently lying comfortably in bed and in no acute distress. HEENT: Soft tissue swelling and bruising around her frontal scalp along the bridge of her nose with some mild tenderness to palpation. Moist mucous membranes noted. CARDIOVASCULAR: Positive S1 and S2. Regular rate and rhythm. No murmur auscultated. RESPIRATORY: Clear to auscultation bilaterally. No wheezes, rales, or rhonchi. ABDOMEN: Soft, nontender. Bowel sounds present. EXTREMITIES: Moves all extremities equal. Pedal and radial pulses 2+ bilaterally. No edema noted. NEUROLOGIC: Cranial nerves 2 through 12 grossly intact. No focal deficits noted. Speech intact and normal. Gait not assessed. SKIN: Warm, dry and intact. Some skin changes noted above to her face and scalp and there is however a 0.5 cm linear laceration above her right eye with no active bleeding. PSYCHIATRIC: Good mood and affect. LABORATORY DATA: WBC 11.0, RBC 3.76, hemoglobin 11.1, hematocrit 32.8, platelet 306. Sodium 136, potassium 4.1, anion gap 14, BUN 25, creatinine 1.34, estimated GFR 38, glucose 191. Troponin negative x3. Urinalysis was unremarkable. DIAGNOSTIC IMAGING: CT brain without contrast showed no evidence of acute intracranial abnormality. CT facial bone showed nasal bone fractures and overlying soft tissue swelling with small scalp hematoma over the right frontal bone. ASSESSMENT/PLAN: 1. Syncope and fall. The patient's CT of the head was normal; however, she will undergo further workup including MRI of brain, carotid Doppler, and echocardiogram. The patient's orthostatic vital signs were actually positive. Therefore, she will be started on some gentle hydration and blood pressure and other vital signs will be monitored closely. PT and OT will also be ordered. 2. Orthostatic hypotension as above. 3. History of hypertension. 4. History of hyperlipidemia. 5. History of diabetes mellitus type 2. Continue home regimen with frequent Accu-Cheks and start on insulin sliding scale. 6. Deep venous thrombosis and gastrointestinal prophylaxis. 7. Code status, full code. 8. Surrogate decision maker is her , Miguelito. DISPOSITION: Pending further workup and clinical findings. Job ID: [id number]
[2018-12-12] MEDS: Sodium Chloride 0.9% 1,000 ML IV SCH ×2 (04:12→14:38)
[2018-12-12 07:07] LABS: #Basophils 0.1 thou/uL (0.0-0.2); #Eosinphils 0.3 thou/uL (0.0-0.7); #Lymphocytes 2.1 thou/uL (1.20-3.40); #Monocytes 0.7 thou/uL (0.11-0.59); #Neutrophils 4.7 thou/uL (1.40-6.50); %Basophils 0.7 % (0.0-1.0); %Eosinophils 3.7 % (0.0-10.0); %Lymphocytes 26.4 % (21.0-51.0); %Monocytes 9.4 % (0.0-10.0); %Neutrophils 59.8 % (42.0-75.0); Hemoglobin 9.8 g/dL (12.0-16.0); Mean Corpuscular HGB CONC 33.9 g/dL (32.0-36.0); Mean Corpuscular Hemoglobin 29.3 pg (27.0-31.0); Mean Corpuscular Volume 86.3 fL (78.0-98.0); Mean Platelet Volume 9.1 fL (7.4-10.4); Platelet Count 283 thou/uL (130-400); RBC Distribution Width 13.6 % (11.5-14.5); Red Blood Cell (RBC) Count 3.33 mill/uL (4.20-5.40); White Blood Cell (WBC) Count 7.9 thou/uL (4.8-10.8)
[2018-12-12 07:22] LABS: Anion Gap 9 mmol/L (10-20); BUN (Urea Nitrogen) 22 mg/dL (9.8-20.1); Calc. Creatinine Clearance 31 mL/min (70-130); Calcium 8.3 mg/dL (7.8-10.44); Carbon Dioxide 26 mmol/L (23-31); Chloride 111 mmol/L (98-107); Estimated GFR-MDRD 42; Glucose 233 mg/dL (83-110); Potassium 4.2 mmol/L (3.5-5.1); Sodium 142 mmol/L (136-145)
[2018-12-12] MEDS: HumaLOG 300 UNITS/3 ML VIAL SC PRN ×2 (08:04→18:01)
[2018-12-12] MEDS: Amlodipine 5 MG TAB PO SCH (09:36)
[2018-12-12] MEDS: Famotidine 20 MG TAB PO SCH ×2 (09:36→20:30)
[2018-12-12] MEDS: Aspirin 81 mg Enteric Coated Tablet PO SCH (09:36)
[2018-12-12] MEDS: Saccharomyces boulardii 250 MG CAP PO SCH (09:36)
[2018-12-12] MEDS: Hydrochlorothiazide 25 MG TAB PO SCH (09:36)
[2018-12-12] MEDS: Carvedilol 6.25 MG TAB PO SCH ×2 (09:37→17:32)
[2018-12-12] MEDS: Furosemide 20 MG TAB PO SCH (09:37)
[2018-12-12] MEDS: Enoxaparin Sodium 40 MG/0.4 ML SYRINGE SC SCH (09:37)
[2018-12-12] MEDS: Lisinopril 10 MG TAB PO SCH (09:37)
[2018-12-12] MEDS: Insulin Glargine 20 UNITS in Pre-Filled Syringe 1 EACH SC SCH ×2 (09:38→20:30)
--- NOTE | 2018-12-12 13:58 | PDOC.HOSPP ---
- Subjective Encounter Date: 12/12/18 Encounter Time: 13:56 Subjective: No new complaints - Objective Vital Signs & Weight: Vital Signs (12 hours) Temp Pulse Resp BP BP BP BP 12/12/18 11:59 97.7 F 94 16 128/60 137/64 155/70 H 12/12/18 09:37 170/70 H 12/12/18 09:36 80 170/70 H 12/12/18 08:00 98.5 F 80 16 170/70 H 12/12/18 03:52 83 18 163/77 H Pulse Ox 12/12/18 11:59 95 12/12/18 09:37 12/12/18 09:36 12/12/18 08:00 98 12/12/18 03:52 98 Weight Weight 120 lb I&O: 12/11/18 12/12/18 12/13/18 06:59 06:59 06:59 Intake Total 2052 240 Output Total 1600 Balance 452 240 Result Diagrams: 12/12/18 06:04 12/12/18 06:04 Additional Labs: Accuchecks 12/12/18 12/11/18 12/11/18 10:39 20:56 17:21 POC Glucose 126 H 412 H 380 H 12/11/18 14:27 POC Glucose 257 H Hospitalist ROS - Medication Medications: Active Medications Generic Name Dose Route Start Last Admin Trade Name Freq PRN Reason Stop Dose Admin Amlodipine Besylate 5 mg 12/12/18 09:00 12/12/18 09:36 Norvasc PO 5 mg DAILY DEMARCUS Administration Aspirin 81 mg 12/12/18 09:00 12/12/18 09:36 Ecotrin PO 81 mg DAILY DEMARCUS Administration Carvedilol 6.25 mg 12/11/18 17:00 12/12/18 09:37 Coreg PO 6.25 mg BID-WM DEMARCUS Administration Enoxaparin Sodium 40 mg 12/12/18 09:00 12/12/18 09:37 Lovenox SC 40 mg 09 [facility]ARCUS Administration Famotidine 20 mg 12/11/18 21:00 12/12/18 09:36 Pepcid PO 20 mg BID DEMARCUS Administration Furosemide 20 mg 12/12/18 07:30 12/12/18 09:37 Lasix PO 20 mg DAILY-AC DEMARCUS Administration Hydrochlorothiazide 12.5 mg 12/12/18 09:00 12/12/18 09:36 Hydrochlorothiazide PO 12.5 mg DAILY [facility] Administration Insulin Glargine 20 units/ 0.2 mls @ 0 mls/hr 12/11/18 21:00 12/11/18 20:42 Miscellaneous Medication SC 0.2 mls HS [facility]US Administration Insulin Glargine 20 units/ 0.2 mls @ 0 mls/hr 12/12/18 09:00 12/12/18 09:38 Miscellaneous Medication SC 0.2 mls QAM [facility]US Administration Sodium Chloride 1,000 mls @ 100 mls/hr 12/11/18 18:00 12/12/18 04:12 Normal Saline 0.9% IV 1,000 mls .Q10H [facility]US Administration Insulin Human Lispro 0 units 12/11/18 16:24 12/12/18 08:04 Humalog SC 3 unit .MILD SLIDING SCALE PRN Administration Mild Correctional Scale Lisinopril 10 mg 12/12/18 09:00 12/12/18 09:37 Zestril PO 10 mg DAILY [facility] Administration Saccharomyces Boulardii 250 mg 12/12/18 09:00 12/12/18 09:36 Florastor PO 250 mg DAILY [facility]ARC[facility] Administration - Exam General Appearance: NAD, awake alert, ill appearing Eye: PERRL, anicteric sclera, scleral icterus ENT: normocephalic atraumatic, no oropharyngeal lesions, moist mucosa, dry oral mucosa Heart: RRR, no murmur, no gallops, no rubs, normal peripheral pulses, irregular , diminshed peripheral pulses, murmur present, II/IV, III/IV Respiratory: CTAB, no wheezes, no rales, no ronchi, normal chest expansion, no tachypnea, normal percussion, rales, rhonchi, tachypneic, wheezes Gastrointestinal: soft, non-tender, non-distended, normal bowel sounds, no palpable masses, no hepatomegaly, no splenomegaly, no bruit, no guarding, no rigidity, tender to palpation, distended, diminished bowl sounds, voluntary guarding Hosp A/P (1) Syncope Code(s): R55 - SYNCOPE AND COLLAPSE Status: Acute (2) Hypertension Code(s): I10 - ESSENTIAL (PRIMARY) HYPERTENSION Status: Chronic Qualifiers: Plan: Await cardiology inpur, check carotid doppler.
--- NOTE | 2018-12-12 20:06 | PRG ---
DATE OF SERVICE: 12/12/2018 [employer]IMARY [employer]ED [employer]S CONSULTANT: Irving Montano MD SUBJECTIVE: Ms. Fox is a pleasant 83-year-old woman with mildly depressed left ventricular function, who had a syncopal episode. She states the fall occurred here in the hospital. She said it occurred without much warning. She did hit her head and she had a CT of her facial bone, which showed nasal bone fractures and soft tissue swelling. The patient does have a recent history of hospitalization here. Please see the notes for the full details. The patient is feeling well now. OBJECTIVE: VITAL SIGNS: Blood pressure is 150 systolic in a supine position. The nurse said it drop down to mid 120s sitting and then did not drop further with standing. LUNGS: Clear. CARDIAC: Normal S1 and normal S2. ABDOMEN: Soft and nontender. EXTREMITIES: There is no edema. IMAGING STUDIES: Echocardiogram, ejection fraction approximately 40% to 45%, inferior hypokinesis, akinesis. EKG does reveal a bifascicular block. ASSESSMENT: Syncopal episode. Orthostatic hypotension is certainly a consideration, but she also has a bifascicular block. PLAN: 1. Continue to monitor. 2. Dr. Montano to see tomorrow. The patient may need electrophysiologic evaluation in view of the bifascicular block. Job ID: [id number]
[2018-12-12] MEDS: Atorvastatin Calcium 20 MG TAB PO SCH (20:30)
[2018-12-13] MEDS: Sodium Chloride 0.9% 1,000 ML IV SCH ×3 (00:56→19:44)
--- NOTE | 2018-12-13 07:56 | PDOC.CPN ---
- Subjective Date: 12/13/18 Time: 07:54 - Objective Allergies/Adverse Reactions: Allergies Allergy/AdvReac Type Severity Reaction Status Date / Time trazodone AdvReac Verified 09/21/18 19:57 Visit Medications: Current Medications Amlodipine Besylate (Norvasc) 5 mg PO DAILY [facility] Last Admin: 12/12/18 09:36 Dose: 5 mg Aspirin (Ecotrin) 81 mg PO DAILY [facility] Last Admin: 12/12/18 09:36 Dose: 81 mg Atorvastatin Calcium (Lipitor) 20 mg PO HS [facility] Last Admin: 12/12/18 20:30 Dose: 20 mg Carvedilol (Coreg) 6.25 mg PO BID-WM [facility] Last Admin: 12/12/18 17:32 Dose: 6.25 mg Dextrose/Water (Dextrose 50%) 25 gm SLOW IVP PRN PRN PRN Reason: Hypoglycemia Enoxaparin Sodium (Lovenox) 40 mg SC 0900 [facility] Last Admin: 12/12/18 09:37 Dose: 40 mg Famotidine (Pepcid) 20 mg PO BID [facility] Last Admin: 12/12/18 20:30 Dose: 20 mg Furosemide (Lasix) 20 mg PO DAILY-AC [facility] Last Admin: 12/12/18 09:37 Dose: 20 mg Glucagon (Glucagon) 1 mg IM PRN PRN PRN Reason: Hypoglycemia Hydrochlorothiazide (Hydrochlorothiazide) 12.5 mg PO DAILY [facility] Last Admin: 12/12/18 09:36 Dose: 12.5 mg Dextrose/Water (D5w) 1,000 mls @ 0 mls/hr IV .Q0M PRN PRN Reason: Hypoglycemia Insulin Glargine 20 units/ (Miscellaneous Medication) 0.2 mls @ 0 mls/hr SC HS [facility] Last Admin: 12/12/18 20:30 Dose: 0.2 mls Insulin Glargine 20 units/ (Miscellaneous Medication) 0.2 mls @ 0 mls/hr SC QAM [facility] Last Admin: 12/12/18 09:38 Dose: 0.2 mls Sodium Chloride (Normal Saline 0.9%) 1,000 mls @ 100 mls/hr IV .Q10H [facility] Last Admin: 12/13/18 00:56 Dose: 1,000 mls Insulin Human Lispro (Humalog) 0 units SC .MILD SLIDING SCALE PRN PRN Reason: Mild Correctional Scale Last Admin: 12/12/18 18:01 Dose: 4 unit Insulin Human Lispro (Humalog) 0 units SC .BEDTIME SLIDING SC PRN PRN Reason: Bedtime Correctional Scale Lisinopril (Zestril) 10 mg PO DAILY [facility] Last Admin: 12/12/18 09:37 Dose: 10 mg Saccharomyces Boulardii (Florastor) 250 mg PO DAILY [facility] Last Admin: 12/12/18 09:36 Dose: 250 mg Vital Signs & Weight: Vital Signs Temp Pulse Resp BP Pulse Ox 12/13/18 03:24 98 F 69 19 139/63 98 Weight 120 lb - Physical Exam General: alert & oriented x3 HEENT: normocephaly Neck: no masses, no bruit Cardiac: regular rate Lungs: normal exam, no wheezes Neuro: grossly intact Abdomen: soft Musculoskeletal: no pain - Labs Result Diagrams: 12/12/18 06:04 12/12/18 06:04 Troponin/CKMB Troponin I 0.016 ng/mL (< 0.028) 12/11/18 14:24 - Assessment/Plan Assessment/Plan: Syncope Bifasicular block MIld CM PAF Recommend EP consult stress test to re-assess EF and for ischemia anemia marginal No reurrent AFib noted. PAF to SR conversion possibility for syncope with underlying RBBB with LAD?
--- NOTE | 2018-12-13 10:47 | CON ---
DATE OF CONSULTATION: 12/13/2018 I am seeing Ms. Fox at our [facility] Telemetry Floor as an Electrophysiology independent beauty consultant for the following problems; 1. Unexplained syncope. 2. Reduced LVEF at 40% to 45%, persisting from September 2018 echo to the current echo in 12/2018. 3. Bifascicular block on EKG. 4. Hypertension and type 2 diabetes. ALLERGIES: TRAZODONE. MEDICATIONS AT HOME: Include; 1. Metformin. 2. Omeprazole. 3. Amlodipine. 4. Aspirin. 5. Lipitor. 6. Carvedilol. 7. Furosemide. 8. Hydrochlorothiazide. 9. Levemir. 10. Lisinopril. 11. Florastor. SUBJECTIVE: Ms. Fox came to the hospital after a syncopal spell. This happened while she was walking without a prodrome, she was talking to her family, she was noted that she fell down and bruised herself very badly. She has a scalp hematoma and had a blunt trauma to the nose as well with periocular hematoma also showing. CT of brain was normal though, nasal bone fracture was diagnosed. Her cardiac enzymes so far negative. Echo again shows moderately reduced LVEF, unchanged from the prior echo in September. I was consulted for further EP considerations. Currently, she denies PND, orthopnea, lower extremity edema, fever, chills, or cough. No angina or CHF like symptoms. REVIEW OF SYSTEMS: The rest of 12-point review of systems otherwise unremarkable. PAST MEDICAL HISTORY: As above. SOCIAL HISTORY: The patient denies smoking, EtOH, or drug abuse. FAMILY HISTORY: Noncontributory. PHYSICAL EXAMINATION: VITAL SIGNS: Blood pressure 160/70 sitting, standing 132/70, supine 173/79. Heart rate 71, respirations 20, temperature 97.3 degrees Fahrenheit. Prior orthostatics also show still normotension on standing at 137/64, but some drop from baseline of 155/70 is seen. GENERAL: Alert and oriented woman, in no apparent distress. NECK: Supple. Jugular veins not distended. CHEST: Coarse without crackles. HEART: Sounds are regular to rate and rhythm. No murmur or gallop. ABDOMEN: Benign. Bowel sounds positive. EXTREMITIES: Lower extremities without edema, clubbing, or cyanosis. Pulses are adequate. NEUROLOGIC: The patient is nonfocal. MUSCULOSKELETAL: No joint swelling or deformities. SKIN: Without rash. Periorbital hematoma is seen with additional facial bruising. DATABASE: EKG is reviewed, revealing sinus rhythm with bifascicular block, occasional PACs. Telemetry strip so far revealed rare PVCs and PACs. No sustained tachy or bradyarrhythmias. LABORATORY DATA: White cell count 7.9, hemoglobin 9.8, platelet count is 283. Sodium 142, potassium 4.2, BUN is 23, creatinine 1.23, glucose level 233. Brain MRI from admission reveals mild chronic ischemic white matter changes, otherwise negative. Carotid Doppler study showed 50% to 69% stenosis involving the right internal carotid artery, and right thyroid lobe nodule is seen. ASSESSMENT AND PLAN: 1. Ms. Fox is a very pleasant 83-year-old woman with a history of hypertension, diabetes, reduced LVEF from prior echocardiogram in September, who presented with recurrent syncopal spells, most recent one resulting in significant facial trauma. She has an abnormal LV systolic function and bifascicular block. Most of these can predispose her to arrhythmias, esthela and tachyarrhythmias are all possible to contribute. She has drastic syncopal spells, arrhythmic etiology is very likely. Alternatively, orthostatic etiology alos possible, but so far not be able to demonstrate significant lowering of the standing blood pressure, although there is a drop between supine to standing numbers, but standing number is still in normal range. 2. Vasovagal etiology also less likely with lack of prodrome, although it happened while she was walking and talking. My plan will be: 1. I think it is reasonable to consider an EP study to evaluate her conduction systems plus inducible arrhythmias. Should that be negative for arrhythmias, then a loop recorder could be implanted for further monitoring. Alternatively, if ventricular tachyarrhythmia is seen or infrahisian conduction disease noted, then possibly an ICD or pacemaker can be indicated. 2. I discussed these plans with her, in detail, also the risk of of infection , bleeding, tamponade, pneumothorax, lead dislodgement, and device malfunctions as well. For now she is not decided - She will discuss with the family. She understands and will make final decision after discussion with the family. In the meantime, she will undergo a stress test as per Dr. Montano. Job ID: [id number] [facility]
--- NOTE | 2018-12-13 11:58 | PDOC.HOSPP ---
- Subjective Encounter Date: 12/13/18 Encounter Time: 11:57 Subjective: feels better - Objective Vital Signs & Weight: Vital Signs (12 hours) Temp Pulse Resp BP BP BP BP 12/13/18 07:44 97.3 F L 71 20 163/70 H 132/60 173/79 H 12/13/18 03:24 98 F 69 19 139/63 Pulse Ox 12/13/18 07:44 98 12/13/18 03:24 98 Weight Weight 120 lb I&O: 12/12/18 12/13/18 12/14/18 06:59 06:59 06:59 Intake Total 2 3940 Output Total 1600 1000 Balance 452 2940 Result Diagrams: 12/12/18 06:04 12/12/18 06:04 Additional Labs: Accuchecks 12/13/18 12/13/18 12/12/18 06:41 06:07 20:32 POC Glucose 103 51 L* 176 H 12/12/18 17:10 POC Glucose 251 H Hospitalist ROS - Medication Medications: Active Medications Generic Name Dose Route Start Last Admin Trade Name Freq PRN Reason Stop Dose Admin Amlodipine Besylate 5 mg 12/12/18 09:00 12/12/18 09:36 Norvasc PO 5 mg DAILY [facility] Administration Aspirin 81 mg 12/12/18 09:00 12/12/18 09:36 Ecotrin PO 81 mg DAILY [facility] Administration Atorvastatin Calcium 20 mg 12/12/18 21:00 12/12/18 20:30 Lipitor PO 20 mg HS [facility] Administration Carvedilol 6.25 mg 12/11/18 17:00 12/12/18 17:32 Coreg PO 6.25 mg BID-WM [facility] Administration Enoxaparin Sodium 40 mg 12/12/18 09:00 12/12/18 09:37 Lovenox SC 40 mg 0900 [facility] Administration Famotidine 20 mg 12/11/18 21:00 12/12/18 20:30 Pepcid PO 20 mg BID [facility] Administration Furosemide 20 mg 12/12/18 07:30 12/12/18 09:37 Lasix PO 20 mg DAILY-AC [facility]US Administration Hydrochlorothiazide 12.5 mg 12/12/18 09:00 12/12/18 09:36 Hydrochlorothiazide PO 12.5 mg DAILY [facility] Administration Insulin Glargine 20 units/ 0.2 mls @ 0 mls/hr 12/11/18 21:00 12/12/18 20:30 Miscellaneous Medication SC 0.2 mls HS [facility]US Administration Insulin Glargine 20 units/ 0.2 mls @ 0 mls/hr 12/12/18 09:00 12/12/18 09:38 Miscellaneous Medication SC 0.2 mls QAM [facility]US Administration Sodium Chloride 1,000 mls @ 100 mls/hr 12/11/18 18:00 12/13/18 00:56 Normal Saline 0.9% IV 1,000 mls .Q10H [facility]US Administration Insulin Human Lispro 0 units 12/11/18 16:24 12/12/18 18:01 Humalog SC 4 unit .MILD SLIDING SCALE PRN Administration Mild Correctional Scale Lisinopril 10 mg 12/12/18 09:00 12/12/18 09:37 Zestril PO 10 mg DAILY [facility] Administration Saccharomyces Boulardii 250 mg 12/12/18 09:00 12/12/18 09:36 Florastor PO 250 mg DAILY [facility]ARC[facility] Administration - Exam General Appearance: NAD, awake alert, ill appearing Eye: PERRL, anicteric sclera, scleral icterus ENT: normocephalic atraumatic, no oropharyngeal lesions, moist mucosa, dry oral mucosa Neck: supple, symmetric, no JVD, no thyromegaly, no lymphadenopathy, no carotid bruit, JVD Heart: RRR, no murmur, no gallops, no rubs, normal peripheral pulses, irregular , diminshed peripheral pulses, murmur present, II/IV, III/IV Respiratory: CTAB, no wheezes, no rales, no ronchi, normal chest expansion, no tachypnea, normal percussion, rales, rhonchi, tachypneic, wheezes Gastrointestinal: soft, non-tender, non-distended, normal bowel sounds, no palpable masses, no hepatomegaly, no splenomegaly, no bruit, no guarding, no rigidity, tender to palpation, distended, diminished bowl sounds, voluntary guarding Extremities: no cyanosis, no clubbing, no edema, 1+ LE edema, 2+ LE edema, clubbing Hosp A/P (1) Syncope Code(s): R55 - SYNCOPE AND COLLAPSE Status: Acute (2) Hypertension Code(s): I10 - ESSENTIAL (PRIMARY) HYPERTENSION Status: Chronic Qualifiers: - Plan scheduled for EPS. Apreciate cardiology input. continue current care
[2018-12-13] MEDS: Furosemide 20 MG TAB PO SCH (12:19)
[2018-12-13] MEDS: Carvedilol 6.25 MG TAB PO SCH ×2 (12:19→16:38)
[2018-12-13] MEDS: Aspirin 81 mg Enteric Coated Tablet PO SCH (12:19)
[2018-12-13] MEDS: Amlodipine 5 MG TAB PO SCH (12:19)
[2018-12-13] MEDS: Hydrochlorothiazide 25 MG TAB PO SCH (12:20)
[2018-12-13] MEDS: Famotidine 20 MG TAB PO SCH ×2 (12:20→19:45)
[2018-12-13] MEDS: Saccharomyces boulardii 250 MG CAP PO SCH (12:20)
[2018-12-13] MEDS: Insulin Glargine 20 UNITS in Pre-Filled Syringe 1 EACH SC SCH ×2 (12:28→21:06)
[2018-12-13] MEDS: Lisinopril 10 MG TAB PO SCH (12:33)
--- NOTE | 2018-12-13 13:10 | NM ---
EXAM: Nuclear medicine cardiac perfusion examination with ejection fraction HISTORY: Syncope; diabetes and hypertension TECHNIQUE: Rest images: 9.0 mCi technetium 99m sestamibi Stress images: 32.7 mCi of technetium 9M sestamibi; Adenosine COMPARISON: None FINDINGS: Tomographic images: No fixed or reversible perfusion defects. Gated images: Global hypokinesis and ejection fraction of 44%. EDV: 87 mL LHR: 0.3 TID: 1.1 IMPRESSION: 1. No evidence of ischemia 2. Global hypokinesis and decreased ejection fraction
[2018-12-13] MEDS: Enoxaparin Sodium 40 MG/0.4 ML SYRINGE SC SCH (14:26)
[2018-12-13] MEDS: HumaLOG 300 UNITS/3 ML VIAL SC PRN (17:32)
[2018-12-13] MEDS: Atorvastatin Calcium 20 MG TAB PO SCH (19:45)
[2018-12-13] MEDS ORDERED: ADENOSINE 60 MG/20 ML VIAL ONE (20:16)
[2018-12-14] MEDS: Sodium Chloride 0.9% 1,000 ML IV SCH ×3 (02:12→17:29)
[2018-12-14] MEDS: Carvedilol 6.25 MG TAB PO SCH ×2 (05:31→17:35)
[2018-12-14] MEDS: Aspirin 81 mg Enteric Coated Tablet PO SCH (05:31)
[2018-12-14] MEDS: Amlodipine 5 MG TAB PO SCH (05:31)
[2018-12-14] MEDS: Lisinopril 10 MG TAB PO SCH (05:31)
[2018-12-14] MEDS: Famotidine 20 MG TAB PO SCH (05:31)
[2018-12-14] MEDS: Saccharomyces boulardii 250 MG CAP PO SCH (05:32)
[2018-12-14] MEDS: Insulin Glargine 20 UNITS in Pre-Filled Syringe 1 EACH SC SCH ×2 (09:12→22:52)
[2018-12-14] MEDS: Enoxaparin Sodium 40 MG/0.4 ML SYRINGE SC SCH (09:12)
[2018-12-14] MEDS: Furosemide 20 MG TAB PO SCH (10:13)
[2018-12-14] MEDS: Hydrochlorothiazide 25 MG TAB PO SCH (10:22)
[2018-12-14] MEDS ORDERED: PROPOFOL 200 MG/20 ML VIAL ONE (11:39)
[2018-12-14] MEDS ORDERED: Lidocaine 1% PF 5 ML VIAL ONE (11:39)
[2018-12-14] MEDS ORDERED: ePHEDrine 50 MG/ML VIAL ONE (11:39)
--- NOTE | 2018-12-14 14:26 | PRG ---
DATE OF SERVICE: 12/14/2018 SUBJECTIVE: The patient is seen and examined at the bedside. She is getting ready for her electrophysiology studies. She does not have much complaints to offer. OBJECTIVE: VITAL SIGNS: Blood pressure is 146/68, temperature is 98, pulse is 67, respirations 18, and O2 saturation is 99% on room air. HEENT: She has few areas, which have skin injury from the fall on her face. Her pupils are responding to light properly. Sclerae are nonicteric. Oral mucosa is moist. NECK: Supple. LUNGS: Clear. HEART: S1 and S2. There is a systolic murmur 2/6 at the left sternal border. ABDOMEN: Soft and nontender. EXTREMITIES: No clubbing, cyanosis, or edema. NEUROLOGIC: She follows my commands. She moves her all 4 extremities. LABORATORY DATA: Glycemia is ranging from 90 to 303. IMPRESSION: 1. Syncope and collapse, acute. The patient is going to have electrophysiology evaluation. 2. Orthostatic hypotension. 3. Hypertension. 4. Hyperlipidemia. 5. Carotid artery disease. 6. Diabetes mellitus, type 2. 7. Cardiomyopathy with LVEF estimated at 40% to 45%. with inferior akinesis, moderate tricuspid regurgitation. PLAN: To continue her current regimen with aspirin, amlodipine, carvedilol, famotidine, furosemide, hydrochlorothiazide, 20 units of glargine q.a.m. and 20 units of glargine at bedtime, lisinopril 10 mg daily, and Florastor 250 mg daily. We are waiting for the EP studies. Job ID: [id number]
[2018-12-14 14:44] LABS: #Eosinphils 0.3 thou/uL (0.0-0.7); #Lymphocytes 2.6 thou/uL (1.20-3.40); #Monocytes 0.6 thou/uL (0.11-0.59); #Neutrophils 6.7 thou/uL (1.40-6.50); %Basophils 0.1 % (0.0-1.0); %Eosinophils 2.8 % (0.0-10.0); %Lymphocytes 25.7 % (21.0-51.0); %Monocytes 5.9 % (0.0-10.0); %Neutrophils 65.5 % (42.0-75.0); Hemoglobin 10.3 g/dL (12.0-16.0); Mean Corpuscular HGB CONC 33.3 g/dL (32.0-36.0); Mean Corpuscular Hemoglobin 29.4 pg (27.0-31.0); Mean Corpuscular Volume 88.2 fL (78.0-98.0); Mean Platelet Volume 8.5 fL (7.4-10.4); Platelet Count 300 thou/uL (130-400); RBC Distribution Width 13.7 % (11.5-14.5); Red Blood Cell (RBC) Count 3.51 mill/uL (4.20-5.40); White Blood Cell (WBC) Count 10.2 thou/uL (4.8-10.8)
[2018-12-14 15:04] LABS: Anion Gap 10 mmol/L (10-20); BUN (Urea Nitrogen) 17 mg/dL (9.8-20.1); Calc. Creatinine Clearance 39 mL/min (70-130); Calcium 8.1 mg/dL (7.8-10.44); Carbon Dioxide 24 mmol/L (23-31); Chloride 114 mmol/L (98-107); Estimated GFR-MDRD 51; Potassium 3.5 mmol/L (3.5-5.1); Sodium 144 mmol/L (136-145)
[2018-12-14 15:08] LABS: Glucose 54 mg/dL (83-110)
[2018-12-14] MEDS ORDERED: Fentanyl 100 MCG/2 ML VIAL ONE (15:36)
[2018-12-14] MEDS ORDERED: Midazolam HCl 2 mg/2 ml Vial ONE (15:36)
[2018-12-14] MEDS ORDERED: Dextrose 50% Abboject 50 ML SYRINGE SLOW IVP SCH (15:45)
[2018-12-14] MEDS ORDERED: Lidocaine 1% (PF) 30 ML VIAL ONE (17:39)
[2018-12-14] MEDS ORDERED: Propofol 500 MG/50 ML VIAL ONE (18:08)
[2018-12-14] MEDS ORDERED: Lidocaine 1% w/Epinephrine 1:100K 20 ML VIAL ONE (18:17)
--- NOTE | 2018-12-14 19:03 | OP ---
DATE OF PROCEDURE: 12/14/2018 PROCEDURE PERFORMED: LINQ recorder implantation. REASON FOR PROCEDURE: Ms. Fox is an 83-year-old lady with history of mild reduced LVEF, bifascicular block. She had a syncopal spell. She is here for LINQ recorder implantation. DESCRIPTION OF PROCEDURE: The fourth intercostal space was prepped, draped, and anesthetized using subcutaneous lidocaine and with a [employer] tool kit, standard LINQ recorder insertion was performed. CONCLUSION: Successful LINQ recorder implant. PLAN: Routine monitoring. Job ID: [id number]
[2018-12-14] MEDS: Atorvastatin Calcium 20 MG TAB PO SCH (22:52)
[2018-12-15] MEDS: Sodium Chloride 0.9% 1,000 ML IV SCH ×2 (05:48→11:38)
[2018-12-15] MEDS: Carvedilol 6.25 MG TAB PO SCH (07:48)
[2018-12-15] MEDS: Furosemide 20 MG TAB PO SCH (07:48)
[2018-12-15] MEDS ORDERED: Famotidine 20 MG TAB PO SCH (09:00)
[2018-12-15] MEDS: Aspirin 81 mg Enteric Coated Tablet PO SCH (09:24)
[2018-12-15] MEDS: Hydrochlorothiazide 25 MG TAB PO SCH (09:24)
[2018-12-15] MEDS: Amlodipine 5 MG TAB PO SCH (09:24)
[2018-12-15] MEDS: Insulin Glargine 20 UNITS in Pre-Filled Syringe 1 EACH SC SCH (09:25)
[2018-12-15] MEDS: Saccharomyces boulardii 250 MG CAP PO SCH (09:25)
[2018-12-15] MEDS: Lisinopril 10 MG TAB PO SCH (09:25)
[2018-12-15] MEDS: Enoxaparin Sodium 40 MG/0.4 ML SYRINGE SC SCH (09:25)
[2018-12-15] MEDS: HumaLOG 300 UNITS/3 ML VIAL SC PRN (11:38)
[2018-12-15 11:48] VITALS: BP 127/60; TEMP 98
--- NOTE | 2018-12-15 12:23 | PDOC.CPN ---
- Subjective Date: 12/15/18 Time: 12:21 - Review of Systems General: denies: fever/chills, weight/appetite/sleep changes, night sweats, fatigue Respiratory: denies: cough, congestion, shortness of breath, exercise intolerance Cardiovascular: denies: chest pain, palpitation, edema, paroxysmal nocturnal dyspnea, orthopnea Gastrointestinal: denies: nausea, vomiting, diarrhea, constipation, abd pain, GI bleeding Musculoskeletal: denies: pain, tenderness, stiffness, swelling, arthritis/ arthralgias Neurological: denies: numbness, syncope, seizure, weakness - Objective Allergies/Adverse Reactions: Allergies Allergy/AdvReac Type Severity Reaction Status Date / Time trazodone AdvReac Verified 09/21/18 19:57 Visit Medications: Current Medications Amlodipine Besylate (Norvasc) 5 mg PO DAILY [facility] Last Admin: 12/15/18 09:24 Dose: 5 mg Aspirin (Ecotrin) 81 mg PO DAILY [facility] Last Admin: 12/15/18 09:24 Dose: 81 mg Atorvastatin Calcium (Lipitor) 20 mg PO [facility] Last Admin: 12/14/18 22:52 Dose: 20 mg Carvedilol (Coreg) 6.25 mg PO BID-[facility] Last Admin: 12/15/18 07:48 Dose: 6.25 mg Dextrose/Water (Dextrose 50%) 25 gm SLOW IVP PRN PRN PRN Reason: Hypoglycemia Enoxaparin Sodium (Lovenox) 40 mg SC 0900 [facility] Last Admin: 12/15/18 09:25 Dose: 40 mg Famotidine (Pepcid) 20 mg PO QAM [facility] Last Admin: 12/15/18 09:24 Dose: 20 mg Furosemide (Lasix) 20 mg PO DAILY-AC [facility] Last Admin: 12/15/18 07:48 Dose: 20 mg Glucagon (Glucagon) 1 mg IM PRN PRN PRN Reason: Hypoglycemia Hydrochlorothiazide (Hydrochlorothiazide) 12.5 mg PO DAILY [facility] Last Admin: 12/15/18 09:24 Dose: 12.5 mg Dextrose/Water (D5w) 1,000 mls @ 0 mls/hr IV .Q0M PRN PRN Reason: Hypoglycemia Insulin Glargine 20 units/ (Miscellaneous Medication) 0.2 mls @ 0 mls/hr SC [facility] Last Admin: 12/14/18 22:52 Dose: Not Given Insulin Glargine 20 units/ (Miscellaneous Medication) 0.2 mls @ 0 mls/hr SC QAM [facility] Last Admin: 12/15/18 09:25 Dose: 0.2 mls Sodium Chloride (Normal Saline 0.9%) 1,000 mls @ 100 mls/hr IV .Q10H [facility] Last Admin: 12/15/18 11:38 Dose: 1,000 mls Insulin Human Lispro (Humalog) 0 units SC .MILD SLIDING SCALE PRN PRN Reason: Mild Correctional Scale Last Admin: 12/15/18 11:38 Dose: 2 unit Insulin Human Lispro (Humalog) 0 units SC .BEDTIME SLIDING SC PRN PRN Reason: Bedtime Correctional Scale Last Admin: 12/13/18 21:06 Dose: 4 unit Lisinopril (Zestril) 10 mg PO DAILY [facility] Last Admin: 12/15/18 09:25 Dose: 10 mg Saccharomyces Boulardii (Florastor) 250 mg PO DAILY [facility] Last Admin: 12/15/18 09:25 Dose: 250 mg Sodium Chloride (Flush - Normal Saline) 10 ml IVF PRN PRN PRN Reason: Saline Flush Vital Signs & Weight: Vital Signs Temp Pulse Resp BP BP Pulse Ox 12/15/18 11:39 98.0 F 82 18 127/60 98 12/15/18 09:25 121/80 12/15/18 09:24 88 12/15/18 07:51 98.4 F 88 18 121/82 96 12/15/18 07:48 121/80 12/15/18 03:56 97.8 F 75 16 128/61 95 Weight 127 lb 6.4 oz - Physical Exam General: alert & oriented x3, appears well HEENT: mucus membranes moist Neck: supple neck Cardiac: regular rate and rhythm Lungs: clear to auscultation Neuro: grossly intact Abdomen: soft, non-tender Musculoskeletal: normal range of motion - Labs Result Diagrams: 12/14/18 14:35 12/14/18 14:35 Troponin/CKMB Troponin I 0.016 ng/mL (< 0.028) 12/11/18 14:24 - Telemetry Sinus rhythms and dysrhythmias: sinus rhythm Supraventricular conduction: atrial premature complexes - Assessment/Plan Assessment/Plan: 1. Syncope 2. Bifasicular block 3. 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 PAF s/p LINQ. Stable tele. Unable to do EPS due to bump from AMI. Plan for outpatient EPS. Clear for discharge.
--- NOTE | 2018-12-17 12:43 | DIS ---
DATE OF ADMISSION: 12/13/2018 DATE OF DISCHARGE: 12/15/2018 CONSULTANTS: 1. Dr. Verito Orozco, Cardiology Service. 2. Dr. Irving Montano, Cardiology Service. 3. Dr. Orlando Metzger, Electrophysiology Service. HOSPITAL COURSE: The patient was an 83-year-old female with past medical history of hypertension, hyperlipidemia, diabetes mellitus type 2, who had presented to the emergency room earlier on the day of admission after she experienced syncope and fall at home. Apparently, she fell about 5 times prior to this episode. She stated that she felt dizzy when she was getting up from sitting position to standing. She was brought to the emergency room and she had CT done of the brain, which was found to be normal, although there was some nasal bone fractures and overlying soft tissue swelling with small scalp hematoma over the right frontal bone. Her troponins were negative. Her urine was unremarkable. She denied any fever, chills, any headache, blurred vision, chest pain, palpitation, shortness of breath, abdominal pain, nausea, or vomiting. Her orthostatic vital signs were found to be positive and she had denied any history of cardiac issues or stroke. At the time of emergency room evaluation, her white count was 11.0, hemoglobin 11.1, hematocrit 32.8, platelet count 306. Sodium 136, potassium 4.1, BUN 25, creatinine 1.34, estimated GFR was 38, glucose 191. Urinalysis was unremarkable. So, the patient got admitted to the hospital and she was given IV fluids, and PT and OT consultations were placed. The patient was seen by Dr. Orozco for Cardiology evaluation. In the meantime, the patient's echo was read as LVEF estimated at 40% to 45% with some inferior akinesis and moderate tricuspid regurgitation. Her left ventricular size was mildly increased. Dr. Orozco recommended Electrophysiology evaluation in view of bifascicular block on her electrocardiogram. The patient underwent nuclear medicine stress test, which showed no evidence of ischemia, just global hypokinesis and decreased ejection fraction at 44%. Subsequently, sulphate tester was consulted and the patient was seen by Dr. Metzger, who recommended EP study to evaluate her conduction systems plus inducible arrhythmias. This was done and the study was negative, so loop recorder was implanted for further evaluation of her condition. Today, she is doing well. She does not have much complaints to offer. Her blood glucose was somewhat on the lower side this morning. She is able to get up and walk. Her orthostatic hypotension is corrected and her blood pressure is 127/60, pulse is 82, respiratory rate is 18, O2 saturation is 98% on room air. DIET: She is going to stay on diabetic diet. ACTIVITIES: As tolerated. FOLLOWUP: She is going to follow up with her primary care physician in 1 week and with seo manager in 2 weeks, and also she will be given phone number to call sulphate tester's office and set up followup appointment if necessary by seo manager's recommendation . The patient is doing well. She is discharged in good condition. DISPOSITION: Home. Time spent on this discharge is less than 30 minutes. Job ID: [id number]
== END 2018-12-15 16:05 | disposition home or self-care (01) | DRG 261 ==
LOC: ERS 07:45 → ERHOLD 09:22 → 2SW 14:15 → OBSVTOIN 12-13 10:49 → 2NO 12-13 19:22
PROVIDERS: ADMIT Internal Medicine; ATTEND Internal Medicine
PROC: 0JH632Z Insertion of Monitoring Device into Chest Subcutaneous Tissue and Fascia, Percutaneous Approach (ICD-10-PCS; principal; 2018-12-14)
DX: I95.1 Orthostatic hypotension (principal); I42.9 Cardiomyopathy, unspecified; I45.2 Bifascicular block; I10 Essential (primary) hypertension; E78.5 Hyperlipidemia, unspecified; E11.9 Type 2 diabetes mellitus without complications; S02.2XXA Fracture of nasal bones, initial encounter for closed fracture; W18.30XA Fall on same level, unspecified, initial encounter; S00.03XA Contusion of scalp, initial encounter; I07.1 Rheumatic tricuspid insufficiency; I48.0 Paroxysmal atrial fibrillation; Z88.8 Allergy status to other drugs, medicaments and biological substances; Z79.899 Other long term (current) drug therapy; Z90.710 Acquired absence of both cervix and uterus; Z90.49 Acquired absence of other specified parts of digestive tract
CPT/HCPCS: 12011; 33285; 36415; 36416; 70450; 70486; 70551; 78452; 80048; 80053; 81003; 81015; 84484; 85025; 93005; 93017; 93306; 93880; 94760; A9500; C1764; J0153; J1644; J1650; J1815; J2001; J2250; J2704; J3010; J3490

== ENCOUNTER 2019-02-04 07:59 | Day surgery (SDC) | payer MEDICARE, MEDICAID ==
[2019-02-01 08:53] VITALS: BMI 24.4
[2019-02-04 08:33] LABS: #Eosinphils 0.3 thou/uL (0.0-0.7); #Lymphocytes 2.9 thou/uL (1.20-3.40); #Monocytes 0.8 thou/uL (0.11-0.59); #Neutrophils 5.8 thou/uL (1.40-6.50); %Basophils 0.2 % (0.0-1.0); %Eosinophils 3.4 % (0.0-10.0); %Lymphocytes 29.8 % (21.0-51.0); %Monocytes 7.8 % (0.0-10.0); %Neutrophils 58.9 % (42.0-75.0); Hemoglobin 11.3 g/dL (12.0-16.0); Mean Corpuscular Hemoglobin 28.9 pg (27.0-31.0); Mean Corpuscular Volume 87.6 fL (78.0-98.0); Mean Platelet Volume 8.6 fL (7.4-10.4); Platelet Count 313 thou/uL (130-400); White Blood Cell (WBC) Count 9.8 thou/uL (4.8-10.8)
[2019-02-04 08:40] LABS: PTT 27.4 SEC (22.9-36.1); Prothrombin Time 13.2 SEC (12.0-14.7)
[2019-02-04 08:54] LABS: Anion Gap 11 mmol/L (10-20); BUN (Urea Nitrogen) 34 mg/dL (9.8-20.1); Calc. Creatinine Clearance 28 mL/min (70-130); Calcium 9.2 mg/dL (7.8-10.44); Carbon Dioxide 25 mmol/L (23-31); Chloride 108 mmol/L (98-107); Estimated GFR-MDRD 37; Glucose 161 mg/dL (83-110); Potassium 3.9 mmol/L (3.5-5.1); Sodium 140 mmol/L (136-145)
[2019-02-04] MEDS ORDERED: Isoproterenol 0.2 MG/1 ML AMP ONE (10:10)
[2019-02-04] MEDS ORDERED: PROPOFOL 200 MG/20 ML VIAL ONE (10:15)
--- NOTE | 2019-02-04 11:12 | OP ---
DATE OF PROCEDURE: 02/04/2019 PROCEDURE PERFORMED: Electrophysiology study. REASON FOR PROCEDURE: Ms. Fox is an 83-year-old woman with history of syncopal spell, bifascicular block, reduced LVEF at 40%. She is undergoing EP study to evaluate inducible arrhythmia and His conduction system. DESCRIPTION OF PROCEDURE: The patient received deep sedation by Anesthesia specialist. The right femoral venous area was prepped, draped, and anesthetized with subcutaneous lidocaine and under ultrasound guidance, the right femoral vein was cannulated x1 where a 6-[place] short sheath was introduced through which a octapolar catheter was advanced to the right atrium, right ventricle, His bundle, and CS position. Pacing, mapping, and recording were performed in each location including pacing left atrium from the CS. The results; baseline rhythm was sinus rhythm with cycle length 663 milliseconds, TX 142 milliseconds, QRS 45, QT 395, AH 95, HV 54 milliseconds noted. Sinus node recovery time after 500 milliseconds. Overdrive pacing of the right atrium is 1571. The corrected sinus node recovery time was 610. AV Wenckebach cycle length noted at 380 milliseconds. VA ERP was 600/330 milliseconds. The ventricular extrastimuli testing was performed with multiple ventricular locations on and off Isuprel with 600 and [address] trains with up to 3 ventricular extrastimuli, which were recommended to the refractory period. The ventricular ERP initially was 600/280 milliseconds. With 4 extrastimuli, the ERP was at 600, 280, 200, and 180. No ventricular arrhythmias induced with this method. The patient remained in sinus rhythm on and off Isuprel as well. At the end of the case, the cardiac silhouette did not change significantly. The patient tolerated the procedure well. No complications noted. CONCLUSION: 1. Abnormal sinus node recovery time. 2. No inducible atrial arrhythmias with burst atrial overdrive pacing. 3. No ventricular arrhythmias with up to 4 ventricular access to my on and off Isuprel. 4. No evidence of accessory pathway and no evidence of dual AV lotus physiology. PLAN: 1. Continue monitoring with loop recorder, which were implanted. 2. If bradyarrhythmic symptoms occur, pacing may be indicated. Job ID: [id number]
--- NOTE | 2019-02-05 14:08 | EKG ---
Test Reason : PREOP Blood Pressure : / mmHG Vent. Rate : 080 BPM Atrial Rate : 080 BPM P-R Int : 152 ms QRS Dur : 118 ms QT Int : 398 ms P-R-T Axes : 025 -10 031 degrees QTc Int : 459 ms Normal sinus rhythm with sinus arrhythmia Right bundle branch block Abnormal ECG When compared with ECG of 11-DEC-2018 08:11, Premature atrial complexes are no longer Present Non-specific change in ST segment in Anterior leads Nonspecific T wave abnormality no longer evident in Anterior leads Confirmed by MARIKA SHEEHAN, . SBronson ([id number]) on 02/05/2019 2:08:04 PM Referred By: KRISTEN Confirmed By:DR. Josue HAIRSTON MD
== END 2019-02-04 14:45 | disposition home or self-care (01) ==
LOC: CCL 07:59
PROVIDERS: ATTEND Internal Medicine Cardiovascular Disease
PROC: 4A023FZ Measurement of Cardiac Rhythm, Percutaneous Approach (ICD-10-PCS; principal; 2019-02-04)
PROC: 4A0234Z Measurement of Cardiac Electrical Activity, Percutaneous Approach (ICD-10-PCS; 2019-02-04)
PROC: 02583ZZ Destruction of Conduction Mechanism, Percutaneous Approach (ICD-10-PCS; 2019-02-04)
DX: I49.9 Cardiac arrhythmia, unspecified (principal); I45.2 Bifascicular block; R55 Syncope and collapse; I10 Essential (primary) hypertension; E11.9 Type 2 diabetes mellitus without complications; Z79.4 Long term (current) use of insulin; Z79.82 Long term (current) use of aspirin; Z79.899 Other long term (current) drug therapy; Z88.8 Allergy status to other drugs, medicaments and biological substances
CPT/HCPCS: 36415; 76942; 80048; 85025; 85610; 85730; 93005; 93010; 93621; 93623; C1730; C1769; J2704

== ENCOUNTER 2019-04-04 07:46 | Day surgery (SDC) | payer MEDICARE, MEDICAID ==
[2019-04-03 12:23] VITALS: BMI 23.6
[~2019-04-04 07:46] MED LIST: EPINEPHrine 0.3 MG in Ophthalmic Irrigation Solution 500 ML IVP SCH
[2019-04-04] MEDS ORDERED: Cyclopentolate 1% Opth Drop 2 ML BOT ONE (08:36)
[2019-04-04] MEDS ORDERED: Phenylephrine 2.5% Ophth Soln 5 ML BOT ONE (08:36)
[2019-04-04] MEDS ORDERED: Midazolam HCl 2 mg/2 ml Vial ONE (10:11)
[2019-04-04] MEDS ORDERED: Fentanyl 100 MCG/2 ML VIAL ONE (10:11)
[2019-04-04] MEDS ORDERED: Lidocaine 4% PF 5 ML AMP ONE (10:34)
[2019-04-04] MEDS ORDERED: PROPOFOL 200 MG/20 ML VIAL ONE (10:34)
[2019-04-04] MEDS ORDERED: CEFAZOLIN 1 GM VIAL ONE (10:34)
[2019-04-04] MEDS ORDERED: Triamcinolone 40 MG/ML VIAL ONE (10:34)
[2019-04-04] MEDS ORDERED: Bupivacaine PF 0.75% SDV 10 ML ONE (10:34)
[2019-04-04] MEDS ORDERED: Maxitrol 0.1% Opth Oint 3.5 GM TUBE ONE (10:34)
[2019-04-04] MEDS ORDERED: Lidocaine 1% PF 5 ML VIAL ONE (10:34)
--- NOTE | 2019-04-05 11:08 | OP ---
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 PROCEDURES PERFORMED: Pars plana vitrectomy, scleral buckle with tube shunt removal, and replacement of tube shunt extraocular reservoir. ANESTHESIA: Local with monitored anesthesia care. DESCRIPTION OF PROCEDURE: The patient was identified in the preoperative holding area. Appropriate Informed consent for the planned surgical procedure on the left eye had been obtained. The patient was transported to the operative suite. Appropriate cardiopulmonary monitoring was established. Local anesthesia was obtained using retrobulbar modified [place] Lint lid block. The patient was prepped and draped in usual sterile manner for ophthalmic surgery in the left eye. A lid speculum was placed in the left eye. Attention was turned to the superotemporal exposed tube shunt. The shunt was grasped and carefully dissected away from the adherent tissues until the shunt could be removed from the eye. A dense capsule was noted around the shunt, which was dissected away revealing endothelial in both the anterior and posterior edges. The epithelial edges were reapproximated using 7-0 plain gut suture. Attention was turned to superonasally, where conjunctival peritomy was created by sharp dissection with Qing scissors. FP7 tube shunt was fixated to the globe 14 mm posterior to the limbus. Trocars were placed supratemporally, inferotemporally, and supranasally. Light pipe vitreous cutter was inserted into the eye. Residual vitreous from behind the sclerotomy site was removed via scleral depression. Supranasal trocar was removed and the tube was introduced into the pre-existing sclerotomy. Tutoplast graft was fixated over the tube entry site using 7-0 Vicryl. Conjunctiva was closed with 6-0 plain gut suture. Retrobulbar Kenalog and subconjunctival Ancef were placed. Antibiotic ointment placed. The eye was patched and shield. The patient was taken to the postoperative recovery unit in good condition, having suffered no immediate perioperative complications. The patient was instructed to keep patch and shield on, avoid lifting or bending, followup appointment with Dr. Anthony. Job ID: [id number]
== END 2019-04-04 13:10 | disposition home or self-care (01) ==
LOC: SDC 07:46
PROVIDERS: ATTEND Ophthalmology Retina Specialist
PROC: 08T53ZZ Resection of Left Vitreous, Percutaneous Approach (ICD-10-PCS; principal; 2019-04-04)
PROC: 08P Eye, Removal (ICD-10-PCS; 2019-04-04)
PROC: 08133J4 Bypass Left Anterior Chamber to Sclera with Synthetic Substitute, Percutaneous Approach (ICD-10-PCS; 2019-04-04)
DX: T85.398A Other mechanical complication of other ocular prosthetic devices, implants and grafts, initial encounter (principal); H40.2220 Chronic angle-closure glaucoma, left eye, stage unspecified; I10 Essential (primary) hypertension; E11.9 Type 2 diabetes mellitus without complications; K21.9 Gastro-esophageal reflux disease without esophagitis; M19.90 Unspecified osteoarthritis, unspecified site; Z79.4 Long term (current) use of insulin; Z79.82 Long term (current) use of aspirin; Z79.899 Other long term (current) drug therapy; Z88.8 Allergy status to other drugs, medicaments and biological substances
CPT/HCPCS: 66180; 67036; L8612; 36416; J0171; J0690; J2001; J2250; J2704; J3010; J3301; J3490

== ENCOUNTER 2021-12-21 23:04 | Inpatient (IN) | payer MEDICARE, MEDICAID ==
[2021-12-22 00:06] LABS: #Eosinphils 0.1 thou/uL (0.0-0.7); #Lymphocytes 1.3 thou/uL (1.20-3.40); #Monocytes 0.6 thou/uL (0.11-0.59); #Neutrophils 8.9 thou/uL (1.40-6.50); %Basophils 0.2 % (0.0-1.0); %Eosinophils 0.6 % (0.0-10.0); %Lymphocytes 12.2 % (21.0-51.0); %Monocytes 5.6 % (0.0-10.0); %Neutrophils 81.6 % (42.0-75.0); Hemoglobin 9.9 g/dL (12.0-16.0); Mean Corpuscular HGB CONC 32.9 g/dL (32.0-36.0); Mean Corpuscular Hemoglobin 29.7 pg (27.0-31.0); Mean Corpuscular Volume 90.2 fL (78.0-98.0); Platelet Count 260 thou/uL (130-400); RBC Distribution Width 13.5 % (11.5-14.5); Red Blood Cell (RBC) Count 3.32 mill/uL (4.20-5.40); White Blood Cell (WBC) Count 10.9 thou/uL (4.8-10.8)
[2021-12-22 00:33] LABS: ALT (SGPT) 19 U/L (8-55); AST (SGOT) 38 U/L (5-34); Albumin 3.3 g/dL (3.4-4.8); Alkaline Phosphatase 417 U/L (40-110); BUN (Urea Nitrogen) 70 mg/dL (9.8-20.1); Bilirubin, Total 0.6 mg/dL (0.2-1.2); CK (CPK) 240 U/L (29-168); Calc. Creatinine Clearance 0 mL/min (70-130); Calcium 7.3 mg/dL (7.8-10.44); Carbon Dioxide 15 mmol/L (23-31); Chloride 108 mmol/L (98-107); Estimated GFR 10; Globulin 3.6 g/dL (2.4-3.5); Glucose 83 mg/dL (83-110); Lipase 21 U/L (8-78); Potassium 3.8 mmol/L (3.5-5.1); Protein, Total 6.9 g/dL (5.8-8.1); Sodium 139 mmol/L (136-145)
[2021-12-22 01:18] LABS: CKMB 2.9 ng/mL (0-6.6)
[2021-12-22 01:27] LABS: Anion Gap 20 mmol/L (10-20)
[2021-12-22 02:30] LABS: SARS-CoV-2 NAA Rapid Test Not Detected (NotDetected)
[2021-12-22 03:13] LABS: Bacteria/HPF 4+ HPF (None Seen); Bilirubin Negative (Negative); Blood, Urine 1+ (Negative); Clarity Turbid (Clear); Glucose, Urine (Dipstick) Normal (Negative); Ketone, Urine Negative (Negative); Leukocyte 500 Leu/uL (Negative); Nitrite Negative (Negative); Protein, Urine (Dipstick) 100 mg/dL (Neg-Trace); RBC/HPF 0-3 HPF (0-3); Specific Gravity, Urine 1.009 (1.002-1.036); Squamous Epithelial 0-3 HPF (0-3); Urobilinogen Normal mg/dL (Less than 2); WBC/HPF Greater than 50 HPF (0-3)
[2021-12-22] MEDS ORDERED: Aspirin Chewable 81 MG TAB ONE (04:29)
[2021-12-22] MEDS ORDERED: Oseltamivir 6 MG/ML ORAL SUSP PO SCH (04:30)
[2021-12-22 04:44] LABS: Actual Bicarbonate (HCO3v) 19 mEq/L (22-28); Base Excess -6.6 mEq/L (-2.0 to +3.0); Calcium, Ionized (venous) 0.91 mmol/L (1.16-1.32); Chloride (VBG) 111 mmol/L (98-106); Hemoglobin (Hb) 9.4 g/dL (11.7-16.1); Potassium (VBG) 3.72 mmol/L (3.70-5.30); Sodium 141.2 mmol/L (133-146)
[2021-12-22] MEDS ORDERED: Cefepime 2 GM VIAL ONE (05:07)
[2021-12-22 05:15] LABS: Troponin I 0.028 ng/mL (< 0.028)
[2021-12-22] MEDS ORDERED: Vancomycin 1 GM/200 ML BAG ONE (06:40)
[2021-12-22] MEDS ORDERED: Acetaminophen 500 MG TAB ONE (06:56)
[2021-12-22 07:52] LABS: Troponin I 0.017 ng/mL (< 0.028)
[2021-12-22] MEDS ORDERED: hydrALAZINE 20 MG/ML VIAL SLOW IVP PRN (11:21)
[2021-12-22] MEDS ORDERED: Dextrose 50% Abboject 50 ML SYRINGE SLOW IVP PRN (11:24)
[2021-12-22] MEDS ORDERED: Dextrose 5% in Water 1,000 ML IV PRN (11:24)
[2021-12-22] MEDS ORDERED: Dextrose 5 %-0.45 % NaCl 1,000 ML IV SCH (11:30)
[2021-12-22] MEDS ORDERED: Acetaminophen 325 MG TAB PO PRN (11:32)
[2021-12-22 12:00] LABS: Magnesium 1.8 mg/dL (1.6-2.6)
[2021-12-22 14:48] LABS: Anion Gap 14 mmol/L (10-20); BUN (Urea Nitrogen) 58 mg/dL (9.8-20.1); Calc. Creatinine Clearance 0 mL/min (70-130); Calcium 6.9 mg/dL (7.8-10.44); Carbon Dioxide 18 mmol/L (23-31); Chloride 112 mmol/L (98-107); Estimated GFR 12; Glucose 172 mg/dL (83-110); Potassium 3.6 mmol/L (3.5-5.1); Sodium 140 mmol/L (136-145)
[2021-12-22] MEDS ORDERED: Lactated Ringer's 1,000 ML IV SCH (15:45)
[2021-12-22] MEDS ORDERED: Vancomycin 1 GM in Premix Bag 1 BAG IVPB SCH (18:00)
[2021-12-22 19:29] VITALS: BMI 20.4
[2021-12-22] MEDS ORDERED: Vancomycin Dose by Levels Sliding Scale (Wt <71) FS SCH (20:00)
[2021-12-22] MEDS: Cefepime 1 GM in Sodium Chloride 0.9% 100 ML IVPB SCH (21:25)
[2021-12-23 04:38] LABS: #Eosinphils 0.3 thou/uL (0.0-0.7); #Lymphocytes 2.2 thou/uL (1.20-3.40); #Monocytes 0.6 thou/uL (0.11-0.59); #Neutrophils 9.6 thou/uL (1.40-6.50); %Eosinophils 2.6 % (0.0-10.0); %Lymphocytes 17.4 % (21.0-51.0); %Monocytes 4.7 % (0.0-10.0); %Neutrophils 75.2 % (42.0-75.0); Hemoglobin 8.3 g/dL (12.0-16.0); Mean Corpuscular HGB CONC 31.9 g/dL (32.0-36.0); Mean Corpuscular Hemoglobin 29.1 pg (27.0-31.0); Mean Corpuscular Volume 91.1 fL (78.0-98.0); Platelet Count 298 thou/uL (130-400); RBC Distribution Width 13.6 % (11.5-14.5); Red Blood Cell (RBC) Count 2.86 mill/uL (4.20-5.40); White Blood Cell (WBC) Count 12.8 thou/uL (4.8-10.8)
[2021-12-23 05:05] LABS: Anion Gap 13 mmol/L (10-20); BUN (Urea Nitrogen) 55 mg/dL (9.8-20.1); Calc. Creatinine Clearance 11 mL/min (70-130); Calcium 7.2 mg/dL (7.8-10.44); Carbon Dioxide 18 mmol/L (23-31); Chloride 116 mmol/L (98-107); Estimated GFR 14; Glucose 166 mg/dL (83-110); Potassium 3.6 mmol/L (3.5-5.1); Sodium 143 mmol/L (136-145)
[2021-12-23 05:23] LABS: Vancomycin, Random 11.5 ug/mL (See Comment)
[2021-12-23] MEDS ORDERED: Vancomycin HCl 500 MG in Sodium Chloride 0.9% 100 ML IVPB SCH (06:00)
[2021-12-23] MEDS ORDERED: Non-Formulary Item 1 EACH (Omeprazole [Omeprazole] 20 MG Capsule.Dr) PO SCH (09:00)
[2021-12-23] MEDS ORDERED: Atorvastatin Calcium 20 MG TAB PO SCH (09:00)
[2021-12-23] MEDS ORDERED: Sodium Chloride 0.9% 1,000 ML IV SCH (09:15)
[2021-12-23] MEDS: Cefepime 1 GM in Sodium Chloride 0.9% 100 ML IVPB SCH ×2 (10:33→20:43)
[2021-12-23] MEDS: Atorvastatin Calcium 20 MG TAB PO SCH (10:33)
[2021-12-23] MEDS: Aspirin 81 mg Enteric Coated Tablet PO SCH (10:33)
[2021-12-23] MEDS: Carvedilol 6.25 MG TAB PO SCH (17:21)
[2021-12-23] MEDS: guaiFENesin ER 600 MG TAB PO SCH (20:44)
[2021-12-23] MEDS: HumaLOG 300 UNITS/3 ML VIAL SC PRN (21:39)
[2021-12-24 06:09] LABS: #Eosinphils 0.6 thou/uL (0.0-0.7); #Monocytes 0.7 thou/uL (0.11-0.59); #Neutrophils 7.2 thou/uL (1.40-6.50); %Basophils 0.2 % (0.0-1.0); %Eosinophils 5.5 % (0.0-10.0); %Lymphocytes 19.1 % (21.0-51.0); %Monocytes 6.9 % (0.0-10.0); %Neutrophils 68.4 % (42.0-75.0); Hemoglobin 7.6 g/dL (12.0-16.0); Mean Corpuscular HGB CONC 32.1 g/dL (32.0-36.0); Mean Corpuscular Hemoglobin 28.9 pg (27.0-31.0); Mean Corpuscular Volume 89.9 fL (78.0-98.0); Mean Platelet Volume 8.4 fL (7.4-10.4); Platelet Count 314 thou/uL (130-400); RBC Distribution Width 13.4 % (11.5-14.5); Red Blood Cell (RBC) Count 2.65 mill/uL (4.20-5.40); White Blood Cell (WBC) Count 10.5 thou/uL (4.8-10.8)
[2021-12-24 06:24] LABS: Anion Gap 15 mmol/L (10-20); BUN (Urea Nitrogen) 47 mg/dL (9.8-20.1); Calc. Creatinine Clearance 13 mL/min (70-130); Calcium 7.3 mg/dL (7.8-10.44); Carbon Dioxide 16 mmol/L (23-31); Chloride 117 mmol/L (98-107); Estimated GFR 15; Glucose 118 mg/dL (83-110); Potassium 3.6 mmol/L (3.5-5.1); Sodium 144 mmol/L (136-145)
[2021-12-24] MEDS: Cefepime 1 GM in Sodium Chloride 0.9% 100 ML IVPB SCH ×2 (08:41→20:56)
[2021-12-24] MEDS ORDERED: Oseltamivir 6 MG/ML ORAL SUSP PO SCH (09:00)
[2021-12-24] MEDS: guaiFENesin ER 600 MG TAB PO SCH ×2 (09:02→20:56)
[2021-12-24] MEDS: Aspirin 81 mg Enteric Coated Tablet PO SCH (09:02)
[2021-12-24] MEDS: Apixaban 2.5 MG TAB PO SCH (09:02)
[2021-12-24] MEDS: Carvedilol 6.25 MG TAB PO SCH ×2 (09:03→17:15)
[2021-12-24] MEDS: Atorvastatin Calcium 20 MG TAB PO SCH (09:04)
[2021-12-24 16:39] LABS: Iron 31 ug/dL (50-170); Iron Binding Capacity, Total 184 mcg/dL (265-497)
[2021-12-24] MEDS: HumaLOG 300 UNITS/3 ML VIAL SC PRN (17:15)
[2021-12-25] MEDS: Cefepime 1 GM in Sodium Chloride 0.9% 100 ML IVPB SCH (08:08)
[2021-12-25] MEDS: Aspirin 81 mg Enteric Coated Tablet PO SCH (08:13)
[2021-12-25] MEDS: Carvedilol 6.25 MG TAB PO SCH (08:14)
[2021-12-25] MEDS: guaiFENesin ER 600 MG TAB PO SCH (08:14)
[2021-12-25] MEDS: Atorvastatin Calcium 20 MG TAB PO SCH (08:16)
[2021-12-25] MEDS: Apixaban 2.5 MG TAB PO SCH (08:16)
[2021-12-25 08:59] VITALS: BP 150/61; TEMP 98.2
[2021-12-25] MEDS ORDERED: FLU VACC QS2022-23(65YR UP)/PF 240 MCG/0.7 ML SYRINGE IM ONE (09:00)
== END 2021-12-25 12:56 | disposition home or self-care (01) | DRG 637 ==
LOC: ERS 23:04 → ERHOLD 12-22 04:21 → 2NO 12-22 19:09 → T4-B 12-23 22:46
PROVIDERS: ADMIT Internal Medicine; ATTEND Internal Medicine
DX: E11.649 Type 2 diabetes mellitus with hypoglycemia without coma (principal); G93.41 Metabolic encephalopathy; I13.2 Hypertensive heart and chronic kidney disease with heart failure and with stage 5 chronic kidney disease, or end stage renal disease; N39.0 Urinary tract infection, site not specified; J10.1 Influenza due to other identified influenza virus with other respiratory manifestations; N18.5 Chronic kidney disease, stage 5; N17.9 Acute kidney failure, unspecified; Z20.822 Contact with and (suspected) exposure to COVID-19; E88.09 Other disorders of plasma-protein metabolism, not elsewhere classified; E78.5 Hyperlipidemia, unspecified; R77.8 Other specified abnormalities of plasma proteins; I50.9 Heart failure, unspecified; D63.1 Anemia in chronic kidney disease; N18.30 Chronic kidney disease, stage 3 unspecified; I48.91 Unspecified atrial fibrillation; E11.22 Type 2 diabetes mellitus with diabetic chronic kidney disease; E61.1 Iron deficiency; B96.20 Unspecified Escherichia coli [E. coli] as the cause of diseases classified elsewhere; Z28.21 Immunization not carried out because of patient refusal; Z88.8 Allergy status to other drugs, medicaments and biological substances; Z79.899 Other long term (current) drug therapy; Z79.01 Long term (current) use of anticoagulants; Z90.710 Acquired absence of both cervix and uterus; Z90.49 Acquired absence of other specified parts of digestive tract
CPT/HCPCS: 36415; 36416; 70450; 71045; 80048; 80053; 80202; 81003; 81015; 82010; 82140; 82550; 82553; 82728; 82805; 83540; 83550; 83605; 83690; 83735; 83880; 84443; 84484; 85025; 85379; 87040; 87077; 87086; 87186; 93005; 96361; 96374; 96375; J0360; J0692; J1815; J3370; J3490; J7042; J7050; J7120

== ENCOUNTER 2022-04-29 17:07 | Inpatient (IN) | payer MEDICARE, MEDICAID ==
[2022-04-29 18:12] LABS: #Eosinphils 0.1 thou/uL (0.0-0.7); #Monocytes 0.4 thou/uL (0.11-0.59); #Neutrophils 7.8 thou/uL (1.40-6.50); %Basophils 0.3 % (0.0-1.0); %Lymphocytes 10.6 % (21.0-51.0); %Monocytes 4.5 % (0.0-10.0); %Neutrophils 83.6 % (42.0-75.0); Hemoglobin 8.7 g/dL (12.0-16.0); Mean Corpuscular HGB CONC 32.4 g/dL (32.0-36.0); Mean Corpuscular Hemoglobin 28.8 pg (27.0-31.0); Mean Platelet Volume 8.6 fL (7.4-10.4); Platelet Count 288 10x3/uL (130-400); RBC Distribution Width 14.6 % (11.5-14.5); Red Blood Cell (RBC) Count 3.01 mill/uL (4.20-5.40); White Blood Cell (WBC) Count 9.3 10x3/uL (4.8-10.8)
[2022-04-29] MEDS ORDERED: Cefepime 1 GM VIAL ONE (18:27)
[2022-04-29 18:29] LABS: INR-International Normal Ratio 1.2; Prothrombin Time 15.4 sec (12.0-14.7)
[2022-04-29 18:31] LABS: Actual Bicarbonate (HCO3v) 17 mEq/L (22-28); Analyzer IN Cardio ER; Base Excess -8.8 mEq/L (-2.0 to +3.0); Calcium, Ionized (venous) 0.91 mmol/L (1.16-1.32); Chloride (VBG) 112 mmol/L (98-106); Hemoglobin (Hb) 9.3 g/dL (11.7-16.1); Potassium (VBG) 4.25 mmol/L (3.70-5.30); Sodium 138.9 mmol/L (133-146); pH (venous) 7.28 (7.32-7.43)
[2022-04-29 18:32] LABS: ALT (SGPT) 13 U/L (8-55); AST (SGOT) 26 U/L (5-34); Albumin 2.8 g/dL (3.4-4.8); Alkaline Phosphatase 171 U/L (40-110); Anion Gap 14 mmol/L (10-20); BUN (Urea Nitrogen) 57 mg/dL (9.8-20.1); Bilirubin, Total 0.4 mg/dL (0.2-1.2); Calc. Creatinine Clearance 0 mL/min (70-130); Carbon Dioxide 18 mmol/L (23-31); Chloride 113 mmol/L (98-107); Estimated GFR 13; Globulin 3.5 g/dL (2.4-3.5); Glucose 124 mg/dL (83-110); Potassium 4.3 mmol/L (3.5-5.1); Protein, Total 6.3 g/dL (5.8-8.1); Sodium 141 mmol/L (136-145)
[2022-04-29 18:45] LABS: Bacteria/HPF 1+ HPF (None Seen); Bilirubin Negative (Negative); Blood, Urine Negative (Negative); Clarity Clear (Clear); Glucose, Urine (Dipstick) 200 mg/dL (Negative); Ketone, Urine Negative (Negative); Leukocyte Negative Leu/uL (Negative); Nitrite Negative (Negative); Protein, Urine (Dipstick) 300 mg/dL (Neg-Trace); RBC/HPF 0-3 HPF (0-3); Renal Epithelial 0-3 HPF (None Seen); Specific Gravity, Urine 1.015 (1.002-1.036); Squamous Epithelial 0-3 HPF (0-3); Transitional Epithelial 0-3 HPF (None Seen); Urobilinogen Normal mg/dL (Less than 2); pH, Urine 7.5 (5.0-9.0)
[2022-04-29 18:58] LABS: Thyroid Stimulating Hormone 4.5508 uIU/mL (0.35-4.94)
[2022-04-29] MEDS ORDERED: Acetaminophen 325 MG TAB PO PRN (20:46)
[2022-04-29] MEDS ORDERED: Dextrose 5% in Water 1,000 ML IV PRN (20:46)
[2022-04-29] MEDS ORDERED: Dextrose 50% Abboject 50 ML SYRINGE SLOW IVP PRN (20:46)
[2022-04-29] MEDS ORDERED: HYDROcodone/Acetaminophen 5/325 mg Tablet PO PRN (20:46)
[2022-04-29 20:56] LABS: Free T4 (Free Thyroxine) 1.17 ng/dL (0.70-1.48)
[2022-04-29] MEDS ORDERED: Sodium Bicarb 50 MEQ/50 ML VIAL IVP SCH (23:00)
[2022-04-29] MEDS ORDERED: Sodium Chloride 0.9% 1,000 ML IV SCH (23:00)
[2022-04-29] MEDS ORDERED: Furosemide 40 MG/4 ML VIAL SLOW IVP SCH (23:59)
[2022-04-30 04:28] LABS: #Eosinphils 0.2 thou/uL (0.0-0.7); #Lymphocytes 1.5 thou/uL (1.20-3.40); #Monocytes 0.6 thou/uL (0.11-0.59); #Neutrophils 4.5 thou/uL (1.40-6.50); %Basophils 0.3 % (0.0-1.0); %Eosinophils 3.4 % (0.0-10.0); %Lymphocytes 22.2 % (21.0-51.0); %Monocytes 8.4 % (0.0-10.0); %Neutrophils 65.8 % (42.0-75.0); Hemoglobin 8.1 g/dL (12.0-16.0); Mean Corpuscular HGB CONC 32.5 g/dL (32.0-36.0); Mean Corpuscular Hemoglobin 28.7 pg (27.0-31.0); Mean Corpuscular Volume 88.4 fl (78.0-98.0); Mean Platelet Volume 8.6 fL (7.4-10.4); Platelet Count 266 10x3/uL (130-400); RBC Distribution Width 14.5 % (11.5-14.5); Red Blood Cell (RBC) Count 2.83 mill/uL (4.20-5.40); White Blood Cell (WBC) Count 6.9 10x3/uL (4.8-10.8)
[2022-04-30 04:48] LABS: Anion Gap 12 mmol/L (10-20); BUN (Urea Nitrogen) 56 mg/dL (9.8-20.1); Calc. Creatinine Clearance 13 mL/min (70-130); Carbon Dioxide 20 mmol/L (23-31); Chloride 115 mmol/L (98-107); Estimated GFR 14; Potassium 4.2 mmol/L (3.5-5.1); Sodium 143 mmol/L (136-145)
[2022-04-30 04:53] LABS: Calcium 6.6 mg/dL (7.8-10.44); Glucose 54 mg/dL (83-110)
[2022-04-30] MEDS ORDERED: Dextrose 10% in Water 1,000 ML IV SCH (05:30)
[2022-04-30] MEDS: Furosemide 40 MG/4 ML VIAL SLOW IVP SCH ×2 (05:53→14:21)
[2022-04-30] MEDS ORDERED: Apixaban 2.5 MG TAB PO SCH (09:00)
[2022-04-30] MEDS ORDERED: Cefepime 1 GM in Sodium Chloride 0.9% 100 ML IVPB SCH (09:00)
[2022-04-30] MEDS: Apixaban 2.5 MG TAB PO SCH ×2 (10:36→21:36)
[2022-04-30] MEDS: Cefepime 0.5 GM, Admixture Fee 1 EACH in Sodium Chloride 0.9% 100 ML IVPB SCH (18:16)
[2022-04-30 18:29] LABS: Anion Gap 16 mmol/L (10-20); BUN (Urea Nitrogen) 53 mg/dL (9.8-20.1); Calc. Creatinine Clearance 12 mL/min (70-130); Carbon Dioxide 19 mmol/L (23-31); Chloride 109 mmol/L (98-107); Estimated GFR 13; Glucose 310 mg/dL (83-110); Potassium 4.4 mmol/L (3.5-5.1); Sodium 140 mmol/L (136-145)
[2022-04-30 18:32] LABS: Calcium 6.9 mg/dL (7.8-10.44)
[2022-04-30] MEDS: Sodium Bicarbonate Tab 325 MG TAB PO SCH (21:35)
[2022-04-30] MEDS: Insulin Glargine 30 UNITS/0.3 ML VIAL SC SCH (21:36)
[2022-04-30] MEDS ORDERED: cloNIDine 0.1 MG TAB PO SCH (22:00)
[2022-04-30 22:35] LABS: Hemoglobin A1c 9.6 % (4.0-6.0)
[2022-05-01] MEDS: HumaLOG 300 UNITS/3 ML VIAL SC PRN ×3 (00:34→21:09)
[2022-05-01 05:22] LABS: #Eosinphils 0.4 thou/uL (0.0-0.7); #Lymphocytes 1.5 thou/uL (1.20-3.40); #Monocytes 0.6 thou/uL (0.11-0.59); #Neutrophils 3.7 thou/uL (1.40-6.50); %Basophils 0.6 % (0.0-1.0); %Eosinophils 6.7 % (0.0-10.0); %Lymphocytes 23.7 % (21.0-51.0); %Monocytes 9.8 % (0.0-10.0); %Neutrophils 59.2 % (42.0-75.0); Hemoglobin 7.6 g/dL (12.0-16.0); Mean Corpuscular HGB CONC 32.4 g/dL (32.0-36.0); Mean Corpuscular Hemoglobin 28.7 pg (27.0-31.0); Mean Corpuscular Volume 88.5 fl (78.0-98.0); Mean Platelet Volume 8.7 fL (7.4-10.4); Platelet Count 262 10x3/uL (130-400); RBC Distribution Width 14.6 % (11.5-14.5); Red Blood Cell (RBC) Count 2.66 mill/uL (4.20-5.40); White Blood Cell (WBC) Count 6.3 10x3/uL (4.8-10.8)
[2022-05-01 05:25] LABS: Albumin 2.3 g/dL (3.4-4.8); Anion Gap 13 mmol/L (10-20); BUN (Urea Nitrogen) 57 mg/dL (9.8-20.1); Calc. Creatinine Clearance 12 mL/min (70-130); Carbon Dioxide 22 mmol/L (23-31); Chloride 113 mmol/L (98-107); Estimated GFR 12; Glucose 128 mg/dL (83-110); Phosphorus 5.5 mg/dL (2.3-4.7); Potassium 4.3 mmol/L (3.5-5.1); Sodium 144 mmol/L (136-145)
[2022-05-01 05:27] LABS: Iron 27 ug/dL (50-170); Iron Binding Capacity, Total 251 mcg/dL (265-497)
[2022-05-01 05:30] LABS: Calcium 6.6 mg/dL (7.8-10.44)
[2022-05-01 05:51] LABS: Ferritin 18.61 ng/mL (10-291)
[2022-05-01 06:01] LABS: Vitamin D, 25 Hydroxy 6.9 ng/ml (> 30.0)
[2022-05-01] MEDS: Furosemide 40 MG/4 ML VIAL SLOW IVP SCH ×2 (06:28→15:00)
[2022-05-01] MEDS: Albumin 25% 25 GM/100 ML BOT IVPB SCH ×3 (07:55→18:24)
[2022-05-01] MEDS ORDERED: Ergocalciferol 1.25 MG(50,000 UNITS) CAP PO SCH (09:00)
[2022-05-01] MEDS ORDERED: EPOETIN ALFA-EPBX (ESRD) 10,000 UNIT/ML VIAL SC SCH (09:00)
[2022-05-01] MEDS: Calcium Gluconate 9.2 MEQ in Sodium Chloride 0.9% 250 ML 200 ML IVPB SCH ×4 (09:30→11:27)
[2022-05-01] MEDS: Empagliflozin 10 MG TAB PO SCH (10:07)
[2022-05-01] MEDS: Carvedilol 6.25 MG TAB PO SCH ×2 (10:07→18:06)
[2022-05-01] MEDS: Sodium Bicarbonate Tab 325 MG TAB PO SCH ×2 (10:07→21:05)
[2022-05-01] MEDS: Apixaban 2.5 MG TAB PO SCH ×2 (11:26→21:05)
[2022-05-01] MEDS: Iron, Sodium Ferric Gluconate 250 MG in Sodium Chloride 0.9% 250 ML 250 ML IVPB SCH (13:40)
[2022-05-01] MEDS ORDERED: Iron Sucrose Complex 200 MG in Sodium Chloride 0.9% 100 ML IVPB SCH (17:45)
[2022-05-01] MEDS ORDERED: Albumin 25% 25 GM/100 ML BOT IVPB SCH (18:00)
[2022-05-01] MEDS: Cefepime 0.5 GM, Admixture Fee 1 EACH in Sodium Chloride 0.9% 100 ML IVPB SCH (18:19)
[2022-05-02 04:56] LABS: #Eosinphils 0.3 thou/uL (0.0-0.7); #Lymphocytes 1.1 thou/uL (1.20-3.40); #Monocytes 0.5 thou/uL (0.11-0.59); %Basophils 0.5 % (0.0-1.0); %Eosinophils 5.4 % (0.0-10.0); %Lymphocytes 18.8 % (21.0-51.0); %Monocytes 8.6 % (0.0-10.0); %Neutrophils 66.8 % (42.0-75.0); Hemoglobin 7.7 g/dL (12.0-16.0); Mean Corpuscular HGB CONC 31.8 g/dL (32.0-36.0); Mean Corpuscular Hemoglobin 28.5 pg (27.0-31.0); Mean Corpuscular Volume 89.6 fl (78.0-98.0); Mean Platelet Volume 9.1 fL (7.4-10.4); Platelet Count 220 10x3/uL (130-400); RBC Distribution Width 14.4 % (11.5-14.5); Red Blood Cell (RBC) Count 2.68 mill/uL (4.20-5.40)
[2022-05-02 05:11] LABS: Anion Gap 17 mmol/L (10-20); BUN (Urea Nitrogen) 56 mg/dL (9.8-20.1); Calc. Creatinine Clearance 12 mL/min (70-130); Carbon Dioxide 21 mmol/L (23-31); Chloride 110 mmol/L (98-107); Estimated GFR 12; Glucose 78 mg/dL (83-110); Potassium 4.7 mmol/L (3.5-5.1); Sodium 143 mmol/L (136-145)
[2022-05-02 05:16] LABS: Calcium 6.9 mg/dL (7.8-10.44)
[2022-05-02] MEDS: Furosemide 40 MG/4 ML VIAL SLOW IVP SCH ×2 (06:42→16:36)
[2022-05-02] MEDS ORDERED: Metolazone 5 MG TAB PO SCH (11:00)
[2022-05-02] MEDS: Calcium Carbonate 500 MG ChewTAB PO SCH ×2 (12:28→22:31)
[2022-05-02] MEDS: Empagliflozin 10 MG TAB PO SCH (12:29)
[2022-05-02] MEDS: Apixaban 2.5 MG TAB PO SCH ×2 (12:32→22:20)
[2022-05-02] MEDS: Ferrous Sulfate 325 MG TAB PO SCH (12:32)
[2022-05-02] MEDS: Carvedilol 6.25 MG TAB PO SCH ×2 (12:33→16:50)
[2022-05-02] MEDS: Sodium Bicarbonate Tab 325 MG TAB PO SCH ×2 (12:33→22:31)
[2022-05-02] MEDS: Iron, Sodium Ferric Gluconate 250 MG in Sodium Chloride 0.9% 250 ML 250 ML IVPB SCH (12:36)
[2022-05-02] MEDS: HumaLOG 300 UNITS/3 ML VIAL SC PRN (16:56)
[2022-05-02] MEDS: Cefepime 0.5 GM, Admixture Fee 1 EACH in Sodium Chloride 0.9% 100 ML IVPB SCH (17:33)
[2022-05-03] MEDS: Furosemide 40 MG/4 ML VIAL SLOW IVP SCH (05:28)
[2022-05-03 05:53] LABS: #Eosinphils 0.4 thou/uL (0.0-0.7); #Lymphocytes 1.3 thou/uL (1.20-3.40); #Monocytes 0.6 thou/uL (0.11-0.59); #Neutrophils 6.3 thou/uL (1.40-6.50); %Basophils 0.3 % (0.0-1.0); %Eosinophils 4.4 % (0.0-10.0); %Lymphocytes 15.1 % (21.0-51.0); %Monocytes 6.5 % (0.0-10.0); %Neutrophils 73.7 % (42.0-75.0); Hemoglobin 8.5 g/dL (12.0-16.0); Mean Corpuscular HGB CONC 32.3 g/dL (32.0-36.0); Mean Corpuscular Hemoglobin 28.8 pg (27.0-31.0); Mean Corpuscular Volume 89.2 fl (78.0-98.0); Mean Platelet Volume 9.1 fL (7.4-10.4); Platelet Count 272 10x3/uL (130-400); RBC Distribution Width 14.6 % (11.5-14.5); Red Blood Cell (RBC) Count 2.94 mill/uL (4.20-5.40); White Blood Cell (WBC) Count 8.6 10x3/uL (4.8-10.8)
[2022-05-03 06:21] LABS: Anion Gap 16 mmol/L (10-20); BUN (Urea Nitrogen) 62 mg/dL (9.8-20.1); Calc. Creatinine Clearance 10 mL/min (70-130); Carbon Dioxide 21 mmol/L (23-31); Chloride 110 mmol/L (98-107); Estimated GFR 11; Glucose 185 mg/dL (83-110); Potassium 4.1 mmol/L (3.5-5.1); Sodium 143 mmol/L (136-145)
[2022-05-03 06:27] LABS: Calcium 6.6 mg/dL (7.8-10.44)
[2022-05-03] MEDS: Apixaban 2.5 MG TAB PO SCH ×2 (07:59→20:34)
[2022-05-03] MEDS: Sodium Bicarbonate Tab 325 MG TAB PO SCH ×3 (07:59→20:34)
[2022-05-03] MEDS: Ferrous Sulfate 325 MG TAB PO SCH (07:59)
[2022-05-03] MEDS: Empagliflozin 10 MG TAB PO SCH (07:59)
[2022-05-03] MEDS: Carvedilol 6.25 MG TAB PO SCH ×2 (07:59→17:03)
[2022-05-03] MEDS: Calcium Carbonate 500 MG ChewTAB PO SCH ×3 (08:10→20:34)
[2022-05-03] MEDS ORDERED: Calcium Gluconate 9.2 MEQ in Sodium Chloride 0.9% 200 ML IVPB SCH (08:21)
[2022-05-03] MEDS ORDERED: FLU VACC QS2022-23(65YR UP)/PF 240 MCG/0.7 ML SYRINGE IM ONE (09:00)
[2022-05-03] MEDS: Iron, Sodium Ferric Gluconate 250 MG in Sodium Chloride 0.9% 250 ML 250 ML IVPB SCH (09:02)
[2022-05-03] MEDS: HumaLOG 300 UNITS/3 ML VIAL SC PRN ×3 (14:22→20:35)
[2022-05-03] MEDS: Cefepime 0.5 GM, Admixture Fee 1 EACH in Sodium Chloride 0.9% 100 ML IVPB SCH (18:34)
[2022-05-04] MEDS: Insulin Glargine 30 UNITS/0.3 ML VIAL SC SCH ×2 (09:01→22:53)
[2022-05-04] MEDS: Apixaban 2.5 MG TAB PO SCH ×2 (09:02→22:28)
[2022-05-04] MEDS: Ferrous Sulfate 325 MG TAB PO SCH (09:02)
[2022-05-04] MEDS: Empagliflozin 10 MG TAB PO SCH (09:02)
[2022-05-04] MEDS: Sodium Bicarbonate Tab 325 MG TAB PO SCH ×3 (09:02→22:29)
[2022-05-04] MEDS: Carvedilol 6.25 MG TAB PO SCH ×2 (09:02→16:56)
[2022-05-04] MEDS: Calcium Carbonate 500 MG ChewTAB PO SCH ×3 (09:08→22:53)
[2022-05-04] MEDS: Iron, Sodium Ferric Gluconate 250 MG in Sodium Chloride 0.9% 250 ML 250 ML IVPB SCH (11:04)
[2022-05-04 12:38] LABS: Albumin 3.1 g/dL (3.4-4.8); Anion Gap 18 mmol/L (10-20); BUN (Urea Nitrogen) 62 mg/dL (9.8-20.1); BUN/Creatinine Ratio 15.62; Calc. Creatinine Clearance 11 mL/min (70-130); Carbon Dioxide 23 mmol/L (23-31); Chloride 107 mmol/L (98-107); Estimated GFR 11; Glucose 170 mg/dL (83-110); Phosphorus 5.5 mg/dL (2.3-4.7); Potassium 3.8 mmol/L (3.5-5.1); Sodium 144 mmol/L (136-145)
[2022-05-04] MEDS: HumaLOG 300 UNITS/3 ML VIAL SC PRN (17:47)
[2022-05-04] MEDS ORDERED: Albumin 25% 25 GM/100 ML BOT IVPB SCH (18:00)
[2022-05-04] MEDS: Cefepime 0.5 GM, Admixture Fee 1 EACH in Sodium Chloride 0.9% 100 ML IVPB SCH (19:54)
[2022-05-05] MEDS ORDERED: Albumin 25% 25 GM/100 ML BOT IVPB SCH (01:15)
[2022-05-05 04:50] LABS: Albumin 3.8 g/dL (3.4-4.8); Anion Gap 15 mmol/L (10-20); BUN (Urea Nitrogen) 59 mg/dL (9.8-20.1); BUN/Creatinine Ratio 15.29; Calc. Creatinine Clearance 11 mL/min (70-130); Calcium 7.4 mg/dL (7.8-10.44); Carbon Dioxide 25 mmol/L (23-31); Chloride 108 mmol/L (98-107); Estimated GFR 11; Glucose 104 mg/dL (83-110); Potassium 3.7 mmol/L (3.5-5.1); Sodium 144 mmol/L (136-145)
[2022-05-05] MEDS ORDERED: Spironolactone 25 MG TAB PO SCH (09:06)
[2022-05-05] MEDS: Ferrous Sulfate 325 MG TAB PO SCH (09:58)
[2022-05-05] MEDS: Sodium Bicarbonate Tab 325 MG TAB PO SCH (09:58)
[2022-05-05] MEDS: Calcium Carbonate 500 MG ChewTAB PO SCH (09:58)
[2022-05-05] MEDS: Apixaban 2.5 MG TAB PO SCH (09:59)
[2022-05-05] MEDS: Insulin Glargine 30 UNITS/0.3 ML VIAL SC SCH (09:59)
[2022-05-05] MEDS: Empagliflozin 10 MG TAB PO SCH (09:59)
[2022-05-05] MEDS: Carvedilol 6.25 MG TAB PO SCH (10:01)
[2022-05-05 10:19] VITALS: BMI 25.8
[2022-05-05 11:34] VITALS: BP 161/73; TEMP 97.8
[2022-05-05] MEDS ORDERED: Carvedilol 6.25 MG TAB PO SCH (17:00)
[2022-05-06] MEDS ORDERED: Furosemide 20 MG TAB PO SCH (09:00)
== END 2022-05-05 13:30 | disposition home or self-care (01) | DRG 637 ==
LOC: ERS 17:07 → 2NO 22:58 → OBSVTOIN 05-02 11:21
PROVIDERS: ADMIT Student in an Organized Health Care Education/Training Program; ATTEND Internal Medicine
PROC: 30233J1 Transfusion of Nonautologous Serum Albumin into Peripheral Vein, Percutaneous Approach (ICD-10-PCS; principal; 2022-05-01)
DX: E11.649 Type 2 diabetes mellitus with hypoglycemia without coma (principal); I50.33 Acute on chronic diastolic (congestive) heart failure; E87.20 Acidosis, unspecified; N18.5 Chronic kidney disease, stage 5; N17.9 Acute kidney failure, unspecified; I11.0 Hypertensive heart disease with heart failure; I48.91 Unspecified atrial fibrillation; E11.22 Type 2 diabetes mellitus with diabetic chronic kidney disease; D63.1 Anemia in chronic kidney disease; I45.81 Long QT syndrome; E78.5 Hyperlipidemia, unspecified; T68.XXXA Hypothermia, initial encounter; I08.1 Rheumatic disorders of both mitral and tricuspid valves; K21.9 Gastro-esophageal reflux disease without esophagitis; Z20.822 Contact with and (suspected) exposure to COVID-19; D50.9 Iron deficiency anemia, unspecified; E83.51 Hypocalcemia; Z88.8 Allergy status to other drugs, medicaments and biological substances; Z79.4 Long term (current) use of insulin; Z79.82 Long term (current) use of aspirin; Z79.899 Other long term (current) drug therapy; Z79.01 Long term (current) use of anticoagulants; Z90.710 Acquired absence of both cervix and uterus; Z90.49 Acquired absence of other specified parts of digestive tract
CPT/HCPCS: 36415; 36416; 51701; 71045; 80048; 80053; 80069; 81003; 81015; 82040; 82306; 82728; 82805; 83036; 83540; 83550; 83605; 83880; 84100; 84439; 84443; 84484; 85025; 85610; 85730; 87040; 87086; 93306; 93798; 96365; 96372; 96375; 96376; G0378; J0610; J0692; J1815; J1940; J2916; J3490; J7050; J7999; P9047; Q5105; U0003; U0005

== ENCOUNTER 2022-05-16 11:53 | Inpatient (IN) | payer MEDICARE, MEDICAID ==
[2022-05-16 12:30] LABS: #Eosinphils 0.2 thou/uL (0.0-0.7); #Lymphocytes 0.9 thou/uL (1.20-3.40); #Monocytes 0.5 thou/uL (0.11-0.59); #Neutrophils 6.9 thou/uL (1.40-6.50); %Basophils 0.2 % (0.0-1.0); %Eosinophils 1.8 % (0.0-10.0); %Monocytes 5.5 % (0.0-10.0); %Neutrophils 81.5 % (42.0-75.0); Hemoglobin 9.8 g/dL (12.0-16.0); Mean Corpuscular HGB CONC 31.2 g/dL (32.0-36.0); Mean Corpuscular Hemoglobin 28.6 pg (27.0-31.0); Mean Corpuscular Volume 91.7 fl (78.0-98.0); Mean Platelet Volume 9.5 fL (7.4-10.4); Platelet Count 240 10x3/uL (130-400); RBC Distribution Width 17.1 % (11.5-14.5); Red Blood Cell (RBC) Count 3.42 mill/uL (4.20-5.40); White Blood Cell (WBC) Count 8.5 10x3/uL (4.8-10.8)
[2022-05-16 12:42] LABS: Bacteria/HPF None Seen HPF (None Seen); Bilirubin Negative (Negative); Blood, Urine Trace (Negative); Clarity Clear (Clear); Glucose, Urine (Dipstick) 100 mg/dL (Negative); Ketone, Urine Negative (Negative); Leukocyte 500 Leu/uL (Negative); Nitrite Negative (Negative); Protein, Urine (Dipstick) 300 mg/dL (Neg-Trace); RBC/HPF 0-3 HPF (0-3); Specific Gravity, Urine 1.013 (1.002-1.036); Urobilinogen Normal mg/dL (Less than 2); pH, Urine 7.5 (5.0-9.0)
[2022-05-16 12:48] LABS: ALT (SGPT) 23 U/L (8-55); AST (SGOT) 41 U/L (5-34); Albumin 3.5 g/dL (3.4-4.8); Alkaline Phosphatase 222 U/L (40-110); Anion Gap 14 mmol/L (10-20); BUN (Urea Nitrogen) 48 mg/dL (9.8-20.1); Bilirubin, Total 0.5 mg/dL (0.2-1.2); Calc. Creatinine Clearance 0 mL/min (70-130); Carbon Dioxide 24 mmol/L (23-31); Chloride 107 mmol/L (98-107); Estimated GFR 15; Globulin 3.2 g/dL (2.4-3.5); Potassium 4.2 mmol/L (3.5-5.1); Protein, Total 6.7 g/dL (5.8-8.1); Sodium 141 mmol/L (136-145)
[2022-05-16 12:58] LABS: Glucose 52 mg/dL (83-110)
[2022-05-16] MEDS ORDERED: Cefepime 2 GM VIAL ONE (13:04)
[2022-05-16] MEDS ORDERED: Vancomycin 1 GM/200 ML (FROZEN) BAG ONE (13:04)
[2022-05-16] MEDS ORDERED: Artificial Tear Sol 15 ML BOT EA EYE PRN (15:50)
[2022-05-16] MEDS ORDERED: Moisturizing Cream (Eucerin) 113 GM JAR TOP PRN (15:50)
[2022-05-16] MEDS ORDERED: Acetaminophen 650 MG Suppository PR PRN (15:50)
[2022-05-16] MEDS ORDERED: Acetaminophen 325 MG TAB PO PRN (15:50)
[2022-05-16] MEDS ORDERED: Lactated Ringer's 1,000 ML IV SCH (16:00)
[2022-05-16] MEDS ORDERED: Dextrose 5% in Water 1,000 ML IV PRN (16:04)
[2022-05-16] MEDS ORDERED: Dextrose 50% Abboject 50 ML SYRINGE SLOW IVP PRN (16:04)
[2022-05-16 16:50] LABS: Magnesium 1.8 mg/dL (1.6-2.6); Phosphorus 4.6 mg/dL (2.3-4.7)
[2022-05-16 16:56] LABS: Troponin I 0.019 ng/mL (< 0.028)
[2022-05-16] MEDS: Dextrose 10% in Water 1,000 ML IV SCH (17:10)
[2022-05-16] MEDS ORDERED: VANCOMYCIN IVPB PRN (18:06)
[2022-05-16] MEDS ORDERED: Vancomycin Dose by Levels Sliding Scale (Wt <71) FS SCH (18:15)
[2022-05-16 18:51] VITALS: BMI 25.9
[2022-05-16 18:55] LABS: Troponin I 0.021 ng/mL (< 0.028)
[2022-05-16] MEDS ORDERED: Vancomycin HCl 1 GM in Sodium Chloride 0.9% 250 ML 300 ML IVPB SCH (21:00)
[2022-05-16] MEDS: Famotidine 20 MG TAB PO SCH (21:46)
[2022-05-16] MEDS: Apixaban 2.5 MG TAB PO SCH (21:48)
[2022-05-16] MEDS ORDERED: cloNIDine 0.1 MG TAB PO SCH (22:00)
[2022-05-17 01:00] LABS: Legionella Urinary Ag Negative (Negative); Strep pneumo Urine Ag NEGATIVE (NEGATIVE)
[2022-05-17 01:23] LABS: SARS-CoV-2 NAA Rapid Test Not Detected (NotDetected)
[2022-05-17 05:11] LABS: #Eosinphils 0.3 thou/uL (0.0-0.7); #Lymphocytes 1.2 thou/uL (1.20-3.40); #Monocytes 0.7 thou/uL (0.11-0.59); #Neutrophils 5.8 thou/uL (1.40-6.50); %Basophils 0.3 % (0.0-1.0); %Eosinophils 3.9 % (0.0-10.0); %Lymphocytes 15.1 % (21.0-51.0); %Monocytes 8.4 % (0.0-10.0); %Neutrophils 72.4 % (42.0-75.0); Hemoglobin 9.2 g/dL (12.0-16.0); Mean Corpuscular HGB CONC 31.8 g/dL (32.0-36.0); Mean Corpuscular Hemoglobin 29.4 pg (27.0-31.0); Mean Corpuscular Volume 92.7 fl (78.0-98.0); Mean Platelet Volume 9.5 fL (7.4-10.4); Platelet Count 217 10x3/uL (130-400); RBC Distribution Width 17.1 % (11.5-14.5); Red Blood Cell (RBC) Count 3.14 mill/uL (4.20-5.40); White Blood Cell (WBC) Count 8.1 10x3/uL (4.8-10.8)
[2022-05-17 05:43] LABS: ALT (SGPT) 17 U/L (8-55); AST (SGOT) 24 U/L (5-34); Alkaline Phosphatase 170 U/L (40-110); Anion Gap 17 mmol/L (10-20); BUN (Urea Nitrogen) 46 mg/dL (9.8-20.1); Bilirubin, Total 0.4 mg/dL (0.2-1.2); Calc. Creatinine Clearance 14 mL/min (70-130); Carbon Dioxide 19 mmol/L (23-31); Chloride 107 mmol/L (98-107); Estimated GFR 15; Globulin 2.6 g/dL (2.4-3.5); Glucose 151 mg/dL (83-110); Potassium 4.3 mmol/L (3.5-5.1); Protein, Total 5.6 g/dL (5.8-8.1); Sodium 139 mmol/L (136-145)
[2022-05-17 05:56] LABS: Calcium 6.5 mg/dL (7.8-10.44)
[2022-05-17] MEDS ORDERED: CALCIUM GLUC 1 GM/NS 50 ML 1 GM in Premix Bag 1 BAG IVPB SCH (06:30)
[2022-05-17 10:38] LABS: Vancomycin, Random 11.5 ug/mL (See Comment)
[2022-05-17] MEDS: Dextrose 10% in Water 1,000 ML IV SCH (10:45)
[2022-05-17] MEDS ORDERED: Vancomycin HCl 500 MG in Sodium Chloride 0.9% 100 ML IV SCH (10:45)
[2022-05-17] MEDS: Folic Acid 1 MG TAB PO SCH (10:50)
[2022-05-17] MEDS: Ferrous Sulfate 325 MG TAB PO SCH (10:50)
[2022-05-17] MEDS: Apixaban 2.5 MG TAB PO SCH ×2 (10:50→20:21)
[2022-05-17] MEDS ORDERED: Cefepime 1 GM in Sodium Chloride 0.9% 100 ML IVPB SCH (13:00)
[2022-05-17] MEDS: Calcium Carbonate 600 MG TAB PO SCH (20:21)
[2022-05-17] MEDS: Cefdinir 300 MG CAP PO SCH (20:21)
[2022-05-17] MEDS: Famotidine 20 MG TAB PO SCH (20:21)
[2022-05-17] MEDS ORDERED: Carvedilol 6.25 MG TAB PO SCH (23:00)
[2022-05-18 07:38] VITALS: TEMP 97.5
[2022-05-18] MEDS ORDERED: Carvedilol 6.25 MG TAB PO SCH (08:00)
[2022-05-18] MEDS ORDERED: Ferrous Sulfate 325 MG TAB PO SCH (08:00)
[2022-05-18] MEDS: Cefdinir 300 MG CAP PO SCH (08:51)
[2022-05-18] MEDS: Calcium Carbonate 600 MG TAB PO SCH (08:51)
[2022-05-18] MEDS: Ferrous Sulfate 325 MG TAB PO SCH (08:52)
[2022-05-18] MEDS: Folic Acid 1 MG TAB PO SCH (08:52)
[2022-05-18] MEDS: Apixaban 2.5 MG TAB PO SCH (08:52)
[2022-05-18] MEDS ORDERED: Calcitriol 0.25 MCG CAP PO SCH (09:00)
[2022-05-18] MEDS ORDERED: Empagliflozin 10 MG TAB PO SCH (09:00)
[2022-05-18] MEDS ORDERED: Atorvastatin Calcium 20 MG TAB PO SCH (09:00)
[2022-05-18 09:41] LABS: Anion Gap 16 mmol/L (10-20); BUN (Urea Nitrogen) 45 mg/dL (9.8-20.1); Calc. Creatinine Clearance 14 mL/min (70-130); Calcium 7.1 mg/dL (7.8-10.44); Carbon Dioxide 18 mmol/L (23-31); Chloride 109 mmol/L (98-107); Estimated GFR 14; Glucose 182 mg/dL (83-110); Potassium 4.3 mmol/L (3.5-5.1); Sodium 139 mmol/L (136-145)
[2022-05-18 12:44] VITALS: BP 175/82
[2022-05-19] MEDS ORDERED: Cefdinir 300 MG CAP PO SCH (09:00)
[2022-05-19] MEDS ORDERED: FLU VACC QS2022-23(65YR UP)/PF 240 MCG/0.7 ML SYRINGE IM ONE (09:00)
[2022-05-22] MEDS ORDERED: Ergocalciferol 1.25 MG(50,000 UNITS) CAP PO SCH (09:00)
== END 2022-05-18 11:00 | disposition home health service (06) | DRG 871 ==
LOC: ERS 11:53 → ERHOLD 15:50 → 2NO 18:25
PROVIDERS: ADMIT Family Medicine; ATTEND Family Medicine
DX: A41.9 Sepsis, unspecified organism (principal); J18.9 Pneumonia, unspecified organism; N17.9 Acute kidney failure, unspecified; I13.2 Hypertensive heart and chronic kidney disease with heart failure and with stage 5 chronic kidney disease, or end stage renal disease; N18.5 Chronic kidney disease, stage 5; N39.0 Urinary tract infection, site not specified; Z20.822 Contact with and (suspected) exposure to COVID-19; E78.5 Hyperlipidemia, unspecified; K21.9 Gastro-esophageal reflux disease without esophagitis; E11.22 Type 2 diabetes mellitus with diabetic chronic kidney disease; E11.649 Type 2 diabetes mellitus with hypoglycemia without coma; I50.9 Heart failure, unspecified; Z79.4 Long term (current) use of insulin; Z90.49 Acquired absence of other specified parts of digestive tract; Z90.710 Acquired absence of both cervix and uterus; Z79.899 Other long term (current) drug therapy; Z79.01 Long term (current) use of anticoagulants
CPT/HCPCS: 36415; 36416; 51701; 70450; 71045; 80048; 80053; 80202; 81003; 81015; 82533; 83605; 83735; 84100; 84145; 84443; 84484; 85025; 87040; 87086; 87449; 87899; 93005; 96365; J0611; J0692; J3370; J3370-JW; J3490

== ENCOUNTER 2022-06-08 10:11 | Inpatient (IN) | payer MEDICARE, MEDICAID ==
[2022-06-08 11:21] LABS: #Eosinphils 0.2 thou/uL (0.0-0.7); #Lymphocytes 1.2 thou/uL (1.20-3.40); #Monocytes 0.6 thou/uL (0.11-0.59); %Basophils 0.2 % (0.0-1.0); %Eosinophils 1.7 % (0.0-10.0); %Lymphocytes 11.7 % (21.0-51.0); %Monocytes 6.2 % (0.0-10.0); %Neutrophils 80.1 % (42.0-75.0); Hemoglobin 10.3 g/dL (12.0-16.0); Mean Corpuscular HGB CONC 31.9 g/dL (32.0-36.0); Mean Corpuscular Hemoglobin 29.4 pg (27.0-31.0); Mean Corpuscular Volume 92.3 fl (78.0-98.0); Mean Platelet Volume 9.6 fL (7.4-10.4); Platelet Count 245 10x3/uL (130-400); RBC Distribution Width 16.7 % (11.5-14.5); Red Blood Cell (RBC) Count 3.49 mill/uL (4.20-5.40)
[2022-06-08 11:43] LABS: ALT (SGPT) 8 U/L (8-55); AST (SGOT) 23 U/L (5-34); Albumin 3.1 g/dL (3.4-4.8); Alkaline Phosphatase 179 U/L (40-110); Anion Gap 18 mmol/L (10-20); BUN (Urea Nitrogen) 46 mg/dL (9.8-20.1); Bilirubin, Total 0.4 mg/dL (0.2-1.2); CK (CPK) 90 U/L (29-168); Calc. Creatinine Clearance 0 mL/min (70-130); Carbon Dioxide 18 mmol/L (23-31); Chloride 105 mmol/L (98-107); Estimated GFR 12; Globulin 3.9 g/dL (2.4-3.5); Glucose 399 mg/dL (83-110); Lipase 14 U/L (8-78); Potassium 4.5 mmol/L (3.5-5.1); Sodium 136 mmol/L (136-145)
[2022-06-08 11:50] LABS: Calcium 6.9 mg/dL (7.8-10.44)
[2022-06-08] MEDS ORDERED: CALCIUM GLUC 1 GM/NS 50 ML BAG ONE (12:04)
[2022-06-08] MEDS ORDERED: Calcium Gluc 4.6 MEQ/10 ML (100 MG/ML) ONE ×2 (12:06→12:07)
[2022-06-08] MEDS ORDERED: Dextrose 5% in Water 1,000 ML IV PRN (13:13)
[2022-06-08] MEDS ORDERED: Dextrose 50% Abboject 50 ML SYRINGE SLOW IVP PRN (13:13)
[2022-06-08] MEDS ORDERED: Sodium Chloride 0.9% 1,000 ML IV SCH (13:15)
[2022-06-08 15:11] VITALS: BMI 22.1
[2022-06-08] MEDS: Albumin 25% 25 GM/100 ML BOT IVPB SCH ×2 (17:32→23:54)
[2022-06-08] MEDS ORDERED: Albumin 25% 25 GM/100 ML BOT IVPB SCH (18:00)
[2022-06-08 18:01] LABS: Glucose 619 mg/dL (83-110)
[2022-06-08] MEDS ORDERED: Insulin Glargine 30 UNITS/0.3 ML VIAL SC SCH ×2 (18:15→21:00)
[2022-06-08] MEDS ORDERED: HumaLOG 300 UNITS/3 ML VIAL SC SCH (18:15)
[2022-06-08] MEDS: Famotidine 20 MG TAB PO SCH (20:01)
[2022-06-08] MEDS: HumaLOG 300 UNITS/3 ML VIAL SC PRN (20:02)
[2022-06-08] MEDS: Acetaminophen 325 MG TAB PO PRN (21:51)
[2022-06-09] MEDS: Albumin 25% 25 GM/100 ML BOT IVPB SCH ×2 (05:07→12:51)
[2022-06-09 07:35] LABS: #Eosinphils 0.2 thou/uL (0.0-0.7); #Lymphocytes 1.2 thou/uL (1.20-3.40); #Monocytes 0.5 thou/uL (0.11-0.59); #Neutrophils 5.7 thou/uL (1.40-6.50); %Basophils 0.1 % (0.0-1.0); %Eosinophils 2.4 % (0.0-10.0); %Lymphocytes 15.7 % (21.0-51.0); %Monocytes 7.1 % (0.0-10.0); %Neutrophils 74.7 % (42.0-75.0); Hemoglobin 8.7 g/dL (12.0-16.0); Mean Corpuscular HGB CONC 31.9 g/dL (32.0-36.0); Mean Corpuscular Hemoglobin 29.8 pg (27.0-31.0); Mean Corpuscular Volume 93.5 fl (78.0-98.0); Mean Platelet Volume 9.3 fL (7.4-10.4); Platelet Count 233 10x3/uL (130-400); RBC Distribution Width 16.2 % (11.5-14.5); Red Blood Cell (RBC) Count 2.91 mill/uL (4.20-5.40); White Blood Cell (WBC) Count 7.6 10x3/uL (4.8-10.8)
[2022-06-09 07:50] LABS: Anion Gap 16 mmol/L (10-20); BUN (Urea Nitrogen) 43 mg/dL (9.8-20.1); Calc. Creatinine Clearance 10 mL/min (70-130); Calcium 7.5 mg/dL (7.8-10.44); Carbon Dioxide 21 mmol/L (23-31); Chloride 107 mmol/L (98-107); Estimated GFR 13; Glucose 75 mg/dL (83-110); Potassium 4.3 mmol/L (3.5-5.1); Sodium 140 mmol/L (136-145)
[2022-06-09] MEDS: Calcium Acetate 667 MG CAP PO SCH ×3 (09:06→17:46)
[2022-06-09] MEDS: Calcitriol 0.25 MCG CAP PO SCH (09:06)
[2022-06-09] MEDS: Famotidine 20 MG TAB PO SCH (09:10)
[2022-06-09] MEDS: Insulin Glargine 30 UNITS/0.3 ML VIAL SC SCH (09:16)
[2022-06-09] MEDS: EPOETIN ALFA-EPBX (ESRD) 10,000 UNIT/ML VIAL SC SCH (09:24)
[2022-06-09] MEDS ORDERED: Dextrose 10% in Water 1,000 ML IV SCH (11:15)
[2022-06-09] MEDS ORDERED: Furosemide 40 MG/4 ML VIAL SLOW IVP SCH (18:15)
[2022-06-09 18:37] LABS: Troponin I 0.028 ng/mL (< 0.028)
[2022-06-09] MEDS ORDERED: Ondansetron ODT 4 MG TAB PO PRN (18:37)
[2022-06-09] MEDS ORDERED: Ondansetron PF 4 MG/2 ML Vial IVP PRN (18:37)
[2022-06-09] MEDS: Acetaminophen 325 MG TAB PO PRN (18:37)
[2022-06-10 06:48] LABS: #Eosinphils 0.2 thou/uL (0.0-0.7); #Lymphocytes 1.5 thou/uL (1.20-3.40); #Monocytes 0.7 thou/uL (0.11-0.59); #Neutrophils 7.5 thou/uL (1.40-6.50); %Basophils 0.2 % (0.0-1.0); %Eosinophils 1.9 % (0.0-10.0); %Lymphocytes 15.5 % (21.0-51.0); %Monocytes 6.9 % (0.0-10.0); %Neutrophils 75.6 % (42.0-75.0); Hemoglobin 10.2 g/dL (12.0-16.0); Mean Corpuscular HGB CONC 31.3 g/dL (32.0-36.0); Mean Corpuscular Volume 92.7 fl (78.0-98.0); Mean Platelet Volume 9.5 fL (7.4-10.4); Platelet Count 279 10x3/uL (130-400); RBC Distribution Width 16.5 % (11.5-14.5); Red Blood Cell (RBC) Count 3.53 mill/uL (4.20-5.40); White Blood Cell (WBC) Count 9.9 10x3/uL (4.8-10.8)
[2022-06-10 07:11] LABS: Anion Gap 15 mmol/L (10-20); BUN (Urea Nitrogen) 42 mg/dL (9.8-20.1); Calc. Creatinine Clearance 10 mL/min (70-130); Calcium 8.2 mg/dL (7.8-10.44); Carbon Dioxide 22 mmol/L (23-31); Chloride 103 mmol/L (98-107); Estimated GFR 13; Glucose 122 mg/dL (83-110); Potassium 3.9 mmol/L (3.5-5.1); Sodium 136 mmol/L (136-145)
[2022-06-10] MEDS: Calcium Acetate 667 MG CAP PO SCH ×3 (08:00→17:46)
[2022-06-10] MEDS: Calcitriol 0.25 MCG CAP PO SCH (10:14)
[2022-06-10] MEDS: Ferrous Sulfate 325 MG TAB PO SCH (10:14)
[2022-06-10] MEDS: Insulin Glargine 30 UNITS/0.3 ML VIAL SC SCH (10:17)
[2022-06-10] MEDS: Carvedilol 6.25 MG TAB PO SCH (17:46)
[2022-06-10] MEDS: Famotidine 20 MG TAB PO SCH (21:54)
[2022-06-10] MEDS: Apixaban 2.5 MG TAB PO SCH (21:54)
[2022-06-10] MEDS: Sodium Bicarbonate Tab 325 MG TAB PO SCH (21:54)
[2022-06-11 07:46] LABS: #Eosinphils 0.2 thou/uL (0.0-0.7); #Lymphocytes 1.6 thou/uL (1.20-3.40); #Monocytes 0.7 thou/uL (0.11-0.59); #Neutrophils 4.2 thou/uL (1.40-6.50); %Basophils 0.3 % (0.0-1.0); %Eosinophils 3.4 % (0.0-10.0); %Lymphocytes 23.6 % (21.0-51.0); %Monocytes 9.8 % (0.0-10.0); %Neutrophils 62.8 % (42.0-75.0); Hemoglobin 8.9 g/dL (12.0-16.0); Mean Corpuscular Hemoglobin 29.8 pg (27.0-31.0); Mean Corpuscular Volume 92.9 fl (78.0-98.0); Mean Platelet Volume 9.4 fL (7.4-10.4); Platelet Count 220 10x3/uL (130-400); RBC Distribution Width 16.6 % (11.5-14.5); Red Blood Cell (RBC) Count 2.98 mill/uL (4.20-5.40); White Blood Cell (WBC) Count 6.7 10x3/uL (4.8-10.8)
[2022-06-11 08:05] LABS: Anion Gap 12 mmol/L (10-20); BUN (Urea Nitrogen) 45 mg/dL (9.8-20.1); Calc. Creatinine Clearance 10 mL/min (70-130); Calcium 7.9 mg/dL (7.8-10.44); Carbon Dioxide 23 mmol/L (23-31); Chloride 105 mmol/L (98-107); Estimated GFR 13; Glucose 92 mg/dL (83-110); Potassium 4.2 mmol/L (3.5-5.1); Sodium 136 mmol/L (136-145)
[2022-06-11] MEDS: Calcium Acetate 667 MG CAP PO SCH ×3 (08:29→18:59)
[2022-06-11] MEDS: Calcitriol 0.25 MCG CAP PO SCH (08:29)
[2022-06-11] MEDS: Saccharomyces boulardii 250 MG CAP PO SCH (08:29)
[2022-06-11] MEDS: Sodium Bicarbonate Tab 325 MG TAB PO SCH ×2 (08:29→22:03)
[2022-06-11] MEDS: Aspirin 81 mg Enteric Coated Tablet PO SCH (08:30)
[2022-06-11] MEDS: Folic Acid 1 MG TAB PO SCH (08:30)
[2022-06-11] MEDS: Ferrous Sulfate 325 MG TAB PO SCH ×2 (08:30→08:35)
[2022-06-11] MEDS: Atorvastatin Calcium 20 MG TAB PO SCH (08:30)
[2022-06-11] MEDS: Carvedilol 6.25 MG TAB PO SCH (08:39)
[2022-06-11] MEDS ORDERED: Amlodipine 10 MG TAB PO SCH (09:00)
[2022-06-11] MEDS ORDERED: Carvedilol 3.125 MG TAB PO SCH (09:00)
[2022-06-11] MEDS: Insulin Glargine 30 UNITS/0.3 ML VIAL SC SCH ×2 (09:54→09:56)
[2022-06-11] MEDS: Apixaban 2.5 MG TAB PO SCH ×2 (09:56→22:03)
[2022-06-11] MEDS: Albumin 25% 25 GM/100 ML BOT IVPB SCH ×3 (15:18→22:03)
[2022-06-11] MEDS: Carvedilol 3.125 MG TAB PO SCH (18:59)
[2022-06-12] MEDS: Albumin 25% 25 GM/100 ML BOT IVPB SCH ×2 (04:08→08:36)
[2022-06-12 05:09] LABS: #Eosinphils 0.2 thou/uL (0.0-0.7); #Lymphocytes 1.6 thou/uL (1.20-3.40); #Monocytes 0.5 thou/uL (0.11-0.59); #Neutrophils 4.1 thou/uL (1.40-6.50); %Basophils 0.5 % (0.0-1.0); %Eosinophils 3.2 % (0.0-10.0); %Lymphocytes 24.4 % (21.0-51.0); %Monocytes 8.2 % (0.0-10.0); %Neutrophils 63.7 % (42.0-75.0); Hemoglobin 8.9 g/dL (12.0-16.0); Mean Corpuscular HGB CONC 32.7 g/dL (32.0-36.0); Mean Corpuscular Hemoglobin 30.5 pg (27.0-31.0); Mean Corpuscular Volume 93.2 fl (78.0-98.0); Mean Platelet Volume 9.9 fL (7.4-10.4); Platelet Count 218 10x3/uL (130-400); RBC Distribution Width 16.4 % (11.5-14.5); Red Blood Cell (RBC) Count 2.93 mill/uL (4.20-5.40); White Blood Cell (WBC) Count 6.4 10x3/uL (4.8-10.8)
[2022-06-12 05:21] LABS: Troponin I 0.066 ng/mL (< 0.028)
[2022-06-12 05:32] LABS: Anion Gap 16 mmol/L (10-20); BUN (Urea Nitrogen) 50 mg/dL (9.8-20.1); Calc. Creatinine Clearance 9 mL/min (70-130); Calcium 7.9 mg/dL (7.8-10.44); Carbon Dioxide 21 mmol/L (23-31); Chloride 101 mmol/L (98-107); Estimated GFR 11; Glucose 76 mg/dL (83-110); Potassium 4.4 mmol/L (3.5-5.1); Sodium 134 mmol/L (136-145)
[2022-06-12] MEDS: Calcium Acetate 667 MG CAP PO SCH ×3 (08:33→17:30)
[2022-06-12] MEDS: Calcitriol 0.25 MCG CAP PO SCH (08:34)
[2022-06-12] MEDS: Ferrous Sulfate 325 MG TAB PO SCH (08:34)
[2022-06-12] MEDS: Insulin Glargine 30 UNITS/0.3 ML VIAL SC SCH (08:34)
[2022-06-12] MEDS: Apixaban 2.5 MG TAB PO SCH ×2 (08:34→19:41)
[2022-06-12] MEDS: Sodium Bicarbonate Tab 325 MG TAB PO SCH ×2 (08:34→19:41)
[2022-06-12] MEDS: Atorvastatin Calcium 20 MG TAB PO SCH (08:34)
[2022-06-12] MEDS: Aspirin 81 mg Enteric Coated Tablet PO SCH (08:34)
[2022-06-12] MEDS: Folic Acid 1 MG TAB PO SCH (08:34)
[2022-06-12] MEDS: Saccharomyces boulardii 250 MG CAP PO SCH (08:34)
[2022-06-12] MEDS: Carvedilol 3.125 MG TAB PO SCH ×2 (08:34→17:30)
[2022-06-12 12:33] LABS: Troponin I 0.069 ng/mL (< 0.028)
[2022-06-12] MEDS: Famotidine 20 MG TAB PO SCH (19:41)
[2022-06-13] MEDS: HumaLOG 300 UNITS/3 ML VIAL SC PRN (05:59)
[2022-06-13 06:27] LABS: #Basophils 0.1 thou/uL (0.0-0.2); #Eosinphils 0.1 thou/uL (0.0-0.7); #Lymphocytes 1.1 thou/uL (1.20-3.40); #Monocytes 0.7 thou/uL (0.11-0.59); #Neutrophils 5.1 thou/uL (1.40-6.50); %Basophils 0.9 % (0.0-1.0); %Eosinophils 1.6 % (0.0-10.0); %Lymphocytes 15.4 % (21.0-51.0); %Monocytes 10.1 % (0.0-10.0); Hemoglobin 9.1 g/dL (12.0-16.0); Mean Corpuscular HGB CONC 30.5 g/dL (32.0-36.0); Mean Corpuscular Hemoglobin 29.1 pg (27.0-31.0); Mean Corpuscular Volume 95.2 fl (78.0-98.0); Mean Platelet Volume 9.2 fL (7.4-10.4); Platelet Count 238 10x3/uL (130-400); RBC Distribution Width 16.7 % (11.5-14.5); Red Blood Cell (RBC) Count 3.13 mill/uL (4.20-5.40); White Blood Cell (WBC) Count 7.1 10x3/uL (4.8-10.8)
[2022-06-13 06:42] LABS: Anion Gap 16 mmol/L (10-20); BUN (Urea Nitrogen) 55 mg/dL (9.8-20.1); Calc. Creatinine Clearance 9 mL/min (70-130); Calcium 7.8 mg/dL (7.8-10.44); Carbon Dioxide 19 mmol/L (23-31); Chloride 102 mmol/L (98-107); Estimated GFR 11; Glucose 203 mg/dL (83-110); Potassium 4.3 mmol/L (3.5-5.1); Sodium 133 mmol/L (136-145)
[2022-06-13] MEDS: Apixaban 2.5 MG TAB PO SCH ×2 (08:47→20:32)
[2022-06-13] MEDS: Saccharomyces boulardii 250 MG CAP PO SCH (08:47)
[2022-06-13] MEDS: Calcium Acetate 667 MG CAP PO SCH ×3 (08:47→17:55)
[2022-06-13] MEDS: Carvedilol 3.125 MG TAB PO SCH ×2 (08:47→17:56)
[2022-06-13] MEDS: Ferrous Sulfate 325 MG TAB PO SCH (08:47)
[2022-06-13] MEDS: Atorvastatin Calcium 20 MG TAB PO SCH (08:48)
[2022-06-13] MEDS: Folic Acid 1 MG TAB PO SCH (08:48)
[2022-06-13] MEDS: Calcitriol 0.25 MCG CAP PO SCH (08:48)
[2022-06-13] MEDS: Sodium Bicarbonate Tab 325 MG TAB PO SCH ×2 (08:48→20:32)
[2022-06-13] MEDS: Aspirin 81 mg Enteric Coated Tablet PO SCH (08:48)
[2022-06-14] MEDS: HumaLOG 300 UNITS/3 ML VIAL SC PRN ×2 (05:55→13:24)
[2022-06-14 07:47] LABS: #Eosinphils 0.2 thou/uL (0.0-0.7); #Lymphocytes 1.5 thou/uL (1.20-3.40); #Monocytes 0.5 thou/uL (0.11-0.59); #Neutrophils 4.1 thou/uL (1.40-6.50); %Basophils 0.3 % (0.0-1.0); %Eosinophils 3.1 % (0.0-10.0); %Lymphocytes 24.3 % (21.0-51.0); %Monocytes 7.8 % (0.0-10.0); %Neutrophils 64.5 % (42.0-75.0); Hemoglobin 9.6 g/dL (12.0-16.0); Mean Corpuscular HGB CONC 30.8 g/dL (32.0-36.0); Mean Corpuscular Hemoglobin 28.9 pg (27.0-31.0); Mean Corpuscular Volume 93.7 fl (78.0-98.0); Mean Platelet Volume 9.2 fL (7.4-10.4); Platelet Count 253 10x3/uL (130-400); RBC Distribution Width 16.9 % (11.5-14.5); Red Blood Cell (RBC) Count 3.32 mill/uL (4.20-5.40); White Blood Cell (WBC) Count 6.4 10x3/uL (4.8-10.8)
[2022-06-14 08:13] LABS: Anion Gap 16 mmol/L (10-20); BUN (Urea Nitrogen) 58 mg/dL (9.8-20.1); Calc. Creatinine Clearance 9 mL/min (70-130); Calcium 8.1 mg/dL (7.8-10.44); Carbon Dioxide 21 mmol/L (23-31); Chloride 100 mmol/L (98-107); Estimated GFR 11; Glucose 180 mg/dL (83-110); Potassium 4.2 mmol/L (3.5-5.1); Sodium 133 mmol/L (136-145)
[2022-06-14] MEDS: Saccharomyces boulardii 250 MG CAP PO SCH (10:30)
[2022-06-14] MEDS: Aspirin 81 mg Enteric Coated Tablet PO SCH (10:30)
[2022-06-14] MEDS: Apixaban 2.5 MG TAB PO SCH ×2 (10:30→20:24)
[2022-06-14] MEDS: Calcitriol 0.25 MCG CAP PO SCH (10:30)
[2022-06-14] MEDS: Folic Acid 1 MG TAB PO SCH (10:30)
[2022-06-14] MEDS: Sodium Bicarbonate Tab 325 MG TAB PO SCH ×2 (10:30→20:25)
[2022-06-14] MEDS: Atorvastatin Calcium 20 MG TAB PO SCH (10:30)
[2022-06-14] MEDS: Calcium Acetate 667 MG CAP PO SCH ×3 (10:32→17:51)
[2022-06-14] MEDS: Ferrous Sulfate 325 MG TAB PO SCH (10:32)
[2022-06-14] MEDS: Carvedilol 3.125 MG TAB PO SCH ×2 (10:32→17:51)
[2022-06-14] MEDS: Famotidine 20 MG TAB PO SCH (20:24)
[2022-06-14] MEDS: Acetaminophen 325 MG TAB PO PRN (20:24)
[2022-06-15 06:36] LABS: #Eosinphils 0.2 thou/uL (0.0-0.7); #Lymphocytes 1.6 thou/uL (1.20-3.40); #Monocytes 0.6 thou/uL (0.11-0.59); #Neutrophils 4.2 thou/uL (1.40-6.50); %Basophils 0.2 % (0.0-1.0); %Eosinophils 2.8 % (0.0-10.0); %Lymphocytes 24.2 % (21.0-51.0); %Monocytes 8.9 % (0.0-10.0); %Neutrophils 63.9 % (42.0-75.0); Hemoglobin 9.7 g/dL (12.0-16.0); Mean Corpuscular HGB CONC 31.2 g/dL (32.0-36.0); Mean Corpuscular Hemoglobin 29.2 pg (27.0-31.0); Mean Corpuscular Volume 93.4 fl (78.0-98.0); Mean Platelet Volume 9.3 fL (7.4-10.4); Platelet Count 250 10x3/uL (130-400); Red Blood Cell (RBC) Count 3.34 mill/uL (4.20-5.40); White Blood Cell (WBC) Count 6.6 10x3/uL (4.8-10.8)
[2022-06-15 06:57] LABS: Anion Gap 17 mmol/L (10-20); BUN (Urea Nitrogen) 59 mg/dL (9.8-20.1); Calc. Creatinine Clearance 9 mL/min (70-130); Calcium 8.3 mg/dL (7.8-10.44); Carbon Dioxide 19 mmol/L (23-31); Chloride 99 mmol/L (98-107); Estimated GFR 11; Glucose 165 mg/dL (83-110); Potassium 4.4 mmol/L (3.5-5.1); Sodium 131 mmol/L (136-145)
[2022-06-15] MEDS: Folic Acid 1 MG TAB PO SCH (10:04)
[2022-06-15] MEDS: Saccharomyces boulardii 250 MG CAP PO SCH (10:04)
[2022-06-15] MEDS: Calcitriol 0.25 MCG CAP PO SCH (10:04)
[2022-06-15] MEDS: Ferrous Sulfate 325 MG TAB PO SCH (10:04)
[2022-06-15] MEDS: Carvedilol 3.125 MG TAB PO SCH ×2 (10:05→17:41)
[2022-06-15] MEDS: Atorvastatin Calcium 20 MG TAB PO SCH (10:05)
[2022-06-15] MEDS: Apixaban 2.5 MG TAB PO SCH ×2 (10:05→21:07)
[2022-06-15] MEDS: Sodium Bicarbonate Tab 325 MG TAB PO SCH ×2 (10:05→21:07)
[2022-06-15] MEDS: Calcium Acetate 667 MG CAP PO SCH ×3 (10:05→17:41)
[2022-06-15] MEDS: Aspirin 81 mg Enteric Coated Tablet PO SCH (10:05)
[2022-06-15] MEDS: HumaLOG 300 UNITS/3 ML VIAL SC PRN ×2 (13:13→17:41)
[2022-06-15] MEDS: Acetaminophen 325 MG TAB PO PRN (21:07)
[2022-06-16 07:11] LABS: Anion Gap 17 mmol/L (10-20); BUN (Urea Nitrogen) 61 mg/dL (9.8-20.1); Calc. Creatinine Clearance 8 mL/min (70-130); Calcium 8.4 mg/dL (7.8-10.44); Carbon Dioxide 21 mmol/L (23-31); Chloride 99 mmol/L (98-107); Estimated GFR 10; Glucose 135 mg/dL (83-110); Potassium 4.3 mmol/L (3.5-5.1); Sodium 133 mmol/L (136-145)
[2022-06-16] MEDS: Calcitriol 0.25 MCG CAP PO SCH (09:45)
[2022-06-16] MEDS: Sodium Bicarbonate Tab 325 MG TAB PO SCH ×2 (09:45→19:59)
[2022-06-16] MEDS: Calcium Acetate 667 MG CAP PO SCH ×3 (09:45→17:09)
[2022-06-16] MEDS: Carvedilol 3.125 MG TAB PO SCH ×2 (09:46→17:09)
[2022-06-16] MEDS: Saccharomyces boulardii 250 MG CAP PO SCH (09:46)
[2022-06-16] MEDS: Atorvastatin Calcium 20 MG TAB PO SCH (09:46)
[2022-06-16] MEDS: Ferrous Sulfate 325 MG TAB PO SCH (09:46)
[2022-06-16] MEDS: Apixaban 2.5 MG TAB PO SCH ×2 (09:46→19:59)
[2022-06-16] MEDS: Folic Acid 1 MG TAB PO SCH (09:46)
[2022-06-16] MEDS: Aspirin 81 mg Enteric Coated Tablet PO SCH (09:46)
[2022-06-16] MEDS ORDERED: EPOETIN ALFA-EPBX (ESRD) 3,000 UNIT/ML VIAL SC SCH (13:15)
[2022-06-16] MEDS: EPOETIN ALFA-EPBX (ESRD) 10,000 UNIT/ML VIAL SC SCH (14:02)
[2022-06-16] MEDS: HumaLOG 300 UNITS/3 ML VIAL SC PRN (17:10)
[2022-06-16] MEDS: Famotidine 20 MG TAB PO SCH (19:59)
[2022-06-17 06:51] LABS: #Basophils 0.1 thou/uL (0.0-0.2); #Eosinphils 0.2 thou/uL (0.0-0.7); #Lymphocytes 1.9 thou/uL (1.20-3.40); #Monocytes 0.6 thou/uL (0.11-0.59); #Neutrophils 4.6 thou/uL (1.40-6.50); %Basophils 0.7 % (0.0-1.0); %Eosinophils 3.3 % (0.0-10.0); %Lymphocytes 25.5 % (21.0-51.0); %Monocytes 8.2 % (0.0-10.0); %Neutrophils 62.3 % (42.0-75.0); Hemoglobin 9.5 g/dL (12.0-16.0); Mean Corpuscular HGB CONC 32.4 g/dL (32.0-36.0); Mean Corpuscular Hemoglobin 30.1 pg (27.0-31.0); Mean Corpuscular Volume 92.9 fl (78.0-98.0); Mean Platelet Volume 9.3 fL (7.4-10.4); Platelet Count 240 10x3/uL (130-400); RBC Distribution Width 17.8 % (11.5-14.5); Red Blood Cell (RBC) Count 3.17 mill/uL (4.20-5.40); White Blood Cell (WBC) Count 7.3 10x3/uL (4.8-10.8)
[2022-06-17 07:10] LABS: Anion Gap 18 mmol/L (10-20); BUN (Urea Nitrogen) 60 mg/dL (9.8-20.1); Calc. Creatinine Clearance 8 mL/min (70-130); Calcium 8.5 mg/dL (7.8-10.44); Carbon Dioxide 21 mmol/L (23-31); Chloride 100 mmol/L (98-107); Estimated GFR 10; Glucose 146 mg/dL (83-110); Potassium 4.6 mmol/L (3.5-5.1); Sodium 134 mmol/L (136-145)
[2022-06-17] MEDS: Ferrous Sulfate 325 MG TAB PO SCH (08:37)
[2022-06-17] MEDS: Saccharomyces boulardii 250 MG CAP PO SCH (08:37)
[2022-06-17] MEDS: Sodium Bicarbonate Tab 325 MG TAB PO SCH (08:37)
[2022-06-17] MEDS: Calcitriol 0.25 MCG CAP PO SCH (08:37)
[2022-06-17] MEDS: Carvedilol 3.125 MG TAB PO SCH (08:37)
[2022-06-17] MEDS: Atorvastatin Calcium 20 MG TAB PO SCH (08:37)
[2022-06-17] MEDS: Apixaban 2.5 MG TAB PO SCH (08:38)
[2022-06-17] MEDS: Calcium Acetate 667 MG CAP PO SCH ×2 (08:38→12:20)
[2022-06-17] MEDS: Folic Acid 1 MG TAB PO SCH (08:38)
[2022-06-17] MEDS: Aspirin 81 mg Enteric Coated Tablet PO SCH (08:38)
[2022-06-17] MEDS: HumaLOG 300 UNITS/3 ML VIAL SC PRN (12:20)
[2022-06-17 16:34] VITALS: BP 130/79; TEMP 97.3
== END 2022-06-17 17:35 | disposition home or self-care (01) | DRG 682 ==
LOC: ERS 10:11 → T4-A 15:09 → OBSVTOIN 06-09 15:25
PROVIDERS: ADMIT Internal Medicine; ATTEND Internal Medicine
DX: N17.9 Acute kidney failure, unspecified (principal); I50.33 Acute on chronic diastolic (congestive) heart failure; I11.0 Hypertensive heart disease with heart failure; N18.5 Chronic kidney disease, stage 5; E11.22 Type 2 diabetes mellitus with diabetic chronic kidney disease; I08.1 Rheumatic disorders of both mitral and tricuspid valves; R19.7 Diarrhea, unspecified; E83.51 Hypocalcemia; I48.91 Unspecified atrial fibrillation; E11.65 Type 2 diabetes mellitus with hyperglycemia; E83.39 Other disorders of phosphorus metabolism; D63.1 Anemia in chronic kidney disease; N25.81 Secondary hyperparathyroidism of renal origin; E11.649 Type 2 diabetes mellitus with hypoglycemia without coma; Z88.8 Allergy status to other drugs, medicaments and biological substances; Z79.899 Other long term (current) drug therapy; Z79.82 Long term (current) use of aspirin; Z79.01 Long term (current) use of anticoagulants; Z90.710 Acquired absence of both cervix and uterus; Z90.49 Acquired absence of other specified parts of digestive tract; Z79.4 Long term (current) use of insulin
CPT/HCPCS: 36415; 36416; 71045; 80048; 80053; 82550; 83605; 83690; 83735; 83880; 84484; 85025; 93005; 93010; 96367; 96372; 96374; 96376; G0378; J0610; J0611; J1815; J1940; J2405; P9047; Q5105

== ENCOUNTER 2022-08-19 10:34 | Inpatient (IN) | payer MEDICARE, MEDICAID ==
[2022-08-19 11:26] LABS: #Eosinphils 0.1 thou/uL (0.0-0.7); #Monocytes 0.8 thou/uL (0.11-0.59); #Neutrophils 6.2 thou/uL (1.40-6.50); %Basophils 0.5 % (0.0-1.0); %Eosinophils 1.2 % (0.0-10.0); %Monocytes 8.9 % (0.0-10.0); %Neutrophils 70.2 % (42.0-75.0); Hemoglobin 9.1 g/dL (12.0-16.0); Mean Corpuscular HGB CONC 32.3 g/dL (32.0-36.0); Mean Corpuscular Hemoglobin 29.6 pg (27.0-31.0); Mean Corpuscular Volume 91.9 fl (78.0-98.0); Mean Platelet Volume 10.7 fL (7.4-10.4); Platelet Count 207 10x3/uL (130-400); RBC Distribution Width 15.1 % (11.5-14.5); Red Blood Cell (RBC) Count 3.07 mill/uL (4.20-5.40); White Blood Cell (WBC) Count 8.8 10x3/uL (4.8-10.8)
[2022-08-19 11:52] LABS: ALT (SGPT) 7 U/L (8-55); AST (SGOT) 21 U/L (5-34); Alkaline Phosphatase 128 U/L (40-110); Anion Gap 11 mmol/L (10-20); BUN (Urea Nitrogen) 20 mg/dL (9.8-20.1); Bilirubin, Total 0.4 mg/dL (0.2-1.2); Calc. Creatinine Clearance 0 mL/min (70-130); Calcium 8.1 mg/dL (7.8-10.44); Carbon Dioxide 30 mmol/L (23-31); Chloride 102 mmol/L (98-107); Estimated GFR 28; Globulin 3.5 g/dL (2.4-3.5); Glucose 55 mg/dL (83-110); Potassium 3.1 mmol/L (3.5-5.1); Protein, Total 6.5 g/dL (5.8-8.1); Sodium 140 mmol/L (136-145)
[2022-08-19] MEDS ORDERED: Potassium Chloride 20 MEQ TAB ONE (13:02)
[2022-08-19] MEDS ORDERED: Glucagon 1 MG/ML KIT IM PRN (13:20)
[2022-08-19] MEDS ORDERED: Dextrose 5% in Water 1,000 ML IV PRN (13:20)
[2022-08-19] MEDS ORDERED: Ondansetron PF 4 MG/2 ML Vial IVP PRN (13:20)
[2022-08-19] MEDS ORDERED: Dextrose 50% Abboject 50 ML SYRINGE SLOW IVP PRN (13:20)
[2022-08-19 14:11] LABS: INR-International Normal Ratio 1.2; PTT 34.3 sec (22.9-36.1)
[2022-08-19 16:56] VITALS: BMI 18.6
[2022-08-19 17:31] LABS: Magnesium 1.8 mg/dL (1.6-2.6)
[2022-08-19] MEDS: Acetaminophen 325 MG TAB PO PRN (20:03)
[2022-08-19] MEDS: Apixaban 2.5 MG TAB PO SCH (20:03)
[2022-08-19 20:45] LABS: Troponin I Less than 0.010 ng/mL (< 0.028)
[2022-08-19] MEDS ORDERED: Famotidine 20 MG TAB PO SCH (21:00)
[2022-08-20 00:53] LABS: Troponin I 0.013 ng/mL (< 0.028)
[2022-08-20] MEDS ORDERED: Magnesium 2 GM/50 ML(in water) 2 GM in Premix Bag 1 BAG IVPB SCH (04:15)
[2022-08-20 04:19] LABS: #Eosinphils 0.5 thou/uL (0.0-0.7); #Monocytes 0.5 thou/uL (0.11-0.59); #Neutrophils 4.4 thou/uL (1.40-6.50); %Basophils 0.6 % (0.0-1.0); %Eosinophils 6.8 % (0.0-10.0); %Monocytes 7.9 % (0.0-10.0); %Neutrophils 64.4 % (42.0-75.0); Hemoglobin 8.4 g/dL (12.0-16.0); Mean Corpuscular HGB CONC 31.7 g/dL (32.0-36.0); Mean Corpuscular Hemoglobin 29.5 pg (27.0-31.0); Mean Platelet Volume 10.9 fL (7.4-10.4); Platelet Count 212 10x3/uL (130-400); Red Blood Cell (RBC) Count 2.85 mill/uL (4.20-5.40); White Blood Cell (WBC) Count 6.8 10x3/uL (4.8-10.8)
[2022-08-20 04:47] LABS: ALT (SGPT) Less than 7 U/L (8-55); AST (SGOT) 17 U/L (5-34); Albumin 2.8 g/dL (3.4-4.8); Alkaline Phosphatase 165 U/L (40-110); Anion Gap 11 mmol/L (10-20); BUN (Urea Nitrogen) 29 mg/dL (9.8-20.1); Bilirubin, Total 0.2 mg/dL (0.2-1.2); Calc. Creatinine Clearance 13 mL/min (70-130); Calcium 8.1 mg/dL (7.8-10.44); Carbon Dioxide 30 mmol/L (23-31); Chloride 103 mmol/L (98-107); Estimated GFR 20; Globulin 3.2 g/dL (2.4-3.5); Glucose 183 mg/dL (83-110); Potassium 3.7 mmol/L (3.5-5.1); Sodium 140 mmol/L (136-145)
[2022-08-20] MEDS: Calcitriol 0.25 MCG CAP PO SCH (09:20)
[2022-08-20] MEDS: Amlodipine 10 MG TAB PO SCH (09:20)
[2022-08-20] MEDS: Aspirin 81 mg Enteric Coated Tablet PO SCH (09:20)
[2022-08-20] MEDS: Atorvastatin Calcium 20 MG TAB PO SCH (09:20)
[2022-08-20] MEDS: Apixaban 2.5 MG TAB PO SCH ×2 (09:20→21:54)
[2022-08-20] MEDS: Folic Acid 1 MG TAB PO SCH (09:20)
[2022-08-20] MEDS: Ferrous Sulfate 325 MG TAB PO SCH (09:20)
[2022-08-20 12:54] LABS: Bacteria/HPF 3+ HPF (None Seen); Bilirubin Negative (Negative); Blood, Urine Negative (Negative); Clarity Turbid (Clear); Glucose, Urine (Dipstick) 300 mg/dL (Negative); Ketone, Urine Negative (Negative); Leukocyte Negative Leu/uL (Negative); Nitrite Negative (Negative); Protein, Urine (Dipstick) 300 mg/dL (Neg-Trace); RBC/HPF 0-3 HPF (0-3); Specific Gravity, Urine 1.009 (1.002-1.036); Triple Phosphate Crystal 1+ HPF (None Seen); Urobilinogen Normal mg/dL (Less than 2); WBC/HPF 0-3 HPF (0-3)
[2022-08-20] MEDS: Acetaminophen 325 MG TAB PO PRN (18:45)
[2022-08-20 21:08] LABS: Troponin I Less than 0.010 ng/mL (< 0.028)
[2022-08-20] MEDS: Famotidine 20 MG TAB PO SCH (21:54)
[2022-08-21] MEDS: Acetaminophen 325 MG TAB PO PRN ×2 (00:52→16:34)
[2022-08-21 01:17] LABS: Troponin I 0.019 ng/mL (< 0.028)
[2022-08-21] MEDS ORDERED: Melatonin 3 MG TAB PO PRN (01:30)
[2022-08-21] MEDS: Apixaban 2.5 MG TAB PO SCH ×2 (08:42→19:53)
[2022-08-21] MEDS: Amlodipine 10 MG TAB PO SCH (08:42)
[2022-08-21] MEDS: Aspirin 81 mg Enteric Coated Tablet PO SCH (08:42)
[2022-08-21] MEDS: Ferrous Sulfate 325 MG TAB PO SCH (08:42)
[2022-08-21] MEDS: Atorvastatin Calcium 20 MG TAB PO SCH (08:42)
[2022-08-21] MEDS: Folic Acid 1 MG TAB PO SCH (08:42)
[2022-08-21] MEDS: Calcitriol 0.25 MCG CAP PO SCH (08:42)
[2022-08-21] MEDS: HumaLOG 300 UNITS/3 ML VIAL SC PRN (13:04)
[2022-08-21 16:22] LABS: Troponin I 0.019 ng/mL (< 0.028)
[2022-08-21] MEDS ORDERED: Calcium Carbonate 500 MG ChewTAB PO PRN (16:48)
[2022-08-21] MEDS ORDERED: Nitroglycerin 0.4 MG TAB (25 Tab Bottle) SL PRN (18:01)
[2022-08-21] MEDS: Famotidine 20 MG TAB PO SCH (19:52)
[2022-08-21] MEDS: Metoprolol Tartrate 25 MG TAB PO SCH (19:52)
[2022-08-22] MEDS: Apixaban 2.5 MG TAB PO SCH ×2 (08:17→22:26)
[2022-08-22] MEDS: Ferrous Sulfate 325 MG TAB PO SCH (08:17)
[2022-08-22] MEDS: Amlodipine 10 MG TAB PO SCH (08:17)
[2022-08-22] MEDS: Calcitriol 0.25 MCG CAP PO SCH (08:18)
[2022-08-22] MEDS: Aspirin 81 mg Enteric Coated Tablet PO SCH (08:18)
[2022-08-22] MEDS: Atorvastatin Calcium 20 MG TAB PO SCH (08:18)
[2022-08-22] MEDS: Metoprolol Tartrate 25 MG TAB PO SCH ×2 (08:19→22:26)
[2022-08-22] MEDS: Folic Acid 1 MG TAB PO SCH (08:19)
[2022-08-22] MEDS ORDERED: Heparin 10,000 UNITS/ 10 ML VIAL ONE (10:06)
[2022-08-22] MEDS ORDERED: ADENOSINE 60 MG/20 ML SDV ONE (10:13)
[2022-08-22] MEDS: HumaLOG 300 UNITS/3 ML VIAL SC PRN (16:25)
[2022-08-22] MEDS: Famotidine 20 MG TAB PO SCH (22:27)
[2022-08-22] MEDS: Acetaminophen 325 MG TAB PO PRN (22:27)
[2022-08-23] MEDS: Ferrous Sulfate 325 MG TAB PO SCH (08:54)
[2022-08-23] MEDS: Calcitriol 0.25 MCG CAP PO SCH (08:55)
[2022-08-23] MEDS: Folic Acid 1 MG TAB PO SCH (08:55)
[2022-08-23] MEDS: Apixaban 2.5 MG TAB PO SCH (08:55)
[2022-08-23] MEDS: Aspirin 81 mg Enteric Coated Tablet PO SCH (08:55)
[2022-08-23] MEDS: Metoprolol Tartrate 25 MG TAB PO SCH (08:55)
[2022-08-23] MEDS: Atorvastatin Calcium 20 MG TAB PO SCH (08:55)
[2022-08-23] MEDS: Amlodipine 10 MG TAB PO SCH (08:55)
[2022-08-23 16:26] VITALS: BP 119/62; TEMP 97.6
== END 2022-08-23 18:24 | disposition home health service (06) | DRG 313 ==
LOC: ERS 10:34 → IMCU/EMU 13:28 → T4-B 08-20 11:23
PROVIDERS: ADMIT Internal Medicine; ATTEND Internal Medicine
PROC: 5A1D70Z Performance of Urinary Filtration, Intermittent, Less than 6 Hours Per Day (ICD-10-PCS; principal; 2022-08-20)
DX: R07.89 Other chest pain (principal); N18.6 End stage renal disease; I13.2 Hypertensive heart and chronic kidney disease with heart failure and with stage 5 chronic kidney disease, or end stage renal disease; I50.32 Chronic diastolic (congestive) heart failure; E11.649 Type 2 diabetes mellitus with hypoglycemia without coma; D63.1 Anemia in chronic kidney disease; E78.5 Hyperlipidemia, unspecified; E11.22 Type 2 diabetes mellitus with diabetic chronic kidney disease; E87.6 Hypokalemia; I48.0 Paroxysmal atrial fibrillation; K21.9 Gastro-esophageal reflux disease without esophagitis; Z99.2 Dependence on renal dialysis; Z88.8 Allergy status to other drugs, medicaments and biological substances; Z79.899 Other long term (current) drug therapy; Z79.82 Long term (current) use of aspirin; Z90.49 Acquired absence of other specified parts of digestive tract; Z79.01 Long term (current) use of anticoagulants; Z90.710 Acquired absence of both cervix and uterus
CPT/HCPCS: 36415; 36416; 70450; 71045; 78451; 78452; 80053; 81003; 81015; 82533; 83690; 83735; 84443; 84484; 85025; 85610; 85730; 87040; 90935; 93005; 93010; 93017; 96374; A9500; G0257; J0153; J1644; J1815; J3475

== ENCOUNTER 2022-10-29 07:15 | Emergency (ER) | payer MEDICARE, MEDICAID ==
[2022-10-29] MEDS ORDERED: Dextrose 50% Abboject 50 ML SYRINGE ONE (07:23)
[2022-10-29 07:41] LABS: #Eosinphils 0.3 thou/uL (0.0-0.7); #Monocytes 0.8 thou/uL (0.11-0.59); #Neutrophils 8.5 thou/uL (1.40-6.50); %Basophils 0.3 % (0.0-1.0); %Eosinophils 2.6 % (0.0-10.0); %Lymphocytes 11.8 % (21.0-51.0); %Monocytes 7.1 % (0.0-10.0); %Neutrophils 77.9 % (42.0-75.0); Hematocrit 33.1 % (36.0-47.0); Hemoglobin 10.5 g/dL (12.0-16.0); Mean Corpuscular HGB CONC 31.7 g/dL (32.0-36.0); Mean Corpuscular Hemoglobin 29.9 pg (27.0-31.0); Mean Corpuscular Volume 94.3 fl (78.0-98.0); Platelet Count 149 10x3/uL (130-400); Red Blood Cell (RBC) Count 3.51 mill/uL (4.20-5.40); White Blood Cell (WBC) Count 10.9 10x3/uL (4.8-10.8)
[2022-10-29 08:15] LABS: ALT (SGPT) Less than 7 U/L (8-55); AST (SGOT) 18 U/L (5-34); Albumin 2.7 g/dL (3.4-4.8); Alkaline Phosphatase 267 U/L (40-110); Anion Gap 13 mmol/L (10-20); BUN (Urea Nitrogen) 32 mg/dL (9.8-20.1); Bilirubin, Total 0.4 mg/dL (0.2-1.2); Calc. Creatinine Clearance 0 mL/min (70-130); Calcium 7.6 mg/dL (7.8-10.44); Carbon Dioxide 26 mmol/L (23-31); Chloride 104 mmol/L (98-107); Estimated GFR 11; Glucose 296 mg/dL (83-110); Potassium 3.3 mmol/L (3.5-5.1); Protein, Total 5.7 g/dL (5.8-8.1); Sodium 140 mmol/L (136-145)
[2022-10-29 08:18] LABS: Troponin I 0.016 ng/mL (< 0.028)
== END 2022-10-29 08:45 | disposition home or self-care (01) ==
LOC: ERS 07:15
DX: E11.649 Type 2 diabetes mellitus with hypoglycemia without coma (principal); R41.82 Altered mental status, unspecified; I12.9 Hypertensive chronic kidney disease with stage 1 through stage 4 chronic kidney disease, or unspecified chronic kidney disease; N18.4 Chronic kidney disease, stage 4 (severe); E11.22 Type 2 diabetes mellitus with diabetic chronic kidney disease; Z79.01 Long term (current) use of anticoagulants; Z79.899 Other long term (current) drug therapy
CPT/HCPCS: 36415; 36416; 71045; 80053; 84484; 85025; 93005; 96374; J7999

== ENCOUNTER 2022-12-28 09:44 | Emergency (ER) | payer MEDICARE, MEDICAID ==
[~2022-12-28 09:44] MED LIST changes: -EPINEPHrine 0.3 MG in Ophthalmic Irrigation Solution 500 ML IVP SCH; +Heparin 10,000 UNITS/ 10 ML VIAL ONE
[2022-12-28 10:58] LABS: #Neutrophils 10.7 thou/uL (1.40-6.50); %Basophils 0.2 % (0.0-1.0); %Eosinophils 0.2 % (0.0-10.0); %Lymphocytes 8.6 % (21.0-51.0); %Monocytes 7.5 % (0.0-10.0); %Neutrophils 82.8 % (42.0-75.0); Hematocrit 31.6 % (36.0-47.0); Mean Corpuscular HGB CONC 31.6 g/dL (32.0-36.0); Mean Corpuscular Hemoglobin 30.9 pg (27.0-31.0); Mean Corpuscular Volume 97.5 fl (78.0-98.0); Mean Platelet Volume 11.7 fL (7.4-10.4); Platelet Count 147 10x3/uL (130-400); RBC Distribution Width 16.3 % (11.5-14.5); Red Blood Cell (RBC) Count 3.24 mill/uL (4.20-5.40); White Blood Cell (WBC) Count 12.9 10x3/uL (4.8-10.8)
[2022-12-28 11:16] LABS: ALT (SGPT) 87 U/L (8-55); AST (SGOT) 203 U/L (5-34); Albumin 3.5 g/dL (3.4-4.8); Alkaline Phosphatase 466 U/L (40-110); Anion Gap 19 mmol/L (10-20); BUN (Urea Nitrogen) 75 mg/dL (9.8-20.1); Bilirubin, Total 1.5 mg/dL (0.2-1.2); Calc. Creatinine Clearance 0 mL/min (70-130); Calcium 7.4 mg/dL (7.8-10.44); Carbon Dioxide 13 mmol/L (23-31); Chloride 111 mmol/L (98-107); Estimated GFR 9; Globulin 3.3 g/dL (2.4-3.5); Glucose 220 mg/dL (83-110); Potassium 4.9 mmol/L (3.5-5.1); Protein, Total 6.8 g/dL (5.8-8.1); Sodium 138 mmol/L (136-145)
[2022-12-28 14:17] LABS: HBSAB Concentration Less than 8.00 mIU/mL; HBSAg Index 0.15 S/CO (0-0.99); Hep B Core Total Ab Non-Reactive (NonReactive); Hep B Core Total Index 0.14 S/CO (0-0.79); Hep B Surf AB Non-Reactive (NonReactive); Hep B Surf Ag Non-Reactive S/CO (NonReactive); Hep C IgG Ab Non-Reactive S/CO (NonReactive)
== END 2022-12-28 20:31 | disposition home or self-care (01) ==
LOC: ERS 09:44
DX: E11.22 Type 2 diabetes mellitus with diabetic chronic kidney disease (principal); I12.0 Hypertensive chronic kidney disease with stage 5 chronic kidney disease or end stage renal disease; N18.6 End stage renal disease; Z99.2 Dependence on renal dialysis; R19.7 Diarrhea, unspecified; R79.89 Other specified abnormal findings of blood chemistry; Z79.899 Other long term (current) drug therapy; Z79.01 Long term (current) use of anticoagulants
CPT/HCPCS: 36415; 80053; 85025; 86704; 90935; 93005; G0257; J1644

== ENCOUNTER 2023-01-06 11:02 | Emergency (ER) | payer MEDICARE, MEDICAID ==
[2023-01-06 11:49] LABS: #Eosinphils 0.2 thou/uL (0.0-0.7); #Monocytes 1.1 thou/uL (0.11-0.59); #Neutrophils 7.9 thou/uL (1.40-6.50); %Basophils 0.2 % (0.0-1.0); %Eosinophils 1.7 % (0.0-10.0); %Lymphocytes 10.6 % (21.0-51.0); %Monocytes 10.8 % (0.0-10.0); %Neutrophils 76.1 % (42.0-75.0); Hematocrit 25.3 % (36.0-47.0); Hemoglobin 8.3 g/dL (12.0-16.0); Mean Corpuscular HGB CONC 32.8 g/dL (32.0-36.0); Mean Corpuscular Hemoglobin 30.5 pg (27.0-31.0); Mean Platelet Volume 11.5 fL (7.4-10.4); Platelet Count 195 10x3/uL (130-400); RBC Distribution Width 15.9 % (11.5-14.5); Red Blood Cell (RBC) Count 2.72 mill/uL (4.20-5.40); White Blood Cell (WBC) Count 10.4 10x3/uL (4.8-10.8)
[2023-01-06 12:04] LABS: ALT (SGPT) 43 U/L (8-55); AST (SGOT) 124 U/L (5-34); Albumin 3.1 g/dL (3.4-4.8); Alkaline Phosphatase 666 U/L (40-110); Anion Gap 19 mmol/L (10-20); BUN (Urea Nitrogen) 57 mg/dL (9.8-20.1); Bilirubin, Total 4.1 mg/dL (0.2-1.2); Calc. Creatinine Clearance 0 mL/min (70-130); Calcium 7.2 mg/dL (7.8-10.44); Carbon Dioxide 22 mmol/L (23-31); Chloride 99 mmol/L (98-107); Estimated GFR 7; Globulin 2.6 g/dL (2.4-3.5); Glucose 122 mg/dL (83-110); Potassium 3.5 mmol/L (3.5-5.1); Protein, Total 5.7 g/dL (5.8-8.1); Sodium 136 mmol/L (136-145)
== END 2023-01-06 18:54 ==
LOC: ERS 11:02
DX: I12.0 Hypertensive chronic kidney disease with stage 5 chronic kidney disease or end stage renal disease (principal); N18.6 End stage renal disease; E11.22 Type 2 diabetes mellitus with diabetic chronic kidney disease; R53.1 Weakness; Z99.2 Dependence on renal dialysis; Z79.899 Other long term (current) drug therapy; Z79.01 Long term (current) use of anticoagulants
CPT/HCPCS: 36415; 71045; 80053; 83880; 84484; 85025; 93005; 94760

== ENCOUNTER 2023-02-05 18:44 | Inpatient (IN) | payer MEDICARE, MEDICAID ==
[~2023-02-05 18:44] MED LIST changes: -Heparin 10,000 UNITS/ 10 ML VIAL ONE; +Iopamidol-370 76% 500 ML MDV (1 ML CHARGE) ONE
[2023-02-05] MEDS ORDERED: NOREPINEPHRINE 8 MG/250 ML-D5W 250 ML ONE (18:48)
[2023-02-05] MEDS ORDERED: Cefepime 2 GM VIAL ONE (18:59)
[2023-02-05] MEDS ORDERED: Sodium Chloride 0.9% 100 ML ONE (18:59)
[2023-02-05] MEDS ORDERED: Calcium Chloride 1 GM/10 ML Abboject SYRINGE ONE (19:10)
[2023-02-05] MEDS ORDERED: Vancomycin (BATCH) 1.25 GM in Premix 1 BAG IVPB SCH (19:30)
[2023-02-05] MEDS ORDERED: Acetaminophen 650 MG Suppository ONE (19:30)
[2023-02-05 19:36] LABS: Hematocrit 21.9 % (36.0-47.0); Hemoglobin 6.9 g/dL (12.0-16.0); Mean Corpuscular HGB CONC 31.5 g/dL (32.0-36.0); Mean Corpuscular Hemoglobin 31.7 pg (27.0-31.0); Mean Corpuscular Volume 100.5 fl (78.0-98.0); Mean Platelet Volume 10.4 fL (7.4-10.4); Platelet Count 258 10x3/uL (130-400); RBC Distribution Width 16.6 % (11.5-14.5); Red Blood Cell (RBC) Count 2.18 mill/uL (4.20-5.40); White Blood Cell (WBC) Count 33.4 10x3/uL (4.8-10.8)
[2023-02-05 19:38] LABS: Delete Auto Diff?? YES
[2023-02-05 19:57] LABS: SARS-CoV-2 NAA Rapid Test Not Detected (NotDetected)
[2023-02-05 20:00] LABS: ALT (SGPT) 19 U/L (8-55); AST (SGOT) 84 U/L (5-34); Albumin 1.8 g/dL (3.4-4.8); Alkaline Phosphatase 218 U/L (40-110); Anion Gap 13 mmol/L (10-20); BUN (Urea Nitrogen) 16 mg/dL (9.8-20.1); Bilirubin, Total 2.9 mg/dL (0.2-1.2); Calc. Creatinine Clearance 0 mL/min (70-130); Calcium 8.4 mg/dL (7.8-10.44); Carbon Dioxide 24 mmol/L (23-31); Chloride 102 mmol/L (98-107); Estimated GFR 17; Globulin 2.6 g/dL (2.4-3.5); Glucose 124 mg/dL (83-110); Protein, Total 4.4 g/dL (5.8-8.1); Sodium 137 mmol/L (136-145)
[2023-02-05 20:01] LABS: Anisocytosis SLIGHT = 6-15 cells HPF (0-5); Burr Cells SLIGHT = 2-5 cells HPF (0-1); CellaVision Operator ID LAB.MJL; Hypochromia SLIGHT = 6-15 cells HPF (0-5); Macrocytosis SLIGHT = 6-15 cells HPF (0-5); Ovalocytes SLIGHT = 2-5 cells HPF (0-1); Platelet Adequacy Comment Platelets Normal; Poikilocytosis SLIGHT = 6-15 cells HPF (0-5); Polychromasia MODERATE = 3-4 cells HPF (0-2); Schistocytes SLIGHT = 2-5 cells HPF (0-1); Vacuoles MODERATE
[2023-02-05 20:03] LABS: Potassium 2.2 mmol/L (3.5-5.1)
[2023-02-05 20:08] LABS: Troponin I 0.104 ng/mL (< 0.028)
[2023-02-05 20:12] LABS: Bacteria/HPF 4+ HPF (None Seen); Bilirubin Negative (Negative); Blood, Urine 1+ (Negative); CAUTI Indications for Culture Alt mental st,lethar; Clarity Extra Turbid (Clear); Glucose, Urine (Dipstick) Normal (Negative); Ketone, Urine Negative (Negative); Leukocyte 500 Leu/uL (Negative); Nitrite Negative (Negative); Protein, Urine (Dipstick) 300 mg/dL (Neg-Trace); Specific Gravity, Urine 1.014 (1.002-1.036); Squamous Epithelial 0-3 HPF (0-3); Urobilinogen Normal mg/dL (Less than 2); WBC/HPF Greater than 50 HPF (0-3); pH, Urine 7.5 (5.0-9.0)
[2023-02-05 20:14] LABS: Urine Culture Reflex Yes Yes
[2023-02-05] MEDS ORDERED: Ondansetron PF 4 MG/2 ML Vial IVP PRN (21:29)
[2023-02-05] MEDS ORDERED: Acetaminophen 650 MG Suppository PR PRN (21:29)
[2023-02-05] MEDS ORDERED: Ondansetron ODT 4 MG TAB PO PRN (21:29)
[2023-02-05] MEDS ORDERED: Acetaminophen 325 MG TAB PO PRN (21:29)
[2023-02-05] MEDS ORDERED: Electrolyte Replacement Protocol 1 EACH FS SCH (21:45)
[2023-02-05] MEDS ORDERED: NOREPINEPHRINE 8 MG/250 ML-D5W 250 ML IVPB SCH (21:45)
[2023-02-05] MEDS ORDERED: Dextrose 50% Abboject 50 ML SYRINGE SLOW IVP PRN (21:54)
[2023-02-05] MEDS ORDERED: HumaLOG 300 UNITS/3 ML VIAL SC PRN ×2 (21:54)
[2023-02-05] MEDS ORDERED: Dextrose 5% in Water 1,000 ML IV PRN (21:54)
[2023-02-05] MEDS ORDERED: Glucagon 1 MG/ML KIT IM PRN (21:54)
[2023-02-05 22:00] LABS: Actual Bicarbonate (HCO3a) 25.4 mEq/L (22-28); Base Excess (BEa) 0.1 mEq/L (-2.0 to +3.0); CO2 Tension 44.7 mmHg (35.0-45.0); Calcium, Ionized (arterial) 1.12 mmol/L (1.12-1.30); Carboxyhemoglobin (COHb) 1.4 gm% (0.0-3.0); Hematocrit-ABG 26 % (36.0-47.0); Hemoglobin (Hb) 8.7 g/dL (12.0-16.0); pH, Arterial 7.373 (7.35-7.45)
[2023-02-05] MEDS ORDERED: Piperacillin/Tazobactam 3.375 GM in Sodium Chloride 0.9% 100 ML IVPB SCH (22:00)
[2023-02-05 22:02] LABS: Potassium - ABG Lab 2.31 mmol/L (3.70-5.30); Puncture Site LB
[2023-02-05 22:22] LABS: Magnesium 1.6 mg/dL (1.6-2.6)
[2023-02-05 22:30] LABS: Band 36 % (5-11); Lymphocytes 3 % (21-51); Manual Diff?? YES; Metamyelocyte 1 % (0-0); Monocytes 3 % (0-10); Neutrophil 57 % (42-75); Total Cell Count 102
[2023-02-05 22:43] LABS: Lactic Acid 3.1 mmol/L (0.5-2.2)
[2023-02-05] MEDS: Pantoprazole 40 MG VIAL IVP SCH (22:43)
[2023-02-05] MEDS: Albumin 25% 25 GM (100 mL) BOT IVPB SCH (22:44)
[2023-02-05] MEDS: Potassium Chloride 40 MEQ in Premix 1 BAG IVPB SCH (22:44)
[2023-02-05 23:22] LABS: INR-International Normal Ratio 2.3; Prothrombin Time 26.2 sec (12.0-14.7)
[2023-02-05 23:23] LABS: PTT 51.5 sec (22.9-36.1)
[2023-02-05] MEDS ORDERED: Magnesium 2 GM/50 ML(in water) 2 GM in Premix 1 BAG IVPB SCH (23:59)
[2023-02-06 00:15] LABS: ALT (SGPT) 24 U/L (8-55); AST (SGOT) 96 U/L (5-34); Albumin 2.5 g/dL (3.4-4.8); Alkaline Phosphatase 231 U/L (40-110); Anion Gap 15 mmol/L (10-20); BUN (Urea Nitrogen) 18 mg/dL (9.8-20.1); Bilirubin, Total 3.3 mg/dL (0.2-1.2); Calc. Creatinine Clearance 12 mL/min (70-130); Calcium 8.1 mg/dL (7.8-10.44); Carbon Dioxide 24 mmol/L (23-31); Chloride 101 mmol/L (98-107); Estimated GFR 15; Globulin 2.9 g/dL (2.4-3.5); Glucose 186 mg/dL (83-110); Protein, Total 5.4 g/dL (5.8-8.1); Sodium 138 mmol/L (136-145)
[2023-02-06 00:18] LABS: Potassium 2.4 mmol/L (3.5-5.1)
[2023-02-06 00:28] LABS: Troponin I 0.113 ng/mL (< 0.028)
[2023-02-06] MEDS ORDERED: Phytonadione 10 MG in Sodium Chloride 0.9% 50 ML IVPB SCH (00:30)
[2023-02-06 00:31] LABS: Iron Binding Capacity, Total 61 mcg/dL (265-497)
[2023-02-06] MEDS ORDERED: 1/2 NS w/Potassium 20 mEq 1,000 ML IV SCH (01:00)
[2023-02-06] MEDS: Sodium Chloride 0.9% 1,000 ML IV SCH ×2 (01:21→15:00)
[2023-02-06] MEDS: Piperacillin/Tazobactam 3.375 GM in Sodium Chloride 0.9% 100 ML IVPB SCH ×2 (02:21→14:04)
[2023-02-06] MEDS: Potassium Chloride 40 MEQ in Premix 1 BAG IVPB SCH (02:22)
[2023-02-06] MEDS: Potassium Chloride 20 MEQ in Premix 1 BAG IVPB SCH ×2 (02:22→02:56)
[2023-02-06 03:15] LABS: Iron 10 ug/dL (50-170)
[2023-02-06] MEDS: Albumin 25% 25 GM (100 mL) BOT IVPB SCH ×3 (03:51→17:49)
[2023-02-06 04:15] LABS: Hemoglobin 9.8 g/dL (12.0-16.0); Mean Corpuscular HGB CONC 31.5 g/dL (32.0-36.0); Mean Corpuscular Hemoglobin 30.9 pg (27.0-31.0); Mean Corpuscular Volume 98.1 fl (78.0-98.0); Mean Platelet Volume 10.4 fL (7.4-10.4); Platelet Count 331 10x3/uL (130-400); RBC Distribution Width 16.6 % (11.5-14.5); Red Blood Cell (RBC) Count 3.17 mill/uL (4.20-5.40); White Blood Cell (WBC) Count 43.2 10x3/uL (4.8-10.8)
[2023-02-06 04:18] LABS: Delete Auto Diff?? YES; Hematocrit 31.1 % (36.0-47.0); Manual Diff?? YES
[2023-02-06 04:28] LABS: INR-International Normal Ratio 2.3; Prothrombin Time 26.4 sec (12.0-14.7)
[2023-02-06 04:45] LABS: ALT (SGPT) 23 U/L (8-55); AST (SGOT) 99 U/L (5-34); Albumin 2.3 g/dL (3.4-4.8); Alkaline Phosphatase 262 U/L (40-110); Anion Gap 16 mmol/L (10-20); BUN (Urea Nitrogen) 18 mg/dL (9.8-20.1); Bilirubin, Total 3.7 mg/dL (0.2-1.2); Calc. Creatinine Clearance 12 mL/min (70-130); Calcium 8.2 mg/dL (7.8-10.44); Carbon Dioxide 24 mmol/L (23-31); Chloride 100 mmol/L (98-107); Estimated GFR 15; Globulin 3.1 g/dL (2.4-3.5); Glucose 204 mg/dL (83-110); Potassium 3.2 mmol/L (3.5-5.1); Protein, Total 5.4 g/dL (5.8-8.1); Sodium 137 mmol/L (136-145)
[2023-02-06 04:52] LABS: Band 23 % (5-11); CellaVision Operator ID LAB.CLH1; Eosinophils 1 % (0-10); Hypochromia SLIGHT = 6-15 cells HPF (0-5); Lymphocytes 2 % (21-51); Monocytes 5 % (0-10); Neutrophil 68 % (42-75); Platelet Adequacy Comment Platelets Normal; Polychromasia SLIGHT = 2-3 cells HPF (0-2); Total Cell Count 101
[2023-02-06 07:55] LABS: Potassium 3.8 mmol/L (3.5-5.1)
[2023-02-06] MEDS ORDERED: Heparin 5,000 UNITS/ML VIAL SC SCH (09:00)
[2023-02-06] MEDS: Pantoprazole 40 MG VIAL IVP SCH ×2 (09:58→20:29)
[2023-02-06 10:12] LABS: HBSAg Index 0.15 S/CO (0-0.99); Hep B Core Total Ab Non-Reactive (NonReactive); Hep B Core Total Index 0.22 S/CO (0-0.79); Hep B Surf Ag Non-Reactive S/CO (NonReactive); Hep C IgG Ab Non-Reactive S/CO (NonReactive); Hep C Index 0.11 S/CO (0-0.79)
[2023-02-06 10:23] LABS: HBSAB Concentration 32.17 mIU/mL; Hep B Surf AB Reactive (NonReactive)
[2023-02-06] MEDS ORDERED: Indomethacin 50 MG SUPP ONE (11:28)
[2023-02-06] MEDS ORDERED: Iopamidol 0 ML ONE (11:29)
[2023-02-06] MEDS ORDERED: Ketamine In 0.9 % NaCl 50 MG/5 ML SYRINGE ONE (11:39)
[2023-02-06] MEDS ORDERED: Lidocaine 1% PF 5 ML VIAL ONE ×2 (11:40)
[2023-02-06] MEDS ORDERED: Rocuronium Bromide 10 MG/ML (10ML VIAL) ONE ×3 (11:40→12:05)
[2023-02-06] MEDS ORDERED: Ondansetron PF 4 MG/2 ML Vial ONE ×3 (11:40→12:05)
[2023-02-06] MEDS ORDERED: PHENYLEPHRINE-NS 100 MCG/ML 10 ML SYRINGE ONE ×4 (11:40→12:05)
[2023-02-06] MEDS ORDERED: Etomidate 40 MG (20 mL) VIAL ONE (11:44)
[2023-02-06] MEDS ORDERED: SUGAMMADEX SODIUM 200 MG/2 ML VIAL ONE (12:28)
[2023-02-06] MEDS ORDERED: Iopamidol 30 ML ONE (12:43)
[2023-02-07] MEDS: Piperacillin/Tazobactam 3.375 GM in Sodium Chloride 0.9% 100 ML IVPB SCH ×2 (02:13→14:58)
[2023-02-07] MEDS: Sodium Chloride 0.9% 1,000 ML IV SCH ×2 (02:20→16:49)
[2023-02-07 04:53] LABS: Hemoglobin 8.2 g/dL (12.0-16.0); Mean Corpuscular HGB CONC 31.5 g/dL (32.0-36.0); Mean Corpuscular Hemoglobin 31.7 pg (27.0-31.0); Mean Corpuscular Volume 100.4 fl (78.0-98.0); Mean Platelet Volume 10.4 fL (7.4-10.4); Platelet Count 189 10x3/uL (130-400); RBC Distribution Width 17.9 % (11.5-14.5); Red Blood Cell (RBC) Count 2.59 mill/uL (4.20-5.40); White Blood Cell (WBC) Count 51.4 10x3/uL (4.8-10.8)
[2023-02-07 05:21] LABS: ALT (SGPT) 18 U/L (8-55); AST (SGOT) 36 U/L (5-34); Alkaline Phosphatase 192 U/L (40-110); Anion Gap 18 mmol/L (10-20); BUN (Urea Nitrogen) 23 mg/dL (9.8-20.1); Bilirubin, Total 3.8 mg/dL (0.2-1.2); Calc. Creatinine Clearance 11 mL/min (70-130); Calcium 7.8 mg/dL (7.8-10.44); Carbon Dioxide 18 mmol/L (23-31); Chloride 108 mmol/L (98-107); Estimated GFR 14; Globulin 2.2 g/dL (2.4-3.5); Glucose 134 mg/dL (83-110); Lipase 109 U/L (8-78); Potassium 3.1 mmol/L (3.5-5.1); Protein, Total 5.2 g/dL (5.8-8.1); Sodium 141 mmol/L (136-145)
[2023-02-07] MEDS ORDERED: Acetaminophen 325 MG TAB PO PRN (08:38)
[2023-02-07] MEDS: Gabapentin 100 MG CAP PO SCH ×4 (09:06→20:39)
[2023-02-07] MEDS: Pantoprazole 40 MG VIAL IVP SCH ×2 (09:06→20:41)
[2023-02-07] MEDS: Folic Acid 1 MG TAB PO SCH ×3 (09:06→15:09)
[2023-02-07] MEDS: Sevelamer Carbonate 800 MG TAB PO SCH ×4 (09:06→20:39)
[2023-02-07] MEDS: Ergocalciferol 1.25 MG(50,000 UNITS) CAP PO SCH ×2 (09:09→14:59)
[2023-02-07] MEDS: Midodrine HCl 5 MG TAB PO SCH ×2 (14:59→20:40)
[2023-02-07 15:12] LABS: Hematocrit 25.7 % (36.0-47.0); Hemoglobin 8.3 g/dL (12.0-16.0)
[2023-02-07] MEDS: Insulin Glargine 30 UNITS/0.3 ML VIAL SC SCH (20:40)
[2023-02-07] MEDS: Atorvastatin Calcium 20 MG TAB PO SCH (20:40)
[2023-02-08] MEDS: Piperacillin/Tazobactam 3.375 GM in Sodium Chloride 0.9% 100 ML IVPB SCH ×2 (01:58→14:26)
[2023-02-08 05:28] LABS: Hematocrit 25.3 % (36.0-47.0); Hemoglobin 7.9 g/dL (12.0-16.0); Mean Corpuscular HGB CONC 31.2 g/dL (32.0-36.0); Mean Corpuscular Hemoglobin 30.7 pg (27.0-31.0); Mean Corpuscular Volume 98.4 fl (78.0-98.0); Platelet Count 153 10x3/uL (130-400); RBC Distribution Width 17.9 % (11.5-14.5); Red Blood Cell (RBC) Count 2.57 mill/uL (4.20-5.40); White Blood Cell (WBC) Count 29.8 10x3/uL (4.8-10.8)
[2023-02-08 05:30] LABS: Delete Auto Diff?? YES; Manual Diff?? YES
[2023-02-08 05:54] LABS: Band 14 % (5-11); Eosinophils 4 % (0-10); Hypochromia SLIGHT = 6-15 cells (100X) (0-5/hpf); Lymphocytes 4 % (21-51); Metamyelocyte 1 % (0-0); Monocytes 6 % (0-10); Neutrophil 70 % (42-75); Reactive Lymphocytes 1 % (0-10)
[2023-02-08 05:55] LABS: Platelet Adequacy Comment Appears Adequate
[2023-02-08 05:56] LABS: ALT (SGPT) 19 U/L (8-55); AST (SGOT) 47 U/L (5-34); Albumin 2.2 g/dL (3.4-4.8); Alkaline Phosphatase 245 U/L (40-110); Anion Gap 15 mmol/L (10-20); BUN (Urea Nitrogen) 11 mg/dL (9.8-20.1); Bilirubin, Total 2.5 mg/dL (0.2-1.2); Calc. Creatinine Clearance 18 mL/min (70-130); Calcium 7.5 mg/dL (7.8-10.44); Carbon Dioxide 23 mmol/L (23-31); Chloride 106 mmol/L (98-107); Estimated GFR 25; Globulin 2.3 g/dL (2.4-3.5); Glucose 103 mg/dL (83-110); Protein, Total 4.5 g/dL (5.8-8.1); Sodium 141 mmol/L (136-145)
[2023-02-08 06:04] LABS: Potassium 2.6 mmol/L (3.5-5.1)
[2023-02-08] MEDS: Sodium Chloride 0.9% 1,000 ML IV SCH ×2 (08:26→20:38)
[2023-02-08] MEDS: Folic Acid 1 MG TAB PO SCH (08:30)
[2023-02-08] MEDS: Gabapentin 100 MG CAP PO SCH ×3 (08:30→20:38)
[2023-02-08] MEDS: Enoxaparin 30 MG (0.3 mL) SYRINGE SC SCH (08:30)
[2023-02-08] MEDS: Midodrine HCl 5 MG TAB PO SCH ×3 (08:30→20:39)
[2023-02-08] MEDS: Potassium Chloride 20 MEQ TAB PO SCH ×2 (08:31→09:51)
[2023-02-08] MEDS ORDERED: FLU VACC QS2023(65UP)/MF59C/PF 60 MCG/0.5 ML SYRINGE IM ONE (09:00)
[2023-02-08] MEDS ORDERED: Epoetin (ESRD) 20,000 UNITS/ML MDV SC SCH (09:15)
[2023-02-08] MEDS: Sevelamer Carbonate 800 MG TAB PO SCH ×3 (09:51→17:15)
[2023-02-08] MEDS: Potassium Chloride 20 MEQ in Premix 1 BAG IVPB SCH ×2 (10:52→12:43)
[2023-02-08] MEDS: EPOETIN ALFA-EPBX (ESRD) 10,000 UNITS/ML VIAL SC SCH (13:12)
[2023-02-08] MEDS ORDERED: Magnesium 2 GM/50 ML(in water) 2 GM in Premix 1 BAG IVPB SCH (13:30)
[2023-02-08] MEDS: cefTRIAXone\\ROCEPHIN 2 GM in Sodium Chloride 0.9% 100 ML IVPB SCH (17:14)
[2023-02-08 19:31] LABS: Hematocrit 28.2 % (36.0-47.0); Hemoglobin 9.1 g/dL (12.0-16.0)
[2023-02-08 20:03] LABS: Anion Gap 15 mmol/L (10-20); Carbon Dioxide 18 mmol/L (23-31); Chloride 109 mmol/L (98-107); Potassium 4.4 mmol/L (3.5-5.1); Sodium 138 mmol/L (136-145)
[2023-02-08] MEDS: Insulin Glargine 30 UNITS/0.3 ML VIAL SC SCH (20:39)
[2023-02-08] MEDS: Atorvastatin Calcium 20 MG TAB PO SCH (20:39)
[2023-02-09 06:11] LABS: Hematocrit 26.8 % (36.0-47.0); Hemoglobin 8.4 g/dL (12.0-16.0); Mean Corpuscular HGB CONC 31.3 g/dL (32.0-36.0); Mean Corpuscular Hemoglobin 30.4 pg (27.0-31.0); Mean Corpuscular Volume 97.1 fl (78.0-98.0); Mean Platelet Volume 11.3 fL (7.4-10.4); Platelet Count 143 10x3/uL (130-400); RBC Distribution Width 17.8 % (11.5-14.5); Red Blood Cell (RBC) Count 2.76 mill/uL (4.20-5.40); White Blood Cell (WBC) Count 19.9 10x3/uL (4.8-10.8)
[2023-02-09 06:37] LABS: Anion Gap 10 mmol/L (10-20); BUN (Urea Nitrogen) 16 mg/dL (9.8-20.1); Calc. Creatinine Clearance 15 mL/min (70-130); Calcium 7.2 mg/dL (7.8-10.44); Carbon Dioxide 20 mmol/L (23-31); Chloride 112 mmol/L (98-107); Estimated GFR 18; Glucose 127 mg/dL (83-110); Magnesium 2.4 mg/dL (1.6-2.6); Potassium 3.6 mmol/L (3.5-5.1); Sodium 138 mmol/L (136-145)
[2023-02-09] MEDS ORDERED: Sodium Chloride 0.9% 1,000 ML IV SCH (09:00)
[2023-02-09] MEDS ORDERED: NOREPINEPHRINE 8 MG/250 ML-D5W 250 ML IVPB SCH (09:00)
[2023-02-09] MEDS ORDERED: Lidocaine 1% w/Epinephrine 1:100K 20 ML VIAL FS SCH (10:45)
[2023-02-09] MEDS: Sevelamer Carbonate 800 MG TAB PO SCH ×2 (13:03→16:10)
[2023-02-09 13:08] LABS: Actual Bicarbonate (HCO3v) 19.3 mEq/L (22-28); Base Excess -5.5 mEq/L (-2.0 to +3.0); Calcium, Ionized (venous) 1.03 mmol/L (1.16-1.32); Chloride (VBG) 110 mmol/L (98-106); Hematocrit-VBG 30 % (36.0-47.0); Hemoglobin (Hb) 10.1 g/dL (11.7-16.1); Potassium (VBG) 3.53 mmol/L (3.70-5.30); Sodium 137 mmol/L (133-146); pH (venous) 7.362 (7.32-7.43)
[2023-02-09] MEDS: Folic Acid 1 MG TAB PO SCH (13:08)
[2023-02-09] MEDS: Gabapentin 100 MG CAP PO SCH ×3 (13:08→21:28)
[2023-02-09] MEDS: Midodrine HCl 5 MG TAB PO SCH ×3 (13:09→21:28)
[2023-02-09] MEDS: Sodium Chloride 0.9% 1,000 ML IV SCH ×2 (13:09→17:39)
[2023-02-09] MEDS: Albumin 25% 25 GM (100 mL) BOT IVPB SCH ×3 (13:10→23:57)
[2023-02-09] MEDS: Enoxaparin 30 MG (0.3 mL) SYRINGE SC SCH (13:15)
[2023-02-09] MEDS: cefTRIAXone\\ROCEPHIN 2 GM in Sodium Chloride 0.9% 100 ML IVPB SCH (16:45)
[2023-02-09] MEDS: Atorvastatin Calcium 20 MG TAB PO SCH (21:28)
[2023-02-09] MEDS: Insulin Glargine 30 UNITS/0.3 ML VIAL SC SCH (23:45)
[2023-02-10 04:50] LABS: Hematocrit 24.6 % (36.0-47.0); Hemoglobin 7.6 g/dL (12.0-16.0); Manual Diff?? YES; Mean Corpuscular HGB CONC 30.9 g/dL (32.0-36.0); Mean Corpuscular Hemoglobin 30.6 pg (27.0-31.0); Mean Corpuscular Volume 99.2 fl (78.0-98.0); Mean Platelet Volume 11.2 fL (7.4-10.4); Platelet Count 133 10x3/uL (130-400); RBC Distribution Width 18.2 % (11.5-14.5); Red Blood Cell (RBC) Count 2.48 mill/uL (4.20-5.40)
[2023-02-10 05:10] LABS: Delete Auto Diff?? YES
[2023-02-10 05:37] LABS: ALT (SGPT) 9 U/L (8-55); AST (SGOT) 21 U/L (5-34); Alkaline Phosphatase 216 U/L (40-110); Anion Gap 12 mmol/L (10-20); BUN (Urea Nitrogen) 17 mg/dL (9.8-20.1); Bilirubin, Total 1.2 mg/dL (0.2-1.2); Calc. Creatinine Clearance 14 mL/min (70-130); Calcium 7.3 mg/dL (7.8-10.44); Carbon Dioxide 19 mmol/L (23-31); Chloride 112 mmol/L (98-107); Estimated GFR 16; Globulin 2.1 g/dL (2.4-3.5); Glucose 108 mg/dL (83-110); Potassium 3.4 mmol/L (3.5-5.1); Protein, Total 5.1 g/dL (5.8-8.1); Sodium 140 mmol/L (136-145)
[2023-02-10 06:35] LABS: Band 3 % (5-11); Eosinophils 2 % (0-10); Lymphocytes 9 % (21-51); Macrocytosis SLIGHT = 6-15 cells (100X) (0-5/hpf); Monocytes 9 % (0-10); Neutrophil 77 % (42-75); Nucleated RBC (Manual Ct) 1 % (0); Polychromasia SLIGHT = 2-3 cells (100X) (0-2/hpf)
[2023-02-10 06:36] LABS: Anisocytosis SLIGHT = 6-15 cells (100X) (0-5/hpf)
[2023-02-10] MEDS: Albumin 25% 25 GM (100 mL) BOT IVPB SCH (06:49)
[2023-02-10] MEDS ORDERED: Potassium Chloride 10 MEQ in Premix 1 BAG IVPB SCH (07:00)
[2023-02-10] MEDS ORDERED: Potassium Chloride 20 MEQ in Premix 1 BAG IVPB SCH (08:30)
[2023-02-10] MEDS: Enoxaparin 30 MG (0.3 mL) SYRINGE SC SCH (11:03)
[2023-02-10] MEDS: Gabapentin 100 MG CAP PO SCH ×3 (11:04→20:41)
[2023-02-10] MEDS: Sevelamer Carbonate 800 MG TAB PO SCH ×3 (11:04→18:16)
[2023-02-10] MEDS: Folic Acid 1 MG TAB PO SCH (11:04)
[2023-02-10] MEDS: Midodrine HCl 5 MG TAB PO SCH ×3 (11:05→20:41)
[2023-02-10] MEDS: Sodium Chloride 0.9% 1,000 ML IV SCH (11:48)
[2023-02-10] MEDS: cefTRIAXone\\ROCEPHIN 2 GM in Sodium Chloride 0.9% 100 ML IVPB SCH (16:22)
[2023-02-10] MEDS: Insulin Glargine 30 UNITS/0.3 ML VIAL SC SCH (20:41)
[2023-02-10] MEDS: Atorvastatin Calcium 20 MG TAB PO SCH (20:41)
[2023-02-11] MEDS: Sodium Chloride 0.9% 1,000 ML IV SCH ×2 (02:59→15:05)
[2023-02-11 06:03] LABS: Hematocrit 29.6 % (36.0-47.0); Hemoglobin 9.1 g/dL (12.0-16.0); Mean Corpuscular HGB CONC 30.7 g/dL (32.0-36.0); Mean Corpuscular Hemoglobin 30.8 pg (27.0-31.0); Mean Corpuscular Volume 100.3 fl (78.0-98.0); Platelet Count 163 10x3/uL (130-400); RBC Distribution Width 18.5 % (11.5-14.5); Red Blood Cell (RBC) Count 2.95 mill/uL (4.20-5.40); White Blood Cell (WBC) Count 14.7 10x3/uL (4.8-10.8)
[2023-02-11 06:33] LABS: ALT (SGPT) 8 U/L (8-55); AST (SGOT) 16 U/L (5-34); Albumin 3.1 g/dL (3.4-4.8); Alkaline Phosphatase 181 U/L (40-110); Anion Gap 16 mmol/L (10-20); BUN (Urea Nitrogen) 20 mg/dL (9.8-20.1); Bilirubin, Total 1.2 mg/dL (0.2-1.2); Calc. Creatinine Clearance 13 mL/min (70-130); Calcium 7.6 mg/dL (7.8-10.44); Carbon Dioxide 15 mmol/L (23-31); Chloride 114 mmol/L (98-107); Estimated GFR 14; Globulin 2.2 g/dL (2.4-3.5); Glucose 76 mg/dL (83-110); Potassium 3.5 mmol/L (3.5-5.1); Protein, Total 5.3 g/dL (5.8-8.1); Sodium 141 mmol/L (136-145)
[2023-02-11] MEDS: Sevelamer Carbonate 800 MG TAB PO SCH ×3 (09:28→16:10)
[2023-02-11] MEDS: Enoxaparin 30 MG (0.3 mL) SYRINGE SC SCH (09:28)
[2023-02-11] MEDS: Midodrine HCl 5 MG TAB PO SCH ×3 (09:29→21:39)
[2023-02-11] MEDS: Folic Acid 1 MG TAB PO SCH (09:29)
[2023-02-11] MEDS: Gabapentin 100 MG CAP PO SCH ×3 (09:29→21:39)
[2023-02-11] MEDS: cefTRIAXone\\ROCEPHIN 2 GM in Sodium Chloride 0.9% 100 ML IVPB SCH (15:04)
[2023-02-11] MEDS: Atorvastatin Calcium 20 MG TAB PO SCH (21:39)
[2023-02-11] MEDS: Insulin Glargine 30 UNITS/0.3 ML VIAL SC SCH (21:41)
[2023-02-12] MEDS: Sodium Chloride 0.9% 1,000 ML IV SCH ×2 (04:32→16:41)
[2023-02-12 06:30] LABS: #Basophils 0.1 thou/uL (0.0-0.2); #Eosinphils 0.4 thou/uL (0.0-0.7); #Neutrophils 9.2 thou/uL (1.40-6.50); %Basophils 0.9 % (0.0-1.0); %Eosinophils 2.9 % (0.0-10.0); %Lymphocytes 14.8 % (21.0-51.0); %Monocytes 7.6 % (0.0-10.0); %Neutrophils 69.5 % (42.0-75.0); Hematocrit 33.8 % (36.0-47.0); Hemoglobin 10.4 g/dL (12.0-16.0); Mean Corpuscular HGB CONC 30.8 g/dL (32.0-36.0); Mean Corpuscular Hemoglobin 30.8 pg (27.0-31.0); Mean Platelet Volume 11.9 fL (7.4-10.4); Platelet Count 138 10x3/uL (130-400); RBC Distribution Width 19.3 % (11.5-14.5); Red Blood Cell (RBC) Count 3.38 mill/uL (4.20-5.40); White Blood Cell (WBC) Count 13.3 10x3/uL (4.8-10.8)
[2023-02-12 06:57] LABS: Anion Gap 15 mmol/L (10-20); BUN (Urea Nitrogen) 12 mg/dL (9.8-20.1); Calc. Creatinine Clearance 19 mL/min (70-130); Calcium 7.2 mg/dL (7.8-10.44); Carbon Dioxide 17 mmol/L (23-31); Chloride 110 mmol/L (98-107); Estimated GFR 22; Glucose 105 mg/dL (83-110); Potassium 3.3 mmol/L (3.5-5.1); Sodium 139 mmol/L (136-145)
[2023-02-12] MEDS ORDERED: Potassium Chloride 10 MEQ TAB PO SCH (08:00)
[2023-02-12] MEDS: Gabapentin 100 MG CAP PO SCH ×3 (08:23→20:36)
[2023-02-12] MEDS: Folic Acid 1 MG TAB PO SCH (08:24)
[2023-02-12] MEDS: Enoxaparin 30 MG (0.3 mL) SYRINGE SC SCH (08:24)
[2023-02-12] MEDS: Sevelamer Carbonate 800 MG TAB PO SCH ×3 (08:24→16:41)
[2023-02-12] MEDS: Midodrine HCl 5 MG TAB PO SCH ×3 (08:24→20:37)
[2023-02-12] MEDS: cefTRIAXone\\ROCEPHIN 2 GM in Sodium Chloride 0.9% 100 ML IVPB SCH (15:10)
[2023-02-12] MEDS: Insulin Glargine 30 UNITS/0.3 ML VIAL SC SCH (20:37)
[2023-02-12] MEDS: Atorvastatin Calcium 20 MG TAB PO SCH (20:37)
[2023-02-13] MEDS: Sodium Chloride 0.9% 1,000 ML IV SCH ×2 (07:16→20:49)
[2023-02-13 07:23] LABS: Anion Gap 11 mmol/L (10-20); BUN (Urea Nitrogen) 15 mg/dL (9.8-20.1); Calc. Creatinine Clearance 16 mL/min (70-130); Calcium 7.2 mg/dL (7.8-10.44); Carbon Dioxide 20 mmol/L (23-31); Chloride 113 mmol/L (98-107); Estimated GFR 18; Glucose 177 mg/dL (83-110); Potassium 3.2 mmol/L (3.5-5.1); Sodium 141 mmol/L (136-145)
[2023-02-13] MEDS ORDERED: Potassium Chloride 20 MEQ TAB PO SCH (08:00)
[2023-02-13] MEDS: Enoxaparin 30 MG (0.3 mL) SYRINGE SC SCH (08:34)
[2023-02-13] MEDS: Sevelamer Carbonate 800 MG TAB PO SCH ×3 (08:34→17:08)
[2023-02-13] MEDS: Midodrine HCl 5 MG TAB PO SCH ×3 (08:35→20:50)
[2023-02-13] MEDS: Folic Acid 1 MG TAB PO SCH (08:35)
[2023-02-13] MEDS: Gabapentin 100 MG CAP PO SCH ×3 (08:35→20:49)
[2023-02-13] MEDS: cefTRIAXone\\ROCEPHIN 2 GM in Sodium Chloride 0.9% 100 ML IVPB SCH (14:51)
[2023-02-13] MEDS: Atorvastatin Calcium 20 MG TAB PO SCH (20:49)
[2023-02-13] MEDS: Insulin Glargine 30 UNITS/0.3 ML VIAL SC SCH (22:20)
[2023-02-14 04:54] VITALS: BMI 22.9
[2023-02-14 05:49] LABS: #Eosinphils 0.3 thou/uL (0.0-0.7); #Monocytes 0.7 thou/uL (0.11-0.59); #Neutrophils 9.1 thou/uL (1.40-6.50); %Basophils 0.3 % (0.0-1.0); %Eosinophils 2.4 % (0.0-10.0); %Lymphocytes 18.6 % (21.0-51.0); %Monocytes 5.3 % (0.0-10.0); %Neutrophils 71.7 % (42.0-75.0); Hematocrit 30.4 % (36.0-47.0); Hemoglobin 9.3 g/dL (12.0-16.0); Mean Corpuscular HGB CONC 30.6 g/dL (32.0-36.0); Mean Corpuscular Volume 101.3 fl (78.0-98.0); Mean Platelet Volume 12.4 fL (7.4-10.4); Platelet Count 162 10x3/uL (130-400); RBC Distribution Width 20.4 % (11.5-14.5); White Blood Cell (WBC) Count 12.7 10x3/uL (4.8-10.8)
[2023-02-14 06:51] LABS: Anion Gap 11 mmol/L (10-20); BUN (Urea Nitrogen) 15 mg/dL (9.8-20.1); Calc. Creatinine Clearance 15 mL/min (70-130); Calcium 7.3 mg/dL (7.8-10.44); Carbon Dioxide 20 mmol/L (23-31); Chloride 114 mmol/L (98-107); Estimated GFR 17; Glucose 115 mg/dL (83-110); Potassium 3.3 mmol/L (3.5-5.1); Sodium 142 mmol/L (136-145)
[2023-02-14] MEDS: Enoxaparin 30 MG (0.3 mL) SYRINGE SC SCH (09:47)
[2023-02-14] MEDS: Ergocalciferol 1.25 MG(50,000 UNITS) CAP PO SCH (09:47)
[2023-02-14] MEDS: Sevelamer Carbonate 800 MG TAB PO SCH ×3 (09:47→15:57)
[2023-02-14] MEDS: Folic Acid 1 MG TAB PO SCH (09:48)
[2023-02-14] MEDS: Gabapentin 100 MG CAP PO SCH ×3 (09:48→20:50)
[2023-02-14] MEDS: Midodrine HCl 5 MG TAB PO SCH ×3 (09:48→20:50)
[2023-02-14] MEDS: Sodium Chloride 0.9% 1,000 ML IV SCH ×2 (09:49→20:51)
[2023-02-14] MEDS: cefTRIAXone\\ROCEPHIN 2 GM in Sodium Chloride 0.9% 100 ML IVPB SCH (15:55)
[2023-02-14] MEDS: Atorvastatin Calcium 20 MG TAB PO SCH (20:50)
[2023-02-14] MEDS: Insulin Glargine 30 UNITS/0.3 ML VIAL SC SCH (20:51)
[2023-02-15] MEDS: Enoxaparin 30 MG (0.3 mL) SYRINGE SC SCH (08:20)
[2023-02-15] MEDS: Gabapentin 100 MG CAP PO SCH ×2 (08:20→15:38)
[2023-02-15] MEDS: Sevelamer Carbonate 800 MG TAB PO SCH ×3 (08:20→17:01)
[2023-02-15] MEDS: Folic Acid 1 MG TAB PO SCH (08:21)
[2023-02-15] MEDS: Midodrine HCl 5 MG TAB PO SCH ×2 (08:21→15:39)
[2023-02-15] MEDS: Sodium Chloride 0.9% 1,000 ML IV SCH (08:22)
[2023-02-15 08:39] LABS: #Eosinphils 0.3 thou/uL (0.0-0.7); #Monocytes 0.8 thou/uL (0.11-0.59); #Neutrophils 9.3 thou/uL (1.40-6.50); %Basophils 0.2 % (0.0-1.0); %Lymphocytes 17.4 % (21.0-51.0); %Monocytes 6.2 % (0.0-10.0); %Neutrophils 73.1 % (42.0-75.0); Hematocrit 29.5 % (36.0-47.0); Hemoglobin 9.2 g/dL (12.0-16.0); Mean Corpuscular HGB CONC 31.2 g/dL (32.0-36.0); Mean Corpuscular Hemoglobin 31.4 pg (27.0-31.0); Mean Corpuscular Volume 100.7 fl (78.0-98.0); Mean Platelet Volume 12.1 fL (7.4-10.4); Platelet Count 181 10x3/uL (130-400); RBC Distribution Width 20.9 % (11.5-14.5); Red Blood Cell (RBC) Count 2.93 mill/uL (4.20-5.40); White Blood Cell (WBC) Count 12.7 10x3/uL (4.8-10.8)
[2023-02-15 08:58] LABS: Anion Gap 10 mmol/L (10-20); BUN (Urea Nitrogen) 9 mg/dL (9.8-20.1); Calc. Creatinine Clearance 21 mL/min (70-130); Calcium 7.3 mg/dL (7.8-10.44); Carbon Dioxide 23 mmol/L (23-31); Chloride 109 mmol/L (98-107); Estimated GFR 25; Glucose 116 mg/dL (83-110); Potassium 3.2 mmol/L (3.5-5.1); Sodium 139 mmol/L (136-145)
[2023-02-15] MEDS: EPOETIN ALFA-EPBX (ESRD) 10,000 UNITS/ML VIAL SC SCH (11:27)
[2023-02-15] MEDS ORDERED: Potassium Chloride 20 MEQ TAB PO SCH (11:30)
[2023-02-15] MEDS: cefTRIAXone\\ROCEPHIN 2 GM in Sodium Chloride 0.9% 100 ML IVPB SCH (15:39)
[2023-02-15 16:23] VITALS: BP 157/70; TEMP 97.1
== END 2023-02-15 18:52 | DRG 871 ==
LOC: ERS 18:44 → CCU 20:47 → MERGE 20:47 → T4-B 02-08 06:25 → ERHOLD 02-08 17:44 → T4-B 02-08 17:45 → CCU 02-09 09:08 → T4-B 02-10 15:34
PROVIDERS: ADMIT Student in an Organized Health Care Education/Training Program; ATTEND Family Medicine
PROC: 02HV33Z Insertion of Infusion Device into Superior Vena Cava, Percutaneous Approach (ICD-10-PCS; principal; 2023-02-05)
PROC: B548ZZA Ultrasonography of Superior Vena Cava, Guidance (ICD-10-PCS; 2023-02-05)
PROC: 4A033R1 Measurement of Arterial Saturation, Peripheral, Percutaneous Approach (ICD-10-PCS; 2023-02-05)
PROC: 30233N1 Transfusion of Nonautologous Red Blood Cells into Peripheral Vein, Percutaneous Approach (ICD-10-PCS; 2023-02-05)
PROC: 3E033XZ Introduction of Vasopressor into Peripheral Vein, Percutaneous Approach (ICD-10-PCS; 2023-02-05)
PROC: 3E03329 Introduction of Other Anti-infective into Peripheral Vein, Percutaneous Approach (ICD-10-PCS; 2023-02-05)
PROC: 0FC98ZZ Extirpation of Matter from Common Bile Duct, Via Natural or Artificial Opening Endoscopic (ICD-10-PCS; 2023-02-06)
PROC: BF101ZZ Fluoroscopy of Bile Ducts using Low Osmolar Contrast (ICD-10-PCS; 2023-02-06)
PROC: 30233L1 Transfusion of Nonautologous Fresh Plasma into Peripheral Vein, Percutaneous Approach (ICD-10-PCS; 2023-02-06)
PROC: 30233K1 Transfusion of Nonautologous Frozen Plasma into Peripheral Vein, Percutaneous Approach (ICD-10-PCS; 2023-02-06)
PROC: 5A1D70Z Performance of Urinary Filtration, Intermittent, Less than 6 Hours Per Day (ICD-10-PCS; 2023-02-06)
PROC: 02H633Z Insertion of Infusion Device into Right Atrium, Percutaneous Approach (ICD-10-PCS; 2023-02-09)
PROC: B548ZZA Ultrasonography of Superior Vena Cava, Guidance (ICD-10-PCS; 2023-02-09)
PROC: 30233J1 Transfusion of Nonautologous Serum Albumin into Peripheral Vein, Percutaneous Approach (ICD-10-PCS; 2023-02-09)
PROC: 5A1D70Z Performance of Urinary Filtration, Intermittent, Less than 6 Hours Per Day (ICD-10-PCS; 2023-02-11)
PROC: 5A1D70Z Performance of Urinary Filtration, Intermittent, Less than 6 Hours Per Day (ICD-10-PCS; 2023-02-14)
DX: A41.59 Other Gram-negative sepsis (principal); G93.41 Metabolic encephalopathy; N18.6 End stage renal disease; R65.21 Severe sepsis with septic shock; I21.A1 Myocardial infarction type 2; I13.2 Hypertensive heart and chronic kidney disease with heart failure and with stage 5 chronic kidney disease, or end stage renal disease; A09 Infectious gastroenteritis and colitis, unspecified; I48.20 Chronic atrial fibrillation, unspecified; K80.51 Calculus of bile duct without cholangitis or cholecystitis with obstruction; N10 Acute pyelonephritis; K83.09 Other cholangitis; E11.22 Type 2 diabetes mellitus with diabetic chronic kidney disease; D53.9 Nutritional anemia, unspecified; E87.6 Hypokalemia; E88.09 Other disorders of plasma-protein metabolism, not elsewhere classified; I50.9 Heart failure, unspecified; E78.5 Hyperlipidemia, unspecified; F32.A Depression, unspecified; A41.51 Sepsis due to Escherichia coli [E. coli]; R13.10 Dysphagia, unspecified; Z88.8 Allergy status to other drugs, medicaments and biological substances; Z79.82 Long term (current) use of aspirin; Z79.899 Other long term (current) drug therapy; Z79.01 Long term (current) use of anticoagulants; Z99.2 Dependence on renal dialysis; Z90.49 Acquired absence of other specified parts of digestive tract; Z11.52 Encounter for screening for COVID-19
CPT/HCPCS: 36415; 36416; 36430; 36556; 70450; 71045; 71260; 74177; 74330; 76705; 80048; 80053; 81001; 82274; 82728; 82805; 83540; 83550; 83605; 83690; 83735; 84484; 85025; 85027; 85384; 85610; 85730; 86704; 86850; 86900; 86901; 87040; 87071; 87077; 87086; 87149; 87186; 87804; 90935; 93005; 94002; 96365; 96366; 96367; 96368; 97139; C1725; C9113; G0257; J0692; J0696; J1650; J1815; J2405; J2543; J3370; J3430; J3475; J3480; J3490; J7050; P9016; P9047; P9059; Q5105; Q9967; U0002

== ENCOUNTER 2023-02-20 18:39 | Inpatient (IN) | payer MEDICARE, MEDICAID ==
[2023-02-20 20:08] LABS: #Basophils 0.1 thou/uL (0.0-0.2); #Eosinphils 0.1 thou/uL (0.0-0.7); #Monocytes 0.7 thou/uL (0.11-0.59); #Neutrophils 12.4 thou/uL (1.40-6.50); %Basophils 0.3 % (0.0-1.0); %Eosinophils 0.3 % (0.0-10.0); %Lymphocytes 13.2 % (21.0-51.0); %Monocytes 4.7 % (0.0-10.0); Hematocrit 30.1 % (36.0-47.0); Hemoglobin 9.3 g/dL (12.0-16.0); Mean Corpuscular HGB CONC 30.9 g/dL (32.0-36.0); Mean Corpuscular Hemoglobin 31.7 pg (27.0-31.0); Mean Corpuscular Volume 102.7 fl (78.0-98.0); Mean Platelet Volume 11.6 fL (7.4-10.4); Platelet Count 208 10x3/uL (130-400); RBC Distribution Width 22.3 % (11.5-14.5); Red Blood Cell (RBC) Count 2.93 mill/uL (4.20-5.40); White Blood Cell (WBC) Count 15.3 10x3/uL (4.8-10.8)
[2023-02-20 20:33] LABS: ALT (SGPT) Less than 7 U/L (8-55); AST (SGOT) 13 U/L (5-34); Albumin 2.2 g/dL (3.4-4.8); Alkaline Phosphatase 129 U/L (40-110); Anion Gap 11 mmol/L (10-20); BUN (Urea Nitrogen) 13 mg/dL (9.8-20.1); Bilirubin, Total 0.7 mg/dL (0.2-1.2); Calc. Creatinine Clearance 0 mL/min (70-130); Calcium 7.2 mg/dL (7.8-10.44); Carbon Dioxide 26 mmol/L (23-31); Chloride 103 mmol/L (98-107); Estimated GFR 19; Globulin 2.4 g/dL (2.4-3.5); Glucose 91 mg/dL (83-110); Lipase 7 U/L (8-78); Protein, Total 4.6 g/dL (5.8-8.1); Sodium 137 mmol/L (136-145)
[2023-02-20 20:36] LABS: Troponin I 0.027 ng/mL (< 0.028)
[2023-02-20 21:27] LABS: Bacteria/HPF 3+ HPF (None Seen); Bilirubin Negative (Negative); Blood, Urine 2+ (Negative); CAUTI Indications for Culture Pelvic or flank pain; Clarity Turbid (Clear); Glucose, Urine (Dipstick) Normal (Negative); Ketone, Urine Negative (Negative); Leukocyte 75 Leu/uL (Negative); Nitrite Negative (Negative); Protein, Urine (Dipstick) 300 mg/dL (Neg-Trace); Renal Epithelial 0-3 HPF (None Seen); Specific Gravity, Urine 1.024 (1.002-1.036); Transitional Epithelial 0-3 HPF (None Seen); Urobilinogen Normal mg/dL (Less than 2); WBC/HPF 21-50 HPF (0-3); Yeast-Budding 2+ HPF (None Seen); pH, Urine 5.5 (5.0-9.0)
[2023-02-20 21:28] LABS: Urine Culture Reflex Yes Yes
[2023-02-21] MEDS ORDERED: Acetaminophen 325 MG TAB PO PRN (00:15)
[2023-02-21] MEDS ORDERED: Ondansetron PF 4 MG/2 ML Vial IVP PRN (00:15)
[2023-02-21] MEDS ORDERED: Ondansetron ODT 4 MG TAB SL PRN (00:15)
[2023-02-21] MEDS ORDERED: Electrolyte Replacement Protocol 1 EACH FS SCH (01:15)
[2023-02-21] MEDS ORDERED: Sodium Chloride 0.9% 1,000 ML IV SCH (01:15)
[2023-02-21] MEDS: Potassium Chloride 20 MEQ in Premix 1 BAG IVPB SCH ×2 (01:47→03:16)
[2023-02-21 04:52] LABS: #Basophils 0.1 thou/uL (0.0-0.2); #Eosinphils 0.1 thou/uL (0.0-0.7); #Monocytes 0.9 thou/uL (0.11-0.59); #Neutrophils 9.6 thou/uL (1.40-6.50); %Basophils 0.4 % (0.0-1.0); %Eosinophils 0.9 % (0.0-10.0); %Lymphocytes 14.1 % (21.0-51.0); %Neutrophils 77.2 % (42.0-75.0); Hematocrit 32.5 % (36.0-47.0); Hemoglobin 10.2 g/dL (12.0-16.0); Mean Corpuscular HGB CONC 31.4 g/dL (32.0-36.0); Mean Corpuscular Hemoglobin 31.8 pg (27.0-31.0); Mean Corpuscular Volume 101.2 fl (78.0-98.0); Mean Platelet Volume 11.5 fL (7.4-10.4); Platelet Count 190 10x3/uL (130-400); RBC Distribution Width 22.3 % (11.5-14.5); Red Blood Cell (RBC) Count 3.21 mill/uL (4.20-5.40); White Blood Cell (WBC) Count 12.4 10x3/uL (4.8-10.8)
[2023-02-21 05:16] LABS: Anion Gap 12 mmol/L (10-20); BUN (Urea Nitrogen) 14 mg/dL (9.8-20.1); Calc. Creatinine Clearance 17 mL/min (70-130); Calcium 7.5 mg/dL (7.8-10.44); Carbon Dioxide 25 mmol/L (23-31); Chloride 104 mmol/L (98-107); Estimated GFR 18; Glucose 67 mg/dL (83-110); Potassium 3.6 mmol/L (3.5-5.1); Sodium 137 mmol/L (136-145)
[2023-02-21 05:17] LABS: Anion Gap 12 mmol/L (10-20); BUN (Urea Nitrogen) 13 mg/dL (9.8-20.1); Calc. Creatinine Clearance 17 mL/min (70-130); Calcium 7.5 mg/dL (7.8-10.44); Carbon Dioxide 24 mmol/L (23-31); Chloride 105 mmol/L (98-107); Estimated GFR 18; Glucose 68 mg/dL (83-110); Magnesium 2.2 mg/dL (1.6-2.6); Potassium 3.7 mmol/L (3.5-5.1); Sodium 137 mmol/L (136-145)
[2023-02-21] MEDS ORDERED: Glucagon 1 MG/ML KIT IM PRN (05:33)
[2023-02-21] MEDS ORDERED: HumaLOG 300 UNITS/3 ML VIAL SC PRN (05:33)
[2023-02-21] MEDS ORDERED: Dextrose 50% Abboject 50 ML SYRINGE SLOW IVP PRN (05:33)
[2023-02-21] MEDS ORDERED: Dextrose 5% in Water 1,000 ML IV PRN (05:33)
[2023-02-21] MEDS: cefTRIAXone\\ROCEPHIN 2 GM in Sodium Chloride 0.9% 100 ML IVPB SCH (05:54)
[2023-02-21] MEDS ORDERED: Epoetin (ESRD) 20,000 UNITS/ML MDV SC SCH (07:30)
[2023-02-21] MEDS ORDERED: Heparin 10,000 UNITS/ 10 ML VIAL ONE (10:55)
[2023-02-21] MEDS ORDERED: EPOETIN ALFA-EPBX (ESRD) 10,000 UNITS/ML VIAL SC SCH (12:00)
[2023-02-21 13:37] VITALS: BMI 28.9
[2023-02-21] MEDS ORDERED: Morphine 2 MG/ML VIAL SLOW IVP PRN (14:47)
[2023-02-22] MEDS: cefTRIAXone\\ROCEPHIN 2 GM in Sodium Chloride 0.9% 100 ML IVPB SCH (05:03)
[2023-02-22 07:09] LABS: #Basophils 0.1 thou/uL (0.0-0.2); #Eosinphils 0.2 thou/uL (0.0-0.7); #Neutrophils 8.3 thou/uL (1.40-6.50); %Basophils 0.6 % (0.0-1.0); %Eosinophils 1.4 % (0.0-10.0); %Lymphocytes 15.4 % (21.0-51.0); %Monocytes 8.4 % (0.0-10.0); %Neutrophils 73.8 % (42.0-75.0); Hematocrit 31.5 % (36.0-47.0); Hemoglobin 9.6 g/dL (12.0-16.0); Mean Corpuscular HGB CONC 30.5 g/dL (32.0-36.0); Mean Corpuscular Volume 101.6 fl (78.0-98.0); Mean Platelet Volume 11.8 fL (7.4-10.4); Platelet Count 192 10x3/uL (130-400); RBC Distribution Width 22.4 % (11.5-14.5); White Blood Cell (WBC) Count 11.3 10x3/uL (4.8-10.8)
[2023-02-22 07:35] LABS: ALT (SGPT) Less than 7 U/L (8-55); AST (SGOT) 13 U/L (5-34); Alkaline Phosphatase 129 U/L (40-110); Anion Gap 11 mmol/L (10-20); BUN (Urea Nitrogen) 9 mg/dL (9.8-20.1); Bilirubin, Total 0.5 mg/dL (0.2-1.2); Calc. Creatinine Clearance 20 mL/min (70-130); Calcium 7.4 mg/dL (7.8-10.44); Carbon Dioxide 23 mmol/L (23-31); Chloride 104 mmol/L (98-107); Estimated GFR 21; Globulin 2.7 g/dL (2.4-3.5); Glucose 173 mg/dL (83-110); Potassium 3.4 mmol/L (3.5-5.1); Protein, Total 4.7 g/dL (5.8-8.1); Sodium 135 mmol/L (136-145)
[2023-02-22] MEDS ORDERED: Potassium Chloride 20 MEQ TAB PO SCH ×2 (09:00→09:15)
[2023-02-22] MEDS ORDERED: Potassium Bicarbonate/Cit Ac 20 MEQ TAB PER TUBE SCH (10:00)
[2023-02-22] MEDS: Sevelamer Carbonate 800 MG TAB PO SCH ×2 (13:18→21:18)
[2023-02-22] MEDS ORDERED: Fluconazole In NaCl,Iso-Osm 200 MG in Premix 1 BAG IVPB SCH (13:30)
[2023-02-22 14:39] LABS: Campy jejuni + coli by PCR Negative (Negative); STEC Shiga Toxin 1+2 Negative (Negative); Salmonella spp. by PCR Negative (Negative); Shigella spp + EIEC by PCR Negative (Negative)
[2023-02-22] MEDS ORDERED: Metoprolol Tartrate 25 MG TAB PO SCH (21:00)
[2023-02-22] MEDS: Metoprolol Tartrate 25 MG TAB PO SCH (21:18)
[2023-02-22] MEDS: Atorvastatin Calcium 20 MG TAB PO SCH (21:18)
[2023-02-22] MEDS: Apixaban 2.5 MG TAB PO SCH (21:18)
[2023-02-23] MEDS: cefTRIAXone\\ROCEPHIN 2 GM in Sodium Chloride 0.9% 100 ML IVPB SCH (05:45)
[2023-02-23 06:33] LABS: Anion Gap 10 mmol/L (10-20); BUN (Urea Nitrogen) 11 mg/dL (9.8-20.1); Calc. Creatinine Clearance 17 mL/min (70-130); Calcium 7.4 mg/dL (7.8-10.44); Carbon Dioxide 26 mmol/L (23-31); Chloride 105 mmol/L (98-107); Estimated GFR 17; Glucose 193 mg/dL (83-110); Potassium 3.5 mmol/L (3.5-5.1); Sodium 137 mmol/L (136-145)
[2023-02-23] MEDS ORDERED: Potassium Bicarbonate/Cit Ac 20 MEQ TAB PER TUBE SCH (08:00)
[2023-02-23] MEDS: Sertraline 25 MG TAB PO SCH (08:34)
[2023-02-23] MEDS: Folic Acid 1 MG TAB PO SCH (08:34)
[2023-02-23] MEDS: Metoprolol Tartrate 25 MG TAB PO SCH ×2 (08:34→20:56)
[2023-02-23] MEDS: Apixaban 2.5 MG TAB PO SCH ×2 (08:34→20:56)
[2023-02-23] MEDS: Aspirin 81 mg Enteric Coated Tablet PO SCH (08:34)
[2023-02-23] MEDS: Sevelamer Carbonate 800 MG TAB PO SCH ×3 (08:34→20:56)
[2023-02-23] MEDS: Calcitriol 0.25 MCG CAP PO SCH (08:34)
[2023-02-23] MEDS: Ferrous Sulfate 325 MG TAB PO SCH (08:34)
[2023-02-23] MEDS ORDERED: Heparin 10,000 UNITS/ 10 ML VIAL ONE (08:48)
[2023-02-23] MEDS ORDERED: Non-Formulary Item 1 EACH (Sertraline Hcl [Zoloft] 50 MG Tablet) PO SCH (09:00)
[2023-02-23] MEDS: HumaLOG 300 UNITS/3 ML VIAL SC PRN (17:26)
[2023-02-23] MEDS: Atorvastatin Calcium 20 MG TAB PO SCH (20:56)
[2023-02-24] MEDS: HumaLOG 300 UNITS/3 ML VIAL SC PRN (05:43)
[2023-02-24] MEDS: Aspirin 81 mg Enteric Coated Tablet PO SCH (09:18)
[2023-02-24] MEDS: Folic Acid 1 MG TAB PO SCH (09:18)
[2023-02-24] MEDS: Apixaban 2.5 MG TAB PO SCH (09:18)
[2023-02-24] MEDS: Metoprolol Tartrate 25 MG TAB PO SCH (09:18)
[2023-02-24] MEDS: Calcitriol 0.25 MCG CAP PO SCH (09:20)
[2023-02-24] MEDS: Sevelamer Carbonate 800 MG TAB PO SCH (09:21)
[2023-02-24] MEDS: Sertraline 25 MG TAB PO SCH (09:24)
[2023-02-24] MEDS: Ferrous Sulfate 325 MG TAB PO SCH (09:26)
[2023-02-24 15:51] VITALS: BP 146/65; TEMP 97.7
== END 2023-02-24 15:25 | DRG 70 ==
LOC: ERS 18:39 → T4-A 22:35 → OBSVTOIN 02-22 08:59
PROVIDERS: ADMIT Student in an Organized Health Care Education/Training Program; ATTEND Internal Medicine
PROC: 5A1D70Z Performance of Urinary Filtration, Intermittent, Less than 6 Hours Per Day (ICD-10-PCS; principal; 2023-02-21)
DX: G93.41 Metabolic encephalopathy (principal); N18.6 End stage renal disease; I12.0 Hypertensive chronic kidney disease with stage 5 chronic kidney disease or end stage renal disease; R78.81 Bacteremia; E87.1 Hypo-osmolality and hyponatremia; K83.09 Other cholangitis; Z66 Do not resuscitate; Z51.5 Encounter for palliative care; E11.22 Type 2 diabetes mellitus with diabetic chronic kidney disease; L89.152 Pressure ulcer of sacral region, stage 2; R19.7 Diarrhea, unspecified; B96.1 Klebsiella pneumoniae [K. pneumoniae] as the cause of diseases classified elsewhere; D63.1 Anemia in chronic kidney disease; I48.0 Paroxysmal atrial fibrillation; E87.6 Hypokalemia; G47.33 Obstructive sleep apnea (adult) (pediatric); Z79.82 Long term (current) use of aspirin; Z79.899 Other long term (current) drug therapy; Z98.890 Other specified postprocedural states; Z99.2 Dependence on renal dialysis
CPT/HCPCS: 36415; 36416; 51701; 70450; 71045; 80048; 80053; 81001; 82140; 83690; 83735; 84484; 85025; 87040; 87086; 87324; 87449; 87505; 90935; 93005; 94760; 96365; 96372; 96375; 96376; 97139; G0257; G0378; J0696; J1450; J1644; J1815; J2272; J3480; J3490; Q5105